=== PATIENT | male | born 1940 | race African-American/Black ===

== ENCOUNTER 2016-09-16 16:07 | Inpatient (IN) ==
[2016-09-16] MEDS ORDERED: Ondansetron 4 MG/2 ML VIAL IVP PRN ×2 (17:09→20:11)
[2016-09-16] MEDS ORDERED: 0.9 % Sodium Chloride 1,000 ML IVC ONE (17:09)
--- NOTE | 2016-09-16 17:24 | Emergency Department Note ---
START Narrative - START START: I examined this patient and my medical decision-making was reviewed with the Resident Physician. I agree with the documented findings, disposition and treatment plan as described except to the extent set forth below. 75-year-old male presents for nausea and vomiting and weakness. Poor by mouth intake recently. Poor appetite. Complaining of dysphagia. Having problems with solid foods getting stuck in his esophagus. He has had this in the past he states requiring dilatation for stricture. He feels like this is returned again today. Denies any new pain anywhere. No fevers or chills. Does have some loose stools. Plan this time is to check labs. Given a chest x-ray to make sure he has no obvious mass or anything impinging on the esophagus. We will need a GI consult. Will need an EGD.
--- NOTE | 2016-09-16 17:34 | Emergency Department Note ---
Disposition Clinical Impression: Hypoglycemia, Dehydration Chronic kidney disease Qualifiers: Chronic kidney disease stage: unspecified stage Qualified Code(s): N18.9 - Chronic kidney disease, unspecified Disposition: Admitted As Inpatient Condition: Good Time of Disposition: 19:31 General Adult HPI - General Chief complaint: ED Weakness Stated complaint: Dehydrated,Vomiting,weakness Time Seen by Provider: 09/16/16 16:52 Source: patient Mode of arrival: ambulatory Limitations: no limitations Nursing Notes Reviewed: Yes Vital Signs Reviewed: Yes - History of Present Illness HPI Narrative: 75-year-old male history of esophageal stricture presents to the ED for concern of dehydration as well as weakness. He reports over 3 months ago he had a ED performed here at [facility]. We confronted him multiple times that we cannot find this in the medical records, it does appear that he had one a year ago in April but he is adamant that it was 3 months ago. States at that time they had to dilate the stricture to help with his swallowing. He presents because last 4 days he has been unable to swallow solid foods. This has been a chronic thing over the past several months he has been unable to keep anything down as it gets caught in his throat. States he can drink liquids and sometimes of ED to say what she must flush it down with fluids. He is able to eat soft foods such as yogurt or Jell-O. He lives at home with his son. He states ever since 3 weeks ago when his nephew was murdered in [place] he has been feeling more week and ill. He was hospitalized for multiple days and has not regained his strength sent. He does reports over the past week or so he has been having loose stools has resolved after [id number] medication. Denies any recent falls, chest pain, shortness of breath, no abdominal pain. He reports some weakness in his lower extremity which is likely due to deconditioning. Reports generalize weakness as well as weight loss states he is away 150 and currently 139. Review of his medical records we are unable to review the endoscopy reports. Will check some basic labs, chest x-ray and EKG. Pain Scale: 6 - Related Data Home Medications Medication Instructions Recorded Confirmed Atorvastatin [Lipitor] 40 mg PO HS 02/21/15 09/16/16 Calcium Carbonate/Vitamin D2 1 tab PO BID 02/21/15 09/16/16 [Oyster Shell Calcium-Vit D Tab] Carvedilol [Coreg] 6.25 mg PO HS 02/21/15 09/16/16 Furosemide [Lasix] 40 mg PO BID 02/21/15 09/16/16 Lisinopril 2.5 mg PO DAILY 02/21/15 09/16/16 Omeprazole [PriLOSEC] 40 mg PO DAILY 02/21/15 09/16/16 Sertraline [Zoloft] 25 mg PO DAILY 02/21/15 09/16/16 Spironolactone [Aldactone] 12.5 mg PO DAILY 02/21/15 09/16/16 hydrALAZINE [HydrALAZINE] 50 mg PO TID 02/21/15 09/16/16 Carvedilol 12.5 mg PO QAM 04/14/15 09/16/16 Loperamide [Imodium] 2 mg PO QID PRN 12/12/15 09/16/16 Albuterol Sulfate [Proair Hfa] 2 puff IH Q4H PRN 09/16/16 09/16/16 Ammonium Lactate [Lac-Hydrin Five] 1 appl TP DAILY 09/16/16 09/16/16 Ascorbate Calcium [Vitamin C] 500 mg PO DAILY 09/16/16 09/16/16 Benzonatate [Tessalon] 100 mg PO TID PRN 09/16/16 09/16/16 Calcitriol [Rocaltrol] 0.25 mcg PO DAILY 09/16/16 09/16/16 Cyclobenzaprine HCl 5 mg PO BID 09/16/16 09/16/16 Dicyclomine [Bentyl] 20 mg PO QID 09/16/16 09/16/16 Doxazosin Mesylate [Cardura] 8 mg PO DAILY 09/16/16 09/16/16 Ergocalciferol (VITAMIN D2) 50,000 unit PO QMONTH 09/16/16 09/16/16 [Vitamin D2] Escitalopram [Lexapro] 10 mg PO DAILY 09/16/16 09/16/16 Guaifenesin [Tussin] 200 mg PO Q4H PRN 09/16/16 09/16/16 HYDROcodone/Acet 5/325 mg [[place] 1 tab PO Q6H PRN 09/16/16 09/16/16 5-325 mg] Ondansetron HCl [Zofran] 4 mg PO TID PRN 09/16/16 09/16/16 Pregabalin [Lyrica] 50 mg PO TID 09/16/16 09/16/16 Sildenafil Citrate [Revatio] 20 mg PO TID 09/16/16 09/16/16 Previous Rx's Medication Instructions Recorded Nitroglycerin 0.4 mg SL Q5MIN PRN #60 tab.subl 02/25/15 Aspirin 81 mg PO DAILY #30 tab.chew 04/18/15 Ferrous Sulfate 325 mg PO BIDWM #60 tablet 04/29/15 Allergies Allergy/AdvReac Type Severity Reaction Status Date / Time No Known Allergies Allergy Verified 09/29/15 10:02 All systems ED: reviewed and negative except as stated. Review of Systems: As Per HPI Constitutional: Reports: weakness, weight change. Denies: fever, chills Cardiovascular: Denies: chest pain Respiratory: Denies: cough, dyspnea Gastrointestinal: Reports: vomiting. Denies: abdominal pain, nausea Genitourinary: Denies: urgency, dysuria Musculoskeletal: Denies: back pain, neck pain Integumentary: Denies: rash, abrasion Neurological: Denies: headache Past Medical History - Past Medical History Attestation: Yes The following information was validated with the patient. Source: patient Medical history: Reports: arthritis, atrial fibrillation, cardiomyopathy, CHF, COPD, coronary artery disease, diabetes, GERD, hyperlipidemia, hypertension, myocardial infarction, osteoporosis, renal disease Surgical history: Reports: angioplasty/stent, pacemaker/AICD Psychiatric history: Reports: anxiety, depression - Social History Smoking Status: Former smoker Smokeless Tobacco Status: No Alcohol use: Reports: none Drug use: Reports: none Physical Exam - General Limitations: no limitations General appearance: alert, in no apparent distress, cachectic, other (muscle wasting) - Head Head exam: atraumatic, normocephalic, normal inspection - Eye Eye exam: Present: normal appearance, PERRL, EOMI - ENT ENT exam: normal exam, normal oropharynx, mucous membranes dry - Neck Neck exam: Present: normal inspection, full ROM, trachea midline - Chest Chest inspection: Present: normal inspection, symmetric chest wall rise, other ( Pacemaker in the left anterior chest wall) - Respiratory Respiratory exam: Present: normal lung sounds bilaterally. Absent: respiratory distress, wheezes - Cardiovascular Cardiovascular exam: Present: regular rate, normal rhythm, normal heart sounds. Absent: systolic murmur, diastolic murmur - Abdominal Exam Abdominal exam: Present: soft, Non-Tender, normal bowel sounds. Absent: tenderness, distention, guarding, rebound, rigidity - Extremities Exam Extremities exam: Present: normal inspection, full ROM, other (muscle wasting) - Neurological Exam Neurological exam: Present: alert, oriented X3 - Expanded Neurological Exam Motor strength - LUE: 5/5 Motor strength - RUE: 5/5 Motor strength - LLE: 4/5 Motor strength - RLE: 4/5 - Psychiatric Psychiatric exam: Present: normal affect, normal mood - Skin Skin exam: Present: warm, dry, intact, normal color Course - Reevaluation(s) Reevaluation #1: Patient has a history of chronic kidney disease. His creatinine is elevated significantly above his baseline. He has been this high over the past several years. His electrolytes suggest that he is slightly dehydrated. He has had one liter of normal saline. His glucose is low at 65. Patient was awake alert and oriented to person place and time of initial evaluation. We will give him a amp of D50. He is requesting to eat something but due to his symptoms of choking food being stuck we have elected to give him dextrose. He does reports over the past week or so he has been having loose stools has resolved after over -the-counter medication. Review of his chest x-ray days concerns for early consolidation for pneumonia. Due to his current symptoms and absence of any difficulty breathing or coughing I do not believe this to be the case. His lungs are clear auscultation bilaterally. This oxygen saturation has been adequate throughout his stay. States he has been vomiting food substance without any cough sputum production. With his weakness and current symptoms will plan to admit the patient for hydration and further evaluation. Patients in agreement with this plan. Time: 18:54 Reevaluation #2: Requests for a lactate in the urinalysis hospitalist. Patients able to stand with some assistance to urinate. Patient states significant improvement. Patient has been accepted for admission. Impression is dehydration, weakness and hypoglycemia. Time: 19:27 - Consultations Consultation #1: Spoke with on-call hospitalist kendrick Ferguson to admit for dehydration and generalized weakness. Review of his medications he does not appear to be a diabetic. I asked the patient, he typically takes metformin and insulin for his diabetes. He however reports being out of his insulin for the past 3 months and has only been taking his Metformin. Due to his decreased appetite and continued Metformin, likely the reason for his low glucose level. Time: 19:24 Vital Signs Temperature 0 F L 09/16/16 16:11 Pulse Rate 89 09/16/16 16:11 Respiratory Rate 18 09/16/16 16:11 Blood Pressure 149/102 09/16/16 16:11 O2 Sat by Pulse Oximetry 93 09/16/16 16:11 Temperature 0 F L 09/16/16 16:11 Pulse Rate 89 09/16/16 16:11 Respiratory Rate 18 09/16/16 16:11 Blood Pressure 149/102 09/16/16 16:11 O2 Sat by Pulse Oximetry 93 09/16/16 16:11 Medical Decision Making - Medical Records Medical records reviewed: Yes I reviewed the patient's medical records. Review of a upper G.I. endoscopy performed 04/16/2015 shows a mild benign appearing Schatzki ring at the gastroesophageal junction. Dilation was performed within [place] dilator at 60 [place]. There is also localized mild inflammation found in the pre-pyloric region. Biopsies were performed and were negative for H. pylori. A small hiatal hernia also present. Confronted patient again about the endoscopy he reports a recent one 3 months ago and not a year ago. - Lab Data Lab results reviewed: Yes I reviewed the patient's lab results. Result diagrams: 09/16/16 17:31 09/16/16 17:31 Lab Results 09/16/16 09/16/16 09/16/16 Range/Units 17:31 17:31 17:31 WBC 5.4 (4.3-11.1) K/mcL RBC 5.05 (4.19-5.50) M/mcL Hgb 13.5 (12.9-16.9) g/dL Hct 44.0 (37.5-50.1) % MCV 87.1 (83.0-100.0) fL MCH 26.7 L (28.0-33.3) pg MCHC 30.7 L (31.6-35.5) g/dL RDW 18.8 H (11.5-14.5) % Plt Count 187 (140-400) K/mcL MPV 11.4 (9.4-12.4) fL Immature Gran % 0.2 (0-4) % Seg Neutrophils % 67.3 % Lymphocytes % 18.7 % Monocytes % 10.9 % Eosinophils % 2.0 % Basophils % 0.9 % Neutrophils # 3.6 (1.6-8.9) K/mcL Lymphocytes # 1.0 (0.6-4.6) K/mcL Monocytes # 0.6 (0.0-1.3) K/mcL Eosinophils # 0.1 (0.0-0.6) K/mcL Basophils # 0.1 (0.0-0.2) K/mcL Sodium 142 (136-145) mEq/L Potassium 4.7 H (3.5-4.5) mEq/L Chloride 111 H (98-109) mEq/L Carbon Dioxide 15 L (19-29) mEq/L BUN 42 H (8-26) mg/dL Creatinine 3.15 H (0.72-1.25) mg/dL Est GFR ( Amer) 23 L (> 60) Est GFR (Non-Af Amer) 19 L (> 60) BUN/Creatinine Ratio 13 (6-26) Glucose 65 L (70-99) mg/dL Calculated Osmolality 303 H (280-300) Calcium 9.8 (8.6-10.8) mg/dL Total Bilirubin 1.5 H (0.2-1.2) mg/dL Direct Bilirubin 1.0 H (0.0-0.5) mg/dL Indirect Bilirubin 0.5 (0.0-1.2) mg/dL AST 17 (5-34) Units/L ALT 9 (0-55) Units/L Alkaline Phosphatase 55 (38-126) Units/L Serum Total Protein 7.4 (6.0-8.3) g/dL Albumin 3.7 (3.5-5.0) g/dL Globulin 3.7 H (2.4-3.5) g/dL Albumin/Globulin Ratio 1.0 L (1.1-2.2) Lipase 10 (8-78) Units/L Urine Color (Yellow) Urine Clarity (Clear) Urine pH (5.0-8.0) pH Units Ur Specific [place] (1.010-1.025) Urine Protein (Neg-Trace) mg/dL Urine Glucose (UA) (Normal) mg/dL Urine Ketones (Negative) mg/dL Urine Blood (Negative) Urine Nitrite (Negative) Urine Bilirubin (Negative) Urine Urobilinogen (Normal) mg/dL Ur Leukocyte Esterase (Negative) Urine Microscopic RBC (0-3) per hpf Urine Microscopic WBC (0-3) per hpf Ur Squamous Epith Cells (None-Few) per lpf Urine Bacteria (None-Few) per hpf Hyaline Casts (None-Few) per lpf Ur Culture Indicated? (NO) 09/16/16 Range/Units 19:30 WBC (4.3-11.1) K/mcL RBC (4.19-5.50) M/mcL Hgb (12.9-16.9) g/dL Hct (37.5-50.1) % MCV (83.0-100.0) fL MCH (28.0-33.3) pg MCHC (31.6-35.5) g/dL RDW (11.5-14.5) % Plt Count (140-400) K/mcL MPV (9.4-12.4) fL Immature Gran % (0-4) % Seg Neutrophils % % Lymphocytes % % Monocytes % % Eosinophils % % Basophils % % Neutrophils # (1.6-8.9) K/mcL Lymphocytes # (0.6-4.6) K/mcL Monocytes # (0.0-1.3) K/mcL Eosinophils # (0.0-0.6) K/mcL Basophils # (0.0-0.2) K/mcL Sodium (136-145) mEq/L Potassium (3.5-4.5) mEq/L Chloride (98-109) mEq/L Carbon Dioxide (19-29) mEq/L BUN (8-26) mg/dL Creatinine (0.72-1.25) mg/dL Est GFR ( Amer) (> 60) Est GFR (Non-Af Amer) (> 60) BUN/Creatinine Ratio (6-26) Glucose (70-99) mg/dL Calculated Osmolality (280-300) Calcium (8.6-10.8) mg/dL Total Bilirubin (0.2-1.2) mg/dL Direct Bilirubin (0.0-0.5) mg/dL Indirect Bilirubin (0.0-1.2) mg/dL AST (5-34) Units/L ALT (0-55) Units/L Alkaline Phosphatase (38-126) Units/L Serum Total Protein (6.0-8.3) g/dL Albumin (3.5-5.0) g/dL Globulin (2.4-3.5) g/dL Albumin/Globulin Ratio (1.1-2.2) Lipase (8-78) Units/L Urine Color Dark Yellow (Yellow) Urine Clarity Cloudy A (Clear) Urine pH 5.5 (5.0-8.0) pH Units Ur Specific [place] 1.024 (1.010-1.025) Urine Protein >=300 H (Neg-Trace) mg/dL Urine Glucose (UA) Normal (Normal) mg/dL Urine Ketones Trace H (Negative) mg/dL Urine Blood Trace H (Negative) Urine Nitrite Negative (Negative) Urine Bilirubin Moderate H (Negative) Urine Urobilinogen Normal (Normal) mg/dL Ur Leukocyte Esterase Negative (Negative) Urine Microscopic RBC 5-15 H (0-3) per hpf Urine Microscopic WBC 3-5 H (0-3) per hpf Ur Squamous Epith Cells Moderate H (None-Few) per lpf Urine Bacteria None Seen (None-Few) per hpf Hyaline Casts None Seen (None-Few) per lpf Ur Culture Indicated? NO (NO) - Radiology Data Radiology results reviewed: Yes I reviewed the patient's radiology results. Chest X-Ray 09/16/16 17:21 IMPRESSION: Cardiomegaly without overt pulmonary edema. Mild right basilar opacity likely representing atelectasis and small right pleural effusion. Early consolidation from pneumonia cannot be completely excluded. D/ / Marquise Moncada MD / Marquise Moncada MD Interpreting Provider: Marquise Moncada MD
[2016-09-16 17:40] LABS: Basophils # 0.1 K/mcL (0.0-0.2); Basophils % 0.9 %; Eosinophils # 0.1 K/mcL (0.0-0.6); Hemoglobin 13.5 g/dL (12.9-16.9); Immature Granulocytes % 0.2 % (0-4); Lymphocytes % 18.7 %; Mean Corpuscular HGB Conc 30.7 g/dL (31.6-35.5); Mean Corpuscular Hemoglobin 26.7 pg (28.0-33.3); Mean Corpuscular Volume 87.1 fL (83.0-100.0); Mean Platelet Volume 11.4 fL (9.4-12.4); Monocytes # 0.6 K/mcL (0.0-1.3); Monocytes % 10.9 %; Neutrophils # 3.6 K/mcL (1.6-8.9); Platelet Count 187 K/mcL (140-400); Red Blood Count 5.05 M/mcL (4.19-5.50); Red Cell Distribution Width 18.8 % (11.5-14.5); Segmented Neutrophils % 67.3 %
[2016-09-16 17:54] LABS: Calcium 9.8 mg/dL (8.6-10.8); Potassium 4.7 mEq/L (3.5-4.5)
[2016-09-16 17:57] LABS: Albumin 3.7 g/dL (3.5-5.0); Bilirubin,Indirect 0.5 mg/dL (0.0-1.2); Bilirubin,Total 1.5 mg/dL (0.2-1.2); Globulin 3.7 g/dL (2.4-3.5); Total Protein 7.4 g/dL (6.0-8.3)
[2016-09-16] MEDS ORDERED: *HR* Dextrose 50 % in Water (Syg) 50 ML SYRINGE IVP ONE (18:12)
[2016-09-16 19:37] LABS: Bilirubin,Urine Moderate (Negative); Blood,Urine Trace (Negative); Clarity,Urine Cloudy (Clear); Color,Urine Dark Yellow (Yellow); Glucose,Urine (UA) Normal (Normal); Ketones,Urine Trace mg/dL (Negative); Leukocyte Esterase,Urine Negative (Negative); Nitrite,Urine Negative (Negative); PH,Urine 5.5 pH Units (5.0-8.0); Protein,Urine >=300 mg/dL (Neg-Trace); Specific Gravity,Urine 1.024 (1.010-1.025); Urobilinogen,Urine Normal (Normal)
[2016-09-16 19:40] LABS: Bacteria,Urine None Seen per hpf (None-Few); Hyaline Casts,Urine None Seen per lpf (None-Few); Squamous Epithelial Cell,Urine Moderate per lpf (None-Few)
[2016-09-16] MEDS ORDERED: Benzonatate 100 MG CAPSULE PO PRN (20:15)
[2016-09-16] MEDS ORDERED: GuaiFENesin Liq 200 MG/10 ML UDC PO PRN (20:15)
[2016-09-16] MEDS ORDERED: Nitroglycerin 0.4 MG TAB.SUBL SL PRN (20:15)
--- NOTE | 2016-09-16 20:28 | Internal Med History&Physical ---
<Sagar Odell - Last Filed: 09/16/16 21:41> Date of Encounter: 09/16/16 Time of Encounter: 19:45 Assessment and Plan (1) Esophageal stricture Current visit: Yes Status: Acute - Known history of esophageal structure - EGD on 04/16/2015 found benign-appearing Schatzki ring at GE junction and esophageal dilatation was performed. - NPO for now. - Will consult GI. Appreciate further evaluation with EGD and potential intervention with esophageal dilatation. - Continue to monitor. (2) Hypoglycemia Current visit: Yes Status: Acute - Serum glucose at 65 in ED and D50 was given. - Likely related to reduced oral intake from dysphagia while still taking metformin. - Hold metiformin. - Routine monitoring of gluocose level and treat hypoglycemia based on hypoglycemia protocol. (3) Acute on chronic renal failure Current visit: Yes Status: Acute - Worsening SCr/eGFR (3.15/) compared to baseline (2.5/30). - Likely prerenal as patient had reduced oral intake due difficulty swallowing. - Hydration with IV LR at rate of 75 cc/hr. - Hold home diuretics at this time. - Avoid nephrotoxin. - Continue to monitor renal function and electrolytes. Qualifiers: Acute renal failure type: unspecified Chronic kidney disease stage: stage 4 (severe) Qualified Code(s): N17.9 - Acute kidney failure, unspecified; N18.4 - Chronic kidney disease, stage 4 (severe) (4) Atrial fibrillation Current visit: No Status: Chronic - Continue rate control with Coreg and anticoagulation with Xarelto. Qualifiers: Atrial fibrillation type: chronic Qualified Code(s): I48.2 - Chronic atrial fibrillation (5) CHF (congestive heart failure) Current visit: No Status: Chronic - Echo from 07/16/15 showed LVEF 15% with indeterminate diastolic function. - Hold diuretic at this time given worsening renal function. Qualifiers: Congestive heart failure type: systolic Congestive heart failure chronicity : chronic Qualified Code(s): I50.22 - Chronic systolic (congestive) heart failure (6) Diabetes mellitus Current visit: No Status: Chronic - Hgb A1C 8.7 on 08/13/16 - Hold metformin for now given current hypoglycemia. Qualifiers: Diabetes mellitus type: type 2 Diabetes mellitus complication status: with kidney complications Diabetes mellitus complication detail: with chronic kidney disease Diabetes mellitus prison insulin use: with technician terminal and repeater use Chronic kidney disease stage: stage 3 (moderate) Qualified Code(s): E11.22 - Type 2 diabetes mellitus with diabetic chronic kidney disease; N18.3 - Chronic kidney disease, stage 3 (moderate); Z79.4 - director long term care (current) use of insulin Internal Medicine - H&P: HPI Chief complaint: Difficulty swallowing Admitted From: Emergency Dept Plans for Post Hospital Care: Home History of present illness: Mr. Anaya is a 75 year old male with PMH of esophageal stricture s/p esophageal dilatation on 04/16/15, systolic CHF (LVEF 15% per echo on 07/16/15), A- fib on Xarelto, HTN, DM, CKD stage 4 and severe pulmonary hypertension. Patient presented with 4-day history of difficulty swallowing solid food. Patient is able take liquid and soft food like Jello or pudding. It's associated with nausea, vomiting, generalized weakness and weight loss. Patient reports having similar problem in the past and esophageal dilatation helped. Patient denies fever, chest pain, lightheadedness, syncope, acid reflex, heartburn, shortness of breath, abdominal pain, hematochezia, dysuria. Patient is full code. Patient was noted to be hypoglycemic (glucose 65) in ED and received D50 and 1L of NS in ED. Past Med Surg Social Fam HX - Past Medical History Medical history: arthritis, atrial fibrillation, cardiomyopathy, CHF, COPD, coronary artery disease, diabetes, GERD, hyperlipidemia, hypertension, myocardial infarction, osteoporosis, renal disease Psychiatric history: anxiety, depression - Past Surgical History Surgical History: angioplasty/stent, pacemaker/AICD, other (Back surgery) - Social History Smoking Status: Former smoker Smokeless Tobacco Status: No Alcohol use: none Drug use: none - Family History Mother Living Status: Hx Family Cancer: Yes (breast cancer) Hx Family Neurologic Disorders: Yes (Stroke) Father Living Status: Hx Family Cancer: Yes (Colon cancer) Internal Medicine - H&P: Meds Atorvastatin [Lipitor] 40 mg PO HS 02/21/15 [History] Calcium Carbonate/Vitamin D2 [Oyster Shell Calcium-Vit D Tab] 1 tab PO BID 02/21 [History] Carvedilol [Coreg] 6.25 mg PO HS 02/21/15 [History] Furosemide [Lasix] 40 mg PO BID 02/21/15 [History] Lisinopril 2.5 mg PO DAILY 02/21/15 [History] Omeprazole [PriLOSEC] 40 mg PO DAILY 02/21/15 [History] Sertraline [Zoloft] 25 mg PO DAILY 02/21/15 [History] Spironolactone [Aldactone] 12.5 mg PO DAILY 02/21/15 [History] hydrALAZINE [HydrALAZINE] 50 mg PO TID 02/21/15 [History] Nitroglycerin 0.4 mg SL Q5MIN PRN #60 tab.subl 02/25/15 [Rx] Carvedilol 12.5 mg PO QAM 04/14/15 [History] Aspirin 81 mg PO DAILY #30 tab.chew 04/18/15 [Rx] Ferrous Sulfate 325 mg PO BIDWM #60 tablet 04/29/15 [Rx] Loperamide [Imodium] 2 mg PO QID PRN 12/12/15 [History] Albuterol Sulfate [Proair Hfa] 2 puff IH Q4H PRN 09/16/16 [History] Ammonium Lactate [Lac-Hydrin Five] 1 appl TP DAILY 09/16/16 [History] Ascorbate Calcium [Vitamin C] 500 mg PO DAILY 09/16/16 [History] Benzonatate [Tessalon] 100 mg PO TID PRN 09/16/16 [History] Calcitriol [Rocaltrol] 0.25 mcg PO DAILY 09/16/16 [History] Cyclobenzaprine HCl 5 mg PO BID 09/16/16 [History] Dicyclomine [Bentyl] 20 mg PO QID 09/16/16 [History] Doxazosin Mesylate [Cardura] 8 mg PO DAILY 09/16/16 [History] Ergocalciferol (VITAMIN D2) [Vitamin D2] 50,000 unit PO QMONTH 09/16/16 [History ] Escitalopram [Lexapro] 10 mg PO DAILY 09/16/16 [History] Guaifenesin [Tussin] 200 mg PO Q4H PRN 09/16/16 [History] HYDROcodone/Acet 5/325 mg [[place] 5-325 mg] 1 tab PO Q6H PRN 09/16/16 [History] Ondansetron HCl [Zofran] 4 mg PO TID PRN 09/16/16 [History] Pregabalin [Lyrica] 50 mg PO TID 09/16/16 [History] Sildenafil Citrate [Revatio] 20 mg PO TID 09/16/16 [History] Allergies No Known Allergies Allergy (Verified 09/29/15 10:02) All Systems PM: A 10-system review of systems was performed and is negative for pertinent findings except as documented above in the HPI. - Constitutional Constitutional: fatigue, weight loss, no fever(s) - EENT Eyes: no change in vision Ears: no decreased hearing Nose, mouth and throat: dysphagia - Cardiovascular Cardiovascular ROS IM: no chest pain, no lightheadedness, no syncope - Respiratory Respiratory: cough, no dyspnea, no hemoptysis, no excessive phlegm production - Gastrointestinal Gastrointestinal: nausea, vomiting, no abdominal pain, no hematochezia, no melena - Genitourinary Genitourinary ROS male: no difficulty urinating, no dysuria, no hematuria - Integumentary Integumentary IM: no pruritus, no rash - Neurological Neurological ROS: no focal weakness, no numbness, no tingling - Hematologic/Lymphatic Hematologic/Lymphatic: no easy bleeding, no easy bruising - Constitutional Vitals: Temp Pulse Resp BP Pulse Ox 97.6 F 89 16 139/98 93 09/16/16 20:23 09/16/16 16:11 09/16/16 20:23 09/16/16 20:23 09/16/16 16:11 General appearance: Present: cooperative, A&O X 3, no acute distress, answers questions appropriately - Head Head exam: Present: atraumatic, normocephalic - Eye Eye exam: Present: EOMI, PERRL, conjuntiva pink, sclera anicteric - Neck Neck exam general surgery: Present: supple, trachea midline. Absent: lymphadenopathy - Respiratory Respiratory exam: Present: CTAB. Absent: accessory muscle use, rales, rhonchi, wheezes - Cardiovascular Cardiovascular exam: Present: RRR, +S1, +S2. Absent: diastolic murmur, gallop, rubs, systolic murmur - GI/Abdominal GI/Abdominal exam: Present: normal bowel sounds, soft, no peritoneal signs. Absent: distended, tenderness - Extremities Exam Extremities exam: Present: warm, radial pulses palpable and symetrical. Absent : calf tenderness, cyanotic, pedal edema - Neurological Exam Neurological exam: Present: CN II-XII intact, oriented X3, no focal deficits. Absent: pronater drift, facial droop, speech deficit - Skin Skin exam: Present: dry, intact Internal Med - H&P Results - Labs CBC & Chem 7: 09/16/16 17:31 09/16/16 17:31 <Noel Wills - Last Filed: 09/17/16 02:32> Date of Encounter: 09/16/16 Assessment and Plan (1) Hyperkalemia Current visit: Yes Status: Acute most likely from the KAY/CKD, we will hydrate and follow AM [facility] Internal Medicine - H&P: HPI History of present illness: Mr. Anaya is a 75 year old male All Systems PM: A 10-system review of systems was performed and is negative for pertinent findings except as documented above in the HPI. - Constitutional Vitals: Temp Pulse Resp BP Pulse Ox 97.5 F L 69 16 101/65 98 09/17/16 01:36 09/17/16 01:36 09/17/16 01:36 09/17/16 01:36 09/17/16 01:36 Internal Med - H&P Results - Labs CBC & Chem 7: 09/16/16 17:31 09/16/16 17:31 - Diagnostic Studies Chest x-ray Status: image reviewed by me - Attending Attestation I personally interviewed and examined this patient and my medical decision- making was reviewed with the Resident Physician. I agree with the documented findings, disposition and treatment plan as described. Patient with a hx of esophageal strictures comes in with dysphagia(esophageal phase) for which he has been unable to maintain adequate nutrition and hydration with its attendant KAY/Dehydration/electrolyte derangements among others, we will admit for IVF and appreciate the input of our signal technician for possible EGD with dilatation if they deem these interventions necessary. Noel Wills MD, MPH Hospitalist
[2016-09-16] MEDS ORDERED: D5% in Water 1,000 ML IVC PRN (20:30)
[2016-09-16] MEDS ORDERED: *HR* Dextrose 50 % in Water (Syg) 50 ML SYRINGE IVP PRN (20:30)
[2016-09-16] MEDS ORDERED: Dextrose Gel 15 GM PO PRN ×2 (20:30)
[2016-09-16] MEDS: Ringers Solution, Lactated 1,000 ML IVC SCH (21:29)
[2016-09-16] MEDS: hydrALAZINE 25 MG TABLET PO SCH (21:30)
[2016-09-16] MEDS: Sildenafil Citrate 20 MG TABLET PO SCH (21:30)
[2016-09-17 04:16] LABS: Magnesium 1.4 mg/dL (1.6-2.6)
[2016-09-17 04:17] LABS: Albumin 3.1 g/dL (3.5-5.0); Bilirubin,Total 1.2 mg/dL (0.2-1.2); Globulin 3.2 g/dL (2.4-3.5); Potassium 4.6 mEq/L (3.5-4.5); Total Protein 6.3 g/dL (6.0-8.3)
--- NOTE | 2016-09-17 08:30 | Gastroenterology Consult Note ---
<Britta Alvarez - Last Filed: 09/17/16 11:03> Date of Encounter: 09/17/16 Time of Encounter: 10:45 - Assessment and plan (1) AICD (automatic cardioverter/defibrillator) present Current Visit: Yes Status: Chronic (2) Esophageal stricture Current Visit: Yes Status: Chronic Assessment and plan: Hx of benign-appearing Schatzki ring. Patient on Xarelto with S4 CKD. Needs EGD with dilation. - Time Spent With Patient Total time spent is greater than 50% in coordination of care (as documented) at patient's floor/unit and/or counseling patient: less than 15 minutes GI History of Present Illness - Data of Consult Patient: known to practice within the last 3 years Consult date: 09/17/16 Requesting Physician: Esther Walker CNP - Consult Narrative Reason for consult: dysphagia, N/V History of present illness: Mr. Anaya is a 75 year old male with a PMH significant for systolic CHF (LVEF 15%), afib on XARELTO, HTN, DM, CKD4, severe pulmonary hypertension, Schatzki ring. Patient presented with 4-day history of difficulty swallowing solid food. Patient is able take liquid and soft food like Jello or pudding. It's associated with nausea, vomiting, generalized weakness and weight loss. Patient reports having similar problem in the past and esophageal dilatation helped. Patient denies fever, chest pain, lightheadedness, syncope, acid reflex, heartburn, shortness of breath, abdominal pain, hematochezia, dysuria. Patient is full code. Last EGD 04/[address] Jeffrey showed small hiatal hernia, gastritis and benign-appearing Schatzki ring. Cscope completed at the same time 6mm tubular adenoma removed, diverticulosis with a recommendation to repeat in 5 years. Patient was still slightly sedated during my visit/exam. Nursing staff in attendance stated some difficulty swallowing when he returned from procedure , however, they were able to clear the mucus with suction and he was sitting up on side of bed in no apparent distress. Colonoscopy: 04/2015 - [facility] - 6mm tubular adenoma, diverticulosis, rept 5 yrs EGD: 04/2015 - [facility] - gastritis, sm hiatal hernia, Schatzki ring/dilated Past Med Surg Social Fam HX - Past Medical History Medical history: arthritis, atrial fibrillation, cardiomyopathy, CHF, COPD, coronary artery disease, diabetes, GERD, hyperlipidemia, hypertension, myocardial infarction, osteoporosis, renal disease Psychiatric history: anxiety, depression - Past Surgical History Surgical History: angioplasty/stent, pacemaker/AICD, other (Back surgery) - Social History Smoking Status: Former smoker Smokeless Tobacco Status: No Alcohol use: none Drug use: none - Family History Mother Living Status: Cause of : Cancer Hx Family Cancer: Yes (breast cancer) Hx Family Neurologic Disorders: Yes (Stroke) Father Living Status: Age at : 86 Cause of : Cancer Hx Family Cancer: Yes (Colon cancer) - Gastrointestinal NSAID use: None noted Anticoagulation Use: Xarelto Number of BM Per Day: Unk Gastrointestinal: Present: abdominal pain, nausea, vomiting - Constitutional Constitutional: as per HPI - EENT Eyes: as per HPI Ears: Present: as per HPI Nose, mouth and throat: Present: dysphagia - Cardiovascular Cardiovascular ROS: Present: as per HPI - Respiratory Respiratory IM: Present: as per HPI - Neurological ROS Neurological GI: Present: as per HPI - Hematologic/Lymphatic Hematologic/Lymphatic pediatric: Present: as per HPI - Musculoskeletal Musculoskeletal ROS GI: Present: as per HPI - Integumentary Integumentary GI: Present: as per HPI - Psychiatric ROS Psychiatric GI: Present: as per HPI - Endocrine Endocrine IM: Present: as per HPI - Constitutional Vitals: Temp Pulse Resp BP Pulse Ox 97.4 F L 65 16 131/83 98 09/17/16 07:04 09/17/16 07:04 09/17/16 07:04 09/17/16 07:04 09/17/16 07:04 General appearance: Present: cooperative, A&O X 2, no acute distress, thin - Head Head exam: Present: atraumatic, normocephalic - Eye Eye exam: Present: normal appearance, sclera anicteric - ENT ENT exam: Present: mucous membranes moist - Neck Neck exam general surgery: Present: normal inspection, trachea midline - Respiratory Respiratory exam: Present: decreased breath sounds - Cardiovascular Cardiovascular exam: Present: RRR, +S1, +S2 - GI/Abdominal GI/Abdominal exam: Present: normal bowel sounds, soft, no peritoneal signs - Rectal Rectal exam: Present: deferred - Extremities Exam Extremities exam: Present: warm - Neurological Exam Additional comments: unable to fully assess d/t sedation - Psychiatric Psychiatric exam: Present: flat affect - Skin Skin exam: Present: dry, intact, normal color, warm Results - Labs CBC & Chem 7: 09/16/16 17:31 09/17/16 03:33 Labs: Last Result Calcium 9.0 mg/dL (8.6-10.8) 09/17/16 03:33 Entire Visit Hgb 13.5 g/dL (12.9-16.9) 09/16/16 17:31 Hct 44.0 % (37.5-50.1) 09/16/16 17:31 Total Bilirubin 1.2 mg/dL (0.2-1.2) 09/17/16 03:33 AST 16 Units/L (5-34) 09/17/16 03:33 ALT 6 Units/L (0-55) 09/17/16 03:33 Lipase 10 Units/L (8-78) 09/16/16 17:31 Consult Discharge Plan - Plan Referrals: Sunil Duong DO [Primary Care Provider] - <Bing Jeffrey - Last Filed: 09/17/16 12:25> Date of Encounter: 09/17/16 Time of Encounter: 10:00 - Time Spent With Patient Total time spent is greater than 50% in coordination of care (as documented) at patient's floor/unit and/or counseling patient: GI History of Present Illness - Data of Consult Requesting Physician: Esther Walker CNP - Consult Narrative History of present illness: Mr. Anaya is a 75 year old male - Constitutional Vitals: Temp Pulse Resp BP Pulse Ox 97.6 F 67 16 138/85 98 09/17/16 11:02 09/17/16 11:02 09/17/16 11:02 09/17/16 11:02 09/17/16 11:02 Results - Labs CBC & Chem 7: 09/16/16 17:31 09/17/16 03:33 Labs: Last Result Calcium 9.0 mg/dL (8.6-10.8) 09/17/16 03:33 Entire Visit Hgb 13.5 g/dL (12.9-16.9) 09/16/16 17:31 Hct 44.0 % (37.5-50.1) 09/16/16 17:31 Total Bilirubin 1.2 mg/dL (0.2-1.2) 09/17/16 03:33 AST 16 Units/L (5-34) 09/17/16 03:33 ALT 6 Units/L (0-55) 09/17/16 03:33 Lipase 10 Units/L (8-78) 09/16/16 17:31 - Attending Attestation I examined this patient and my medical decision-making was reviewed with the Resident Physician. I agree with the documented findings, disposition and treatment plan as described except to the extent set forth below.
--- NOTE | 2016-09-17 08:52 | Anesthesia Evaluation PreOp ---
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) Other Medical History: Renal (CRD), Diabetes Type II, GERD Anesthesia History: No Prior Anesthetic Complications, Past Anesthesia (EGD) Alcohol Use: none Drug use: none Medications and Allergies Atorvastatin [Lipitor] 40 mg PO HS 02/21/15 [History] Calcium Carbonate/Vitamin D2 [Oyster Shell Calcium-Vit D Tab] 1 tab PO BID 02/21 [History] Carvedilol [Coreg] 6.25 mg PO HS 02/21/15 [History] Furosemide [Lasix] 40 mg PO BID 02/21/15 [History] Lisinopril 2.5 mg PO DAILY 02/21/15 [History] Omeprazole [PriLOSEC] 40 mg PO DAILY 02/21/15 [History] Sertraline [Zoloft] 25 mg PO DAILY 02/21/15 [History] Spironolactone [Aldactone] 12.5 mg PO DAILY 02/21/15 [History] hydrALAZINE [HydrALAZINE] 50 mg PO TID 02/21/15 [History] Nitroglycerin 0.4 mg SL Q5MIN PRN #60 tab.subl 02/25/15 [Rx] Carvedilol 12.5 mg PO QAM 04/14/15 [History] Aspirin 81 mg PO DAILY #30 tab.chew 04/18/15 [Rx] Ferrous Sulfate 325 mg PO BIDWM #60 tablet 04/29/15 [Rx] Loperamide [Imodium] 2 mg PO QID PRN 12/12/15 [History] Albuterol Sulfate [Proair Hfa] 2 puff IH Q4H PRN 09/16/16 [History] Ammonium Lactate [Lac-Hydrin Five] 1 appl TP DAILY 09/16/16 [History] Ascorbate Calcium [Vitamin C] 500 mg PO DAILY 09/16/16 [History] Benzonatate [Tessalon] 100 mg PO TID PRN 09/16/16 [History] Calcitriol [Rocaltrol] 0.25 mcg PO DAILY 09/16/16 [History] Cyclobenzaprine HCl 5 mg PO BID 09/16/16 [History] Dicyclomine [Bentyl] 20 mg PO QID 09/16/16 [History] Doxazosin Mesylate [Cardura] 8 mg PO DAILY 09/16/16 [History] Ergocalciferol (VITAMIN D2) [Vitamin D2] 50,000 unit PO QMONTH 09/16/16 [History ] Escitalopram [Lexapro] 10 mg PO DAILY 09/16/16 [History] Guaifenesin [Tussin] 200 mg PO Q4H PRN 09/16/16 [History] HYDROcodone/Acet 5/325 mg [[place] 5-325 mg] 1 tab PO Q6H PRN 09/16/16 [History] Ondansetron HCl [Zofran] 4 mg PO TID PRN 09/16/16 [History] Pregabalin [Lyrica] 50 mg PO TID 09/16/16 [History] Sildenafil Citrate [Revatio] 20 mg PO TID 09/16/16 [History] Allergies No Known Allergies Allergy (Verified 09/29/15 10:02) - Meds/Allergy Pre-op Review Medications Reviewed: Yes Allergies Reviewed: Yes Beta Blockers on Current Med List: Yes If Beta Blockers taken, Date/Time (Last Dose taken): 21:30 09/16/2016 Anesthesia Results - Labs 09/16/16 17:31 09/17/16 03:33 MIRNA on 03/01, EF-15 reduced from 10/29 ef of 40% - Imaging EKG: report reviewed (SINUS RHYTHM WITH FIRST DEGREE AV BLOCK LOW QRS VOLTAGE IN EXTREMITY LEADS NONSPECIFIC ST \T\ T-WAVE ABNORMALITY) Anesthesia Exam O2 Sat Height 1.85 m Height 1.85 m Weight 66 kg Weight 63.049 kg O2 Sat by Pulse Oximetry 98 O2 Sat by Pulse Oximetry 98 O2 Sat by Pulse Oximetry 93 Vital Signs Temp Pulse Resp BP Pulse Ox 0 F L 89 18 149/102 93 09/16/16 16:11 09/16/16 16:11 09/16/16 16:11 09/16/16 16:11 09/16/16 16:11 Vital Signs/O2 Sat, Most Current Temp Pulse Resp BP Pulse Ox 97.4 F L 65 16 131/83 98 09/17/16 07:04 09/17/16 07:04 09/17/16 07:04 09/17/16 07:04 09/17/16 07:04 Height: 6' Weight: 145# NPO (# of Hours): > 8 hrs Pain Scale: 0 - HEENT Pupil (Motor): Pupils equal, EOMI Mallampati: II Teeth: Edentulous Oral Opening: Greater than 3 - 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
[2016-09-17] MEDS: Ringers Solution, Lactated 1,000 ML IVC SCH (11:08)
[2016-09-17] MEDS: Sildenafil Citrate 20 MG TABLET PO SCH ×3 (11:09→21:45)
[2016-09-17] MEDS: Pantoprazole 40 MG VIAL IVP SCH (11:09)
[2016-09-17] MEDS: hydrALAZINE 25 MG TABLET PO SCH ×3 (11:09→20:37)
[2016-09-17] MEDS: Aspirin 81 MG TAB.CHEW PO SCH (11:10)
[2016-09-17] MEDS: Ammonium Lactate 30 APPL/225 GM BOTTLE TP SCH (11:11)
[2016-09-17] MEDS: 0.9 % Sodium Chloride 1,000 ML IVC SCH (16:20)
--- NOTE | 2016-09-17 16:47 | Internal Med Progress Note ---
Date of Encounter: 09/17/16 Time of Encounter: 15:30 - Assessment and plan (1) Esophageal stricture Current Visit: Yes Status: Chronic Assessment and plan: Pt states that he was not able to swallow anything for 4 days. He states that he was still taking his medications. History of same with esophageal dilatation in 04/2015. Pt dilated again today and is able to tolerate fluids and full liquids so far. Will advance to soft tray for dinner. Pt has become dehydrated from poor po intake and n/v, weakness, and weight loss. Continue to monitor and advance diet. (2) Acute on chronic renal failure Current Visit: Yes Status: Acute Assessment and plan: Renal function improving. Sr Cr 3.08, GFR 24. This is slighly above baseline for pt, around 2.5. Gentle IV hydration with 0.9NS Avoid nephrotoxins and NSAIDs. Qualifiers: Acute renal failure type: unspecified Chronic kidney disease stage: stage 4 (severe) Qualified Code(s): N17.9 - Acute kidney failure, unspecified; N18.4 - Chronic kidney disease, stage 4 (severe) (3) CHF (congestive heart failure) Current Visit: No Status: Chronic Assessment and plan: No acute exacerbation. Echo on 07/16/15 showed LVEF 15% with indeterminate diastolic function. Diuretic has been held due to worsening renal function and dehydration. Telemetry Continue to monitor labs. Qualifiers: Congestive heart failure type: systolic Congestive heart failure chronicity : chronic Qualified Code(s): I50.22 - Chronic systolic (congestive) heart failure (4) Hypoglycemia Current Visit: Yes Status: Acute Assessment and plan: Hypoglycemia on arrival to ED. Accuchecks have been been 130s today. Resolved. Continue to monitor (5) Diabetes Current Visit: No Status: Acute Assessment and plan: A1c 8.7 in July,. Continue accuchecks, diabetic diet and SSI. Qualifiers: Diabetes mellitus type: type 2 Diabetes mellitus complication status: with kidney complications Diabetes mellitus complication detail: with chronic kidney disease Diabetes mellitus sinker puller insulin use: unspecified fpc insulin use status Chronic kidney disease stage: stage 3 (moderate) Qualified Code(s): E11.22 - Type 2 diabetes mellitus with diabetic chronic kidney disease; N18.3 - Chronic kidney disease, stage 3 (moderate) (6) Atrial fibrillation Current Visit: No Status: Chronic Qualifiers: Atrial fibrillation type: chronic Qualified Code(s): I48.2 - Chronic atrial fibrillation (7) DVT prophylaxis Current Visit: No Status: Acute Assessment and plan: Heparin SQ, up to chair, MICHELLE hose. - Time Spent With Patient less than 15 minutes - Subjective Interval history: Pt sitting up in bed, family at bs. Pt states that he has not eaten in 4 days. He has been able to tolerate jello, applesauce, and pudding without difficulty. He will advance for dinner. He denies pain, n/v or chest pain. We will keep him overnight for hydration and monitoring. - Constitutional Vitals: Temp Pulse Resp BP Pulse Ox 96.4 F L 64 16 119/78 99 09/17/16 16:18 09/17/16 16:18 09/17/16 16:18 09/17/16 16:18 09/17/16 16:18 General appearance: Present: cooperative, A&O X 3, no acute distress, answers questions appropriately - Head Head exam: Present: normal inspection - Eye Eye exam: Present: normal appearance, conjuntiva pink - ENT ENT exam: Present: mucous membranes moist, normal exam, normal external ear exam - Neck Neck exam general surgery: Present: normal inspection. Absent: lymphadenopathy , tenderness - Respiratory Respiratory exam: Present: CTAB. Absent: chest wall tenderness, rales, respiratory distress, rhonchi, stridor, wheezes - Cardiovascular Cardiovascular exam: Present: RRR, +S1, +S2. Absent: clicks, diastolic murmur, gallop, systolic murmur - GI/Abdominal GI/Abdominal exam: Present: normal bowel sounds, soft. Absent: distended, hepatomegaly, tenderness - Extremities Exam Extremities exam: Present: normal capillary refill, normal inspection, warm, radial pulses palpable and symetrical. Absent: pedal edema, tenderness - Neurological Exam Neurological exam: Present: alert, oriented X3, no focal deficits. Absent: pronater drift, facial droop, speech deficit - Skin Skin exam: Present: dry, intact, warm. Absent: rash Internal Medicine: Result - Labs CBC & Chem 7: 09/16/16 17:31 09/17/16 03:33 Labs: BMP 09/17/16 03:33 Sodium 142 Potassium 4.6 H Chloride 114 H Carbon Dioxide 17 L BUN 43 H Creatinine 3.08 H Glucose 158 H Calcium 9.0 Liver Function 09/17/16 Range/Units 03:33 Total Bilirubin 1.2 (0.2-1.2) mg/dL AST 16 (5-34) Units/L ALT 6 (0-55) Units/L Alkaline Phosphatase 45 (38-126) Units/L Albumin 3.1 L (3.5-5.0) g/dL Consult Discharge Plan - Plan Referrals: Sunil Duong DO [Primary Care Provider] -
[2016-09-17] MEDS: *HR* Heparin 5,000 UNIT/ML VIAL SQ SCH (17:53)
[2016-09-17] MEDS ORDERED: *HR* Dextrose 50 % in Water (Syg) 50 ML SYRINGE IVP PRN (18:32)
[2016-09-17] MEDS ORDERED: Dextrose Gel 15 GM PO PRN ×2 (18:32)
[2016-09-17] MEDS ORDERED: D5% in Water 1,000 ML IVC PRN (18:32)
[2016-09-17] MEDS: Insulin LISPRO 300 UNITS/3 ML VIAL SQ SCH (20:40)
[2016-09-18] MEDS: Ringers Solution, Lactated 1,000 ML IVC SCH (01:59)
[2016-09-18] MEDS: *HR* Heparin 5,000 UNIT/ML VIAL SQ SCH ×2 (06:01→17:39)
[2016-09-18] MEDS: 0.9 % Sodium Chloride 1,000 ML IVC SCH ×2 (06:04→08:32)
--- NOTE | 2016-09-18 07:47 | Internal Med Progress Note ---
Date of Encounter: 09/18/16 Time of Encounter: 07:35 - Assessment and plan (1) Esophageal stricture Current Visit: Yes Status: Chronic Assessment and plan: Pt has been tolerating soft diet without difficulty. Will advance to regular today. (2) Acute on chronic renal failure Current Visit: Yes Status: Acute Assessment and plan: Renal function with little improvement with gentle IVF hydration overnight. Sr Cr 3.08, GFR 24. Pt was hypotensive overnight, BP 106/61 this a.m. Will continue to monitor. Lasix and Lisinopril have been held. Avoid nephrotoxins and NSAIDs. Continue IVF at 50ml/hr Qualifiers: Acute renal failure type: unspecified Chronic kidney disease stage: stage 4 (severe) Qualified Code(s): N17.9 - Acute kidney failure, unspecified; N18.4 - Chronic kidney disease, stage 4 (severe) (3) CHF (congestive heart failure) Current Visit: No Status: Chronic Assessment and plan: No acute exacerbation. Echo on 07/16/15 showed LVEF 15% with indeterminate diastolic function. Diuretic has been held due to worsening renal function and dehydration. Telemetry Continue to monitor labs. Qualifiers: Congestive heart failure type: systolic Congestive heart failure chronicity : chronic Qualified Code(s): I50.22 - Chronic systolic (congestive) heart failure (4) Diabetes Current Visit: No Status: Acute Assessment and plan: A1c 8.7 in July,. Continue accuchecks, diabetic diet and SSI. Accuchecks and serum glucose under 200mg/d. Qualifiers: Diabetes mellitus type: type 2 Diabetes mellitus complication status: with kidney complications Diabetes mellitus complication detail: with chronic kidney disease Diabetes mellitus termite helper insulin use: unspecified termite helper insulin use status Chronic kidney disease stage: stage 3 (moderate) Qualified Code(s): E11.22 - Type 2 diabetes mellitus with diabetic chronic kidney disease; N18.3 - Chronic kidney disease, stage 3 (moderate) (5) Atrial fibrillation Current Visit: No Status: Chronic Assessment and plan: History. Continue Carvedilol, ASA. Qualifiers: Atrial fibrillation type: chronic Qualified Code(s): I48.2 - Chronic atrial fibrillation (6) DVT prophylaxis Current Visit: No Status: Acute Assessment and plan: Heparin SQ, up to chair, MICHELLE hose. - Time Spent With Patient less than 15 minutes - Subjective Interval history: Pt seen and assessed at about 0735. Pt sleeping, arouses easily. Discussed PT evaluation and recommendation for skilled rehab. Pt is agreeable and gave permission for me to speak with his daughter about placement. Pt states that he is feeling better. - Constitutional Vitals: Temp Pulse Resp BP Pulse Ox 97.6 F 72 15 92/57 96 09/18/16 04:24 09/18/16 04:24 09/18/16 04:24 09/18/16 04:24 09/18/16 04:24 General appearance: Present: cooperative, A&O X 3, pleasant, no acute distress, answers questions appropriately - Head Head exam: Present: normal inspection - Eye Eye exam: Present: normal appearance, conjuntiva pink - ENT ENT exam: Present: mucous membranes moist, normal exam, normal external ear exam - Neck Neck exam general surgery: Present: normal inspection. Absent: lymphadenopathy , tenderness - Respiratory Respiratory exam: Present: decreased breath sounds, wheezes. Absent: chest wall tenderness, rales, respiratory distress, rhonchi, stridor, tachypnea - Cardiovascular Cardiovascular exam: Present: RRR, +S1, +S2. Absent: bradycardia, clicks, diastolic murmur, gallop, systolic murmur, tachycardia - GI/Abdominal GI/Abdominal exam: Present: distended, normal bowel sounds. Absent: hepatomegaly, tenderness - Extremities Exam Extremities exam: Present: normal inspection, warm, radial pulses palpable and symetrical. Absent: tenderness - Neurological Exam Neurological exam: Present: alert, oriented X3, no focal deficits. Absent: facial droop, speech deficit - Skin Skin exam: Present: dry, intact, warm. Absent: rash Internal Medicine: Result - Labs CBC & Chem 7: 09/16/16 17:31 09/17/16 03:33 Consult Discharge Plan - Plan Referrals: Sunil Duong DO [Primary Care Provider] -
[2016-09-18] MEDS: Insulin LISPRO 300 UNITS/3 ML VIAL SQ SCH ×4 (08:13→20:34)
[2016-09-18] MEDS: Pantoprazole 40 MG VIAL IVP SCH (08:30)
[2016-09-18] MEDS: Magnesium Oxide 400 MG TABLET PO SCH (08:31)
[2016-09-18] MEDS: hydrALAZINE 25 MG TABLET PO SCH ×3 (08:31→20:35)
[2016-09-18] MEDS: Aspirin 81 MG TAB.CHEW PO SCH (08:31)
[2016-09-18] MEDS: Sildenafil Citrate 20 MG TABLET PO SCH ×3 (08:31→20:35)
[2016-09-18] MEDS: Ammonium Lactate 30 APPL/225 GM BOTTLE TP SCH (08:33)
[2016-09-18 08:38] LABS: Basophils % 0.3 %; Eosinophils # 0.1 K/mcL (0.0-0.6); Eosinophils % 3.6 %; Hematocrit 36.5 % (37.5-50.1); Immature Granulocytes % 0.6 % (0-4); Lymphocytes # 0.5 K/mcL (0.6-4.6); Mean Corpuscular HGB Conc 30.4 g/dL (31.6-35.5); Mean Corpuscular Hemoglobin 26.1 pg (28.0-33.3); Mean Corpuscular Volume 85.9 fL (83.0-100.0); Mean Platelet Volume 11.1 fL (9.4-12.4); Monocytes # 0.4 K/mcL (0.0-1.3); Monocytes % 11.9 %; Neutrophils # 2.5 K/mcL (1.6-8.9); Platelet Count 125 K/mcL (140-400); Red Blood Count 4.25 M/mcL (4.19-5.50); Red Cell Distribution Width 18.2 % (11.5-14.5); Segmented Neutrophils % 68.6 %
[2016-09-18 08:44] LABS: Hemoglobin 11.1 g/dL (12.9-16.9)
[2016-09-18 08:56] LABS: Calcium 8.3 mg/dL (8.6-10.8); Potassium 3.8 mEq/L (3.5-4.5)
--- NOTE | 2016-09-18 13:45 | Nephrology Consult Note ---
Date of Encounter: 09/18/16 Time of Encounter: 13:40 Assessment and Plan (1) CKD (chronic kidney disease), stage III Current Visit: Yes Status: Chronic Hx of CKD stage IIIb and near IV (when using eGFR for Americans). Non- oliguric, and no uremic symptoms. No indications for CAR WIPER. While hospitalized, follow a renal protective and supportive strategy to avoid nephrotoxin exposures. Dose Rx that is renally cleared by eGFR, strict I/Os, and daily weights Likely able to stop IVF since he's near his baseline GFR. Thank you for consulting the [facility] group. History of Present Illness - Reason for Consult Consult date: 09/18/16 Chronic Kidney Disease Requesting physician: Karime Guy - Chief Complaint CKD - History of Present Illness Jaden Anaya is a very pleasant 75y/o AAM with a pmh of advanced advanced systolic CHF, CKD stage IIIb and et al who presented to [facility]. Nephrology was consulted for CKD while the pt is hospitalized. 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 Today, during my interview he did not affirm N/V/D, CP, change is breathing or feelings of edema. He denied OTC use of NSAIDs. Past Med Surg Social Fam HX - Past Medical History Medical history: arthritis, atrial fibrillation, cardiomyopathy, CHF, COPD, coronary artery disease, diabetes, GERD, hyperlipidemia, hypertension, myocardial infarction, osteoporosis, renal disease Psychiatric history: anxiety, depression - Past Surgical History Surgical History: angioplasty/stent, pacemaker/AICD, other (Back surgery) - Social History Smoking Status: Former smoker Smokeless Tobacco Status: No Alcohol use: none Drug use: none - Family History Mother Living Status: Cause of : Cancer Hx Family Cancer: Yes (breast cancer) Hx Family Neurologic Disorders: Yes (Stroke) Father Living Status: Age at : 86 Cause of : Cancer Hx Family Cancer: Yes (Colon cancer) Medications and Allergies Atorvastatin [Lipitor] 40 mg PO HS 02/21/15 [History] Calcium Carbonate/Vitamin D2 [Oyster Shell Calcium-Vit D Tab] 1 tab PO BID 02/21 [History] Carvedilol [Coreg] 6.25 mg PO HS 02/21/15 [History] Furosemide [Lasix] 40 mg PO BID 02/21/15 [History] Lisinopril 2.5 mg PO DAILY 02/21/15 [History] Omeprazole [PriLOSEC] 40 mg PO DAILY 02/21/15 [History] Sertraline [Zoloft] 25 mg PO DAILY 02/21/15 [History] Spironolactone [Aldactone] 12.5 mg PO DAILY 02/21/15 [History] hydrALAZINE [HydrALAZINE] 50 mg PO TID 02/21/15 [History] Nitroglycerin 0.4 mg SL Q5MIN PRN #60 tab.subl 02/25/15 [Rx] Carvedilol 12.5 mg PO QAM 04/14/15 [History] Aspirin 81 mg PO DAILY #30 tab.chew 04/18/15 [Rx] Ferrous Sulfate 325 mg PO BIDWM #60 tablet 04/29/15 [Rx] Loperamide [Imodium] 2 mg PO QID PRN 12/12/15 [History] Albuterol Sulfate [Proair Hfa] 2 puff IH Q4H PRN 09/16/16 [History] Ammonium Lactate [Lac-Hydrin Five] 1 appl TP DAILY 09/16/16 [History] Ascorbate Calcium [Vitamin C] 500 mg PO DAILY 09/16/16 [History] Benzonatate [Tessalon] 100 mg PO TID PRN 09/16/16 [History] Calcitriol [Rocaltrol] 0.25 mcg PO DAILY 09/16/16 [History] Cyclobenzaprine HCl 5 mg PO BID 09/16/16 [History] Dicyclomine [Bentyl] 20 mg PO QID 09/16/16 [History] Doxazosin Mesylate [Cardura] 8 mg PO DAILY 09/16/16 [History] Ergocalciferol (VITAMIN D2) [Vitamin D2] 50,000 unit PO QMONTH 09/16/16 [History ] Escitalopram [Lexapro] 10 mg PO DAILY 09/16/16 [History] Guaifenesin [Tussin] 200 mg PO Q4H PRN 09/16/16 [History] HYDROcodone/Acet 5/325 mg [Herman 5-325 mg] 1 tab PO Q6H PRN 09/16/16 [History] Ondansetron HCl [Zofran] 4 mg PO TID PRN 09/16/16 [History] Pregabalin [Lyrica] 50 mg PO TID 09/16/16 [History] Sildenafil Citrate [Revatio] 20 mg PO TID 09/16/16 [History] Allergies No Known Allergies Allergy (Verified 09/29/15 10:02) Review of Systems All Systems: reviewed and no additional remarkable complaints except as stated Exam - Vital Signs Vital signs: Initial Vital Signs Temp Pulse Resp BP Pulse Ox 0 F L 89 18 149/102 93 09/16/16 16:11 09/16/16 16:11 09/16/16 16:11 09/16/16 16:11 09/16/16 16:11 Vital Signs - Last 8 Hours Temp Pulse Resp BP Pulse Ox 09/18/16 11:52 97.4 F L 59 18 101/70 97 09/18/16 07:38 97.5 F L 63 18 106/61 100 Intake and Output 09/17/16 09/18/16 09/18/16 23:59 07:59 15:59 Intake Total 240 / 240 1000 / 1000 840 / 840 Output Total 100 / 100 Balance 240 / 240 1000 / 1000 740 / 740 Intake: IV Fluids 1000 / 1000 0.9 % Sodium Chloride 1, 1000 / 1000 000 ML @ 75 mls/hr IVC . [id number] [facility] Rx#: [id number] Oral 240 / 240 840 / 840 Output: Urine 100 / 100 Other: Meal Dinner Lunch Percent of Meal Consumed 65% 50% Stool Size Large Stool Consistency loose Stool Color Brown Yellow # Urine Diapers 1 Weight 65.317 kg Blood Glucose* 164 136 149 Patient Weight 09/18/16 23:59 Weight 65.317 kg - General Appearance General appearance: well-developed, well-nourished, appears started age, cachectic EENT: ATNC, PERRL, mucous membranes moist Neck: supple Respiratory: clear Cardiology: no edema, normal S1, normal S2 Gastrointestinal: normoactive bowel sounds, no tenderness, no guarding, no organomegaly Integumentary: no rash, warm and dry Neurologic: no focal deficit, no asterixis, alert and oriented x3 Musculoskeletal: no deformities, no erythema, no cyanosis Psychiatric: mood/affect appropriate, cooperative Results - Lab Results 09/18/16 07:49 09/18/16 07:49 Most recent lab results Calcium 8.3 mg/dL (8.6-10.8) L 09/18/16 07:49 Phosphorus 4.0 mg/dL (2.3-4.7) 09/17/16 03:33 Magnesium 1.4 mg/dL (1.6-2.6) L 09/17/16 03:33 Reviewed above autogenerated data from 09/18/16, and also reviewed the progress notes, labs, vitals, imaging and meds. Consult Discharge Plan - Plan Referrals: Sunil Duong, [Primary Care Provider] -
[2016-09-19] MEDS: 0.9 % Sodium Chloride 1,000 ML IVC SCH (00:38)
[2016-09-19 03:53] LABS: Basophils % 0.5 %; Eosinophils # 0.1 K/mcL (0.0-0.6); Eosinophils % 3.2 %; Hematocrit 37.1 % (37.5-50.1); Hemoglobin 11.6 g/dL (12.9-16.9); Lymphocytes # 0.5 K/mcL (0.6-4.6); Lymphocytes % 12.8 %; Mean Corpuscular HGB Conc 31.3 g/dL (31.6-35.5); Mean Corpuscular Hemoglobin 26.9 pg (28.0-33.3); Mean Corpuscular Volume 85.9 fL (83.0-100.0); Monocytes # 0.5 K/mcL (0.0-1.3); Monocytes % 11.6 %; Neutrophils # 2.9 K/mcL (1.6-8.9); Platelet Count 137 K/mcL (140-400); Red Blood Count 4.32 M/mcL (4.19-5.50); Red Cell Distribution Width 18.5 % (11.5-14.5); Segmented Neutrophils % 71.9 %
[2016-09-19 04:07] LABS: Calcium 8.3 mg/dL (8.6-10.8); Potassium 4.2 mEq/L (3.5-4.5)
[2016-09-19] MEDS: *HR* Heparin 5,000 UNIT/ML VIAL SQ SCH ×2 (05:41→17:04)
[2016-09-19] MEDS: Insulin LISPRO 300 UNITS/3 ML VIAL SQ SCH ×4 (07:42→20:01)
[2016-09-19] MEDS: Aspirin 81 MG TAB.CHEW PO SCH (07:44)
[2016-09-19] MEDS: Magnesium Oxide 400 MG TABLET PO SCH (07:44)
[2016-09-19] MEDS: hydrALAZINE 25 MG TABLET PO SCH ×3 (07:44→21:30)
[2016-09-19] MEDS: Pantoprazole 40 MG VIAL IVP SCH (07:44)
[2016-09-19] MEDS: Sildenafil Citrate 20 MG TABLET PO SCH ×3 (07:44→21:29)
[2016-09-19] MEDS: Ammonium Lactate 30 APPL/225 GM BOTTLE TP SCH (07:44)
--- NOTE | 2016-09-19 08:53 | Internal Med Progress Note ---
Date of Encounter: 09/19/16 Time of Encounter: 08:15 - Assessment and plan (1) Esophageal stricture Current Visit: Yes Status: Resolved (2) Acute on chronic renal failure Current Visit: Yes Status: Acute Assessment and plan: Sr Cr 2.87, GFR 26 (for ). GFR has returned to pt's baseline. Pt was seen by nephrology yesterday and they have signed off. IVF have been stopped with return of baseline GFR. Continue to monitor labs Avoid nephrotoxins and NSAIDs. Qualifiers: Acute renal failure type: unspecified Chronic kidney disease stage: stage 4 (severe) Qualified Code(s): N17.9 - Acute kidney failure, unspecified; N18.4 - Chronic kidney disease, stage 4 (severe) (3) CHF (congestive heart failure) Current Visit: No Status: Chronic Assessment and plan: No acute exacerbation. Echo on 07/16/15 showed LVEF 15% with indeterminate diastolic function. Diuretic and DOTTIE have been held due to worsening renal function and dehydration. BNP elevated at 3195. Chronically elevated. Telemetry Continue to monitor labs. Qualifiers: Congestive heart failure type: systolic Congestive heart failure chronicity : chronic Qualified Code(s): I50.22 - Chronic systolic (congestive) heart failure (4) Diabetes Current Visit: No Status: Acute Assessment and plan: A1c 8.7 in July,. Continue accuchecks, diabetic diet and SSI. Accuchecks and serum glucose under 200mg/dl. Qualifiers: Diabetes mellitus type: type 2 Diabetes mellitus complication status: with kidney complications Diabetes mellitus complication detail: with chronic kidney disease 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 insulin use: unspecified termite renewal inspector insulin use status Chronic kidney disease stage: stage 3 (moderate) Qualified Code(s): E11.22 - Type 2 diabetes mellitus with diabetic chronic kidney disease; N18.3 - Chronic kidney disease, stage 3 (moderate) (5) Atrial fibrillation Current Visit: No Status: Chronic Assessment and plan: History. Continue Carvedilol for rate control, ASA. Qualifiers: Atrial fibrillation type: chronic Qualified Code(s): I48.2 - Chronic atrial fibrillation (6) DVT prophylaxis Current Visit: No Status: Acute Assessment and plan: Heparin SQ, up to chair, MICHELLE hose. - Time Spent With Patient less than 15 minutes - Subjective Interval history: Pt seen and assessed at about 0815. Pt sitting up in bed, alert and awake. Pt states that he is feeling better. I spoke with pt's son who is at bedside. Son states that he has had diarrhea and difficulty swallowing for 4-5 months. They are aware of plan for possible admission to rehab and agree. Pt is eating breakfast and drinking without difficulty. He denies abd pain or nausea/ vomiting. - Constitutional Vitals: Temp Pulse Resp BP Pulse Ox 97.6 F 64 16 118/84 96 09/19/16 06:55 09/19/16 06:55 09/19/16 06:55 09/19/16 06:55 09/19/16 06:55 General appearance: Present: cachectic, cooperative, A&O X 3, pleasant, no acute distress, answers questions appropriately - Head Head exam: Present: normal inspection - Eye Eye exam: Present: normal appearance, conjuntiva pink - ENT ENT exam: Present: mucous membranes moist, normal exam, normal external ear exam - Respiratory Respiratory exam: Present: decreased breath sounds, CTAB. Absent: chest wall tenderness, rales, respiratory distress, rhonchi, stridor, wheezes - Cardiovascular Cardiovascular exam: Present: RRR, +S1, +S2. Absent: clicks, gallop, systolic murmur, tachycardia - GI/Abdominal GI/Abdominal exam: Present: distended, normal bowel sounds, soft. Absent: pulsatile mass, tenderness - Extremities Exam Extremities exam: Present: normal inspection, warm, radial pulses palpable and symetrical. Absent: pedal edema, tenderness - Neurological Exam Neurological exam: Present: alert, oriented X3, no focal deficits. Absent: altered, facial droop, speech deficit - Skin Skin exam: Present: dry, intact, normal color, warm. Absent: rash, urticaria Internal Medicine: Result - Labs CBC & Chem 7: 09/19/16 02:46 09/19/16 02:46 Labs: Short CBC 09/19/16 Range/Units 02:46 WBC 4.1 L (4.3-11.1) K/mcL Hgb 11.6 L (12.9-16.9) g/dL Hct 37.1 L (37.5-50.1) % Plt Count 137 L (140-400) K/mcL Neutrophils # 2.9 (1.6-8.9) K/mcL BMP 09/18/16 09/19/16 07:49 02:46 Sodium 142 141 Potassium 3.8 4.2 Chloride 115 H 115 H Carbon Dioxide 18 L 16 L BUN 38 H 38 H Creatinine 2.77 H 2.87 H Glucose 140 H 108 H Calcium 8.3 L 8.3 L Consult Discharge Plan - Plan Referrals: Sunil Duong DO [Primary Care Provider] -
--- NOTE | 2016-09-19 10:21 | Nephrology Progress Note ---
Date of Encounter: 09/19/16 Time of Encounter: 10:19 - Assessment and Plan (1) Acute kidney injury Current Visit: No Status: Acute Non-oliguric KAY on CKD stage IIIb (near stage IV) based upon eGFR for AA. Relatively stable CKD near the pt's baseline. 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 Agree with stopping volume expansion due to the pt's advanced chronic systolic HF. Continue to follow a renal protective / supportive strategy. (2) Acute on chronic renal failure Current Visit: Yes Status: Acute KAY on CKD stage IIIb. Most likely etiology was pre-renal d/t the esophageal stricture, which appears improved. Qualifiers: Acute renal failure type: unspecified Chronic kidney disease stage: stage 4 (severe) Qualified Code(s): N17.9 - Acute kidney failure, unspecified; N18.4 - Chronic kidney disease, stage 4 (severe) (3) CKD (chronic kidney disease), stage III Current Visit: Yes Status: Chronic Baseline CKD stage IIIb that also fluctuates near the beginnings of stage IV He follows with his primary member service specialist Dr. Bar. Consider arranging hospital follow-up in about 3-6 weeks. (4) Esophageal stricture Current Visit: Yes Status: Resolved See above Subjective Principal diagnosis: KAY on CKD Interval history: Pt was seen and examined. He did not affirm N/V/D or any worsening of shortness of breath. He did not affirm Chest pain, either. Objective - Vital Signs Vital signs: Vital Signs Temp Pulse Resp BP Pulse Ox 09/19/16 06:55 97.6 F 64 16 118/84 96 09/19/16 03:32 97.6 F 74 16 113/70 100 09/18/16 23:26 97.9 F 71 15 110/74 100 09/18/16 19:51 98 09/18/16 19:24 97.4 F L 75 15 103/75 97 09/18/16 15:30 97.5 F L 60 18 107/68 100 09/18/16 11:52 97.4 F L 59 18 101/70 97 Intake and Output 09/18/16 09/19/16 09/19/16 23:59 07:59 15:59 Intake Total 120 / 120 1400 / 1400 120 / 120 Output Total 225 / 225 Balance 120 / 120 1175 / 1175 120 / 120 Intake: IV Fluids 1000 / 1000 Oral 120 / 120 400 / 400 120 / 120 Output: Urine 225 / 225 Other: Meal Dinner Breakfast Percent of Meal Consumed 0% 50% Weight 66.7 kg Blood Glucose* 109 106 Patient Weight 09/19/16 23:59 Weight 66.7 kg - General Appearance Exam: General appearance: well-developed, well-nourished, appears started age, cachectic EENT: ATNC, PERRL, mucous membranes moist Neck: supple Respiratory: clear Cardiology: no edema, normal S1, normal S2 Gastrointestinal: normoactive bowel sounds, no tenderness, no guarding, no organomegaly Integumentary: no rash, warm and dry Neurologic: no focal deficit, no asterixis, alert and oriented x3 Musculoskeletal: no deformities, no erythema, no cyanosis Psychiatric: mood/affect appropriate, cooperative - Lab 09/19/16 02:46 09/19/16 02:46 Most recent lab results Calcium 8.3 mg/dL (8.6-10.8) L 09/19/16 02:46 Phosphorus 4.0 mg/dL (2.3-4.7) 09/17/16 03:33 Magnesium 1.4 mg/dL (1.6-2.6) L 09/17/16 03:33 Consult Discharge Plan - Plan Referrals: Sunil Duong DO [Primary Care Provider] -
[2016-09-20 04:29] LABS: Calcium 8.6 mg/dL (8.6-10.8); Potassium 4.3 mEq/L (3.5-4.5)
[2016-09-20] MEDS: *HR* Heparin 5,000 UNIT/ML VIAL SQ SCH ×2 (05:30→17:18)
[2016-09-20] MEDS: Insulin LISPRO 300 UNITS/3 ML VIAL SQ SCH ×4 (07:50→20:47)
[2016-09-20] MEDS: Ammonium Lactate 30 APPL/225 GM BOTTLE TP SCH (08:09)
[2016-09-20] MEDS: Pantoprazole 40 MG VIAL IVP SCH (08:09)
[2016-09-20] MEDS: Magnesium Oxide 400 MG TABLET PO SCH (08:10)
[2016-09-20] MEDS: Sildenafil Citrate 20 MG TABLET PO SCH ×3 (08:10→20:51)
[2016-09-20] MEDS: Aspirin 81 MG TAB.CHEW PO SCH (08:10)
[2016-09-20] MEDS: hydrALAZINE 25 MG TABLET PO SCH ×3 (08:10→20:44)
--- NOTE | 2016-09-20 08:45 | Internal Med Progress Note ---
Date of Encounter: 09/20/16 Time of Encounter: 07:50 - Assessment and plan (1) Acute on chronic renal failure Current Visit: Yes Status: Acute Assessment and plan: Worsening renal function today. Sr Cr increased to 2.98, GFR 25. IVF stopped yesterday. Nephrology following. Will wait on further recommendations. Lasix and Lisinopril still held. Blood pressure is well controlled. Renal/cardiac diet Monitor labs Avoid nephrotoxins and NSAIDs Qualifiers: Acute renal failure type: unspecified Chronic kidney disease stage: stage 4 (severe) Qualified Code(s): N17.9 - Acute kidney failure, unspecified; N18.4 - Chronic kidney disease, stage 4 (severe) (2) Esophageal stricture Current Visit: Yes Status: Resolved (3) CHF (congestive heart failure) Current Visit: No Status: Chronic Assessment and plan: No acute exacerbation. Echo on 07/16/15 showed LVEF 15% with indeterminate diastolic function. Diuretic and DOTTIE have been held due to worsening renal function and dehydration. BNP elevated at 3195. Chronically elevated. Telemetry Continue to monitor labs. Qualifiers: Congestive heart failure type: systolic Congestive heart failure chronicity : chronic Qualified Code(s): I50.22 - Chronic systolic (congestive) heart failure (4) Diabetes Current Visit: No Status: Acute Assessment and plan: A1c 8.7 in July,. Continue accuchecks, diabetic diet and SSI. Accuchecks and serum glucose under 200mg/dl. Qualifiers: Diabetes mellitus type: type 2 Diabetes mellitus complication status: with kidney complications Diabetes mellitus complication detail: with chronic kidney disease Diabetes mellitus long term care social worker insulin use: unspecified long term care social worker insulin use status Chronic kidney disease stage: stage 3 (moderate) Qualified Code(s): E11.22 - Type 2 diabetes mellitus with diabetic chronic kidney disease; N18.3 - Chronic kidney disease, stage 3 (moderate) (5) Atrial fibrillation Current Visit: No Status: Chronic Assessment and plan: History. Continue Carvedilol for rate control, ASA. Qualifiers: Atrial fibrillation type: chronic Qualified Code(s): I48.2 - Chronic atrial fibrillation (6) DVT prophylaxis Current Visit: No Status: Acute Assessment and plan: Heparin SQ, up to chair, MICHELLE hernandeze. - Subjective Interval history: Pt seen and assessed at about 0750. Pt sleeping, arouses easily. He denies pain and states that he feels good today. He remains agreeable to placement and will be assessed by PT and OT today. - Constitutional Vitals: Temp Pulse Resp BP Pulse Ox 97.4 F L 62 14 110/66 100 09/20/16 07:04 09/20/16 07:04 09/20/16 07:04 09/20/16 07:04 09/20/16 07:04 General appearance: Present: cachectic, cooperative, A&O X 3, pleasant, no acute distress, answers questions appropriately - Head Head exam: Present: normal inspection - Eye Eye exam: Present: normal appearance, conjuntiva pink - ENT ENT exam: Present: mucous membranes moist, normal exam - Neck Neck exam general surgery: Present: normal inspection. Absent: lymphadenopathy , tenderness - Respiratory Respiratory exam: Present: decreased breath sounds, CTAB. Absent: rales, respiratory distress, rhonchi, stridor, wheezes - Cardiovascular Cardiovascular exam: Present: RRR, +S1, +S2. Absent: bradycardia, clicks, diastolic murmur, gallop, systolic murmur, tachycardia - GI/Abdominal GI/Abdominal exam: Present: distended, normal bowel sounds, soft. Absent: tenderness - Extremities Exam Extremities exam: Present: warm, radial pulses palpable and symetrical. Absent : joint swelling, pedal edema, tenderness - Neurological Exam Neurological exam: Present: alert, oriented X3. Absent: altered, facial droop, speech deficit - Skin Skin exam: Present: dry, intact, normal color, warm. Absent: rash Internal Medicine: Result - Labs CBC & Chem 7: 09/19/16 02:46 09/20/16 03:10 Labs: BMP 09/20/16 03:10 Sodium 138 Potassium 4.3 Chloride 112 H Carbon Dioxide 17 L BUN 40 H Creatinine 2.96 H Glucose 122 H Calcium 8.6 Consult Discharge Plan - Plan Referrals: Sunil Duong DO [Primary Care Provider] -
[2016-09-20] MEDS ORDERED: *HR* Etomidate 20 MG/10 ML AMPUL IVP ONE (09:53)
[2016-09-20] MEDS: Ringers Solution, Lactated 1,000 ML IVC SCH (20:50)
--- NOTE | 2016-09-20 23:49 | Nephrology Progress Note ---
Date of Encounter: 09/20/16 Time of Encounter: 17:30 - Assessment and Plan (1) Acute on chronic renal failure Current Visit: Yes Status: Acute Monitor creatinine. Anticipate improvement. Avoid nephrotoxins. Qualifiers: Acute renal failure type: unspecified Chronic kidney disease stage: stage 4 (severe) Qualified Code(s): N17.9 - Acute kidney failure, unspecified; N18.4 - Chronic kidney disease, stage 4 (severe) (2) Esophageal stricture Current Visit: Yes Status: Resolved resolved. Patient eating. (3) Diabetes Current Visit: No Status: Acute Per primary team. Qualifiers: Diabetes mellitus type: type 2 Diabetes mellitus complication status: with kidney complications Diabetes mellitus complication detail: with chronic kidney disease Diabetes mellitus [facility] insulin use: unspecified [facility] insulin use status Chronic kidney disease stage: stage 3 (moderate) Qualified Code(s): E11.22 - Type 2 diabetes mellitus with diabetic chronic kidney disease; N18.3 - Chronic kidney disease, stage 3 (moderate) Subjective Principal diagnosis: KAY on CKD Interval history: Patient seen. He is eating. No new complaint. Objective - Vital Signs Vital signs: Vital Signs Temp Pulse Resp BP Pulse Ox 09/20/16 23:38 97.9 F 62 16 109/74 100 09/20/16 18:59 97.5 F L 66 15 105/62 99 09/20/16 14:42 98.2 F 62 16 104/67 100 09/20/16 10:56 97.5 F L 60 16 113/75 99 09/20/16 07:04 97.4 F L 62 14 110/66 100 09/20/16 03:42 97.7 F 77 16 114/72 96 Intake and Output 09/20/16 09/20/16 09/20/16 07:59 15:59 23:59 Output Total 125 / 125 Balance -125 / -125 Output: Urine 125 / 125 Other: Meal Dinner Percent of Meal Consumed 40% # Voids 1 2 Weight 67.3 kg Blood Glucose* 99 160 98 Patient Weight 09/20/16 23:59 Weight 67.3 kg - General Appearance General appearance: Present: well-developed, chronically ill, frail EENT: Present: ATNC Additional Comments: respirations are unlabored. - Lab 09/19/16 02:46 09/20/16 03:10 Most recent lab results Calcium 8.6 mg/dL (8.6-10.8) 09/20/16 03:10 Phosphorus 4.0 mg/dL (2.3-4.7) 09/17/16 03:33 Magnesium 1.4 mg/dL (1.6-2.6) L 09/17/16 03:33 Consult Discharge Plan - Plan Referrals: Sunil Duong DO [Primary Care Provider] -
[2016-09-21 03:59] LABS: Basophils % 0.7 %; Eosinophils # 0.1 K/mcL (0.0-0.6); Hematocrit 35.1 % (37.5-50.1); Hemoglobin 11.2 g/dL (12.9-16.9); Lymphocytes # 0.5 K/mcL (0.6-4.6); Lymphocytes % 16.9 %; Mean Corpuscular HGB Conc 31.9 g/dL (31.6-35.5); Mean Corpuscular Hemoglobin 27.1 pg (28.0-33.3); Mean Corpuscular Volume 84.8 fL (83.0-100.0); Mean Platelet Volume 10.4 fL (9.4-12.4); Monocytes # 0.4 K/mcL (0.0-1.3); Monocytes % 12.3 %; Platelet Count 110 K/mcL (140-400); Red Blood Count 4.14 M/mcL (4.19-5.50); Red Cell Distribution Width 18.6 % (11.5-14.5); Segmented Neutrophils % 66.1 %
[2016-09-21 04:04] LABS: Calcium 8.7 mg/dL (8.6-10.8); Potassium 4.7 mEq/L (3.5-4.5)
[2016-09-21] MEDS: *HR* Heparin 5,000 UNIT/ML VIAL SQ SCH ×2 (05:05→15:58)
[2016-09-21] MEDS: Insulin LISPRO 300 UNITS/3 ML VIAL SQ SCH ×4 (08:16→21:40)
[2016-09-21] MEDS: Magnesium Oxide 400 MG TABLET PO SCH (09:56)
[2016-09-21] MEDS: Aspirin 81 MG TAB.CHEW PO SCH (09:56)
[2016-09-21] MEDS: Sildenafil Citrate 20 MG TABLET PO SCH ×3 (09:56→21:39)
[2016-09-21] MEDS: hydrALAZINE 25 MG TABLET PO SCH ×3 (09:56→21:39)
[2016-09-21] MEDS: Pantoprazole 40 MG VIAL IVP SCH (09:59)
[2016-09-21] MEDS: Ammonium Lactate 30 APPL/225 GM BOTTLE TP SCH (10:12)
--- NOTE | 2016-09-21 13:19 | Internal Med Progress Note ---
Date of Encounter: 09/21/16 Time of Encounter: 12:15 - Assessment and plan (1) Dysphagia Current Visit: No Status: Resolved Assessment and plan: Results. Patient is now tolerating a regular diet. He denies difficulty swallowing or difficulty eating. Awaiting placement at [facility]. He has been approved for placement tomorrow. Patient denies concerns at this time. ITS Impressions Chest X-Ray 09/16/16 17:21 IMPRESSION: Cardiomegaly without overt pulmonary edema. Mild right basilar opacity likely representing atelectasis and small right pleural effusion. Early consolidation from pneumonia cannot be completely excluded. D/ / Marquise Moncada MD / Marquise Moncada MD Interpreting Provider: Marquise Moncada MD impression on 09/17/16: Benign-appearing esophageal stenosis. Dilated. Normal stomach. Normal examined duodenum. One benign-appearing, mild Schatzki ring was found and was dilated. (2) Esophageal stricture Current Visit: Yes Status: Resolved (3) CKD (chronic kidney disease) stage 4, GFR 15-29 ml/min Current Visit: Yes Status: Chronic Assessment and plan: Chronic kidney disease stage IV. Has been stable since admission however at the low end of his normal. Nephrology is on board. Holding DOTTIE inhibitor and diuretics. Patient had EGD 4 days ago and is now tolerating a regular diet, will continue to trend renal functioning. Appreciate nephrology recommendations (4) Hypoglycemia Current Visit: No Status: Resolved (5) CHF (congestive heart failure) Current Visit: No Status: Chronic Assessment and plan: No acute exacerbation. Echo on 07/16/15 showed LVEF 15% with indeterminate diastolic function. Chronic combined systolic and diastolic heart failure. He is euvolemic on examination and denies chest pain or shortness of breath. Holding his diuretic and DOTTIE inhibitor at this time. (6) Hyperkalemia Current Visit: Yes Status: Acute Assessment and plan: Mild, likely secondary to decreased renal excretion, will monitor. (7) Diabetes mellitus Current Visit: No Status: Chronic Assessment and plan: Uncontrolled with a recent A1c of 8.7%. Continue sliding scale while admitted. Patient was initially hypoglycemic upon arrival likely secondary to decreased by mouth intake at home. By mouth intake has returned to normal according to the patient. (8) Atrial fibrillation Current Visit: No Status: Chronic Assessment and plan: Rate controlled, not on anticoagulation therapy. Follow-up outpatient. Qualifiers: Atrial fibrillation type: chronic Qualified Code(s): I48.2 - Chronic atrial fibrillation (9) AICD (automatic cardioverter/defibrillator) present Current Visit: Yes Status: Chronic (10) Anemia Current Visit: No Status: Chronic Assessment and plan: Mild, chronic, stable, currently at the high end of his normal. No signs of active bleeding. Qualifiers: Anemia type: iron deficiency Iron deficiency anemia type: chronic blood loss Qualified Code(s): D50.0 - Iron deficiency anemia secondary to blood loss (chronic) (11) CAD (coronary artery disease) Current Visit: No Status: Chronic Assessment and plan: Patient denies chest pain or shortness of breath. Qualifiers: Coronary Disease-Associated Artery/Lesion type: [place] artery [place] vs. transplanted heart: [place] heart Associated angina: without angina Qualified Code(s): I25.10 - Atherosclerotic heart disease of [place] coronary artery without angina pectoris (12) COPD (chronic obstructive pulmonary disease) Current Visit: No Status: Chronic Assessment and plan: No acute exacerbation. Patient denies shortness of breath above his norm. Tolerating room air. Qualifiers: COPD type: chronic bronchitis Chronic bronchitis type: simple Qualified Code(s): J41.0 - Simple chronic bronchitis (13) Protein-calorie malnutrition, moderate Current Visit: Yes Status: Chronic Assessment and plan: Eating well status post esophageal stricture dilatation. He was evaluated by nutrition who recommended Ensure high protein 3 times a day, will send to halfway with this as well (14) DVT prophylaxis Current Visit: No Status: Acute Assessment and plan: Subcutaneous heparin - Subjective Interval history: Patient seen and examined. On examination, patient sitting upright in his chair eating lunch. He denies pain or shortness of breath at this time. Denies any difficulty swallowing. He states he is eating well. - Constitutional Vitals: Temp Pulse Resp BP Pulse Ox 97.6 F 65 15 100/62 98 09/21/16 10:50 09/21/16 10:50 09/21/16 10:50 09/21/16 10:50 09/21/16 10:50 General appearance: Present: cachectic, cooperative, A&O X 3, pleasant, no acute distress, answers questions appropriately - Head Head exam: Present: atraumatic, normocephalic - Eye Eye exam: Present: PERRL, conjuntiva pink, sclera anicteric Pupils: Present: PERRL - Neck Neck exam general surgery: Present: supple, trachea midline. Absent: lymphadenopathy - Respiratory Respiratory exam: Present: decreased breath sounds. Absent: accessory muscle use, rales, respiratory distress, rhonchi, wheezes - Cardiovascular Cardiovascular exam: Present: RRR, +S1, +S2. Absent: diastolic murmur, gallop, rubs, systolic murmur - GI/Abdominal GI/Abdominal exam: Present: normal bowel sounds, soft, no peritoneal signs. Absent: distended, tenderness - Extremities Exam Extremities exam: Present: warm, radial pulses palpable and symetrical. Absent : calf tenderness, cyanotic, pedal edema - Neurological Exam Neurological exam: Present: alert, CN II-XII intact, oriented X3, no focal deficits, strengths equal and symetr throughout. Absent: pronater drift, facial droop, speech deficit - Skin Skin exam: Present: dry, intact, pallor, warm Internal Medicine: Result - Labs CBC & Chem 7: 09/21/16 03:05 09/21/16 03:05 Labs: Short CBC 09/21/16 Range/Units 03:05 WBC 3.0 L (4.3-11.1) K/mcL Hgb 11.2 L (12.9-16.9) g/dL Hct 35.1 L (37.5-50.1) % Plt Count 110 L (140-400) K/mcL Neutrophils # 2.0 (1.6-8.9) K/mcL BMP 09/21/16 03:05 Sodium 137 Potassium 4.7 H Chloride 112 H Carbon Dioxide 17 L BUN 46 H Creatinine 3.15 H Glucose 172 H Calcium 8.7 Consult Discharge Plan - Plan Referrals: Sunil Duong DO [Primary Care Provider] -
[2016-09-21] MEDS ORDERED: *HR* HYDROcodone/Acet 5/325 mg TABLET PO PRN (13:33)
[2016-09-21] MEDS ORDERED: Loperamide 1 MG/5 ML UDC PO PRN (13:33)
[2016-09-21] MEDS: Pregabalin 50 MG CAPSULE PO SCH ×2 (15:58→21:39)
[2016-09-22 04:07] LABS: Basophils % 0.3 %; Eosinophils # 0.1 K/mcL (0.0-0.6); Eosinophils % 3.4 %; Hematocrit 35.5 % (37.5-50.1); Hemoglobin 11.2 g/dL (12.9-16.9); Immature Granulocytes % 0.3 % (0-4); Lymphocytes # 0.5 K/mcL (0.6-4.6); Lymphocytes % 13.2 %; Mean Corpuscular HGB Conc 31.5 g/dL (31.6-35.5); Mean Corpuscular Hemoglobin 26.7 pg (28.0-33.3); Mean Corpuscular Volume 84.7 fL (83.0-100.0); Mean Platelet Volume 11.4 fL (9.4-12.4); Monocytes # 0.4 K/mcL (0.0-1.3); Monocytes % 11.8 %; Neutrophils # 2.5 K/mcL (1.6-8.9); Platelet Count 113 K/mcL (140-400); Red Blood Count 4.19 M/mcL (4.19-5.50); Red Cell Distribution Width 18.5 % (11.5-14.5)
[2016-09-22 04:26] LABS: Calcium 8.6 mg/dL (8.6-10.8); Magnesium 1.5 mg/dL (1.6-2.6)
[2016-09-22] MEDS: *HR* Heparin 5,000 UNIT/ML VIAL SQ SCH ×2 (06:05→17:54)
[2016-09-22] MEDS: Insulin LISPRO 300 UNITS/3 ML VIAL SQ SCH ×4 (08:07→21:01)
[2016-09-22] MEDS: Pantoprazole 40 MG VIAL IVP SCH (08:29)
[2016-09-22] MEDS: Pregabalin 50 MG CAPSULE PO SCH ×3 (08:30→20:59)
[2016-09-22] MEDS: Aspirin 81 MG TAB.CHEW PO SCH (08:30)
[2016-09-22] MEDS: Sildenafil Citrate 20 MG TABLET PO SCH ×3 (08:30→20:59)
[2016-09-22] MEDS: Magnesium Oxide 400 MG TABLET PO SCH (08:30)
[2016-09-22] MEDS: Ammonium Lactate 30 APPL/225 GM BOTTLE TP SCH (08:31)
[2016-09-22] MEDS: hydrALAZINE 25 MG TABLET PO SCH ×3 (08:31→20:59)
[2016-09-22] MEDS ORDERED: Sodium Bicarbonate 75 MEQ in 0.45 % Sodium Chloride 1,000 ML IVC SCH (12:00)
--- NOTE | 2016-09-22 12:15 | Nephrology Progress Note ---
Date of Encounter: 09/22/16 Time of Encounter: 12:13 - Assessment and Plan (1) Acute on chronic renal failure Current Visit: Yes Status: Acute KAY on CKD likely from volume depletion initially that was improving and now has worsened without etiology. He has been eating well. Will give iv fluid. Avoid nephrotoxins Adjust medication for renal function. Strict Is/Os Place bobo. Qualifiers: Acute renal failure type: unspecified Chronic kidney disease stage: stage 4 (severe) Qualified Code(s): N17.9 - Acute kidney failure, unspecified; N18.4 - Chronic kidney disease, stage 4 (severe) (2) Esophageal stricture Current Visit: Yes Status: Resolved resolved. Patient eating. GI evaluated and treated. (3) Diabetes Current Visit: No Status: Acute Per primary team. Qualifiers: Diabetes mellitus type: type 2 Diabetes mellitus complication status: with kidney complications Diabetes mellitus complication detail: with chronic kidney disease Diabetes mellitus intermediate project manager insulin use: unspecified [facility] insulin use status Chronic kidney disease stage: stage 3 (moderate) Qualified Code(s): E11.22 - Type 2 diabetes mellitus with diabetic chronic kidney disease; N18.3 - Chronic kidney disease, stage 3 (moderate) (4) Pulmonary hypertension Current Visit: Yes Status: Acute avoid dehydration. (5) Metabolic acidosis Current Visit: Yes Status: Acute Etiology is unclear, but with decreasing temperature, worsening renal function and altered mental status there is concern for possible sepsis. Primary team aware and we discussed plan . Await lab work-up. Starting bicarb drip. Subjective Principal diagnosis: KAY on CKD Interval history: Patient seen and evaluated. He is lethargic. When awakened he has trouble expressing his thoughts. He is able to move all extremities. He denies pain or dyspnea. His review of systems is stable. I contacted the covering hospitalist to evaluate as well and discussed the case. Objective - Vital Signs Vital signs: Vital Signs Temp Pulse Resp BP Pulse Ox 09/22/16 11:46 97.3 F L 61 14 112/77 95 09/22/16 07:12 97.6 F 63 14 108/72 92 09/21/16 23:09 97.3 F L 63 18 104/68 100 09/21/16 19:47 97.4 F L 69 16 115/69 100 09/21/16 15:09 97.8 F 78 14 107/69 95 Intake and Output 09/21/16 09/22/16 09/22/16 23:59 07:59 15:59 Other: Weight 71.9 kg Blood Glucose* 182 69 137 Patient Weight 09/22/16 23:59 Weight 71.9 kg - General Appearance General appearance: Present: well-developed, chronically ill, frail EENT: Present: ATNC Neck: Present: supple Respiratory: Present: clear Cardiology: Present: no edema, regular rate, regular rhythm Gastrointestinal: Present: no tenderness Integumentary: Present: warm and dry Additional Comments: Moves all extremities equally. He is lethargic but arousable. He has expressive aphasia. He is slow to answer, but seems to answer appropriately. Musculoskeletal: Present: no cyanosis Psychiatric: Present: agitated - Lab 09/22/16 03:28 09/22/16 03:28 Most recent lab results Calcium 8.6 mg/dL (8.6-10.8) 09/22/16 03:28 Phosphorus 4.0 mg/dL (2.3-4.7) 09/17/16 03:33 Magnesium 1.5 mg/dL (1.6-2.6) L 09/22/16 03:28 Consult Discharge Plan - Plan Referrals: Sunil Duong DO [Primary Care Provider] -
--- NOTE | 2016-09-22 12:17 | Internal Med Progress Note ---
Date of Encounter: 09/22/16 Time of Encounter: 09:30 (and 1145) - Assessment and plan (1) Expressive aphasia Current Visit: Yes Status: Acute Assessment and plan: The initial plan was to send the patient over to the senior living today however early this morning, he developed expressive aphasia. He initially appeared tired so he was observed and his expressive aphasia had worsened despite being fully awake and alert. On examination, he is oriented 3 and he is able to answer simple questions however he has difficulty with speaking. He understands questions and he is able to follow commands but he is now stuttering and states he is upset as to why he is unable to answer questions. Unclear causation at this time-patient appears mildly dehydrated. We will give him gentle IV fluids over the course of today with constant reevaluation for signs of fluid overload given that his ejection fraction is 15%. We will also give him some bicarbonate. We will check ABGs and a head CT. He has no focal neurological weaknesses or asymmetry. Low suspicion for a CVA at this time but will continue to monitor. Will also check a urinalysis for signs of an infection-we will also place him on strict intake and output as it is unclear how much urinary output he has had over the last 24 hours. Renal functioning trending down, nephrology is on board. Will also check lactate and ammonia levels. We will monitor closely. Glucose during this episode is essentially normal at 137. (2) Dysphagia Current Visit: No Status: Resolved Assessment and plan: Resolved. Patient is now tolerating a regular diet. He denies difficulty swallowing or difficulty eating. Awaiting placement at [facility]- was going to be today, however he had an acute onset of expressive aphasia and change to his mental status this morning. Investigating prior to sending. He has been approved for placement and he will be sent once clinically indicated. ITS Impressions Chest X-Ray 09/16/16 17:21 IMPRESSION: Cardiomegaly without overt pulmonary edema. Mild right basilar opacity likely representing atelectasis and small right pleural effusion. Early consolidation from pneumonia cannot be completely excluded. D/ / Marquise Moncada MD / Marquise Moncada MD Interpreting Provider: Marquise Moncada MD impression on 09/17/16: Benign-appearing esophageal stenosis. Dilated. Normal stomach. Normal examined duodenum. One benign-appearing, mild Schatzki ring was found and was dilated. Qualifiers: Dysphagia type: unspecified Qualified Code(s): R13.10 - Dysphagia, unspecified (3) Esophageal stricture Current Visit: Yes Status: Resolved Assessment and plan: Pt has been tolerating regular without difficulty. (4) CKD (chronic kidney disease) stage 4, GFR 15-29 ml/min Current Visit: Yes Status: Chronic Assessment and plan: Chronic kidney disease stage IV. Has been trending down since admission. Nephrology is on board. Holding DOTTIE inhibitor and diuretics. Unclear urinary output- placing bobo and checking a UA. Giving 1 liter of 0.45NS over the course of today- will recheck functioning tomorrow am. Patient had EGD 4 days ago and is now tolerating a regular diet. Appreciate nephrology recommendations (5) Hypoglycemia Current Visit: No Status: Resolved (6) CHF (congestive heart failure) Current Visit: No Status: Chronic Assessment and plan: No acute exacerbation. Echo on 07/16/15 showed LVEF 15% with indeterminate diastolic function. Chronic combined systolic and diastolic heart failure. He is euvolemic/slightly dehydrated on examination and denies chest pain or shortness of breath. Holding his diuretic and DOTTIE inhibitor at this time. Giving very gentle IV fluids, will monitor closely for signs of fluid overload. Qualifiers: Congestive heart failure type: combined Congestive heart failure chronicity : chronic Qualified Code(s): I50.42 - Chronic combined systolic (congestive) and diastolic (congestive) heart failure (7) Hyperkalemia Current Visit: Yes Status: Acute Assessment and plan: Mild, likely secondary to decreased renal excretion, will monitor. (8) Diabetes mellitus Current Visit: No Status: Chronic Assessment and plan: Uncontrolled with a recent A1c of 8.7%. Continue sliding scale while admitted. Patient was initially hypoglycemic upon arrival likely secondary to decreased by mouth intake at home. By mouth intake has returned to normal according to the patient. 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 Follow-up outpatient. Qualifiers: Atrial fibrillation type: chronic Qualified Code(s): I48.2 - Chronic atrial fibrillation (10) AICD (automatic cardioverter/defibrillator) present Current Visit: Yes Status: Chronic (11) Anemia Current Visit: No Status: Chronic Assessment and plan: Mild, chronic, stable, currently at the high end of his normal. No signs of active bleeding. Qualifiers: Anemia type: iron deficiency Iron deficiency anemia type: chronic blood loss Qualified Code(s): D50.0 - Iron deficiency anemia secondary to blood loss (chronic) (12) CAD (coronary artery disease) Current Visit: No Status: Chronic Assessment and plan: Patient denies chest pain or shortness of breath. Qualifiers: Coronary Disease-Associated Artery/Lesion type: [place] artery [place] vs. transplanted heart: [place] heart Associated angina: without angina Qualified Code(s): I25.10 - Atherosclerotic heart disease of [place] coronary artery without angina pectoris (13) COPD (chronic obstructive pulmonary disease) Current Visit: No Status: Chronic Assessment and plan: No acute exacerbation. Patient denies shortness of breath above his norm. Tolerating room air. Qualifiers: COPD type: chronic bronchitis Chronic bronchitis type: simple Qualified Code(s): J41.0 - Simple chronic bronchitis (14) Protein-calorie malnutrition, moderate Current Visit: Yes Status: Chronic Assessment and plan: Eating well status post esophageal stricture dilatation. He was evaluated by nutrition who recommended Ensure high protein 3 times a day, will send to senior living with this as well (15) DVT prophylaxis Current Visit: No Status: Acute Assessment and plan: Subcutaneous heparin - Subjective Interval history: Patient seen and examined early this am. On examination earlier, patient was alert and oriented x3 but had some mild expressive aphasia. He was seen and reexamined approximately two hours later, and his expressive aphasia had worsened. He remained alert and oriented x3 and remained without any focal neurological weakness, but his expressive aphasia had worsened. He denies pain or shortness of breath. Denies any difficulty swallowing. He states he is eating well. - Constitutional Vitals: Temp Pulse Resp BP Pulse Ox 97.3 F L 61 14 112/77 95 09/22/16 11:46 09/22/16 11:46 09/22/16 11:46 09/22/16 11:46 09/22/16 11:46 General appearance: Present: cachectic, cooperative, A&O X 3, pleasant, no acute distress, answers questions appropriately - Head Head exam: Present: atraumatic, normocephalic - Eye Eye exam: Present: PERRL, conjuntiva pink, sclera anicteric Pupils: Present: PERRL - Neck Neck exam general surgery: Present: supple, trachea midline. Absent: lymphadenopathy - Respiratory Respiratory exam: Present: decreased breath sounds. Absent: accessory muscle use, rales, respiratory distress, rhonchi, wheezes - Cardiovascular Cardiovascular exam: Present: RRR, +S1, +S2. Absent: diastolic murmur, gallop, rubs, systolic murmur - GI/Abdominal GI/Abdominal exam: Present: normal bowel sounds, soft, no peritoneal signs. Absent: distended, tenderness - Extremities Exam Extremities exam: Present: warm, radial pulses palpable and symmetrical. Absent : calf tenderness, cyanotic, pedal edema - Neurological Exam Neurological exam: Present: alert, altered, CN II-XII intact, oriented X3, no focal deficits, strengths equal and symetr throughout, speech deficit. Absent: pronater drift, facial droop - Expanded Neurological Exam Neurological exam expanded: Present: protecting the airway Patient oriented to: Present: person, place, time Speech: Present: expressive aphasia Cranial Nerves: EOM's intact PM: Normal, tongue deviation PM: Normal Neuro motor strength exam: LUE: 4, RUE: 4, LLE: 4, RLE: 4 Coma Scale Eye Opening: Spontaneous Coma Scale Motor Response: Obeys Commands Coma Scale Verbal Response: Oriented Coma Scale Total: 15 - Skin Skin exam: Present: dry, intact, pallor, warm Internal Medicine: Result - Labs CBC & Chem 7: 09/22/16 03:28 09/22/16 03:28 Labs: Short CBC 09/22/16 Range/Units 03:28 WBC 3.6 L (4.3-11.1) K/mcL Hgb 11.2 L (12.9-16.9) g/dL Hct 35.5 L (37.5-50.1) % Plt Count 113 L (140-400) K/mcL Neutrophils # 2.5 (1.6-8.9) K/mcL BMP 09/22/16 03:28 Sodium 134 L Potassium 5.0 H Chloride 111 H Carbon Dioxide 15 L BUN 50 H Creatinine 3.16 H Glucose 56 L Calcium 8.6 Consult Discharge Plan - Plan Referrals: Sunil Duong, [Primary Care Provider] -
[2016-09-22 12:53] LABS: ABG Base Excess -8.3 mEq/L (-2.0 to 3.0); ABG HCO3 15.4 mEQ/L (21-27); ABG Oxygen Saturation 98 % (95-98); ABG PCO2 26 mmHg (35-45); ABG PH 7.38 pH Units (7.32-7.45); ABG PO2 98 mmHg (85-104); ABG TCO2 16.2 mEq/L (20-26)
[2016-09-22 12:56] LABS: Blood Gas FiO2 21 %
[2016-09-22 14:01] LABS: Basophils % 0.6 %; Eosinophils # 0.1 K/mcL (0.0-0.6); Eosinophils % 3.4 %; Hematocrit 36.9 % (37.5-50.1); Hemoglobin 11.5 g/dL (12.9-16.9); Immature Granulocytes % 0.3 % (0-4); Lymphocytes # 0.4 K/mcL (0.6-4.6); Lymphocytes % 12.2 %; Mean Corpuscular HGB Conc 31.2 g/dL (31.6-35.5); Mean Corpuscular Hemoglobin 26.5 pg (28.0-33.3); Mean Platelet Volume 10.5 fL (9.4-12.4); Monocytes # 0.4 K/mcL (0.0-1.3); Monocytes % 12.5 %; Neutrophils # 2.3 K/mcL (1.6-8.9); Platelet Count 103 K/mcL (140-400); Red Blood Count 4.34 M/mcL (4.19-5.50); Red Cell Distribution Width 18.6 % (11.5-14.5)
[2016-09-22 14:44] LABS: Bilirubin,Urine Small (Negative); Blood,Urine Negative (Negative); Clarity,Urine Clear (Clear); Color,Urine Dark Yellow (Yellow); Glucose,Urine (UA) Normal (Normal); Ketones,Urine Negative (Negative); Leukocyte Esterase,Urine Negative (Negative); Nitrite,Urine Negative (Negative); PH,Urine 5.5 pH Units (5.0-8.0); Protein,Urine 100 mg/dL (Neg-Trace); Specific Gravity,Urine 1.021 (1.010-1.025); Urobilinogen,Urine Normal (Normal)
[2016-09-22 14:46] LABS: Bacteria,Urine None Seen per hpf (None-Few); Hyaline Casts,Urine Few per lpf (None-Few); Squamous Epithelial Cell,Urine Many per lpf (None-Few)
[2016-09-23 04:49] LABS: Basophils % 0.3 %; Eosinophils # 0.1 K/mcL (0.0-0.6); Eosinophils % 3.3 %; Hematocrit 35.5 % (37.5-50.1); Immature Granulocytes % 0.3 % (0-4); Lymphocytes # 0.4 K/mcL (0.6-4.6); Lymphocytes % 11.1 %; Mean Corpuscular Hemoglobin 26.2 pg (28.0-33.3); Mean Corpuscular Volume 84.5 fL (83.0-100.0); Mean Platelet Volume 10.9 fL (9.4-12.4); Monocytes # 0.4 K/mcL (0.0-1.3); Monocytes % 10.9 %; Neutrophils # 2.7 K/mcL (1.6-8.9); Platelet Count 103 K/mcL (140-400); Red Cell Distribution Width 18.4 % (11.5-14.5); Segmented Neutrophils % 74.1 %
[2016-09-23 05:11] LABS: Calcium 8.9 mg/dL (8.6-10.8); Magnesium 1.6 mg/dL (1.6-2.6)
[2016-09-23] MEDS: *HR* Heparin 5,000 UNIT/ML VIAL SQ SCH (05:41)
[2016-09-23] MEDS ORDERED: 0.9 % Sodium Chloride 1,000 ML IVC ONE ×2 (08:12→10:13)
[2016-09-23] MEDS ORDERED: 0.9 % Sodium Chloride 1,000 ML ONE (08:13)
[2016-09-23 08:31] LABS: ABG Base Excess -5.3 mEq/L (-2.0 to 3.0); ABG Oxygen Saturation 89 % (95-98); ABG PCO2 37 mmHg (35-45); ABG PH 7.34 pH Units (7.32-7.45); ABG PO2 60 mmHg (85-104); ABG TCO2 21.1 mEq/L (20-26)
[2016-09-23 08:33] LABS: Blood Gas FiO2 21 %
[2016-09-23] MEDS: Insulin LISPRO 300 UNITS/3 ML VIAL SQ SCH ×4 (08:37→23:30)
--- NOTE | 2016-09-23 08:38 | Internal Med Progress Note ---
Date of Encounter: 09/23/16 Time of Encounter: 07:45 - Assessment and plan (1) Acute encephalopathy Current Visit: Yes Status: Acute Assessment and plan: This am, patient was noted to be less responsive and hypothermic with a rectal temp of 93.7. Patient was placed on a soledad hugger. Initially on examination, patient was lethargic and minimally responsive. Increased environmental stimulation with position changes and turning the lights on, patient became more responsive however is not quite to his baseline. His expressive aphasia had improved yesterday, but this morning, patient is only able to answer simple yes or no questions. He is able to follow commands. His vital signs remained stable. On examination, he appears dry-1 L bolus given at this time. Decreased urinary output, urine in his [place] bag is dark brown. He did get a liter of half normal saline yesterday but his renal function and continues to decline. Urinalysis negative for signs of infection. Stat ABGs were drawn which were unremarkable other than compensated hypoxemia, patient placed on a nasal cannula. Continued pancytopenia noted- this is chronic for this patient. We are unable to obtain an MRI secondary to his pacemaker. EKG obtained without acute changes. Glucose in the 150s. Overall, his mentation is improving- will monitor closely. (2) Pancytopenia Current Visit: No Status: Chronic Assessment and plan: Chronic for this patient. No indications of acute infectious process at this time, treating for dehydration and monitoring closely. (3) Expressive aphasia Current Visit: Yes Status: Acute Assessment and plan: Had improved yesterday, but present again this am. Unable to obtain an MRI secondary to his PPM. Treating for dehydration- will monitor closely. Urinalysis negative. ABGs unremarkable. Head CT negative. No focal neurological weakness or asymmetry present on examination. Glucose in the 150s. 09/22/16 The initial plan was to send the patient over to the assisted today however early this morning, he developed expressive aphasia. He initially appeared tired so he was observed and his expressive aphasia had worsened despite being fully awake and alert. On examination, he is oriented 3 and he is able to answer simple questions however he has difficulty with speaking. He understands questions and he is able to follow commands but he is now stuttering and states he is upset as to why he is unable to answer questions. Unclear causation at this time-patient appears mildly dehydrated. We will give him gentle IV fluids over the course of today with constant reevaluation for signs of fluid overload given that his ejection fraction is 15%. We will also give him some bicarbonate. We will check ABGs and a head CT. He has no focal neurological weaknesses or asymmetry. Low suspicion for a CVA at this time but will continue to monitor. Will also check a urinalysis for signs of an infection-we will also place him on strict intake and output as it is unclear how much urinary output he has had over the last 24 hours. Renal functioning trending down, nephrology is on board. Will also check lactate and ammonia levels. We will monitor closely. Glucose during this episode is essentially normal at 137. (4) Dysphagia Current Visit: No Status: Resolved Assessment and plan: Resolved. Patient is now tolerating a regular diet. He denies difficulty swallowing or difficulty eating. Awaiting placement at [facility]- was going to go yesterday, but he developed an acute onset of expressive aphasia and change to his mental status whic improved but reoccurred this am. Investigating prior to sending. He has been approved for placement and he will be sent once clinically indicated. ITS Impressions Chest X-Ray 09/16/16 17:21 IMPRESSION: Cardiomegaly without overt pulmonary edema. Mild right basilar opacity likely representing atelectasis and small right pleural effusion. Early consolidation from pneumonia cannot be completely excluded. D/ / Marquise Moncada MD / Marquise Moncada MD Interpreting Provider: Marquise Moncada MD impression on 09/17/16: Benign-appearing esophageal stenosis. Dilated. Normal stomach. Normal examined duodenum. One benign-appearing, mild Schatzki ring was found and was dilated. (5) Esophageal stricture Current Visit: Yes Status: Resolved Assessment and plan: Pt has been tolerating regular without difficulty. (6) CKD (chronic kidney disease) stage 4, GFR 15-29 ml/min Current Visit: Yes Status: Chronic Assessment and plan: Chronic kidney disease stage IV. Has been trending down since admission and again last night despite receiving 1L of IVF yesterday. Bolusing at this time with 1L NS. Appears dehydrated- urine is dark brown. Nephrology is on board. Holding DOTTIE inhibitor and diuretics. Patient had EGD 4 days ago and is now tolerating a regular diet. Appreciate nephrology recommendations (7) Hypoglycemia Current Visit: No Status: Resolved (8) CHF (congestive heart failure) Current Visit: No Status: Chronic Assessment and plan: No acute exacerbation- repeating an Echo. Echo on 07/16/15 showed LVEF 15% with indeterminate diastolic function. Chronic combined systolic and diastolic heart failure. He is dehydrated on examination despite getting IVF yesterday- bolus ordered at this time. Holding his diuretic and DOTTIE inhibitor at this time. Will monitor closely for signs of fluid overload. (9) Hyperkalemia Current Visit: Yes Status: Acute Assessment and plan: Mild, likely secondary to decreased renal excretion, will monitor. (10) Diabetes mellitus Current Visit: No Status: Chronic Assessment and plan: Uncontrolled with a recent A1c of 8.7%. Continue sliding scale while admitted. Patient was initially hypoglycemic upon arrival likely secondary to decreased by mouth intake at home. By mouth intake has returned to normal according to the patient. (11) Atrial fibrillation Current Visit: No Status: Chronic Assessment and plan: Rate controlled, not on anticoagulation therapy due to recent hx of GI bleed. Follow-up outpatient. Qualifiers: Atrial fibrillation type: chronic Qualified Code(s): I48.2 - Chronic atrial fibrillation (12) AICD (automatic cardioverter/defibrillator) present Current Visit: Yes Status: Chronic (13) Anemia Current Visit: No Status: Chronic Assessment and plan: Mild, chronic, stable, currently at the high end of his normal. No signs of active bleeding. Qualifiers: Anemia type: iron deficiency Iron deficiency anemia type: chronic blood loss Qualified Code(s): D50.0 - Iron deficiency anemia secondary to blood loss (chronic) (14) CAD (coronary artery disease) Current Visit: No Status: Chronic Assessment and plan: Patient denies chest pain or shortness of breath. Qualifiers: Coronary Disease-Associated Artery/Lesion type: [place] artery [place] vs. transplanted heart: [place] heart Associated angina: without angina Qualified Code(s): I25.10 - Atherosclerotic heart disease of [place] coronary artery without angina pectoris (15) COPD (chronic obstructive pulmonary disease) Current Visit: No Status: Chronic Assessment and plan: No acute exacerbation. Patient denies shortness of breath above his norm. Qualifiers: COPD type: chronic bronchitis Chronic bronchitis type: simple Qualified Code(s): J41.0 - Simple chronic bronchitis (16) Protein-calorie malnutrition, moderate Current Visit: Yes Status: Chronic Assessment and plan: Eating well status post esophageal stricture dilatation. He was evaluated by nutrition who recommended Ensure high protein 3 times a day, will send to assisted with this as well (17) DVT prophylaxis Current Visit: No Status: Acute Assessment and plan: Subcutaneous heparin - Time Spent With Patient Greater than 35 minutes (acute AMS) - Subjective Interval history: Patient seen and examined early this am. On examination, patient is resting supine in bed. He initially did not respond to speech or light touch. He was minimally responsive to sternal rub. Sat the patient up, turned on the lights and he was then able to open his eyes to voice and was able to answer yes or no questions. - Constitutional Vitals: Temp Pulse Resp BP Pulse Ox 93.7 F L 60 14 123/75 99 09/23/16 07:19 09/23/16 07:19 09/23/16 07:19 09/23/16 07:19 09/23/16 07:19 General appearance: Present: cachectic, disheveled, A&O X 3, pleasant, no acute distress, answers questions appropriately - Head Head exam: Present: atraumatic, normocephalic - Eye Eye exam: Present: PERRL, conjuntiva pink, sclera anicteric Pupils: Present: PERRL - ENT ENT exam: Present: mucous membranes dry - Expanded ENT Exam Mouth exam: Present: dry mucosa - Neck Neck exam general surgery: Present: supple, trachea midline. Absent: lymphadenopathy - Respiratory Respiratory exam: Present: decreased breath sounds. Absent: accessory muscle use, rales, respiratory distress, rhonchi, wheezes - Cardiovascular Cardiovascular exam: Present: RRR, +S1, +S2. Absent: diastolic murmur, gallop, rubs, systolic murmur - GI/Abdominal GI/Abdominal exam: Present: normal bowel sounds, soft, no peritoneal signs. Absent: distended, tenderness - Extremities Exam Extremities exam: Present: warm, radial pulses palpable and symmetrical. Absent : calf tenderness, cyanotic, pedal edema - Neurological Exam Neurological exam: Present: alert, altered, CN II-XII intact, no focal deficits. Absent: pronater drift, facial droop, speech deficit - Expanded Neurological Exam Neurological exam expanded: Present: protecting the airway Speech: Present: garbled Cranial Nerves: EOM's intact PM: Normal Coma Scale Eye Opening: To Voice Coma Scale Motor Response: Withdraws to Pain Coma Scale Verbal Response: Incomprehensible (at times; able to answer simple questions) Coma Scale Total: 9 - Skin Skin exam: Present: dry, intact, pallor, warm Internal Medicine: Result - Labs CBC & Chem 7: 09/23/16 03:21 09/23/16 03:21 Labs: Short CBC 09/22/16 09/23/16 Range/Units 13:54 03:21 WBC 3.3 L 3.6 L (4.3-11.1) K/mcL Hgb 11.5 L 11.0 L (12.9-16.9) g/dL Hct 36.9 L 35.5 L (37.5-50.1) % Plt Count 103 L 103 L (140-400) K/mcL Neutrophils # 2.3 2.7 (1.6-8.9) K/mcL BMP 09/23/16 03:21 Sodium 134 L Potassium 5.0 H Chloride 107 Carbon Dioxide 19 BUN 56 H Creatinine 3.27 H Glucose 158 H Calcium 8.9 Urine 09/22/16 Range/Units 14:35 Urine Color Dark Yellow (Yellow) Urine Clarity Clear (Clear) Urine pH 5.5 (5.0-8.0) pH Units Ur Specific [place] 1.021 (1.010-1.025) Urine Protein 100 H (Neg-Trace) mg/dL Urine Glucose (UA) Normal (Normal) mg/dL - ABG Interpretation ABG results: ABG ABG pH 7.34 pH Units (7.32-7.45) 09/23/16 08:25 ABG pCO2 37 mmHg (35-45) 09/23/16 08:25 ABG pO2 60 mmHg (85-104) L 09/23/16 08:25 ABG O2 Saturation 89 % (95-98) L 09/23/16 08:25 - Impressions Impressions Head CT 09/22/16 12:12 IMPRESSION: 1. 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 2. No acute intracranial hemorrhage or global mass effect. D/ / 09/22/2016 13:27:38 Geronimo Hernandez MD / arianne Interpreting Provider: Geronimo Hernandez MD Consult Discharge Plan - Plan Referrals: Sunil Duong, [Primary Care Provider] -
[2016-09-23 09:02] LABS: Albumin 2.8 g/dL (3.5-5.0); Albumin/Globulin Ratio 0.9 (1.1-2.2); Bilirubin,Total 0.9 mg/dL (0.2-1.2); Calcium 8.6 mg/dL (8.6-10.8); Globulin 3.1 g/dL (2.4-3.5); Potassium 4.9 mEq/L (3.5-4.5); Total Protein 5.9 g/dL (6.0-8.3)
--- NOTE | 2016-09-23 10:29 | Event Note ---
Date of Encounter: 09/23/16 Time of Encounter: 09:45 Patient seen and reexamined. His mental status remains unchanged despite having 1 L of fluid infused. We will initiate sepsis protocol at this time given his leukopenia (see although acute on chronic), hypothermia, and elevated creatinine with decreased urinary output. Vital signs are stable specifically, heart rate and blood pressure are stable although his blood pressure is trending down. No lactic acidosis. Ammonia levels are normal. ABGs revealing compensated hypoxemia, placed on nasal cannula. We will infuse a second liter which would give him 30/kg. Blood cultures and other blood work ordered stat at this time. Stat portable chest x-ray also. We will bring acute care on board. Will initiate broad-spectrum antibiotics although source is unknown at this time. Appreciate critical care input and nephrology input given his CKD4.
--- NOTE | 2016-09-23 10:39 | Pulmonology Consult Note ---
Date of Encounter: 09/23/16 Time of Encounter: 10:39 Assessment and Plan (1) Acute encephalopathy Current Visit: Yes Status: Acute This is a 75-year-old gentleman with multiple medical comorbidities including advanced heart failure and chronic kidney disease who presented with worsening esophageal feel stricture status post dilation. He is has had worsening encephalopathy over the last 48 hours hypothermia and evidence of worsening hypoxemia. 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 He is at high-risk for several vascular accident and I would recommend consultation with neurology to exclude this as a possibility to my examination I do not see any clear evidence that he has a symmetric deficit and head CT yesterday was reassuring for no clear evidence of intracerebral hemorrhage although ischemic infarct could not be detected on that exam. I do not think that there is a clear "quick fix" for this encephalopathy but I would hold all medications and with the potential to affect his sensorium focus on sleep wake cycle tenriism and continue to treat underlying metabolic derangements. The standpoint of underlying hypothermia it is unclear to me with the etiology of this although development of sepsis is certainly in the differential I did not see any clear evidence of a source of infection, fever or leukocytosis (he is pancytopenic at baseline) although he clearly is at high risk fpr development of infection including aspiration. I think it is reasonable to cover patient with broad-spectrum antimicrobials to cover for hospital-acquired pathogens and including aspiration pneumonia if cultures negative over the next 24-48 hours and clinical suspicion remains low these can be stopped. My understanding is that patient has been broadly cultured including blood and urine which is appropriate. Given lactate is normal and underlying heart failure I do not feel that further aggressive fluid resuscitation at this time is necessary and likely would be deleterious. Additional consideration would be an endocrine abnormality TSH and cortisol both been checked which is appropriate he is not showing evidence of hypoglycemia at this time The standpoint of hypoxemia this is likely related to underlying cardiogenic pulmonary edema chest x-ray is pending to evaluate for possibility of pneumonia and will follow-up on this he is requiring only minimal O2 support couple of liters via nasal cannula when I was in the room. He is not exhibiting any evidence of respiratory acidosis that would be contributing to altered mental status Lastly he does have underlying acute on chronic kidney dysfunction and suspected volume overload from CHF nephrology is following the management of his renal dysfunction no clear need for renal replacement therapy at this time but certainly would be possible that he could progress to this. Given blood pressure stable very low oxygen requirement and his level of responsiveness when I was in the room I believe he is stable for continued monitoring on medical telemetry floor do not feel that he requires intensive care unit level monitoring at this time Thank you for the consultation we will continue to follow (2) Hypothermia Current Visit: Yes Status: Acute Qualifiers: Encounter type: initial encounter Qualified Code(s): T68.XXXA - Hypothermia , initial encounter (3) Pancytopenia Current Visit: No Status: Chronic (4) Acute kidney injury Current Visit: No Status: Acute (5) Atrial fibrillation with rapid ventricular response Current Visit: No Status: Chronic (6) Chronic kidney disease Current Visit: Yes Status: Chronic Qualifiers: Chronic kidney disease stage: unspecified stage Qualified Code(s): N18.9 - Chronic kidney disease, unspecified (7) CHF (congestive heart failure), NYHA class III Current Visit: No Status: Chronic Qualifiers: Congestive heart failure type: systolic Congestive heart failure chronicity : chronic Qualified Code(s): I50.22 - Chronic systolic (congestive) heart failure History of Present Illness Consult date: 09/23/16 Requesting physician: Ximena Molina Reason for consult: other (Encephalopathy ) Chief complaint: Difficulty Swallowing History of present illness: This is a 75-year-old gentleman with a history of esophageal stricture heart failure with reduced ejection fraction, CKD, atrial fibrillation who presented with difficulty swallowing and decreased oral intake related to esophageal stricture which he underwent dilation for earlier in the week. Unfortunately over the last 48 hours patient has became increasingly encephalopathic and Pulmonary was consulted to evaluate this. Because of this fact the history was obtained from the medical record nursing staff and nurse practitioner at the bedside. Apparently patient has become less responsive until the day he is minimally responsive and barely able to respond to questions. He is also had hypothermia and increasing oxygen requirement. He has being treated for possibility of sepsis although no clear source has been identified. Patient has had worsening renal dysfunction over the course of hospitalization and nephrology is following this. There is also some concern about a new facial droop and a head CT was ordered yesterday which was negative for acute CVA they attempted to do a MRI but could not s/t pacemaker. Of note he is on several medications that have the potential to decrease sensorium Past Med Surg Social Fam HX - Past Medical History Medical history: arthritis, atrial fibrillation, cardiomyopathy, CHF, COPD, coronary artery disease, diabetes, GERD, hyperlipidemia, hypertension, myocardial infarction, osteoporosis, renal disease Psychiatric history: anxiety, depression - Past Surgical History Surgical History: angioplasty/stent, pacemaker/AICD, other (Back surgery) - Social History Smoking Status: Former smoker Smokeless Tobacco Status: No Alcohol use: none Drug use: none - Family History Mother Living Status: Cause of : Cancer Hx Family Cancer: Yes (breast cancer) Hx Family Neurologic Disorders: Yes (Stroke) Father Living Status: Age at : 86 Cause of : Cancer Hx Family Cancer: Yes (Colon cancer) Medications and Allergies Atorvastatin [Lipitor] 40 mg PO HS 02/21/15 [History] Calcium Carbonate/Vitamin D2 [Oyster Shell Calcium-Vit D Tab] 1 tab PO BID 02/21 [History] Carvedilol [Coreg] 6.25 mg PO HS 02/21/15 [History] Furosemide [Lasix] 40 mg PO BID 02/21/15 [History] Lisinopril 2.5 mg PO DAILY 02/21/15 [History] Omeprazole [PriLOSEC] 40 mg PO DAILY 02/21/15 [History] Sertraline [Zoloft] 25 mg PO DAILY 02/21/15 [History] Spironolactone [Aldactone] 12.5 mg PO DAILY 02/21/15 [History] hydrALAZINE [HydrALAZINE] 50 mg PO TID 02/21/15 [History] Nitroglycerin 0.4 mg SL Q5MIN PRN #60 tab.subl 02/25/15 [Rx] Carvedilol 12.5 mg PO QAM 04/14/15 [History] Aspirin 81 mg PO DAILY #30 tab.chew 04/18/15 [Rx] Ferrous Sulfate 325 mg PO BIDWM #60 tablet 04/29/15 [Rx] Loperamide [Imodium] 2 mg PO QID PRN 12/12/15 [History] Albuterol Sulfate [Proair Hfa] 2 puff IH Q4H PRN 09/16/16 [History] Ammonium Lactate [Lac-Hydrin Five] 1 appl TP DAILY 09/16/16 [History] Ascorbate Calcium [Vitamin C] 500 mg PO DAILY 09/16/16 [History] Benzonatate [Tessalon] 100 mg PO TID PRN 09/16/16 [History] Calcitriol [Rocaltrol] 0.25 mcg PO DAILY 09/16/16 [History] Cyclobenzaprine HCl 5 mg PO BID 09/16/16 [History] Dicyclomine [Bentyl] 20 mg PO QID 09/16/16 [History] Doxazosin Mesylate [Cardura] 8 mg PO DAILY 09/16/16 [History] Ergocalciferol (VITAMIN D2) [Vitamin D2] 50,000 unit PO QMONTH 09/16/16 [History ] Escitalopram [Lexapro] 10 mg PO DAILY 09/16/16 [History] Guaifenesin [Tussin] 200 mg PO Q4H PRN 09/16/16 [History] HYDROcodone/Acet 5/325 mg [[place] 5-325 mg] 1 tab PO Q6H PRN 09/16/16 [History] Ondansetron HCl [Zofran] 4 mg PO TID PRN 09/16/16 [History] Pregabalin [Lyrica] 50 mg PO TID 09/16/16 [History] Sildenafil Citrate [Revatio] 20 mg PO TID 09/16/16 [History] Allergies No Known Allergies Allergy (Verified 09/29/15 10:02) All Systems: A 10-system review of systems was performed and is negative for pertinent findings except as documented above in the HPI. Physical Examination Vital Signs: Vital Signs, Last 4 Hours Temp Pulse Resp BP Pulse Ox 09/23/16 09:47 94.1 F L 60 18 104/72 96 09/23/16 07:19 93.7 F L 60 14 123/75 99 General appearance: lethargic, other (He is able to arouse to shouting and during these times he will follow commands) Eyes: nonicteric ENT: oropharynx moist Effort: normal Auscultation: bilateral: rales Cardiovascular: irregular rhythm Gastrointestinal: normoactive bowel sounds, soft, non-tender Extremities: edema pupils equal and round, other (He has a mild facial droop of the left side which may be related more to position and his lethargy he is able to squeeze my fingers to command strength appears symmetric when he is doing this he does move both lower extremities equally and symmetrically deep tendon reflexes are grossly preserved in the lower extremities) Results - Laboratory Findings CBC and BMP: 09/23/16 10:33 09/23/16 10:29 ABG ABG pH 7.34 pH Units (7.32-7.45) 09/23/16 08:25 ABG pCO2 37 mmHg (35-45) 09/23/16 08:25 ABG pO2 60 mmHg (85-104) L 09/23/16 08:25 ABG O2 Saturation 89 % (95-98) L 09/23/16 08:25 Abnormal lab findings: Abnormal lab results WBC 3.6 K/mcL (4.3-11.1) L 09/23/16 03:21 Hgb 11.0 g/dL (12.9-16.9) L 09/23/16 03:21 Hct 35.5 % (37.5-50.1) L 09/23/16 03:21 MCH 26.2 pg (28.0-33.3) L 09/23/16 03:21 MCHC 31.0 g/dL (31.6-35.5) L 09/23/16 03:21 RDW 18.4 % (11.5-14.5) H 09/23/16 03:21 Plt Count 103 K/mcL (140-400) L 09/23/16 03:21 Lymphocytes # 0.4 K/mcL (0.6-4.6) L 09/23/16 03:21 ABG pO2 60 mmHg (85-104) L 09/23/16 08:25 ABG HCO3 20.0 mEQ/L (21-27) L 09/23/16 08:25 ABG O2 Saturation 89 % (95-98) L 09/23/16 08:25 ABG Base Excess -5.3 mEq/L (-2.0 to 3.0) L 09/23/16 08:25 Sodium 134 mEq/L (136-145) L 09/23/16 08:41 Potassium 4.9 mEq/L (3.5-4.5) H 09/23/16 08:41 Carbon Dioxide 18 mEq/L (19-29) L 09/23/16 08:41 BUN 57 mg/dL (8-26) H 09/23/16 08:41 Creatinine 3.10 mg/dL (0.72-1.25) H 09/23/16 08:41 Est GFR ( Amer) 24 (> 60) L 09/23/16 08:41 Est GFR (Non-Af Amer) 20 (> 60) L 09/23/16 08:41 Glucose 143 mg/dL (70-99) H 09/23/16 08:41 POC Glucose 152 (58-89) H 09/22/16 20:00 Direct Bilirubin 1.0 mg/dL (0.0-0.5) H 09/16/16 17:31 Creatine Kinase 334 Units/L (30-200) H 09/19/16 02:46 B-Natriuretic Peptide 3195 pg/mL (0-100) H 09/19/16 02:46 Serum Total Protein 5.9 g/dL (6.0-8.3) L 09/23/16 08:41 Albumin 2.8 g/dL (3.5-5.0) L 09/23/16 08:41 Albumin/Globulin Ratio 0.9 (1.1-2.2) L 09/23/16 08:41 Urine Protein 100 mg/dL (Neg-Trace) H 09/22/16 14:35 Urine Bilirubin Small (Negative) H 09/22/16 14:35 Urine Microscopic RBC 3-5 per hpf (0-3) H 09/22/16 14:35 Urine Microscopic WBC 3-5 per hpf (0-3) H 09/22/16 14:35 Ur Squamous Epith Cells Many per lpf (None-Few) H 09/22/16 14:35 - Diagnostic Findings Additional studies: Head CT shows stable chronic infarcts no acute midline shift or evidence of intracerebral hemorrhage or acute infarct - Clinical Findings Intake & Output: Intake & Output 09/22/16 09/23/16 09/23/16 23:59 07:59 15:59 Weight 71.8 kg Consult Discharge Plan - Plan Referrals: Sunil Duong, [Primary Care Provider] -
[2016-09-23 10:41] LABS: Immature Granulocytes % 0.3 % (0-4); Lymphocytes % 11.7 %; Mean Corpuscular Hemoglobin 26.3 pg (28.0-33.3); Red Cell Distribution Width 18.3 % (11.5-14.5)
[2016-09-23 10:43] LABS: Basophils % 0.6 %; Eosinophils # 0.1 K/mcL (0.0-0.6); Eosinophils % 2.8 %; Hematocrit 33.3 % (37.5-50.1); Hemoglobin 10.4 g/dL (12.9-16.9); Lymphocytes # 0.4 K/mcL (0.6-4.6); Mean Corpuscular HGB Conc 31.2 g/dL (31.6-35.5); Mean Corpuscular Volume 84.3 fL (83.0-100.0); Mean Platelet Volume 9.9 fL (9.4-12.4); Monocytes # 0.4 K/mcL (0.0-1.3); Red Blood Count 3.95 M/mcL (4.19-5.50); Segmented Neutrophils % 73.6 %
[2016-09-23 10:46] LABS: INR 1.3; Prothrombin Time 14.6 Seconds (9.4-12.1)
[2016-09-23 10:49] LABS: Activated Partial Thrombo Time 38.5 Seconds (26.0-36.0); Neutrophils # 2.4 K/mcL (1.6-8.9); Platelet Count 92 K/mcL (140-400)
--- NOTE | 2016-09-23 11:25 | Nephrology Progress Note ---
Date of Encounter: 09/23/16 Time of Encounter: 11:17 - Assessment and Plan (1) Acute on chronic renal failure Current Visit: Yes Status: Acute KAY on CKD likely from volume depletion initially that was improving and now has worsened without clear etiology. Until yesterday he was eating well. Fluids were added yesterday and his renal function became stable from yesterday to today. Avoid nephrotoxins Adjust medication for renal function. Strict Is/Os Place bobo. Continue fluids. Qualifiers: Acute renal failure type: unspecified Chronic kidney disease stage: stage 4 (severe) Qualified Code(s): N17.9 - Acute kidney failure, unspecified; N18.4 - Chronic kidney disease, stage 4 (severe) (2) Esophageal stricture Current Visit: Yes Status: Resolved resolved. Patient eating prior to mental status change. GI evaluated and treated. (3) Diabetes Current Visit: No Status: Acute Per primary team. Qualifiers: Diabetes mellitus type: type 2 Diabetes mellitus complication status: with kidney complications Diabetes mellitus complication detail: with chronic kidney disease Diabetes mellitus long term care administrator insulin use: unspecified long term care administrator insulin use status Chronic kidney disease stage: stage 3 (moderate) Qualified Code(s): E11.22 - Type 2 diabetes mellitus with diabetic chronic kidney disease; N18.3 - Chronic kidney disease, stage 3 (moderate) (4) Pulmonary hypertension Current Visit: Yes Status: Acute avoid dehydration. (5) Metabolic acidosis Current Visit: Yes Status: Acute Etiology is unclear, but with decreasing temperature, worsening renal function and altered mental status there is concern for possible sepsis. Primary team aware and we discussed plan . Await lab work-up. Starting bicarb drip. Subjective Principal diagnosis: KAY on CKD Interval history: Patient seen and evaluated. He is lethargic and difficult to arouse. He barely opens his eyes with a sternal rub. Review of systems is unobtainable. Objective - Vital Signs Vital signs: Vital Signs Temp Pulse Resp BP Pulse Ox 09/23/16 09:47 94.1 F L 60 18 104/72 96 09/23/16 07:19 93.7 F L 60 14 123/75 99 09/23/16 06:27 93.7 F L 09/23/16 04:58 62 16 137/67 93 09/23/16 00:24 61 16 131/63 97 09/22/16 19:15 97.3 F L 68 17 108/74 97 09/22/16 14:30 72 17 121/80 98 09/22/16 11:46 97.3 F L 61 14 112/77 95 Intake and Output 09/22/16 09/23/16 09/23/16 23:59 07:59 15:59 Intake Total 1000 / 1000 Balance 1000 / 1000 Intake: IV Fluids 1000 / 1000 0.9 % Sodium Chloride 1, 1000 / 1000 000 ML @ 3750 mls/hr IVC .Q16M ONE Rx#:[id number] Other: Weight 71.8 kg Blood Glucose* 152 157 Patient Weight 09/23/16 23:59 Weight 71.8 kg - General Appearance General appearance: Present: well-developed, well-nourished, chronically ill EENT: Present: ATNC Neck: Present: supple Respiratory: Present: course breath sounds Cardiology: Present: no edema, regular rate Gastrointestinal: Present: no tenderness Integumentary: Present: warm and dry Neurologic: Present: obtunded Musculoskeletal: Present: no cyanosis Additional Comments: unobtainable - Lab 09/23/16 10:33 09/23/16 08:41 Most recent lab results ABG pH 7.34 pH Units (7.32-7.45) 09/23/16 08:25 ABG pCO2 37 mmHg (35-45) 09/23/16 08:25 ABG pO2 60 mmHg (85-104) L 09/23/16 08:25 ABG HCO3 20.0 mEQ/L (21-27) L 09/23/16 08:25 ABG O2 Saturation 89 % (95-98) L 09/23/16 08:25 Calcium 8.6 mg/dL (8.6-10.8) 09/23/16 08:41 Phosphorus 4.0 mg/dL (2.3-4.7) 09/17/16 03:33 Magnesium 1.6 mg/dL (1.6-2.6) 09/23/16 03:21 Consult Discharge Plan - Plan Referrals: Sunil Duong DO [Primary Care Provider] -
[2016-09-23] MEDS ORDERED: Perflutren Lipid Microsphere 1.3 ML in 0.9 % Sodium Chloride 8.7 ML IVP ONE (11:27)
[2016-09-23 11:31] LABS: Albumin 2.8 g/dL (3.5-5.0); Bilirubin,Direct 0.6 mg/dL (0.0-0.5); Bilirubin,Indirect 0.3 mg/dL (0.0-1.2); Bilirubin,Total 0.9 mg/dL (0.2-1.2); Calcium 8.4 mg/dL (8.6-10.8); Globulin 2.9 g/dL (2.4-3.5); Potassium 4.8 mEq/L (3.5-4.5); Total Protein 5.7 g/dL (6.0-8.3)
[2016-09-23] MEDS ORDERED: Vancomycin 1,000 MG in D5% in Water 250 ML IVPB ONE (11:41)
[2016-09-23 11:51] LABS: Thyroid Stimulating Hormone 1.821 mcIU/mL (0.350-4.840)
[2016-09-23] MEDS: Aspirin 81 MG TAB.CHEW PO SCH (11:53)
[2016-09-23] MEDS: Ammonium Lactate 30 APPL/225 GM BOTTLE TP SCH (11:53)
[2016-09-23] MEDS: Magnesium Oxide 400 MG TABLET PO SCH (12:06)
[2016-09-23] MEDS: Pantoprazole 40 MG VIAL IVP SCH (12:06)
[2016-09-23] MEDS: Sildenafil Citrate 20 MG TABLET PO SCH ×3 (12:06→22:03)
[2016-09-23] MEDS: Pregabalin 50 MG CAPSULE PO SCH (12:06)
[2016-09-23] MEDS: hydrALAZINE 25 MG TABLET PO SCH ×3 (12:06→21:55)
[2016-09-23] MEDS: Cefepime HCl 1,000 MG in D5% in Water (Mini-Bag+) 100 ML IVPB SCH ×2 (12:52→23:48)
--- NOTE | 2016-09-23 15:35 | Cardiology Consult Note ---
<Dustin Burton - Last Filed: 09/23/16 16:27> Date of Encounter: 09/23/16 Time of Encounter: 15:00 Assessment and Plan (1) Atrial thrombus Current Visit: Yes Status: Acute TTE showed echodensity in the left atrium near the KAR concerning for thrombus. Patient with stroke like symptoms. CT negative for hemorrhage or acute CVA. No MRI d/t ICD. Recommend neurology consult. Discussed with Dr. Be. Start heparin gtt with bridge to coumadin. No xarelto due to GI bleed on xarelto. EGD during this stay showed no bleeding. Pt being transferred to ECF. INR monitoring at ECF. (2) Atrial fibrillation Current Visit: No Status: Chronic h/o afib. Currently ventricular paced. CHADS VASC=5. Currently off anticoagulation d/t GI bleed on xarelto in July 2015 and December 2015. Recommend starting coumadin due to left atrial thrombus. Qualifiers: Atrial fibrillation type: chronic Qualified Code(s): I48.2 - Chronic atrial fibrillation (3) CAD (coronary artery disease) Current Visit: No Status: Chronic H/o CAD s/p PCI. MT 02/2015 s/p PTCA/BMS to the pLAD at that time. Continue asa, statin, and bb. Qualifiers: Coronary Disease-Associated Artery/Lesion type: [place] artery [place] vs. transplanted heart: [place] heart Associated angina: without angina Qualified Code(s): I25.10 - Atherosclerotic heart disease of [place] coronary artery without angina pectoris (4) CHF (congestive heart failure) Current Visit: No Status: Chronic Known ischemic CMP. TTE completed today sowed. Severe LV systolic dysfunction, LVEF 20-25%. There is global hypokinesis with regional variations. Mildly dilated right ventricle with mild-moderate RV hypokinesis. A device lead was visualized in the right atrium and right ventricle. Mildly dilated left atrium. There is an echodensity in the left atrium near the left atrial appendage that is consistent with an LA thrombus. Severely dilated right atrium. No evidence of intracardiac shunting with agitated saline contrast. Mild aortic regurgitation. Mild mitral regurgitation. Severe tricuspid regurgitation. Mild pulmonary hypertension. Estimated RVSP = 36 mmHg. Suspect RVSP is underestimated on this study. There is a small pericardial effusion present. A pleural effusion is noted. Currently euvolemic on exam. Presented with dehydration. Nephrology following for A/CKD. Continue bb. No ACEi d/t A/CKD. Continue low sodium diet and daily weights. Qualifiers: Congestive heart failure type: combined Congestive heart failure chronicity : chronic Qualified Code(s): I50.42 - Chronic combined systolic (congestive) and diastolic (congestive) heart failure Discussion w patient/family: The assessment and plan as outlined above was discussed with the patient and/or family members who expressed understanding and agreement. All questions were answered. Thank you for involving us in the care of your patient. Please call with any questions. History of Present Illness Consult date: 09/23/16 Requesting physician: Ximena Molina Consult reason: KAR thrombus. Chief complaint: Dysphagia, AMS History of present illness: Mr. Anaya is a 75 year old male history of CAD s/p PCI, HTN, hyperlipidemis, CKD IV, PAF and CHF, ICD who initially presented to [facility] with difficulty swallowing. He underwent EGD and was found to have schatzki ring and received esophogeal dilation. He was planning to be discharged to [facility] for weakness when he became confused and had expressive aphagia. CT of the head was completed and showed remote lacunar infarct and right parietal cortical infarct. MRI was not completed due to ICD. TTE was completed and he was found to have echodensity near the KAR concerning for thrombus. Cardiology consulted for recommendation for left atrial thrombus. Mr. Anaya was previously on xarelto for his atrial fibrillation. This was recommended to be stopped indefinitely after he developed recurrent GI bleed last year in July and December. EGD completed this stay showed no evidence of bleeding. Past Med Surg Social Fam HX - Past Medical History Medical history: arthritis, atrial fibrillation, cardiomyopathy, CHF, COPD, coronary artery disease, diabetes, GERD, hyperlipidemia, hypertension, myocardial infarction, osteoporosis, renal disease Psychiatric history: anxiety, depression - Past Surgical History Surgical History: angioplasty/stent, pacemaker/AICD, other (Back surgery) - Social History Smoking Status: Former smoker Smokeless Tobacco Status: No Alcohol use: none Drug use: none - Family History Mother Living Status: Cause of : Cancer Hx Family Cancer: Yes (breast cancer) Hx Family Neurologic Disorders: Yes (Stroke) Father Living Status: Age at : 86 Cause of : Cancer Hx Family Cancer: Yes (Colon cancer) Medications and Allergies Atorvastatin [Lipitor] 40 mg PO HS 02/21/15 [History] Calcium Carbonate/Vitamin D2 [Oyster Shell Calcium-Vit D Tab] 1 tab PO BID 02/21 [History] Carvedilol [Coreg] 6.25 mg PO HS 02/21/15 [History] Furosemide [Lasix] 40 mg PO BID 02/21/15 [History] Lisinopril 2.5 mg PO DAILY 02/21/15 [History] Omeprazole [PriLOSEC] 40 mg PO DAILY 02/21/15 [History] Sertraline [Zoloft] 25 mg PO DAILY 02/21/15 [History] Spironolactone [Aldactone] 12.5 mg PO DAILY 02/21/15 [History] hydrALAZINE [HydrALAZINE] 50 mg PO TID 02/21/15 [History] Nitroglycerin 0.4 mg SL Q5MIN PRN #60 tab.subl 02/25/15 [Rx] Carvedilol 12.5 mg PO QAM 04/14/15 [History] Aspirin 81 mg PO DAILY #30 tab.chew 04/18/15 [Rx] Ferrous Sulfate 325 mg PO BIDWM #60 tablet 04/29/15 [Rx] Loperamide [Imodium] 2 mg PO QID PRN 12/12/15 [History] Albuterol Sulfate [Proair Hfa] 2 puff IH Q4H PRN 09/16/16 [History] Ammonium Lactate [Lac-Hydrin Five] 1 appl TP DAILY 09/16/16 [History] Ascorbate Calcium [Vitamin C] 500 mg PO DAILY 09/16/16 [History] Benzonatate [Tessalon] 100 mg PO TID PRN 09/16/16 [History] Calcitriol [Rocaltrol] 0.25 mcg PO DAILY 09/16/16 [History] Cyclobenzaprine HCl 5 mg PO BID 09/16/16 [History] Dicyclomine [Bentyl] 20 mg PO QID 09/16/16 [History] Doxazosin Mesylate [Cardura] 8 mg PO DAILY 09/16/16 [History] Ergocalciferol (VITAMIN D2) [Vitamin D2] 50,000 unit PO QMONTH 09/16/16 [History ] Escitalopram [Lexapro] 10 mg PO DAILY 09/16/16 [History] Guaifenesin [Tussin] 200 mg PO Q4H PRN 09/16/16 [History] HYDROcodone/Acet 5/325 mg [[place] 5-325 mg] 1 tab PO Q6H PRN 09/16/16 [History] Ondansetron HCl [Zofran] 4 mg PO TID PRN 09/16/16 [History] Pregabalin [Lyrica] 50 mg PO TID 09/16/16 [History] Sildenafil Citrate [Revatio] 20 mg PO TID 09/16/16 [History] Allergies No Known Allergies Allergy (Verified 09/29/15 10:02) All Systems Review: A 10-system review of systems was performed and is negative for pertinent findings except as documented above in the HPI. Physical Examination Vital Signs, Last 4 Hours Temp Pulse Resp BP Pulse Ox 09/23/16 15:26 97.5 F L 61 16 109/71 99 09/23/16 12:42 96.4 F L 60 16 104/66 100 General: Conversant, No Apparent Distress HEENT: Atraumatic, Normocephaly, Mucus Membranes Moist Neck: No JVD, Normal carotid pulses Cardiac: Reg Rate and Rhythm, Normal S1 and S2, No Murmur, Other (Apical regular , ventricular pacing.) Lungs: Normal Breath Sounds, No Wheeze, Rales, Rhonchi Neuro: Alert and responsive, Other (Hand grasps +, facial features are symmetrical, expressive aphagia noted, confused.) Abdomen: Soft, Non-Tender Skin: No rashes noted on visualized skin Musculoskeletal: No Chest Wall Tenderness Extremities: No Clubbing, No Cyanosis, No Edema, Normal Pulses Results 09/23/16 10:33 09/23/16 10:29 Lab Results 09/23/16 09/23/16 09/23/16 03:21 03:21 08:41 WBC 3.6 L Hgb 11.0 L Hct 35.5 L Plt Count 103 L INR APTT Sodium 134 L 134 L Potassium 5.0 H 4.9 H Chloride 107 108 Carbon Dioxide 19 18 L BUN 56 H 57 H Creatinine 3.27 H 3.10 H Glucose 158 H 143 H Calcium 8.9 8.6 Magnesium 1.6 Total Bilirubin 0.9 AST 15 ALT 8 Alkaline Phosphatase 48 Troponin I TSH 09/23/16 09/23/16 09/23/16 10:29 10:29 10:33 WBC 3.2 L Hgb 10.4 L Hct 33.3 L Plt Count 92 L INR APTT Sodium 136 Potassium 4.8 H Chloride 108 Carbon Dioxide 19 BUN 57 H Creatinine 3.06 H Glucose 132 H Calcium 8.4 L Magnesium Total Bilirubin 0.9 AST 13 ALT 7 Alkaline Phosphatase 45 Troponin I 0.23 H* TSH 1.821 09/23/16 10:33 WBC Hgb Hct Plt Count INR 1.3 APTT 38.5 H Sodium Potassium Chloride Carbon Dioxide BUN Creatinine Glucose Calcium Magnesium Total Bilirubin AST ALT Alkaline Phosphatase Troponin I TSH - Imaging and Cardiology Echo: report reviewed - EKG Interpretation EKG results cardiology: personally reviewed (Ventricular pacing.) Consult Discharge Plan - Plan Referrals: Sunil Duong, [Primary Care Provider] - <Karen Be - Last Filed: 09/23/16 17:06> Date of Encounter: 09/23/16 Assessment and Plan Discussion w patient/family: The assessment and plan as outlined above was discussed with the patient and/or family members who expressed understanding and agreement. All questions were answered. Thank you for involving us in the care of your patient. Please call with any questions. History of Present Illness History of present illness: Mr. Anaya is a 75 year old male All Systems Review: A 10-system review of systems was performed and is negative for pertinent findings except as documented above in the HPI. Physical Examination Vital Signs, Last 4 Hours Temp Pulse Resp BP Pulse Ox 09/23/16 15:26 97.5 F L 61 16 109/71 99 Results 09/23/16 10:33 09/23/16 10:29 Lab Results 09/23/16 09/23/16 09/23/16 03:21 03:21 08:41 WBC 3.6 L Hgb 11.0 L Hct 35.5 L Plt Count 103 L INR APTT Sodium 134 L 134 L Potassium 5.0 H 4.9 H Chloride 107 108 Carbon Dioxide 19 18 L BUN 56 H 57 H Creatinine 3.27 H 3.10 H Glucose 158 H 143 H Calcium 8.9 8.6 Magnesium 1.6 Total Bilirubin 0.9 AST 15 ALT 8 Alkaline Phosphatase 48 Troponin I TSH 09/23/16 09/23/16 09/23/16 10:29 10:29 10:33 WBC 3.2 L Hgb 10.4 L Hct 33.3 L Plt Count 92 L INR APTT Sodium 136 Potassium 4.8 H Chloride 108 Carbon Dioxide 19 BUN 57 H Creatinine 3.06 H Glucose 132 H Calcium 8.4 L Magnesium Total Bilirubin 0.9 AST 13 ALT 7 Alkaline Phosphatase 45 Troponin I 0.23 H* TSH 1.821 09/23/16 10:33 WBC Hgb Hct Plt Count INR 1.3 APTT 38.5 H Sodium Potassium Chloride Carbon Dioxide BUN Creatinine Glucose Calcium Magnesium Total Bilirubin AST ALT Alkaline Phosphatase Troponin I TSH - Attending Attestation I examined this patient and my medical decision-making was reviewed with the Resident Physician. I agree with the documented findings, disposition and treatment plan. Mr. Anaya had esophageal dilation secondary to schatzki ring and was planned to be discharged but developed confusion and concern for CVA. CT head demonstrated remote infarcts without acute findings. MRI could not be completed secondary to presence of AICD. He had an echo done demonstrating an echodensity in the LA near the KAR concerning for thrombus. Previously, xarelto was stopped in the Fall of 2016 secondary to GIB. He had EGD and Cscope at that time which did not demonstrate bleeding. Given the presence of LA thrombus and neurologic events, recommend anticoagulation with heparin and coumadin bridge. The CT did not demonstrate hemorrhage. His blood count is stable. May consider Neurology consultation as well. He has small to moderate bilateral pleural effusion on CXR and increased BNP and known EF of 20-25%. He was receiving IVF's out of concern for dehydration. However, renal function has gotten worse. Would consider IV diuresis. Nephrology also involved. Continue asa, statin and BB for history of CAD.
[2016-09-23] MEDS ORDERED: *HR* Heparin 5,000 UNIT/ML VIAL IVP PRN ×2 (16:04)
[2016-09-23] MEDS ORDERED: *HR* Heparin 5,000 UNIT/ML VIAL IVP ONE (16:04)
--- NOTE | 2016-09-23 17:24 | Neurology - Consult Note ---
Date of Encounter: 09/23/16 Time of Encounter: 17:18 Assessment and Plan (1) Altered mental status Current Visit: Yes Status: Acute Episode of altered mental status lasting few hours in duration characterized by unresponsiveness with low temperature in the morning, with total resolution. etiology unclear. o witnessed seizure activity. not sure if the patient is deeper sleep. Repeat CT of head showed no changes compared to previous study, no cerebral hemorrhage noted. Patient's neurological examination showed leg weakness bilaterally likely related to medical condition and a part of his generalized weakness, does not fee that he had a new stroke but TIA is possible. Agree with anticoagulation therapy due to his significant low LVEF and history of chronic atrial fibrillation. Please continue medical and supportive care Qualifiers: Altered mental status type: transient alteration of awareness Qualified Code(s): R40.4 - Transient alteration of awareness History of Present Illness Chief complaint: weakness and unresponsiveness HPI: Mr. Anaya is a 75 year old male with PMH significant for CHF, Atrial fibrillation, currently not on anticoagulation therapy who developed acute onset of mental status changes. Patient was initially admitted to [facility] due to weakness, nausea on 09/16/2016. He was getting treated and was doing well yesterday and this morning he was found to have significant mental status changes and was unresponsive with body temperature of 94, vitals were within normal range. he had CT of head yesterday which showed no acute intracranial abnormality. Repeat CT of head was done one hour ago and showed no changes, compared to previous study. Patient apparently is awake and alert now. Is able to answer questions appropriately. Says that he is weak and has some pain at the tailbone area. He is able to lift his legs off the bed bilaterally. No focal deficits seen grossly. Past Med Surg Social Fam HX - Past Medical History Medical history: arthritis, atrial fibrillation, cardiomyopathy, CHF, COPD, coronary artery disease, diabetes, GERD, hyperlipidemia, hypertension, myocardial infarction, osteoporosis, renal disease Psychiatric history: anxiety, depression - Past Surgical History Surgical History: angioplasty/stent, pacemaker/AICD, other (Back surgery) - Social History Smoking Status: Former smoker Smokeless Tobacco Status: No Alcohol use: none Drug use: none - Family History Mother Living Status: Cause of : Cancer Hx Family Cancer: Yes (breast cancer) Hx Family Neurologic Disorders: Yes (Stroke) Father Living Status: Age at : 86 Cause of : Cancer Hx Family Cancer: Yes (Colon cancer) Medications and Allergies Atorvastatin [Lipitor] 40 mg PO HS 02/21/15 [History] Calcium Carbonate/Vitamin D2 [[place]yster [place] Calcium-Vit D Tab] 1 tab PO BID 02/21 [History] Carvedilol [Coreg] 6.25 mg PO HS 02/21/15 [History] Furosemide [Lasix] 40 mg PO BID 02/21/15 [History] Lisinopril 2.5 mg PO DAILY 02/21/15 [History] Omeprazole [PriLOSEC] 40 mg PO DAILY 02/21/15 [History] Sertraline [Zoloft] 25 mg PO DAILY 02/21/15 [History] Spironolactone [Aldactone] 12.5 mg PO DAILY 02/21/15 [History] hydrALAZINE [HydrALAZINE] 50 mg PO TID 02/21/15 [History] Nitroglycerin 0.4 mg SL Q5MIN PRN #60 tab.subl 02/25/15 [Rx] Carvedilol 12.5 mg PO QAM 04/14/15 [History] Aspirin 81 mg PO DAILY #30 tab.chew 04/18/15 [Rx] Ferrous Sulfate 325 mg PO BIDWM #60 tablet 04/29/15 [Rx] Loperamide [Imodium] 2 mg PO QID PRN 12/12/15 [History] Albuterol Sulfate [Proair Hfa] 2 puff IH Q4H PRN 09/16/16 [History] Ammonium Lactate [Lac-Hydrin Five] 1 appl TP DAILY 09/16/16 [History] Ascorbate Calcium [Vitamin C] 500 mg PO DAILY 09/16/16 [History] Benzonatate [Tessalon] 100 mg PO TID PRN 09/16/16 [History] Calcitriol [Rocaltrol] 0.25 mcg PO DAILY 09/16/16 [History] Cyclobenzaprine HCl 5 mg PO BID 09/16/16 [History] Dicyclomine [Bentyl] 20 mg PO QID 09/16/16 [History] Doxazosin Mesylate [Cardura] 8 mg PO DAILY 09/16/16 [History] Ergocalciferol (VITAMIN D2) [Vitamin D2] 50,000 unit PO QMONTH 09/16/16 [History ] Escitalopram [Lexapro] 10 mg PO DAILY 09/16/16 [History] Guaifenesin [Tussin] 200 mg PO Q4H PRN 09/16/16 [History] HYDROcodone/Acet 5/325 mg [[place] 5-325 mg] 1 tab PO Q6H PRN 09/16/16 [History] Ondansetron HCl [Zofran] 4 mg PO TID PRN 09/16/16 [History] Pregabalin [Lyrica] 50 mg PO TID 09/16/16 [History] Sildenafil Citrate [Revatio] 20 mg PO TID 09/16/16 [History] Allergies No Known Allergies Allergy (Verified 09/29/15 10:02) All Systems: A 10-system review of systems was performed and is negative for pertinent findings except as documented above in the HPI. Physical Examination - Vital Signs Vital Signs: Initial Vital Signs Temp Pulse Resp BP Pulse Ox 0 F L 89 18 149/102 93 09/16/16 16:11 09/16/16 16:11 09/16/16 16:11 09/16/16 16:11 09/16/16 16:11 - Constitutional General appearance: comfortable - Neurologic Sensorimotor examination: other (Grossly intact) Detailed motor examination: other (Weakness in his legs/hip flexion bilaterally , strength 4/5 biaterally. ) Motor examination - right side: 4/5: deltoids, biceps, triceps, wrist flexion, wrist extension, employee adviser, hip flexors, tibialis Anterior, quadriceps, toe extension (EHL), plantarflexion Motor examination - left side: 4/5: deltoids, biceps, triceps, wrist flexion, wrist extension, hip flexors, employee adviser, quadriceps, tibialis Anterior, toe extension (EHL), plantarflexion Detailed sensory examination: other (Grossly intact) Posture: other (None) Reflexes: Biceps: 1+, Triceps: 1+, Brachioradialis: 1+, Patella: 1+, Achilles: 1 + Mental Status Examination: awake, alert, oriented to person, oriented to place, oriented to time, follows commands appropriately, answers questions appropriately, no agnosia, no aphasia, no aproxia, makes eye contact, follows simple commands, localizes noxious stimulation Cranial nerve examination: PERRL, EOMI, visual banda intact, corneal reflexes brisk symmetrically, sensory to face intact, mastication intact, no facial asymmetry is present, no dysarthria, hearing is intact symmetrically, soft palate elevates bilaterally upon phonation, gag reflex intact, flexes SCM and trapezius muscles symmetrically with full power, tongue protrudes midline, no atrophy or facial fasiculations present Results - Laboratory Findings CBC and BMP: 09/23/16 10:33 09/23/16 10:29 Abnormal lab findings: Abnormal lab results WBC 3.2 K/mcL (4.3-11.1) L 09/23/16 10:33 RBC 3.95 M/mcL (4.19-5.50) L 09/23/16 10:33 Hgb 10.4 g/dL (12.9-16.9) L 09/23/16 10: Hct 33.3 % (37.5-50.1) L 09/23/16 10:33 MCH 26.3 pg (28.0-33.3) L 09/23/16 10:33 MCHC 31.2 g/dL (31.6-35.5) L 09/23/16 10:33 RDW 18.3 % (11.5-14.5) H 09/23/16 10:33 Plt Count 92 K/mcL (140-400) L 09/23/16 10: Lymphocytes # 0.4 K/mcL (0.6-4.6) L 09/23/16 10:33 PT 14.6 Seconds (9.4-12.1) H 09/23/16 10:33 APTT 38.5 Seconds (26.0-36.0) H 09/23/16 10:33 ABG pO2 60 mmHg (85-104) L 09/23/16 08:25 ABG HCO3 20.0 mEQ/L (21-27) L 09/23/16 08:25 ABG O2 Saturation 89 % (95-98) L 09/23/16 08:25 ABG Base Excess -5.3 mEq/L (-2.0 to 3.0) L 09/23/16 08:25 Potassium 4.8 mEq/L (3.5-4.5) H 09/23/16 10:29 BUN 57 mg/dL (8-26) H 09/23/16 10:29 Creatinine 3.06 mg/dL (0.72-1.25) H 09/23/16 10:29 Est GFR ( Amer) 24 (> 60) L 09/23/16 10:29 Est GFR (Non-Af Amer) 20 (> 60) L 09/23/16 10:29 Glucose 132 mg/dL (70-99) H 09/23/16 10:29 POC Glucose 150 (58-89) H 09/23/16 16:49 Calcium 8.4 mg/dL (8.6-10.8) L 09/23/16 10:29 Direct Bilirubin 0.6 mg/dL (0.0-0.5) H 09/23/16 10:29 Creatine Kinase 211 Units/L (30-200) H 09/23/16 10:29 Troponin I 0.23 ng/mL (0-0.03) H* 09/23/16 10:29 B-Natriuretic Peptide 3195 pg/mL (0-100) H 09/19/16 02:46 Serum Total Protein 5.7 g/dL (6.0-8.3) L 09/23/16 10:29 Albumin 2.8 g/dL (3.5-5.0) L 09/23/16 10:29 Albumin/Globulin Ratio 1.0 (1.1-2.2) L 09/23/16 10:29 Urine Protein 100 mg/dL (Neg-Trace) H 09/22/16 14:35 Urine Bilirubin Small (Negative) H 09/22/16 14:35 Urine Microscopic RBC 3-5 per hpf (0-3) H 09/22/16 14:35 Urine Microscopic WBC 3-5 per hpf (0-3) H 09/22/16 14:35 Ur Squamous Epith Cells Many per lpf (None-Few) H 09/22/16 14:35 Consult Discharge Plan - Plan Referrals: Sunil Duong, [Primary Care Provider] -
[2016-09-23] MEDS ORDERED: *HR* Warfarin 5 MG TABLET PO SCH (18:00)
[2016-09-23] MEDS ORDERED: Warfarin perPT PO PRN (18:00)
[2016-09-23] MEDS: Heparin 25,000 UNIT/500 ML D5W 25,000 UNIT/500 ML MLS IVC SCH (18:17)
--- NOTE | 2016-09-23 18:23 | Event Note ---
Date of Encounter: 09/23/16 Time of Encounter: 17:00 Patient seen in follow-up not complaining of any abdominal pain no fever or chills. On examination mild tenderness right upper quadrant on deep palpation. Assessment: Patient with jaundice due to CBD obstruction and possible cholecystitis. Recommendation: Yes ER CP tomorrow we will continue IV antibiotics
[2016-09-24 01:01] LABS: Basophils % 0.3 %; Eosinophils # 0.1 K/mcL (0.0-0.6); Eosinophils % 2.1 %; Hematocrit 34.6 % (37.5-50.1); Hemoglobin 10.9 g/dL (12.9-16.9); Immature Granulocytes % 0.3 % (0-4); Lymphocytes # 0.4 K/mcL (0.6-4.6); Lymphocytes % 9.4 %; Mean Corpuscular HGB Conc 31.5 g/dL (31.6-35.5); Mean Corpuscular Hemoglobin 26.6 pg (28.0-33.3); Mean Corpuscular Volume 84.4 fL (83.0-100.0); Mean Platelet Volume 11.1 fL (9.4-12.4); Monocytes # 0.4 K/mcL (0.0-1.3); Monocytes % 10.7 %; Red Cell Distribution Width 18.3 % (11.5-14.5); Segmented Neutrophils % 77.2 %
[2016-09-24 01:02] LABS: Neutrophils # 2.9 K/mcL (1.6-8.9); Platelet Count 91 K/mcL (140-400)
[2016-09-24 01:11] LABS: INR 1.5; Prothrombin Time 15.9 Seconds (9.4-12.1)
[2016-09-24 01:12] LABS: Calcium 8.5 mg/dL (8.6-10.8); Potassium 5.1 mEq/L (3.5-4.5)
[2016-09-24 01:45] LABS: Acanthocytes 1+ (Not Present)
[2016-09-24 01:46] LABS: Anisocytosis 1+ (Not Present); Hypochromasia Present (Not Present); Platelet Estimate Decreased (Normal)
[2016-09-24 01:53] LABS: Activated Partial Thrombo Time > 360.0 Seconds (26.0-36.0)
[2016-09-24 03:47] LABS: Heparin anti-factor XA UFH 0.79 IU/mL (0.30-0.70)
[2016-09-24] MEDS: Insulin LISPRO 300 UNITS/3 ML VIAL SQ SCH ×4 (08:32→21:33)
[2016-09-24] MEDS: hydrALAZINE 25 MG TABLET PO SCH ×3 (08:39→21:24)
[2016-09-24] MEDS: Sildenafil Citrate 20 MG TABLET PO SCH ×3 (08:39→21:25)
[2016-09-24] MEDS: Pantoprazole 40 MG VIAL IVP SCH (08:39)
[2016-09-24] MEDS: Aspirin 81 MG TAB.CHEW PO SCH (08:40)
[2016-09-24] MEDS: Magnesium Oxide 400 MG TABLET PO SCH (08:40)
[2016-09-24] MEDS ORDERED: Furosemide 40 MG/4 ML VIAL IVP ONE (10:00)
--- NOTE | 2016-09-24 10:06 | Internal Med Progress Note ---
<Sunil Duong - Last Filed: 09/24/16 10:03> Date of Encounter: 09/24/16 Time of Encounter: 10:03 - Assessment and plan (1) TIA (transient ischemic attack) Current Visit: Yes Status: Acute Assessment and plan: Patient had an episode yesterday of decreased consciousness and expressive aphasia. These have improved and the patient is awake alert and does not have any speech deficit at this time. Head CT was performed that was negative. MRI is unable to be performed given the patient's AICD in place. Patient is at high risk for thromboembolic CVA given that he has a history of A. fib and has been unable to be anticoagulated for approximately the last 6 months due to GI bleed. Given the patient's intra-atrial thrombus anticoagulation has been initiated with heparin bridging to Coumadin. Family was not available at this time, when they arrive I will discuss the role of anticoagulation and the risks and benefits at length with them. Did discuss this with the patient as well. Qualifiers: Transient cerebral ischemia type: unspecified Qualified Code(s): G45.9 - Transient cerebral ischemic attack, unspecified (2) Atrial thrombus Current Visit: Yes Status: Acute Assessment and plan: Echo revealed likely thrombus in the left atrial appendage. Patient does have a history of atrial fibrillation. Was not on anticoagulation previously due to GI bleed. Given the known thrombus at high risk for neurologic insult patient will be placed on heparin with bridging to Coumadin. Patient did have some neurologic discussed above but these have resolved at this time. (3) Esophageal stricture Current Visit: Yes Status: Resolved Assessment and plan: Patient has known Schatzki's ring with multiple dilatations in the past. Patient prior to arrival difficulty swallowing. EGD performed this hospitalization showed recurrence of the patient's Schatzki's ring dilatation was performed. Patient is tolerating diet well at this time. (4) CKD (chronic kidney disease) stage 4, GFR 15-29 ml/min Current Visit: Yes Status: Chronic Assessment and plan: Kidney function slightly worse than baseline with a GFR of 18. Patient is still having good urine output however the urine is dark brown. Does not appear to be bloody. Nephrology is following. Recheck urinalysis, urine sodium , urine and plasma myoglobin. (5) CHF (congestive heart failure) Current Visit: No Status: Chronic Assessment and plan: Patient with known chronic systolic heart failure which was read demonstrated on echocardiogram yesterday. Continue carvedilol twice a day. DOTTIE inhibitor has been held due to worsening renal function as discussed above. No evidence of acute exacerbation. Qualifiers: Congestive heart failure type: systolic Congestive heart failure chronicity : chronic Qualified Code(s): I50.22 - Chronic systolic (congestive) heart failure (6) Diabetes Current Visit: No Status: Acute Assessment and plan: Blood sugars have been under good control. Continue sliding scale insulin. 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 Patient states that he feels okay today. He complains of some mild back pain. Otherwise he has no other specific complaints. He denies chest pain, shortness of breath, abdominal pain, nausea, vomiting. He states had bowel movement this morning without noting any blood. He denies any active bleeding from anywhere. - Constitutional Vitals: Temp Pulse Resp BP Pulse Ox 98.5 F 65 17 104/76 95 09/24/16 06:03 09/24/16 06:03 09/24/16 06:03 09/24/16 06:03 09/24/16 06:03 General appearance: Present: cachectic, A&O X 3, pleasant, no acute distress, answers questions appropriately - Respiratory Respiratory exam: Present: decreased breath sounds. Absent: rales, rhonchi, wheezes - Cardiovascular Cardiovascular exam: Present: RRR. Absent: gallop, rubs, systolic murmur - GI/Abdominal GI/Abdominal exam: Present: diminished bowel sounds, soft. Absent: distended, tenderness - Extremities Exam Extremities exam: Present: pedal edema (trace), warm. Absent: tenderness - Neurological Exam Neurological exam: Present: alert, CN II-XII intact, oriented X3, no focal deficits, strengths equal and symetr throughout. Absent: facial droop, speech deficit Internal Medicine: Result - Labs CBC & Chem 7: 09/24/16 00:17 09/24/16 00:17 Labs: Short CBC 09/23/16 09/24/16 Range/Units 10:33 00:17 WBC 3.2 L 3.8 L (4.3-11.1) K/mcL Hgb 10.4 L 10.9 L (12.9-16.9) g/dL Hct 33.3 L 34.6 L (37.5-50.1) % Plt Count 92 L 91 L (140-400) K/mcL Neutrophils # 2.4 2.9 (1.6-8.9) K/mcL BMP 09/23/16 09/24/16 10:29 00:17 Sodium 136 130 L Potassium 4.8 H 5.1 H Chloride 108 105 Carbon Dioxide 19 16 L BUN 57 H 58 H Creatinine 3.06 H 3.27 H Glucose 132 H 303 H Calcium 8.4 L 8.5 L Cardiac Enzymes 09/23/16 Range/Units 10:29 Troponin I 0.23 H* (0-0.03) ng/mL Liver Function 09/23/16 Range/Units 10:29 Total Bilirubin 0.9 (0.2-1.2) mg/dL Direct Bilirubin 0.6 H (0.0-0.5) mg/dL AST 13 (5-34) Units/L ALT 7 (0-55) Units/L Alkaline Phosphatase 45 (38-126) Units/L Albumin 2.8 L (3.5-5.0) g/dL - ABG Interpretation ABG results: ABG ABG pH 7.34 pH Units (7.32-7.45) 09/23/16 08:25 ABG pCO2 37 mmHg (35-45) 09/23/16 08:25 ABG pO2 60 mmHg (85-104) L 09/23/16 08:25 ABG O2 Saturation 89 % (95-98) L 09/23/16 08:25 PT/INR, D-dimer PT 15.9 Seconds (9.4-12.1) H 09/24/16 00:17 - Impressions Impressions Chest X-Ray 09/23/16 10:10 IMPRESSION: New pulmonary edema with increased small to moderate bilateral pleural effusions. D/ / 09/23/2016 15:00:14 Mehul Wiley MD / [facility] Interpreting Provider: Mehul Wiley MD Head CT 09/23/16 15:00 IMPRESSION: No acute intracranial abnormality. No definite new areas of hypoattenuation within the brain parenchyma are identified. D/ / Shaw Lindo MD / Shaw Lindo MD Interpreting Provider: Shaw Lindo MD Consult Discharge Plan - Plan Referrals: Sunil Duong DO [Primary Care Provider] - <Pradeep De Leon - Last Filed: 09/24/16 19:02> Date of Encounter: 09/24/16 - Assessment and plan (1) Esophageal stricture Current Visit: Yes Status: Resolved (2) Atrial thrombus Current Visit: Yes Status: Acute (3) Acute encephalopathy Current Visit: Yes Status: Acute (4) TIA (transient ischemic attack) Current Visit: Yes Status: Acute Qualifiers: Transient cerebral ischemia type: unspecified Qualified Code(s): G45.9 - Transient cerebral ischemic attack, unspecified (5) CKD (chronic kidney disease) stage 4, GFR 15-29 ml/min Current Visit: Yes Status: Chronic (6) CHF (congestive heart failure) Current Visit: No Status: Chronic Qualifiers: Congestive heart failure type: systolic Congestive heart failure chronicity : chronic Qualified Code(s): I50.22 - Chronic systolic (congestive) heart failure (7) Diabetes mellitus Current Visit: No Status: Chronic Qualifiers: Diabetes mellitus type: type 2 Diabetes mellitus complication status: with kidney complications Diabetes mellitus complication detail: with chronic kidney disease Diabetes mellitus senior care insulin use: with senior care use Chronic kidney disease stage: stage 4 (severe) Qualified Code(s): E11.22 - Type 2 diabetes mellitus with diabetic chronic kidney disease; N18.4 - Chronic kidney disease, stage 4 (severe); 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 - Constitutional Vitals: Temp Pulse Resp BP Pulse Ox 97.6 F 92 16 113/84 98 09/24/16 16:11 09/24/16 16:11 09/24/16 16:11 09/24/16 16:11 09/24/16 16:11 Internal Medicine: Result - Labs CBC & Chem 7: 09/24/16 00:17 09/24/16 00:17 Labs: Short CBC 09/24/16 Range/Units 00:17 WBC 3.8 L (4.3-11.1) K/mcL Hgb 10.9 L (12.9-16.9) g/dL Hct 34.6 L (37.5-50.1) % Plt Count 91 L (140-400) K/mcL Neutrophils # 2.9 (1.6-8.9) K/mcL BMP 09/24/16 00:17 Sodium 130 L Potassium 5.1 H Chloride 105 Carbon Dioxide 16 L BUN 58 H Creatinine 3.27 H Glucose 303 H Calcium 8.5 L Urine 09/24/16 Range/Units 09:50 Urine Color Red A (Yellow) Urine Clarity Cloudy A (Clear) Urine pH 5.5 (5.0-8.0) pH Units Ur Specific [place] 1.022 (1.010-1.025) Urine Protein >=300 H (Neg-Trace) mg/dL Urine Glucose (UA) Normal (Normal) mg/dL - ABG Interpretation ABG results: ABG ABG pH 7.34 pH Units (7.32-7.45) 09/23/16 08:25 ABG pCO2 37 mmHg (35-45) 09/23/16 08:25 ABG pO2 60 mmHg (85-104) L 09/23/16 08:25 ABG O2 Saturation 89 % (95-98) L 09/23/16 08:25 PT/INR, D-dimer PT 15.9 Seconds (9.4-12.1) H 09/24/16 00:17 - Impressions Impressions Chest X-Ray 09/23/16 10:10 IMPRESSION: New pulmonary edema with increased small to moderate bilateral pleural effusions. D/ / 09/23/2016 15:00:14 Mehul Wiley MD / [facility] [email or web address] Interpreting Provider: Mehul Wiley MD - Attending Attestation I examined this patient and my medical decision-making was reviewed with the Resident Physician on 09/24/16. I agree with the documented findings, disposition and treatment plan as described except to the extent set forth below. Mr. Anaya is currently admitted for weakness and now has been found to have LV thrombus. He is on heparin drip. He is high risk due to potential for bleeding complications and further morbidity. Mr. Anaya is awake and interactive today. Denies pain. No fever or chills. Tolerating heparin drip at this time. Coumadin ordered as well. Exam alert. Comfortable Mucus membranes dry Heart reg and distant Lungs diminished Abd soft No edema I/P 1. LV thrombus 2. Weakness Further diagnoses and plan as above.
--- NOTE | 2016-09-24 10:37 | Cardiology Progress Note ---
Date of Encounter: 09/24/16 Time of Encounter: 10:00 Assessment and Plan (1) CHF (congestive heart failure) Current Visit: No Status: Chronic Known ischemic CMP. mild acute on chronic CHF. TTE: Severe LV systolic dysfunction, LVEF 20-25%. There is global hypokinesis with regional variations. Mildly dilated right ventricle with mild-moderate RV hypokinesis. A device lead was visualized in the right atrium and right ventricle. Mildly dilated left atrium. There is an echodensity in the left atrium near the left atrial appendage that is consistent with an LA thrombus. Severely dilated right atrium. No evidence of intracardiac shunting with agitated saline contrast. Mild aortic regurgitation. Mild mitral regurgitation. Severe tricuspid regurgitation. Mild pulmonary hypertension. Estimated RVSP = 36 mmHg. Suspect RVSP is underestimated on this study. There is a small pericardial effusion present. A pleural effusion is noted. Initially presented with dehydration. Nephrology following for A/CKD. I&O positive 6L. CXR 09/23/16 shows pulmonary edema. Bilatral pleural effusions. I discussed with Dr. Anna. Ok to add lasix today. Give lasix 40 mg IV today. Urine noted to be dark maroon. Only 400ml out in last 48Hr. UA did not show blood. Strict I&O. Continue bb. No ACEi d/t A/CKD. Continue low sodium diet and daily weights. Qualifiers: Congestive heart failure type: systolic Congestive heart failure chronicity : chronic Qualified Code(s): I50.22 - Chronic systolic (congestive) heart failure (2) Atrial thrombus Current Visit: Yes Status: Acute TTE showed echodensity in the left atrium near the KAR concerning for thrombus. CT negative for hemorrhage or acute CVA. No MRI d/t ICD. Neurology consulted. CVA not likely. Possible TIA. Prison anticoagulation is recommended. On heparin gtt with bridge to coumadin. No xarelto due to GI bleed on xarelto. EGD during this stay showed no bleeding. Pt being transferred to ECF. INR monitoring at F. (3) Atrial fibrillation Current Visit: No Status: Chronic h/o afib. Currently ventricular paced with occasional afib. CHADS VASC=5. Currently off anticoagulation d/t GI bleed on xarelto in July 2015 and December 2015. Recommend starting coumadin due to left atrial thrombus. Qualifiers: Atrial fibrillation type: chronic Qualified Code(s): I48.2 - Chronic atrial fibrillation (4) CAD (coronary artery disease) Current Visit: No Status: Chronic H/o CAD s/p PCI. DC 02/2015 s/p PTCA/BMS to the pLAD at that time. Continue asa, statin, and bb. Qualifiers: Coronary Disease-Associated Artery/Lesion type: [place] artery [place] vs. transplanted heart: [place] heart Associated angina: without angina Qualified Code(s): I25.10 - Atherosclerotic heart disease of [place] coronary artery without angina pectoris Discussion w patient/family: The assessment and plan as outlined above was discussed with the patient and/or family members who expressed understanding and agreement. All questions were answered. Thank you for involving us in the care of your patient. Please call with any questions. Subjective Principal diagnosis: KAY on CKD Interval history: Mr. Anaya is more alert today. Continues to have confusion. Denies chest pain or SOB. Admits to abdominal distention. Objective Chest X-Ray 09/23/16 10:10 IMPRESSION: New pulmonary edema with increased small to moderate bilateral pleural effusions. D/ / 09/23/2016 15:00:14 Mehul Wiley MD / [place] Interpreting Provider: Mehul Wiley MD Head CT 09/23/16 15:00 IMPRESSION: No acute intracranial abnormality. No definite new areas of hypoattenuation within the brain parenchyma are identified. D/ / Shaw Lindo MD / Shaw Lindo MD Interpreting Provider: Shaw Lindo MD General: Conversant, No Apparent Distress HEENT: Atraumatic, Normocephaly, Mucus Membranes Moist Neck: No JVD, Normal carotid pulses Cardiac: Reg Rate and Rhythm, Normal S1 and S2, No Murmur Lungs: Normal Breath Sounds, No Wheeze, Rales, Rhonchi Neuro: Alert and responsive, No focal deficits noted, Other (Confused) Abdomen: Other (Abdomen distended and mildly tender. ) Skin: No rashes noted on visualized skin Musculoskeletal: No Chest Wall Tenderness Extremities: No Clubbing, No Cyanosis, No Edema, Normal Pulses Other: Urine was dark maroon. Results 09/24/16 00:17 09/24/16 00:17 Lab Results 09/23/16 09/23/16 09/23/16 10:29 10:29 10:33 WBC 3.2 L Hgb 10.4 L Hct 33.3 L Plt Count 92 L INR APTT Sodium 136 Potassium 4.8 H Chloride 108 Carbon Dioxide 19 BUN 57 H Creatinine 3.06 H Glucose 132 H Calcium 8.4 L Total Bilirubin 0.9 AST 13 ALT 7 Alkaline Phosphatase 45 Troponin I 0.23 H* TSH 1.821 09/23/16 09/24/16 09/24/16 10:33 00:17 00:17 WBC 3.8 L Hgb 10.9 L Hct 34.6 L Plt Count 91 L INR 1.3 APTT 38.5 H Sodium 130 L Potassium 5.1 H Chloride 105 Carbon Dioxide 16 L BUN 58 H Creatinine 3.27 H Glucose 303 H Calcium 8.5 L Total Bilirubin AST ALT Alkaline Phosphatase Troponin I TSH 09/24/16 09/24/16 09/24/16 00:17 00:17 05:53 WBC Hgb Hct Plt Count INR 1.5 APTT > 360.0 H* D 61.1 H D Sodium Potassium Chloride Carbon Dioxide BUN Creatinine Glucose Calcium Total Bilirubin AST ALT Alkaline Phosphatase Troponin I TSH - EKG Interpretation EKG results cardiology: personally reviewed Consult Discharge Plan - Plan Referrals: Sunil Duong DO [Primary Care Provider] -
[2016-09-24 10:45] LABS: Bilirubin,Urine Moderate (Negative); Blood,Urine Large (Negative); Clarity,Urine Cloudy (Clear); Color,Urine Red (Yellow); Glucose,Urine (UA) Normal (Normal); Ketones,Urine Trace mg/dL (Negative); Leukocyte Esterase,Urine Small (Negative); Nitrite,Urine Negative (Negative); PH,Urine 5.5 pH Units (5.0-8.0); Protein,Urine >=300 mg/dL (Neg-Trace); Specific Gravity,Urine 1.022 (1.010-1.025); Urobilinogen,Urine Normal (Normal)
[2016-09-24] MEDS: Cefepime HCl 1,000 MG in D5% in Water (Mini-Bag+) 100 ML IVPB SCH ×2 (12:47→23:20)
[2016-09-24] MEDS: Ammonium Lactate 30 APPL/225 GM BOTTLE TP SCH (12:49)
--- NOTE | 2016-09-24 14:59 | Electrocardiograph Report ---
[place] [id number] Test Date: 2016-09-23 Pat Name: Jaden Anaya Department: 113 Room: 2NE21 Gender: M Tram Operator: : [id number] Requested By: Pradeep De Leon Order Number: [id number] Reading MD: Keyla Jaramillo Measurements Intervals [place] Rate: 59 P: OK: 0 QRS: -68 QRSD: 211 T: 93 QT: 531 QTc: 531 Interpretive Statements ELECTRONIC VENTRICULAR PACEMAKER ABNORMAL RHYTHM ECG Electronically Signed On 09-24-2016 14:57:46 EDT by Keyla Jaramillo
--- NOTE | 2016-09-24 16:13 | Nephrology Progress Note ---
Date of Encounter: 09/24/16 Time of Encounter: 14:00 - Assessment and Plan (1) KAY (acute kidney injury) Current Visit: Yes Status: Acute Scr worsening at 3.27, GFR 22 from 3.06, GFR 24 despite fluids UOP also poor at 400cc in the past 24hrs. Agree with iv lasix 40mg x1 as discussed with cardiology No acute indication for [employer] just yet but concerning for need in the near future Urine sodium noted at 27, will check urine eosinophils CPK noted slightly elevated st 211, will check uric acid level Encourage po fluids instead of IVF for now. (2) Hyperkalemia Current Visit: Yes Status: Acute Potassium slightly elevated at 5.1, renal diet recommeneded not receiving already (3) CKD (chronic kidney disease) stage 4, GFR 15-29 ml/min Current Visit: Yes Status: Chronic baseline GFR 20s-30 Subjective Principal diagnosis: KAY on CKD Interval history: interim events noted. Pt seen and examined (well known o me from outpatient management of his CKD) appearing very lethargic. Appears somewhat confused but recognized me. breathing comfortably. Heparin gtt and ceftriaxone noted along with very little dark urine in bobo. Objective - Vital Signs Vital signs: Vital Signs Temp Pulse Resp BP Pulse Ox 09/24/16 11:00 98.2 F 63 14 123/77 99 09/24/16 06:03 98.5 F 65 17 104/76 95 09/24/16 05:00 98.5 F 65 17 104/76 95 09/23/16 23:30 92.4 F L 118 118/80 99 09/23/16 17:48 97.6 F 71 18 139/67 97 09/23/16 17:00 97.4 F L Intake and Output 09/24/16 09/24/16 09/24/16 07:59 15:59 23:59 Intake Total 250 / 250 250 / 250 Output Total 75 / 75 325 / 325 Balance 175 / 175 -75 / -75 Intake: IV Fluids 250 / 250 130 / 130 Heparin 25,000 UNIT/500 150 / 150 130 / 130 ML D5W 25,000 unit In 500 ml @ 14 UNIT/KG/HR 20. 104 mls/hr IVC .Q24H [facility] Rx#:[id number] Maxipime 1,000 MG In 100 / 100 Dextrose 5% (Minibag+) 100 ML 100 ML @ 200 mls/ hr IVPB Q12H [facility] Rx#: [id number] Oral 0 / 0 120 / 120 Output: Urine 325 / 325 Urethral (Bob[place]) 325 / 325 Catheter 75 / 75 Other: Meal Lunch Percent of Meal Consumed 50% Weight 74.5 kg Blood Glucose* 173 Patient Weight 09/24/16 23:59 Weight 74.5 kg - General Appearance General appearance: Present: chronically ill, fatigue EENT: Present: ATNC, mucous membranes dry Neck: Present: no JVD, supple Additional Comments: decreased BS bases bilat Cardiology: Present: no edema, normal S1, normal S2 Gastrointestinal: Present: no tenderness, no guarding Integumentary: Present: warm and dry Neurologic: Present: confused Musculoskeletal: Present: no deformities Psychiatric: Present: cooperative - Lab 09/24/16 00:17 09/24/16 00:17 Most recent lab results ABG pH 7.34 pH Units (7.32-7.45) 09/23/16 08:25 ABG pCO2 37 mmHg (35-45) 09/23/16 08:25 ABG pO2 60 mmHg (85-104) L 09/23/16 08:25 ABG HCO3 20.0 mEQ/L (21-27) L 09/23/16 08:25 ABG O2 Saturation 89 % (95-98) L 09/23/16 08:25 Calcium 8.5 mg/dL (8.6-10.8) L 09/24/16 00:17 Phosphorus 4.0 mg/dL (2.3-4.7) 09/17/16 03:33 Magnesium 1.6 mg/dL (1.6-2.6) 09/23/16 03:21 Urine Sodium 27.0 mEq/L 09/24/16 09:50 Consult Discharge Plan - Plan Referrals: Sunil Duong DO [Primary Care Provider] -
[2016-09-24] MEDS ORDERED: *HR* Warfarin 3 MG TABLET PO ONE (18:00)
[2016-09-24 19:16] LABS: Hematocrit 33.9 % (37.5-50.1); Hemoglobin 10.6 g/dL (12.9-16.9)
[2016-09-25 05:04] LABS: INR 1.3; Prothrombin Time 14.4 Seconds (9.4-12.1)
[2016-09-25 05:11] LABS: Activated Partial Thrombo Time 26.5 Seconds (26.0-36.0)
[2016-09-25] MEDS: Insulin LISPRO 300 UNITS/3 ML VIAL SQ SCH ×4 (08:27→21:58)
[2016-09-25] MEDS: Heparin 25,000 UNIT/500 ML D5W 25,000 UNIT/500 ML MLS IVC SCH ×2 (09:27→16:22)
[2016-09-25] MEDS: Pantoprazole 40 MG VIAL IVP SCH (09:28)
[2016-09-25] MEDS: hydrALAZINE 25 MG TABLET PO SCH ×3 (09:28→22:03)
--- NOTE | 2016-09-25 09:28 | Internal Med Progress Note ---
<MarcelSaul Oziel - Last Filed: 09/25/16 16:19> Date of Encounter: 09/25/16 Time of Encounter: 09:26 - Assessment and plan (1) TIA (transient ischemic attack) Current Visit: Yes Status: Acute Assessment and plan: Presented with decreased consciousness and expressive aphasia, but these have improved. Alert and oriented without speech deficit. Head CT negative. No MRI due to AICD. High risk for CVA with atrial appendage thrombus. No anticoagulation past 6 months due to GI bleed on xarelto - on heparin ggt bridging to coumadin New hematuria this AM to be evaluated by urology Qualifiers: Transient cerebral ischemia type: unspecified Qualified Code(s): G45.9 - Transient cerebral ischemic attack, unspecified (2) Atrial thrombus Current Visit: Yes Status: Acute Assessment and plan: Echo showed thrombus in left atrial appendage. History of atrial fibrillation without anticoagulation due to GI bleed (3) Hematuria Current Visit: Yes Status: Acute Assessment and plan: Valero in place with hematuria. Blood present in UA. None noted on exam yesterday. Consult urology Qualifiers: Hematuria type: gross Qualified Code(s): R31.0 - Gross hematuria (4) CKD (chronic kidney disease) stage 4, GFR 15-29 ml/min Current Visit: Yes Status: Chronic Assessment and plan: Cr 3.27, GFR 22 - encourage oral fluid intake 300ml urine output today. Hematuria present Nephrology following (5) Esophageal stricture Current Visit: Yes Status: Resolved Assessment and plan: Patient has known Schatzki's ring with multiple dilatations in the past. Patient prior to arrival difficulty swallowing. EGD performed this hospitalization showed recurrence of the patient's Schatzki's ring dilatation was performed. Patient is tolerating diet well at this time. (6) Diabetes Current Visit: No Status: Acute Assessment and plan: Blood sugar has been controlled. Continue SSI. Qualifiers: Diabetes mellitus type: type 2 Diabetes mellitus complication status: with kidney complications Diabetes mellitus complication detail: with chronic kidney disease Diabetes mellitus penitentiary insulin use: unspecified terminologist insulin use status Chronic kidney disease stage: stage 3 (moderate) Qualified Code(s): E11.22 - Type 2 diabetes mellitus with diabetic chronic kidney disease; N18.3 - Chronic kidney disease, stage 3 (moderate) (7) CHF (congestive heart failure) Current Visit: No Status: Chronic Assessment and plan: Known chronic CHF (LVEF 20-25%). No acute exacerbation. Patient is euvolemic on exam - lungs clear on exam, mild pedal edema Qualifiers: Congestive heart failure type: systolic Congestive heart failure chronicity : chronic Qualified Code(s): I50.22 - Chronic systolic (congestive) heart failure - Subjective Interval history: Patient seen and examined. Reports that he feels ok today with no complaints. Denies chest pain, dyspnea, cough, abdominal pain, N/V/D, dysuria, or leg pain/ swelling. - Constitutional Vitals: Temp Pulse Resp BP Pulse Ox 97.6 F 64 72 120/79 96 09/25/16 07:44 09/25/16 04:24 09/25/16 07:44 09/25/16 07:44 09/25/16 07:44 General appearance: Present: cachectic, A&O X 3, pleasant, no acute distress, answers questions appropriately - Respiratory Respiratory exam: Present: decreased breath sounds. Absent: rales, rhonchi, wheezes - Cardiovascular Cardiovascular exam: Present: RRR, +S1, +S2. Absent: diastolic murmur, systolic murmur - GI/Abdominal GI/Abdominal exam: Present: normal bowel sounds, soft. Absent: distended, rigid , tenderness - Extremities Exam Extremities exam: Present: pedal edema (mild), warm. Absent: calf tenderness, tenderness - Neurological Exam Neurological exam: Present: alert, CN II-XII intact, oriented X3, no focal deficits Internal Medicine: Result - Labs CBC & Chem 7: 09/24/16 19:05 09/25/16 10:43 Labs: Short CBC 09/24/16 Range/Units 19:05 Hgb 10.6 L (12.9-16.9) g/dL Hct 33.9 L (37.5-50.1) % Urine 09/24/16 Range/Units 09:50 Urine Color Red A (Yellow) Urine Clarity Cloudy A (Clear) Urine pH 5.5 (5.0-8.0) pH Units Ur Specific [place] 1.022 (1.010-1.025) Urine Protein >=300 H (Neg-Trace) mg/dL Urine Glucose (UA) Normal (Normal) mg/dL - ABG Interpretation ABG results: ABG ABG pH 7.34 pH Units (7.32-7.45) 09/23/16 08:25 ABG pCO2 37 mmHg (35-45) 09/23/16 08:25 ABG pO2 60 mmHg (85-104) L 09/23/16 08:25 ABG O2 Saturation 89 % (95-98) L 09/23/16 08:25 PT/INR, D-dimer PT 14.4 Seconds (9.4-12.1) H 09/25/16 04:28 Consult Discharge Plan - Plan Referrals: Sunil Duong, [Primary Care Provider] - <Pradeep De Leon - Last Filed: 09/25/16 22:51> Date of Encounter: 09/25/16 - Assessment and plan (1) Esophageal stricture Current Visit: Yes Status: Resolved (2) Atrial thrombus Current Visit: Yes Status: Acute (3) Acute encephalopathy Current Visit: Yes Status: Acute (4) TIA (transient ischemic attack) Current Visit: Yes Status: Acute Qualifiers: Transient cerebral ischemia type: unspecified Qualified Code(s): G45.9 - Transient cerebral ischemic attack, unspecified (5) CKD (chronic kidney disease) stage 4, GFR 15-29 ml/min Current Visit: Yes Status: Chronic (6) CHF (congestive heart failure) Current Visit: No Status: Chronic Qualifiers: Congestive heart failure type: systolic Congestive heart failure chronicity : chronic Qualified Code(s): I50.22 - Chronic systolic (congestive) heart failure (7) Diabetes mellitus Current Visit: No Status: Chronic Qualifiers: Diabetes mellitus type: type 2 Diabetes mellitus complication status: with kidney complications Diabetes mellitus complication detail: with chronic kidney disease Diabetes mellitus terminologist insulin use: with terminologist use Chronic kidney disease stage: stage 4 (severe) Qualified Code(s): E11.22 - Type 2 diabetes mellitus with diabetic chronic kidney disease; N18.4 - Chronic kidney disease, stage 4 (severe); Z79.4 - keno terminal operator (current) use of insulin - Constitutional Vitals: Temp Pulse Resp BP Pulse Ox 98.1 F 60 16 89/58 95 09/25/16 21:30 09/25/16 21:30 09/25/16 21:30 09/25/16 21:30 09/25/16 21:30 Internal Medicine: Result - Labs CBC & Chem 7: 09/25/16 17:27 08/12/17 10:43 Labs: Short CBC 09/25/16 Range/Units 17:27 WBC 6.4 D (4.3-11.1) K/mcL Hgb 10.1 L (12.9-16.9) g/dL Hct 31.9 L (37.5-50.1) % Plt Count 81 L (140-400) K/mcL BMP 09/25/16 10:43 Sodium 131 L Potassium 5.1 H Chloride 105 Carbon Dioxide 16 L BUN 69 H Creatinine 3.36 H Glucose 105 H Calcium 8.8 - ABG Interpretation ABG results: ABG ABG pH 7.34 pH Units (7.32-7.45) 09/23/16 08:25 ABG pCO2 37 mmHg (35-45) 09/23/16 08:25 ABG pO2 60 mmHg (85-104) L 09/23/16 08:25 ABG O2 Saturation 89 % (95-98) L 09/23/16 08:25 PT/INR, D-dimer PT 14.4 Seconds (9.4-12.1) H 09/25/16 04:28 - Attending Attestation I examined this patient and my medical decision-making was reviewed with the Resident Physician on 09/25/16. I agree with the documented findings, disposition and treatment plan as described except to the extent set forth below. Mr. Anaya is currently admitted for dysphagia and now has an atrial thrombus. He is on heparin and has developed hematuria. He is high risk due to bleeding and potential for further neuro and cardiac issues. Mr. Anaya feels OK. He has developed gross hematuria. H/H has been stable. No fever or chills. No GI issues. Exam Alert. Comfortable Mucus membranes dry Heart reg Lungs diminished Abd soft I/P 1. Thrombus 2. hematuria Further diagnoses and plan as above.
[2016-09-25] MEDS: Magnesium Oxide 400 MG TABLET PO SCH (09:29)
[2016-09-25] MEDS: Ammonium Lactate 30 APPL/225 GM BOTTLE TP SCH (09:30)
[2016-09-25] MEDS: Sildenafil Citrate 20 MG TABLET PO SCH ×3 (09:31→22:15)
--- NOTE | 2016-09-25 10:04 | Cardiology Progress Note ---
Date of Encounter: 09/25/16 Time of Encounter: 08:50 Assessment and Plan (1) CHF (congestive heart failure) Current Visit: No Status: Chronic Patient has known severe ischemic cardiomyopathy. CXR on 09/23 demonstrated pleural effusions, his weight has increased and renal function has continued to decline. He was receiving IVF's secondary to concern for dehydration. However , he may be volume overloaded at this point. He received one dose of lasix 40mg IV yesterday. Awaiting this morning's labs and Nephrology input. Not sure of accuracy of I/O's. Continue BB. Not on DOTTIE/ARB due to CKD. Strict I/O 's and daily weights. Qualifiers: Congestive heart failure type: systolic Congestive heart failure chronicity : chronic Qualified Code(s): I50.22 - Chronic systolic (congestive) heart failure (2) Atrial fibrillation Current Visit: No Status: Chronic Known history of chronic AFIB. Presently v-paced on BB. Was taken off on anticoagulation in the Fall of 2015 out of concern for GIB. He has since been placed back on anticoagulation (heparin - coumadin bridge) secondary to LA thrombus. He does have blood in his urine. Urology to evaluate. Qualifiers: Qualified Code(s): I48.91 - Unspecified atrial fibrillation (3) Atrial thrombus Current Visit: Yes Status: Acute Patient presented with stroke like symptoms and echo demonstrated the presence of a left atrial thrombus. TE showed echodensity in the left atrium near the KAR concerning for thrombus. He has been placed on heparin and is getting bridged with coumadin. INR today is 1.3. He has developed hematuria - Urology to evaluate. Also with stable anemia (based on labs yesterday, awaiting today' s labs) and thrombocytopenia. Aspirin was stopped yesterday. Discussion w patient/family: The assessment and plan as outlined above was discussed with the patient and/or family members who expressed understanding and agreement. All questions were answered. Thank you for involving us in the care of your patient. Please call with any questions. Subjective Principal diagnosis: KAY on CKD Interval history: Patient has no new complaints. He continues to not be entirely oriented. Objective Vital Signs, Last 4 Hours Temp Resp BP Pulse Ox 09/25/16 07:44 97.6 F 72 120/79 96 General: No Apparent Distress, Other (converses, sometimes in garbled speech) HEENT: Atraumatic, Normocephaly, Mucus Membranes Moist Neck: Other (mild elevation of JVP) Cardiac: Reg Rate and Rhythm, Normal S1 and S2, Other (systolic murmur LSB, no gallop) Lungs: Other (decreased inspiratory effort) Neuro: Other (alert, responsive - speech not always appropriate) Abdomen: Soft, Non-Tender, Other (nondistended, bowel sounds are present) Extremities: Other (trivial bilateral LE edema) Results 09/24/16 19:05 09/24/16 00:17 Lab Results 09/24/16 09/24/16 09/24/16 14:22 19:05 22:29 Hgb 10.6 L Hct 33.9 L INR APTT 106.6 H D 69.7 H 09/25/16 04:28 Hgb Hct INR 1.3 APTT 26.5 D - Imaging and Cardiology Other Results: Awaiting labs - EKG Interpretation EKG results cardiology: other (24h telemetry reviewed; primarily V paced rhythm , no concerning dysrhythmia) Consult Discharge Plan - Plan Referrals: Sunil Duong DO [Primary Care Provider] -
[2016-09-25 11:23] LABS: Calcium 8.8 mg/dL (8.6-10.8); Potassium 5.1 mEq/L (3.5-4.5)
--- NOTE | 2016-09-25 11:41 | Nephrology Progress Note ---
Date of Encounter: 09/25/16 Time of Encounter: 11:35 - Assessment and Plan (1) KAY (acute kidney injury) Current Visit: Yes Status: Acute Scr worsening slightly at 3.36 with GFR unchanged at 22 UOP slightly better at 725cc in the past 24hrs after iv lasix 40mg x1 as discussed with cardiology No acute indication for CLOTH STOCK SORTER just yet but concerning for need in the near future. Discussed with son who did not affirm any firm plans/decisions. Urine eosinophils noted positive and concerning for AIN? Currently on cefepime, will monitor Uric acid level elevated likely due to decreased clearance Encourage po fluids and will consider albumin instead of ivf if repletion needed (2) Hyperkalemia Current Visit: Yes Status: Acute Potassium remains slightly elevated at 5.1, continue renal diet. (3) CKD (chronic kidney disease) stage 4, GFR 15-29 ml/min Current Visit: Yes Status: Chronic baseline GFR 20s-30 Subjective Principal diagnosis: KAY on CKD Interval history: interim events noted. Pt seen and examined (well known to me from outpatient management of his CKD) still appearing very lethargic. Son at bedside, discussed at length goals of care but no firm plans or decisions from him at this time. Dark, bloody urine in bobo still present. Objective - Vital Signs Vital signs: Vital Signs Temp Pulse Resp BP Pulse Ox 09/25/16 07:44 97.6 F 72 120/79 96 09/25/16 04:24 97.5 F L 64 18 108/69 96 09/25/16 01:49 97.3 F L 63 18 104/74 97 09/24/16 21:37 61 16 111/73 98 09/24/16 16:11 97.6 F 92 16 113/84 98 Intake and Output 09/24/16 09/25/16 09/25/16 23:59 07:59 15:59 Intake Total 435 / 435 376.7 / 376.7 410 / 410 Output Total 325 / 325 300 / 300 Balance 110 / 110 76.7 / 76.7 410 / 410 Intake: IV Fluids 195 / 195 76.7 / 76.7 410 / 410 Heparin 25,000 UNIT/500 95 / 95 76.7 / 76.7 410 / 410 ML D5W 25,000 unit In 500 ml @ 14 UNIT/KG/HR 20. 104 mls/hr IVC .Q24H [facility] Rx#:[id number] Maxipime 1,000 MG In 100 / 100 Dextrose 5% (Minibag+) 100 ML 100 ML @ 200 mls/ hr IVPB Q12H [facility] Rx#: [id number] Oral 240 / 240 300 / 300 Output: Urine 325 / 325 Urethral ([place]) 325 / 325 Catheter 300 / 300 Other: Meal Dinner Percent of Meal Consumed 80% Weight 75.4 kg Blood Glucose* 112 97 Patient Weight 09/25/16 23:59 Weight 75.4 kg - General Appearance General appearance: Present: fatigue, frail (NAD) EENT: Present: ATNC, mucous membranes dry Neck: Present: no JVD, supple Respiratory: Present: course breath sounds Cardiology: Present: no edema, normal S1, normal S2 Gastrointestinal: Present: no tenderness, no guarding Integumentary: Present: warm and dry Neurologic: Present: confused Musculoskeletal: Present: no deformities Psychiatric: Present: cooperative - Lab 09/24/16 19:05 09/25/16 10:43 Most recent lab results ABG pH 7.34 pH Units (7.32-7.45) 09/23/16 08:25 ABG pCO2 37 mmHg (35-45) 09/23/16 08:25 ABG pO2 60 mmHg (85-104) L 09/23/16 08:25 ABG HCO3 20.0 mEQ/L (21-27) L 09/23/16 08:25 ABG O2 Saturation 89 % (95-98) L 09/23/16 08:25 Calcium 8.8 mg/dL (8.6-10.8) 09/25/16 10:43 Phosphorus 4.0 mg/dL (2.3-4.7) 09/17/16 03:33 Magnesium 1.6 mg/dL (1.6-2.6) 09/23/16 03:21 Urine Sodium 27.0 mEq/L 09/24/16 09:50 Consult Discharge Plan - Plan Referrals: Sunil Duong DO [Primary Care Provider] -
--- NOTE | 2016-09-25 11:50 | Urology - Consult Note ---
Date of Encounter: 09/25/16 Time of Encounter: 11:48 - Assessment and Plan (1) Hematuria Current Visit: Yes Status: Acute Assessment and plan: At this point I believe it best to hold the patient's Coumadin and heparin to see if his hematuria resolves. Urine is clear in tubing and this is consistent with possible traumatic tugging on his catheter. He has a known enlarged prostate which was seen on CT scan done in the past. I believe a very serious conversation should be had with the family regarding expectations of patient care. If patient's hematuria continues off anticoagulation I will need to consider placing three-way catheter and starting irrigation. Qualifiers: Hematuria type: gross Qualified Code(s): R31.0 - Gross hematuria Urology CN:HPI Consult date: 09/25/16 Reason for consult Urology: Gross Hematuria Requesting physician: Saul Rod History of present illness: Jaden is a 75-year-old male who was admitted secondary to strokelike symptoms. He was started on heparin drip as well as Coumadin for possible treatment of long-standing atrial fibrillation with atrial appendage thrombus. Patient started develop gross hematuria last night. Patient is confused and does not wake easily this morning. Vital signs are stable. Past Med Surg Social Fam HX - Past Medical History Medical history: arthritis, atrial fibrillation, cardiomyopathy, CHF, COPD, coronary artery disease, diabetes, GERD, hyperlipidemia, hypertension, myocardial infarction, osteoporosis, renal disease Psychiatric history: anxiety, depression - Past Surgical History Surgical History: angioplasty/stent, pacemaker/AICD, other (Back surgery) - Social History Smoking Status: Former smoker Smokeless Tobacco Status: No Alcohol use: none Drug use: none - Family History Mother Living Status: Cause of : Cancer Hx Family Cancer: Yes (breast cancer) Hx Family Neurologic Disorders: Yes (Stroke) Father Living Status: Age at : 86 Cause of : Cancer Hx Family Cancer: Yes (Colon cancer) Medications and Allergies Atorvastatin [Lipitor] 40 mg PO HS 02/21/15 [History] Calcium Carbonate/Vitamin D2 [Oyster Shell Calcium-Vit D Tab] 1 tab PO BID 02/21 [History] Carvedilol [Coreg] 6.25 mg PO HS 02/21/15 [History] Furosemide [Lasix] 40 mg PO BID 02/21/15 [History] Lisinopril 2.5 mg PO DAILY 02/21/15 [History] Omeprazole [PriLOSEC] 40 mg PO DAILY 02/21/15 [History] Sertraline [Zoloft] 25 mg PO DAILY 02/21/15 [History] Spironolactone [Aldactone] 12.5 mg PO DAILY 02/21/15 [History] hydrALAZINE [HydrALAZINE] 50 mg PO TID 02/21/15 [History] Nitroglycerin 0.4 mg SL Q5MIN PRN #60 tab.subl 02/25/15 [Rx] Carvedilol 12.5 mg PO QAM 04/14/15 [History] Aspirin 81 mg PO DAILY #30 tab.chew 04/18/15 [Rx] Ferrous Sulfate 325 mg PO BIDWM #60 tablet 04/29/15 [Rx] Loperamide [Imodium] 2 mg PO QID PRN 12/12/15 [History] Albuterol Sulfate [Proair Hfa] 2 puff IH Q4H PRN 09/16/16 [History] Ammonium Lactate [Lac-Hydrin Five] 1 appl TP DAILY 09/16/16 [History] Ascorbate Calcium [Vitamin C] 500 mg PO DAILY 09/16/16 [History] Benzonatate [Tessalon] 100 mg PO TID PRN 09/16/16 [History] Calcitriol [Rocaltrol] 0.25 mcg PO DAILY 09/16/16 [History] Cyclobenzaprine HCl 5 mg PO BID 09/16/16 [History] Dicyclomine [Bentyl] 20 mg PO QID 09/16/16 [History] Doxazosin Mesylate [Cardura] 8 mg PO DAILY 09/16/16 [History] Ergocalciferol (VITAMIN D2) [Vitamin D2] 50,000 unit PO QMONTH 09/16/16 [History ] Escitalopram [Lexapro] 10 mg PO DAILY 09/16/16 [History] Guaifenesin [Tussin] 200 mg PO Q4H PRN 09/16/16 [History] HYDROcodone/Acet 5/325 mg [[place] 5-325 mg] 1 tab PO Q6H PRN 09/16/16 [History] Ondansetron HCl [Zofran] 4 mg PO TID PRN 09/16/16 [History] Pregabalin [Lyrica] 50 mg PO TID 09/16/16 [History] Sildenafil Citrate [Revatio] 20 mg PO TID 09/16/16 [History] Allergies No Known Allergies Allergy (Verified 09/29/15 10:02) Review of Systems ROS unobtainable: due to mental status Exam Initial Vital Signs Temp Pulse Resp BP Pulse Ox 0 F L 89 18 149/102 93 09/16/16 16:11 09/16/16 16:11 09/16/16 16:11 09/16/16 16:11 09/16/16 16:11 - General physical appearance Present: cachectic - Respiratory Present: normal respiratory effort - Cardiovascular Cardiovascular exam IM: RRR - Abdomen Abdomen: Present: soft - Genitourinary other Urology Results - Labs 09/24/16 19:05 09/25/16 10:43 Abnormal lab results WBC 3.8 K/mcL (4.3-11.1) L 09/24/16 00:17 RBC 4.10 M/mcL (4.19-5.50) L 09/24/16 00:17 Hgb 10.6 g/dL (12.9-16.9) L 09/24/16 19:05 Hct 33.9 % (37.5-50.1) L 09/24/16 19:05 MCH 26.6 pg (28.0-33.3) L 09/24/16 00:17 MCHC 31.5 g/dL (31.6-35.5) L 09/24/16 00:17 RDW 18.3 % (11.5-14.5) H 09/24/16 00:17 Plt Count 91 K/mcL (140-400) L 09/24/16 00:17 Lymphocytes # 0.4 K/mcL (0.6-4.6) L 09/24/16 00:17 Platelet Estimate Decreased (Normal) L 09/24/16 00:17 Hypochromasia Present (Not Present) A 09/24/16 00:17 Anisocytosis 1+ (Not Present) A 09/24/16 00:17 Acanthocytes (Spur) 1+ (Not Present) A 09/24/16 00:17 PT 14.4 Seconds (9.4-12.1) H 09/25/16 04:28 Heparin Anti-Xa, Unfract 0.79 IU/mL (0.30-0.70) H 09/24/16 00:17 ABG pO2 60 mmHg (85-104) L 09/23/16 08:25 ABG HCO3 20.0 mEQ/L (21-27) L 09/23/16 08:25 ABG O2 Saturation 89 % (95-98) L 09/23/16 08:25 ABG Base Excess -5.3 mEq/L (-2.0 to 3.0) L 09/23/16 08:25 Sodium 131 mEq/L (136-145) L 09/25/16 10:43 Potassium 5.1 mEq/L (3.5-4.5) H 09/25/16 10:43 Carbon Dioxide 16 mEq/L (19-29) L 09/25/16 10:43 BUN 69 mg/dL (8-26) H 09/25/16 10:43 Creatinine 3.36 mg/dL (0.72-1.25) H 09/25/16 10:43 Est GFR ( Amer) 22 (> 60) L 09/25/16 10:43 Est GFR (Non-Af Amer) 18 (> 60) L 09/25/16 10:43 Glucose 105 mg/dL (70-99) H 09/25/16 10:43 POC Glucose 112 (58-89) H 09/24/16 21:32 Uric Acid 10.3 mg/dL (3.5-7.2) H 09/24/16 16:56 Direct Bilirubin 0.6 mg/dL (0.0-0.5) H 09/23/16 10:29 Creatine Kinase 211 Units/L (30-200) H 09/23/16 10:29 Myoglobin 455 ng/mL (28-72) H 09/23/16 10:29 Troponin I 0.23 ng/mL (0-0.03) H* 09/23/16 10:29 B-Natriuretic Peptide 3195 pg/mL (0-100) H 09/19/16 02:46 Serum Total Protein 5.7 g/dL (6.0-8.3) L 09/23/16 10:29 Albumin 2.8 g/dL (3.5-5.0) L 09/23/16 10:29 Albumin/Globulin Ratio 1.0 (1.1-2.2) L 09/23/16 10:29 Ur Specimen Adequacy See below A 09/24/16 09:50 Urine Color Red (Yellow) A 09/24/16 09:50 Urine Clarity Cloudy (Clear) A 09/24/16 09:50 Urine Protein >=300 mg/dL (Neg-Trace) H 09/24/16 09:50 Urine Ketones Trace mg/dL (Negative) H 09/24/16 09:50 Urine Blood Large (Negative) H 09/24/16 09:50 Urine Bilirubin Moderate (Negative) H 09/24/16 09:50 Ur Leukocyte Esterase Small (Negative) H 09/24/16 09:50 Urine Microscopic RBC 3-5 per hpf (0-3) H 09/22/16 14:35 Urine Microscopic WBC 3-5 per hpf (0-3) H 09/22/16 14:35 Ur Eosinophil Smear 1 % (None Seen) H 09/24/16 18:40 Ur Squamous Epith Cells Many per lpf (None-Few) H 09/22/16 14:35 Diabetes panel 09/25/16 Range/Units 10:43 Sodium 131 L (136-145) mEq/L Potassium 5.1 H (3.5-4.5) mEq/L Chloride 105 (98-109) mEq/L Carbon Dioxide 16 L (19-29) mEq/L BUN 69 H (8-26) mg/dL Creatinine 3.36 H (0.72-1.25) mg/dL Glucose 105 H (70-99) mg/dL Calcium 8.8 (8.6-10.8) mg/dL Calcium panel 09/25/16 Range/Units 10:43 Calcium 8.8 (8.6-10.8) mg/dL Pituitary panel 09/25/16 Range/Units 10:43 Sodium 131 L (136-145) mEq/L Potassium 5.1 H (3.5-4.5) mEq/L Chloride 105 (98-109) mEq/L Carbon Dioxide 16 L (19-29) mEq/L BUN 69 H (8-26) mg/dL Creatinine 3.36 H (0.72-1.25) mg/dL Glucose 105 H (70-99) mg/dL Calcium 8.8 (8.6-10.8) mg/dL Adrenal panel 09/25/16 Range/Units 10:43 Sodium 131 L (136-145) mEq/L Potassium 5.1 H (3.5-4.5) mEq/L Chloride 105 (98-109) mEq/L Carbon Dioxide 16 L (19-29) mEq/L BUN 69 H (8-26) mg/dL Creatinine 3.36 H (0.72-1.25) mg/dL Glucose 105 H (70-99) mg/dL Calcium 8.8 (8.6-10.8) mg/dL All other labs normal. Consult Discharge Plan - Plan Referrals: Sunil Duong DO [Primary Care Provider] -
[2016-09-25] MEDS: Cefepime HCl 1,000 MG in D5% in Water (Mini-Bag+) 100 ML IVPB SCH (12:45)
--- NOTE | 2016-09-25 15:48 | Event Note ---
Date of Encounter: 09/25/16 Time of Encounter: 15:00 - Cardiology Event Note Spoke with Dr. De Leon about Urology recommendations. Unfortunately, this patient presented with stroke like symptoms and has a left atrial thrombus. His blood counts have been stable (no CBC today - recommend checking). Would strongly recommend continuing heparin to coumadin bridge with watch on blood counts at this time.
[2016-09-25 17:37] LABS: Hematocrit 31.9 % (37.5-50.1); Hemoglobin 10.1 g/dL (12.9-16.9); Immature Platelets 4.8 % (1.1-6.1); Mean Corpuscular HGB Conc 31.7 g/dL (31.6-35.5); Mean Corpuscular Hemoglobin 26.4 pg (28.0-33.3); Mean Corpuscular Volume 83.5 fL (83.0-100.0); Mean Platelet Volume 12.1 fL (9.4-12.4); Red Blood Count 3.82 M/mcL (4.19-5.50); Red Cell Distribution Width 18.2 % (11.5-14.5)
[2016-09-25] MEDS ORDERED: Warfarin perPT PO PRN (18:00)
[2016-09-25] MEDS ORDERED: *HR* Warfarin 5 MG TABLET PO ONE (18:00)
[2016-09-25 22:57] LABS: Activated Partial Thrombo Time 148.2 Seconds (26.0-36.0)
[2016-09-25 23:03] LABS: Heparin anti-factor XA UFH 0.37 IU/mL (0.30-0.70)
[2016-09-25 23:37] LABS: Albumin 2.7 g/dL (3.5-5.0); Albumin/Globulin Ratio 0.8 (1.1-2.2); Calcium 8.6 mg/dL (8.6-10.8); Globulin 3.3 g/dL (2.4-3.5); Magnesium 1.4 mg/dL (1.6-2.6); Potassium 4.9 mEq/L (3.5-4.5)
[2016-09-26 00:35] LABS: ABG Base Excess -5.9 mEq/L (-2.0 to 3.0); ABG HCO3 17.3 mEQ/L (21-27); ABG Oxygen Saturation 98 % (95-98); ABG PCO2 26 mmHg (35-45); ABG PH 7.43 pH Units (7.32-7.45); ABG PO2 109 mmHg (85-104); ABG TCO2 18.1 mEq/L (20-26); Blood Gas FiO2 21 %
[2016-09-26 00:51] LABS: Thyroid Stimulating Hormone 2.482 mcIU/mL (0.350-4.840)
[2016-09-26] MEDS ORDERED: Bisacodyl 10 MG RECTAL SUPPOSITORY RC ONE (01:03)
[2016-09-26 06:35] LABS: INR 1.7; Prothrombin Time 18.1 Seconds (9.4-12.1)
[2016-09-26 06:37] LABS: Activated Partial Thrombo Time 90.2 Seconds (26.0-36.0)
[2016-09-26 06:40] LABS: Calcium 8.8 mg/dL (8.6-10.8); Potassium 5.3 mEq/L (3.5-4.5)
--- NOTE | 2016-09-26 09:31 | Internal Med Progress Note ---
<Tamar Roque - Last Filed: 09/26/16 16:09> Date of Encounter: 09/26/16 Time of Encounter: 09:26 - Assessment and plan (1) TIA (transient ischemic attack) Current Visit: Yes Status: Acute Assessment and plan: Presented with decreased consciousness and expressive aphasia, which have improved intermittently. Overnight he had increased confusion and a STAT head CT was performed, which was negative. This morning he responds to voice, but mumbles his name and is barely intelligible. He is unable to answer any other questions at this time. Patient may have some sundowner's. Will continue to reassess neuro status throughout the day. Head CT negative. No MRI due to AICD. High risk for CVA with atrial appendage thrombus. No anticoagulation past 6 months due to GI bleed on xarelto Urology, Nephrology and Cardiology consulted, appreciate their recommendations. Plan: -Continue heparin ggt, bridging to coumadin -Continue to monitor neuro status -Will discontinue flexeril, opioids which may alter his mental status Qualifiers: Transient cerebral ischemia type: unspecified Qualified Code(s): G45.9 - Transient cerebral ischemic attack, unspecified (2) CHF (congestive heart failure) Current Visit: No Status: Chronic Assessment and plan: Known chronic CHF (LVEF 20-25%). No acute exacerbation. Patient is euvolemic on exam - lungs clear on exam, mild pedal edema Qualifiers: Congestive heart failure type: systolic Congestive heart failure chronicity : chronic Qualified Code(s): I50.22 - Chronic systolic (congestive) heart failure (3) Acute kidney injury Current Visit: Yes Status: Acute Assessment and plan: Cr 3.55, GFR 20, worsening 700ml urine output 3. Nephrology following, appreciate their recommendations Concern for need for PUBLICITY MANAGER in the near future Plan: -Lasix ok to give in the setting of worsening pulmonary edema per nephro -Albumin to enhance diuresis today (4) CKD (chronic kidney disease) stage 4, GFR 15-29 ml/min Current Visit: Yes Status: Chronic (5) Hematuria Current Visit: Yes Status: Acute Assessment and plan: Bobo in place with hematuria and blood clot in tubing and bag. Urology has been consulted, appreciate their recommendations Qualifiers: Hematuria type: gross Qualified Code(s): R31.0 - Gross hematuria (6) Atrial thrombus Current Visit: Yes Status: Acute Assessment and plan: Echo showed thrombus in left atrial appendage. History of atrial fibrillation without anticoagulation due to GI bleed (7) Diabetes mellitus Current Visit: No Status: Chronic Assessment and plan: Uncontrolled with a recent A1c of 8.7%. 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 Patient prior to arrival difficulty swallowing. EGD performed this hospitalization showed recurrence of the patient's Schatzki's ring, dilatation was performed. - Subjective Interval history: Patient seen and examined. He arouses minimally to voice. He mumbles his name, but is unable to state where he is or the date. He is unable to state if he has any pain. Red urine and blood clots are noted in the bobo bag and tubing. - Constitutional Vitals: Temp Pulse Resp BP Pulse Ox 97.7 F 70 18 115/77 100 09/26/16 07:19 09/26/16 07:19 09/26/16 07:19 09/26/16 07:19 09/26/16 07:19 General appearance: Present: cachectic, A&O X 1, pleasant, no acute distress, answers questions appropriately - Head Head exam: Present: atraumatic, normocephalic - ENT ENT exam: Present: mucous membranes dry - Respiratory Respiratory exam: Present: CTAB. Absent: accessory muscle use, rales, rhonchi, wheezes - Cardiovascular Cardiovascular exam: Present: RRR, +S1, +S2. Absent: diastolic murmur, gallop, rubs, systolic murmur - GI/Abdominal GI/Abdominal exam: Present: normal bowel sounds, soft, no peritoneal signs. Absent: distended, tenderness - Extremities Exam Extremities exam: Present: warm, radial pulses palpable and symmetrical. Absent : calf tenderness, cyanotic, pedal edema - Neurological Exam Neurological exam: Present: altered, speech deficit - Expanded Neurological Exam Patient oriented to: Present: person. Absent: place, time Speech: Present: garbled Coma Scale Eye Opening: To Voice Coma Scale Motor Response: Localizes to Pain Coma Scale Verbal Response: Confused Coma Scale Total: 12 - Skin Skin exam: Present: dry, intact Internal Medicine: Result - Labs CBC & Chem 7: 09/26/16 15:48 09/26/16 05:58 Labs: Short CBC 09/25/16 Range/Units 17:27 WBC 6.4 D (4.3-11.1) K/mcL Hgb 10.1 L (12.9-16.9) g/dL Hct 31.9 L (37.5-50.1) % Plt Count 81 L (140-400) K/mcL BMP 09/25/16 09/25/16 09/26/16 10:43 23:17 05:58 Sodium 131 L 130 L 128 L Potassium 5.1 H 4.9 H 5.3 H Chloride 105 104 103 Carbon Dioxide 16 L 16 L 18 L BUN 69 H 76 H 75 H Creatinine 3.36 H 3.45 H 3.55 H Glucose 105 H 128 H 119 H Calcium 8.8 8.6 8.8 Cardiac Enzymes 09/25/16 Range/Units 23:17 Troponin I 0.23 H* (0-0.03) ng/mL Liver Function 09/25/16 Range/Units 23:17 Total Bilirubin 1.0 (0.2-1.2) mg/dL AST 13 (5-34) Units/L ALT 7 (0-55) Units/L Alkaline Phosphatase 45 (38-126) Units/L Albumin 2.7 L (3.5-5.0) g/dL - ABG Interpretation ABG results: ABG ABG pH 7.43 pH Units (7.32-7.45) 09/26/16 00:28 ABG pCO2 26 mmHg (35-45) L 09/26/16 00:28 ABG pO2 109 mmHg (85-104) H 09/26/16 00:28 ABG O2 Saturation 98 % (95-98) 09/26/16 00:28 PT/INR, D-dimer PT 18.1 Seconds (9.4-12.1) H 09/26/16 05:58 - Impressions Impressions Head CT 09/25/16 22:44 IMPRESSION: No evidence of acute intracranial abnormality on a study limited by motion/streak artifact as described above. D/ / 09/26/2016 06:19:02 Pasquale John MD / [facility] Interpreting Provider: Pasquale John MD Consult Discharge Plan - Plan Referrals: Sunil Duong DO [Primary Care Provider] - <Pradeep De Leon - Last Filed: 09/26/16 17:58> Date of Encounter: 09/26/16 - Assessment and plan (1) Atrial thrombus Current Visit: Yes Status: Acute (2) Acute encephalopathy Current Visit: Yes Status: Acute (3) Gross hematuria Current Visit: Yes Status: Acute (4) Esophageal stricture Current Visit: Yes Status: Resolved (5) TIA (transient ischemic attack) Current Visit: Yes Status: Acute Qualifiers: Transient cerebral ischemia type: unspecified Qualified Code(s): G45.9 - Transient cerebral ischemic attack, unspecified (6) CKD (chronic kidney disease) stage 4, GFR 15-29 ml/min Current Visit: Yes Status: Chronic (7) CHF (congestive heart failure) Current Visit: No Status: Chronic Qualifiers: Congestive heart failure type: systolic Congestive heart failure chronicity : chronic Qualified Code(s): I50.22 - Chronic systolic (congestive) heart failure (8) Diabetes mellitus Current Visit: No Status: Chronic Qualifiers: Diabetes mellitus type: type 2 Diabetes mellitus complication status: with kidney complications Diabetes mellitus complication detail: with chronic kidney disease Diabetes mellitus custodial insulin use: with marine oil terminal superintendent use Chronic kidney disease stage: stage 4 (severe) Qualified Code(s): E11.22 - Type 2 diabetes mellitus with diabetic chronic kidney disease; N18.4 - Chronic kidney disease, stage 4 (severe); Z79.4 - snf (current) use of insulin - Constitutional Vitals: Temp Pulse Resp BP Pulse Ox 97.6 F 60 18 108/74 100 09/26/16 15:47 09/26/16 15:47 09/26/16 15:47 09/26/16 15:47 09/26/16 15:47 Internal Medicine: Result - Labs CBC & Chem 7: 09/26/16 15:48 09/26/16 05:58 Labs: Short CBC 09/26/16 Range/Units 15:48 Hgb 9.6 L (12.9-16.9) g/dL Hct 30.5 L (37.5-50.1) % BMP 09/25/16 09/26/16 23:17 05:58 Sodium 130 L 128 L Potassium 4.9 H 5.3 H Chloride 104 103 Carbon Dioxide 16 L 18 L BUN 76 H 75 H Creatinine 3.45 H 3.55 H Glucose 128 H 119 H Calcium 8.6 8.8 Cardiac Enzymes 09/25/16 Range/Units 23:17 Troponin I 0.23 H* (0-0.03) ng/mL Liver Function 09/25/16 Range/Units 23:17 Total Bilirubin 1.0 (0.2-1.2) mg/dL AST 13 (5-34) Units/L ALT 7 (0-55) Units/L Alkaline Phosphatase 45 (38-126) Units/L Albumin 2.7 L (3.5-5.0) g/dL - ABG Interpretation ABG results: ABG ABG pH 7.43 pH Units (7.32-7.45) 09/26/16 00:28 ABG pCO2 26 mmHg (35-45) L 09/26/16 00:28 ABG pO2 109 mmHg (85-104) H 09/26/16 00:28 ABG O2 Saturation 98 % (95-98) 09/26/16 00:28 PT/INR, D-dimer PT 18.1 Seconds (9.4-12.1) H 09/26/16 05:58 - Impressions Impressions Head CT 09/25/16 22:44 IMPRESSION: No evidence of acute intracranial abnormality on a study limited by motion/streak artifact as described above. D/ / 09/26/2016 06:19:02 Pasquale John MD / [facility] Interpreting Provider: Pasquale John MD Abdomen/Pelvis CT 09/26/16 15:53 IMPRESSION: 1. Diffuse anasarca with bilateral pleural effusions, moderate to large amount of ascites, and extensive fat stranding within the subcutaneous fat. 2. Relatively marked gaseous distension. 3. Moderate amount of stool within the colon. 4. Overall, evaluation is limited by streak artifact, lack of intravenous contrast, and the extensive anasarca, which limits detection of inflammation. D/ / Shwa Lindo MD / Shaw Lindo MD Interpreting Provider: Shaw Lindo MD - Attending Attestation I examined this patient and my medical decision-making was reviewed with the Resident Physician on 09/26/16. I agree with the documented findings, disposition and treatment plan as described except to the extent set forth below. Mr. Anaya is currently admitted for dysphagia. He has been found to have an atrial thrombus and is on heparin but is bleeding. He remains high risk due to bleeding and cardiac thrombus as well as IV medications. Mr. Anaya is less alert this AM. He is still having hematuria. No fever or chills. No new symptoms overnight. Exam Alert but dozes off. Comfortable Mucus membranes dry Heart distant - irreg Lungs diminished Abd soft Edema present I/P 1. Encephalopathy 2. Atrial thrombus 3. Hematuria Further diagnoses and plan as above.
[2016-09-26] MEDS: Insulin LISPRO 300 UNITS/3 ML VIAL SQ SCH ×4 (09:46→21:02)
[2016-09-26] MEDS: Sildenafil Citrate 20 MG TABLET PO SCH ×3 (09:48→20:20)
[2016-09-26] MEDS: hydrALAZINE 25 MG TABLET PO SCH ×3 (09:48→20:20)
[2016-09-26] MEDS: Magnesium Oxide 400 MG TABLET PO SCH (09:48)
[2016-09-26] MEDS: Pantoprazole 40 MG VIAL IVP SCH (09:49)
[2016-09-26] MEDS: Ammonium Lactate 30 APPL/225 GM BOTTLE TP SCH (09:50)
--- NOTE | 2016-09-26 10:21 | Cardiology Progress Note ---
Date of Encounter: 09/26/16 Time of Encounter: 09:30 Assessment and Plan (1) CHF (congestive heart failure) Current Visit: No Status: Chronic Patient has known severe ischemic cardiomyopathy. CXR on 09/23 demonstrated pleural effusions, his weight has increased and renal function has continued to decline. BNP is also elevated and he's hyponatremic. Discussed these findings with Nephrology. Recommend considering IV diuresis. Continue BB. Not on DOTTIE/ ARB due to CKD. Strict I/O's and daily weights. Qualifiers: Congestive heart failure type: systolic Congestive heart failure chronicity : chronic Qualified Code(s): I50.22 - Chronic systolic (congestive) heart failure (2) Atrial fibrillation Current Visit: No Status: Chronic Correction to yesterday's progress note - patient has known history of paroxysmal atrial fibrillation (not chronic). However, he presented with AFIB and has intermittent v-pacing. Presently appears to be in NSR. He was taken off on anticoagulation in the Fall of 2015 out of concern for GIB. He has since been placed back on anticoagulation (heparin - coumadin bridge) secondary to LA thrombus. Due to hematuria, Urology is following - probably secondary to trauma. Overall, his Hgb has been stable. INR today is 1.7 with goal INR (2-3) . Anticipate stopping heparin by tomorrow. Qualifiers: Atrial fibrillation type: paroxysmal Qualified Code(s): I48.0 - Paroxysmal atrial fibrillation (3) Atrial thrombus Current Visit: Yes Status: Acute Patient presented with stroke like symptoms and echo demonstrated the presence of a left atrial thrombus. TE showed echodensity in the left atrium near the KAR concerning for thrombus. He has been placed on heparin and is getting bridged with coumadin. INR today is 1.7 with goal 2-3. Anticipate stopping heparin tomorrow. Discussion w patient/family: The assessment and plan as outlined above was discussed with the patient and/or family members who expressed understanding and agreement. All questions were answered. Thank you for involving us in the care of your patient. Please call with any questions. Subjective Principal diagnosis: KAY on CKD Interval history: No new patient complaints. He is not entirely oriented this morning and intermittently sleeping. Objective Vital Signs, Last 4 Hours Temp Pulse Resp BP Pulse Ox 09/26/16 07:19 97.7 F 70 18 115/77 100 General: No Apparent Distress, Other (garbled speech this morning) HEENT: Atraumatic, Normocephaly, Mucus Membranes Moist Neck: Other (elevation of JVP) Cardiac: Reg Rate and Rhythm, Normal S1 and S2 Lungs: Other (poor inspiratory effort) Neuro: Other (arousable, not oriented, garbled speech) Abdomen: Soft, Non-Tender, Other (mildly distended, bowel sounds present) Extremities: Other (no significant LE edema) Results 09/25/16 17:27 09/26/16 05:58 Lab Results 09/25/16 09/25/16 09/25/16 10:43 15:45 17:27 WBC 6.4 D Hgb 10.1 L Hct 31.9 L Plt Count 81 L INR APTT 35.6 Sodium 131 L Potassium 5.1 H Chloride 105 Carbon Dioxide 16 L BUN 69 H Creatinine 3.36 H Glucose 105 H Calcium 8.8 Magnesium Total Bilirubin AST ALT Alkaline Phosphatase Troponin I TSH 09/25/16 09/25/16 09/25/16 22:25 23:17 23:17 WBC Hgb Hct Plt Count INR APTT 148.2 H* D Sodium 130 L Potassium 4.9 H Chloride 104 Carbon Dioxide 16 L BUN 76 H Creatinine 3.45 H Glucose 128 H Calcium 8.6 Magnesium 1.4 L Total Bilirubin 1.0 AST 13 ALT 7 Alkaline Phosphatase 45 Troponin I 0.23 H* TSH 2.482 09/26/16 09/26/16 05:58 05:58 WBC Hgb Hct Plt Count INR 1.7 APTT 90.2 H Sodium 128 L Potassium 5.3 H Chloride 103 Carbon Dioxide 18 L BUN 75 H Creatinine 3.55 H Glucose 119 H Calcium 8.8 Magnesium Total Bilirubin AST ALT Alkaline Phosphatase Troponin I TSH - EKG Interpretation EKG results cardiology: other (24h telemetry reveals intermittent v pacing, underlying rhythm AFIB, appears normal sinus presently) Consult Discharge Plan - Plan Referrals: Sunil Duong DO [Primary Care Provider] -
--- NOTE | 2016-09-26 10:39 | Event Note ---
Date of Encounter: 09/26/16 Time of Encounter: 10:37 S: Patient was seen this a.m. and was awake. No complaints in the patient. O: Vital signs stable this time. General: Alert and awake : Catheter tubing was clear if rotated to the side. I believe most of the hematuria is old and resolving. Assessment and plan 1: Gross hematuria - I believe the patient's hematuria is resolving as it was most likely secondary to traumatic tugging on the catheter. I do not believe change in the catheter would help the patient at this time. If possible to stop heparin early that could help resolve hematuria quicker. INR almost therapeutic at 1.8. We will continue to follow along at this time. Patient's hemoglobin is stable.
--- NOTE | 2016-09-26 11:23 | Nephrology Progress Note ---
Date of Encounter: 09/26/16 Time of Encounter: 11:20 - Assessment and Plan (1) KAY (acute kidney injury) Current Visit: Yes Status: Acute Scr worsening slightly at 3.55 with GFR 20 UOP noted at 700cc in the past 24hrs. Discussed with cardiology and resuming iv lasix reasonable given pulm edema No acute indication for 411 DIRECTORY ASSISTANCE OPERATOR just yet but concerning for need in the near future. Discussed with son who did not affirm any firm plans/decisions. Urine eosinophils noted positive and concerning for AIN? Currently on cefepime, will monitor Uric acid level elevated likely due to decreased clearance Will add albumin along with iv lasix hopefully to enhance diuresis (2) Hyperkalemia Current Visit: Yes Status: Acute Potassium remains elevated at 5.3, continue renal diet. Should hopefully improve with diuresis (3) CKD (chronic kidney disease) stage 4, GFR 15-29 ml/min Current Visit: Yes Status: Chronic baseline GFR 20s-30 Subjective Principal diagnosis: KAY on CKD Interval history: interim events noted with CT head done due to altered mental status. Pt seen and examined (well known to me from outpatient management of his CKD) still appears lethargic. Dark, bloody urine in bobo still present. Objective - Vital Signs Vital signs: Vital Signs Temp Pulse Resp BP Pulse Ox 09/26/16 07:19 97.7 F 70 18 115/77 100 09/26/16 04:39 97.9 F 73 20 113/66 97 09/26/16 00:13 97.5 F L 64 18 100/60 98 09/25/16 21:30 98.1 F 60 16 89/58 95 09/25/16 18:21 95.1 F L 09/25/16 17:20 94.8 F L 66 18 120/77 97 09/25/16 14:09 61 16 143/89 98 Intake and Output 09/25/16 09/26/16 09/26/16 23:59 07:59 15:59 Intake Total 134 / 134 107 / 107 Output Total 100 / 100 Balance 34 / 34 107 / 107 Intake: IV Fluids 134 / 134 107 / 107 Heparin 25,000 UNIT/500 134 / 134 107 / 107 ML D5W 25,000 unit In 500 ml @ 14 UNIT/KG/HR 21. 112 mls/hr IVC .[id number] [facility] Rx#:[id number] Oral 0 / 0 0 / 0 Output: Catheter 100 / 100 Other: Weight 76.5 kg Blood Glucose* 147 120 Patient Weight 09/26/16 23:59 Weight 76.5 kg - Lab 09/25/16 17:27 09/26/16 05:58 Most recent lab results ABG pH 7.43 pH Units (7.32-7.45) 09/26/16 00:28 ABG pCO2 26 mmHg (35-45) L 09/26/16 00:28 ABG pO2 109 mmHg (85-104) H 09/26/16 00:28 ABG HCO3 17.3 mEQ/L (21-27) L 09/26/16 00:28 ABG O2 Saturation 98 % (95-98) 09/26/16 00:28 Calcium 8.8 mg/dL (8.6-10.8) 09/26/16 05:58 Phosphorus 4.0 mg/dL (2.3-4.7) 09/17/16 03:33 Magnesium 1.4 mg/dL (1.6-2.6) L 09/25/16 23:17 Urine Sodium 27.0 mEq/L 09/24/16 09:50 Consult Discharge Plan - Plan Referrals: Sunil Duong DO [Primary Care Provider] -
[2016-09-26] MEDS: Cefepime HCl 1,000 MG in D5% in Water (Mini-Bag+) 100 ML IVPB SCH (12:28)
[2016-09-26] MEDS ORDERED: Albumin 25% 25gram/100mL 25 GM/100 ML IV.SOLN IVPB SCH ×2 (12:54→18:00)
[2016-09-26] MEDS: Furosemide 40 MG/4 ML VIAL IVP SCH (13:57)
[2016-09-26] MEDS ORDERED: 0.9 % Sodium Chloride 500 ML ONE (15:42)
[2016-09-26 16:01] LABS: Hematocrit 30.5 % (37.5-50.1); Hemoglobin 9.6 g/dL (12.9-16.9)
--- NOTE | 2016-09-26 16:09 | Event Note ---
Addendum entered and electronically signed by Tamar Roque DO 09/26/16 16 :43: H/H stable, although decreased from admission. Will continue to monitor. CT abd shows diffuse anasarca with b/l pleural effusions, moderate to large ascites. Marked gaseous distention of the stomach. Patient is more alert upon entering the room. Will insert N/G to WS to decompress stomach, give previously ordered but held IV lasix, continue to monitor H/H. Will discuss with grandson when he is available that the fact that his BUN has been increasing FISH PACKER may need to be considered. Will attempt to arrange time he can be here to meet with Dr. Bar. Original Note: <Tamar Roque - Last Filed: 09/26/16 16:01> Date of Encounter: 09/26/16 Time of Encounter: 16:01 Notified by RN that patient had episode of dark red diarrhea, worsening abdominal distention, increased blood in bobo and is more obtunded. Patient evaluated at bedside and found to have increased distention with grimacing to palpation of the RLQ, LLQ. Patient responds minimally to voice and pain with mumble response and does not open eyes. BP 108 systolic, HR 63, Temp stable at 97.6F. Patient's grandson arrived at bedside, who is medical POA. Discussed pt with him and answered questions. Plan: -Stat H/H (9.6/30.5) -Stat poc glucose: 146 -Stat CT abd/pelvis without contrast -Occult, cdiff stool testing -500cc bolus NS Will continue to monitor patient status closely. <Pradeep De Leon - Last Filed: 09/26/16 17:59> Date of Encounter: 09/26/16 I examined this patient and my medical decision-making was reviewed with the Resident Physician on 09/26/16. I agree with the documented findings, disposition and treatment plan as described except to the extent set forth below. Above reviewed and agree.
[2016-09-26] MEDS ORDERED: *HR* Warfarin 5 MG TABLET PO ONE (18:00)
[2016-09-26] MEDS: Heparin 25,000 UNIT/500 ML D5W 25,000 UNIT/500 ML MLS IVC SCH (18:16)
[2016-09-26] MEDS ORDERED: *HR* Heparin 5,000 UNIT/ML VIAL IVP PRN ×2 (20:38)
[2016-09-26] MEDS ORDERED: Heparin 25,000 UNIT/500 ML D5W 25,000 UNIT/500 ML MLS IVC SCH (20:45)
[2016-09-26 21:49] LABS: Hematocrit 30.8 % (37.5-50.1); Hemoglobin 9.9 g/dL (12.9-16.9)
[2016-09-27] MEDS: Albumin 25% 25gram/100mL 25 GM/100 ML IV.SOLN IVPB SCH ×2 (01:15→13:02)
[2016-09-27] MEDS: Furosemide 40 MG/4 ML VIAL IVP SCH ×2 (03:00→13:01)
[2016-09-27 05:17] LABS: INR 2.6; Prothrombin Time 29.4 Seconds (9.4-12.1)
[2016-09-27 05:24] LABS: Calcium 9.1 mg/dL (8.6-10.8)
[2016-09-27 05:49] LABS: Activated Partial Thrombo Time > 360.0 Seconds (26.0-36.0)
[2016-09-27 06:02] LABS: Heparin anti-factor XA UFH 0.58 IU/mL (0.30-0.70)
[2016-09-27 06:17] LABS: Basophils % 0.2 %; Eosinophils % 0.2 %; Hematocrit 29.4 % (37.5-50.1); Hemoglobin 9.4 g/dL (12.9-16.9); Immature Granulocytes % 0.4 % (0-4); Immature Platelets 7.4 % (1.1-6.1); Lymphocytes # 0.3 K/mcL (0.6-4.6); Lymphocytes % 6.3 %; Mean Corpuscular Volume 81.2 fL (83.0-100.0); Monocytes # 0.7 K/mcL (0.0-1.3); Monocytes % 13.1 %; Neutrophils # 4.2 K/mcL (1.6-8.9); Red Blood Count 3.62 M/mcL (4.19-5.50); Red Cell Distribution Width 18.1 % (11.5-14.5); Segmented Neutrophils % 79.8 %
[2016-09-27 06:26] LABS: Platelet Count 87 K/mcL (140-400)
[2016-09-27 07:08] LABS: Anisocytosis 1+ (Not Present); Hypochromasia Present (Not Present); Platelet Estimate Decreased (Normal)
[2016-09-27 07:09] LABS: Acanthocytes 2+ (Not Present); Poikilocytosis 1+ (Not Present)
--- NOTE | 2016-09-27 07:48 | Urology - Consult Note ---
Date of Encounter: 09/27/16 Time of Encounter: 07:45 - Assessment and Plan (1) Hematuria Current Visit: Yes Status: Acute Qualifiers: Hematuria type: gross Qualified Code(s): R31.0 - Gross hematuria (2) Urinary retention Current Visit: Yes Status: Acute Assessment and plan: keep bobo in place. will start flomax. no need for finasteride. keep bobo in place for 7-10 days and f/u in urology for voiding trial. Urology CN:HPI Consult date: 09/27/16 Reason for consult Urology: Other (urinary retention) Requesting physician: Pradeep De Leon History of present illness: Jaden is a 75-year-old male with a history of elevated PSA of 95. Patient was given Lupron shot in the urology office. Patient recently started chemotherapy for esophageal cancer. He had difficulty with voiding over the past 2-3 days. He came to the emergency department where a CT scan was done which revealed markedly distended bladder. Urinary catheter was placed. Past Med Surg Social Fam HX - Past Medical History Medical history: arthritis, atrial fibrillation, cardiomyopathy, CHF, COPD, coronary artery disease, diabetes, GERD, hyperlipidemia, hypertension, myocardial infarction, osteoporosis, renal disease Psychiatric history: anxiety, depression - Past Surgical History Surgical History: angioplasty/stent, pacemaker/AICD, other (Back surgery) - Social History Smoking Status: Former smoker Smokeless Tobacco Status: No Alcohol use: none Drug use: none - Family History Mother Living Status: Cause of : Cancer Hx Family Cancer: Yes (breast cancer) Hx Family Neurologic Disorders: Yes (Stroke) Father Living Status: Age at : 86 Cause of : Cancer Hx Family Cancer: Yes (Colon cancer) Medications and Allergies Atorvastatin [Lipitor] 40 mg PO HS 02/21/15 [History] Calcium Carbonate/Vitamin D2 [Oyster Shell Calcium-Vit D Tab] 1 tab PO BID 02/21 [History] Carvedilol [Coreg] 6.25 mg PO HS 02/21/15 [History] Furosemide [Lasix] 40 mg PO BID 02/21/15 [History] Lisinopril 2.5 mg PO DAILY 02/21/15 [History] Omeprazole [PriLOSEC] 40 mg PO DAILY 02/21/15 [History] Sertraline [Zoloft] 25 mg PO DAILY 02/21/15 [History] Spironolactone [Aldactone] 12.5 mg PO DAILY 02/21/15 [History] hydrALAZINE [HydrALAZINE] 50 mg PO TID 02/21/15 [History] Nitroglycerin 0.4 mg SL Q5MIN PRN #60 tab.subl 02/25/15 [Rx] Carvedilol 12.5 mg PO QAM 04/14/15 [History] Aspirin 81 mg PO DAILY #30 tab.chew 04/18/15 [Rx] Ferrous Sulfate 325 mg PO BIDWM #60 tablet 04/29/15 [Rx] Loperamide [Imodium] 2 mg PO QID PRN 12/12/15 [History] Albuterol Sulfate [Proair Hfa] 2 puff IH Q4H PRN 09/16/16 [History] Ammonium Lactate [Lac-Hydrin Five] 1 appl TP DAILY 09/16/16 [History] Ascorbate Calcium [Vitamin C] 500 mg PO DAILY 09/16/16 [History] Benzonatate [Tessalon] 100 mg PO TID PRN 09/16/16 [History] Calcitriol [Rocaltrol] 0.25 mcg PO DAILY 09/16/16 [History] Cyclobenzaprine HCl 5 mg PO BID 09/16/16 [History] Dicyclomine [Bentyl] 20 mg PO QID 09/16/16 [History] Doxazosin Mesylate [Cardura] 8 mg PO DAILY 09/16/16 [History] Ergocalciferol (VITAMIN D2) [Vitamin D2] 50,000 unit PO QMONTH 09/16/16 [History ] Escitalopram [Lexapro] 10 mg PO DAILY 09/16/16 [History] Guaifenesin [Tussin] 200 mg PO Q4H PRN 09/16/16 [History] HYDROcodone/Acet 5/325 mg [[place] 5-325 mg] 1 tab PO Q6H PRN 09/16/16 [History] Ondansetron HCl [Zofran] 4 mg PO TID PRN 09/16/16 [History] Pregabalin [Lyrica] 50 mg PO TID 09/16/16 [History] Sildenafil Citrate [Revatio] 20 mg PO TID 09/16/16 [History] Allergies No Known Allergies Allergy (Verified 09/29/15 10:02) Review of Systems - Constitutional no chills - EENT Nose, mouth and throat: no dizziness - Cardiovascular no chest pain - Respiratory no cough - Gastrointestinal abdominal pain - Genitourinary as per HPI - Musculoskeletal no back pain - Integumentary no erythema - Neurological no confusion Exam Initial Vital Signs Temp Pulse Resp BP Pulse Ox 0 F L 89 18 149/102 93 09/16/16 16:11 09/16/16 16:11 09/16/16 16:11 09/16/16 16:11 09/16/16 16:11 - General physical appearance Present: well developed - Eyes Present: PERRL - ENT Present: normal nares - Neck Present: no masses - Respiratory Present: normal respiratory effort - Cardiovascular Cardiovascular exam IM: RRR - Abdomen Abdomen: Present: soft - Genitourinary other (clear urine in catheter) - Integumentary Present: no rash - Neurologic Present: normal coordination Urology Results - Labs 09/27/16 03:47 09/27/16 03:47 Abnormal lab results RBC 3.62 M/mcL (4.19-5.50) L 09/27/16 03:47 Hgb 9.4 g/dL (12.9-16.9) L 09/27/16 03:47 Hct 29.4 % (37.5-50.1) L 09/27/16 03:47 MCV 81.2 fL (83.0-100.0) L 09/27/16 03:47 MCH 26.0 pg (28.0-33.3) L 09/27/16 03:47 RDW 18.1 % (11.5-14.5) H 09/27/16 03:47 Plt Count 87 K/mcL (140-400) L 09/27/16 03:47 Lymphocytes # 0.3 K/mcL (0.6-4.6) L 09/27/16 03:47 Platelet Estimate Decreased (Normal) L 09/27/16 03:47 Immature Plt Fraction 7.4 % (1.1-6.1) H 09/27/16 03:47 Hypochromasia Present (Not Present) A 09/27/16 03:47 Poikilocytosis 1+ (Not Present) A 09/27/16 03:47 Anisocytosis 1+ (Not Present) A 09/27/16 03:47 Acanthocytes (Spur) 2+ (Not Present) A 09/27/16 03:47 PT 29.4 Seconds (9.4-12.1) H D 09/27/16 03:47 APTT > 360.0 Seconds (26.0-36.0) H* D 09/27/16 03:47 ABG pCO2 26 mmHg (35-45) L 09/26/16 00:28 ABG pO2 109 mmHg (85-104) H 09/26/16 00:28 ABG HCO3 17.3 mEQ/L (21-27) L 09/26/16 00:28 ABG Total CO2 18.1 mEq/L (20-26) L 09/26/16 00:28 ABG Base Excess -5.9 mEq/L (-2.0 to 3.0) L 09/26/16 00:28 Sodium 130 mEq/L (136-145) L 09/27/16 03:47 Potassium 5.0 mEq/L (3.5-4.5) H 09/27/16 03:47 Carbon Dioxide 17 mEq/L (19-29) L 09/27/16 03:47 BUN 79 mg/dL (8-26) H 09/27/16 03:47 Creatinine 3.53 mg/dL (0.72-1.25) H 09/27/16 03:47 Est GFR ( Amer) 20 (> 60) L 09/27/16 03:47 Est GFR (Non-Af Amer) 17 (> 60) L 09/27/16 03:47 Glucose 135 mg/dL (70-99) H 09/27/16 03:47 POC Glucose 147 (58-89) H 09/26/16 20:43 Uric Acid 10.3 mg/dL (3.5-7.2) H 09/24/16 16:56 Magnesium 1.5 mg/dL (1.6-2.6) L 09/27/16 03:47 Direct Bilirubin 0.6 mg/dL (0.0-0.5) H 09/23/16 10:29 Creatine Kinase 211 Units/L (30-200) H 09/23/16 10:29 Myoglobin 455 ng/mL (28-72) H 09/23/16 10:29 Troponin I 0.23 ng/mL (0-0.03) H* 09/25/16 23:17 B-Natriuretic Peptide 3195 pg/mL (0-100) H 09/19/16 02:46 Albumin 2.7 g/dL (3.5-5.0) L 09/25/16 23:17 Albumin/Globulin Ratio 0.8 (1.1-2.2) L 09/25/16 23:17 Ur Specimen Adequacy See below A 09/24/16 09:50 Urine Color Red (Yellow) A 09/24/16 09:50 Urine Clarity Cloudy (Clear) A 09/24/16 09:50 Urine Protein >=300 mg/dL (Neg-Trace) H 09/24/16 09:50 Urine Ketones Trace mg/dL (Negative) H 09/24/16 09:50 Urine Blood Large (Negative) H 09/24/16 09:50 Urine Bilirubin Moderate (Negative) H 09/24/16 09:50 Ur Leukocyte Esterase Small (Negative) H 09/24/16 09:50 Urine Microscopic RBC 3-5 per hpf (0-3) H 09/22/16 14:35 Urine Microscopic WBC 3-5 per hpf (0-3) H 09/22/16 14:35 Ur Eosinophil Smear 1 % (None Seen) H 09/24/16 18:40 Ur Squamous Epith Cells Many per lpf (None-Few) H 09/22/16 14:35 Diabetes panel 09/27/16 Range/Units 03:47 Sodium 130 L (136-145) mEq/L Potassium 5.0 H (3.5-4.5) mEq/L Chloride 102 (98-109) mEq/L Carbon Dioxide 17 L (19-29) mEq/L BUN 79 H (8-26) mg/dL Creatinine 3.53 H (0.72-1.25) mg/dL Glucose 135 H (70-99) mg/dL Calcium 9.1 (8.6-10.8) mg/dL Calcium panel 09/27/16 Range/Units 03:47 Calcium 9.1 (8.6-10.8) mg/dL Pituitary panel 09/27/16 Range/Units 03:47 Sodium 130 L (136-145) mEq/L Potassium 5.0 H (3.5-4.5) mEq/L Chloride 102 (98-109) mEq/L Carbon Dioxide 17 L (19-29) mEq/L BUN 79 H (8-26) mg/dL Creatinine 3.53 H (0.72-1.25) mg/dL Glucose 135 H (70-99) mg/dL Calcium 9.1 (8.6-10.8) mg/dL Adrenal panel 09/27/16 Range/Units 03:47 Sodium 130 L (136-145) mEq/L Potassium 5.0 H (3.5-4.5) mEq/L Chloride 102 (98-109) mEq/L Carbon Dioxide 17 L (19-29) mEq/L BUN 79 H (8-26) mg/dL Creatinine 3.53 H (0.72-1.25) mg/dL Glucose 135 H (70-99) mg/dL Calcium 9.1 (8.6-10.8) mg/dL All other labs normal. - Imaging CT scan - abdomen: image reviewed CT scan - pelvis: image reviewed Consult Discharge Plan - Plan Referrals: Sunil Duong DO [Primary Care Provider] -
--- NOTE | 2016-09-27 07:53 | Urology Progress Note ---
Date of Encounter: 09/27/16 Time of Encounter: 07:52 - Assessment and Plan (1) Hematuria Current Visit: Yes Status: Acute Assessment and plan: stable. continue catheter Qualifiers: Hematuria type: gross Qualified Code(s): R31.0 - Gross hematuria (2) Urinary retention Current Visit: Yes Status: Acute Progress Note Narrative: patient seen. urine slightly pink in tubing. Objective Initial Vital Signs Temp Pulse Resp BP Pulse Ox 0 F L 89 18 149/102 93 09/16/16 16:11 09/16/16 16:11 09/16/16 16:11 09/16/16 16:11 09/16/16 16:11 - General physical appearance Present: well developed - Abdomen Present: soft - Genitourinary Present: other (slight pink in tubing if turned on side) - Labs 09/27/16 03:47 09/27/16 03:47 Diabetes panel 09/27/16 Range/Units 03:47 Sodium 130 L (136-145) mEq/L Potassium 5.0 H (3.5-4.5) mEq/L Chloride 102 (98-109) mEq/L Carbon Dioxide 17 L (19-29) mEq/L BUN 79 H (8-26) mg/dL Creatinine 3.53 H (0.72-1.25) mg/dL Glucose 135 H (70-99) mg/dL Calcium 9.1 (8.6-10.8) mg/dL Calcium panel 09/27/16 Range/Units 03:47 Calcium 9.1 (8.6-10.8) mg/dL Pituitary panel 09/27/16 Range/Units 03:47 Sodium 130 L (136-145) mEq/L Potassium 5.0 H (3.5-4.5) mEq/L Chloride 102 (98-109) mEq/L Carbon Dioxide 17 L (19-29) mEq/L BUN 79 H (8-26) mg/dL Creatinine 3.53 H (0.72-1.25) mg/dL Glucose 135 H (70-99) mg/dL Calcium 9.1 (8.6-10.8) mg/dL Adrenal panel 09/27/16 Range/Units 03:47 Sodium 130 L (136-145) mEq/L Potassium 5.0 H (3.5-4.5) mEq/L Chloride 102 (98-109) mEq/L Carbon Dioxide 17 L (19-29) mEq/L BUN 79 H (8-26) mg/dL Creatinine 3.53 H (0.72-1.25) mg/dL Glucose 135 H (70-99) mg/dL Calcium 9.1 (8.6-10.8) mg/dL Consult Discharge Plan - Plan Referrals: Sunil Duong DO [Primary Care Provider] -
[2016-09-27] MEDS: Insulin LISPRO 300 UNITS/3 ML VIAL SQ SCH ×4 (10:11→20:20)
[2016-09-27] MEDS: Magnesium Oxide 400 MG TABLET PO SCH (10:12)
[2016-09-27] MEDS: Ammonium Lactate 30 APPL/225 GM BOTTLE TP SCH (10:12)
[2016-09-27] MEDS: Sildenafil Citrate 20 MG TABLET PO SCH ×3 (10:12→20:21)
[2016-09-27] MEDS: hydrALAZINE 25 MG TABLET PO SCH ×3 (10:12→20:20)
--- NOTE | 2016-09-27 10:35 | Cardiology Progress Note ---
Date of Encounter: 09/27/16 Time of Encounter: 08:30 Assessment and Plan (1) Atrial thrombus Current Visit: Yes Status: Acute Per cardiology: -Patient presented with stroke like symptoms and echo demonstrated the presence of a left atrial thrombus. -TE showed echodensity in the left atrium near the KAR concerning for thrombus. -Had been on heparin drip, now discontinued. -On coumadin, pharmacy to dose. INR therapeutic today, 2.6 -Recommend continuing coumadin. Per discussion with primary service, no surgeries scheduled at this time. -Will continue to follow. (2) Ischemic cardiomyopathy Current Visit: Yes Status: Acute Per cardiology: -Known ischemic cardiomyopathy. -LVEF 20-25%. -Has dual chamber ICD in place. -Will continue to monitor. (3) CHF (congestive heart failure) Current Visit: No Status: Chronic Per cardiology: -Patient has known severe ischemic cardiomyopathy. -CXR on 09/23 demonstrated pleural effusions, his weight has increased and renal function has continued to decline. -Continue BB. Not on DOTTIE/ARB due to CKD. -Strict I/O's and daily weights. -On lasxi 40mg IV BID. -Net positive this admission 7525ml. -Per review of nephrology note, they are considering CRRT or further intervention for renal function. -Creatinine today 3.53. -Euvolemic on exam. -Weight decreased by 0.7kg today. -Appreciate nephrology input regarding diuresis and volume overload. Qualifiers: Congestive heart failure type: systolic Congestive heart failure chronicity : chronic Qualified Code(s): I50.22 - Chronic systolic (congestive) heart failure (4) Acute kidney injury Current Visit: Yes Status: Acute Per cardiology: -Known CKD, follows with nephrology as outpatient. -Creatinine today 3.53. -Per review of nephrology note, they are considering CRRT. -Management per primary and nephrology services. (5) CAD (coronary artery disease) Current Visit: No Status: Chronic Per cardology: -H/o CAD s/p PCI. MS 02/2015 s/p PTCA/BMS to the pLAD at that time. -Continue statin, and bb. -ASA being held due to hematuria and need for coumadin due to atrial thrombus. -Denies chest pain. -Recommend re-starting asa when able due to hematuria. Qualifiers: Coronary Disease-Associated Artery/Lesion type: [place] artery [place] vs. transplanted heart: [place] heart Associated angina: without angina Qualified Code(s): I25.10 - Atherosclerotic heart disease of [place] coronary artery without angina pectoris (6) Atrial fibrillation Current Visit: No Status: Chronic Per cardiology: -patient has known history of paroxysmal atrial fibrillation (not chronic). -However, he presented with AFIB and has intermittent v-pacing. Presently appears to be in paced rhythm. -He was taken off on anticoagulation in the Fall of 2016 out of concern for GIB. -He has since been placed back on anticoagulation (heparin - coumadin bridge) secondary to LA thrombus. -Due to hematuria, Urology is following - probably secondary to trauma. -Overall, his Hgb has been stable today 9.4 -INR today is 2.6 today (therapeutic) with goal INR (2-3). -HR controlled with average HR 63, on beta kathrin. -Will continue to monitor. Qualifiers: Atrial fibrillation type: paroxysmal Qualified Code(s): I48.0 - Paroxysmal atrial fibrillation Discussion w patient/family: The assessment and plan as outlined above was discussed with the patient who expressed understanding and agreement. All questions were answered. Thank you for involving us in the care of your patient. Please call with any questions. Discussed and reviewed with . Subjective Principal diagnosis: KAY on CKD Interval history: Patient with atrial thrombus, had been on heparin drip and was bridged to coumadin. INR therpeutic today. Patient is lethargic and answers questions intermittently. Patient did deny chest pain overnight. Patient with known CKD now with KAY. Nephrology following. Per review of records, nephrology is considering CRRT. Patient now with NG tube for decompression. Objective Vital Signs, Last 4 Hours Temp Pulse Resp BP Pulse Ox 09/27/16 09:52 97.4 F L 09/27/16 07:23 94.1 F L 60 18 110/72 100 General: Other (Lethargic. Will answer questions with multiple attemtps. ) HEENT: Atraumatic, Normocephaly, Mucus Membranes Moist Neck: No JVD, Normal carotid pulses Cardiac: Reg Rate and Rhythm, Normal S1 and S2, No Murmur Lungs: Other (Diminished breath sounds throughout. ) Neuro: Other (Lethargic. ) Abdomen: Other (Tender to palpation. ) Skin: No rashes noted on visualized skin Musculoskeletal: No Chest Wall Tenderness Extremities: No Clubbing, No Cyanosis, No Edema, Normal Pulses Results 09/27/16 03:47 09/27/16 03:47 Lab Results Impressions Head CT 09/25/16 22:44 IMPRESSION: No evidence of acute intracranial abnormality on a study limited by motion/streak artifact as described above. D/ / 09/26/2016 06:19:02 Pasquale John MD / maribel Interpreting Provider: Pasquale John MD Abdomen/Pelvis CT 09/26/16 15:53 IMPRESSION: 1. Diffuse anasarca with bilateral pleural effusions, moderate to large amount of ascites, and extensive fat stranding within the subcutaneous fat. 2. Relatively marked gaseous distension. 3. Moderate amount of stool within the colon. 4. Overall, evaluation is limited by streak artifact, lack of intravenous contrast, and the extensive anasarca, which limits detection of inflammation. D/ / Shaw Lindo MD / Shaw Lindo MD Interpreting Provider: Shaw Lindo MD X-Ray 09/26/16 17:05 IMPRESSION: Nasogastric tube tip is seen in the expected location, superimposed over the gastric body. D/ / Shaw Lindo MD / Shaw Lindo MD Interpreting Provider: Shaw Lindo MD X-Ray 09/27/16 05:11 IMPRESSION: Nasogastric tube in appropriate position. D/ / 09/27/2016 08:09:02 Alejandro Ronquillo MD / maribel Interpreting Provider: Alejandro Ronquillo MD Active Medications Albuterol Sulfate (Albuterol Inhaler) 2 puff IH Q4H PRN PRN Reason: Shortness Of Breath Stop: 03/18/17 20:16 Atorvastatin Calcium (Lipitor) 40 mg PO HS [facility] Stop: 03/18/17 21:01 Last Admin: 09/26/16 20:20 Dose: Not Given Calcium Carbonate (Tums) 1,000 mg PO QID [facility] PRN Reason: Protocol Stop: 03/21/17 09:01 Last Admin: 09/27/16 10:12 Dose: Not Given Carvedilol (Coreg) 6.25 mg PO HS [facility] PRN Reason: Protocol Stop: 03/18/17 21:01 Last Admin: 09/26/16 20:20 Dose: Not Given Carvedilol (Coreg) 12.5 mg PO QAM [facility] Stop: 03/19/17 09:01 Last Admin: 09/27/16 10:12 Dose: Not Given Dextrose/Water (Dextrose 50% (Syg)) 25 ml IVP AD PRN PRN Reason: Hypoglycemia Stop: 03/19/17 18:33 Dicyclomine HCl (Bentyl) 20 mg PO QID [facility] Stop: 03/23/17 17:01 Last Admin: 09/27/16 10:12 Dose: Not Given Doxazosin Mesylate (Cardura) 8 mg PO DAILY [facility] Stop: 03/19/17 09:01 Last Admin: 09/27/16 10:12 Dose: Not Given Furosemide (Lasix) 40 mg IVP 0130,1330 [facility] Stop: 03/28/17 13:31 Last Admin: 09/27/16 03:00 Dose: 40 mg Glucagon (Glucagen) 1 mg IM ONCE PRN PRN Reason: Hypoglycemia Stop: 03/19/17 18:33 Glucose (Gluctose) 15 gm PO ONCE PRN PRN Reason: Hypoglycemia Stop: 03/19/17 18:33 Glucose (Gluctose) 30 gm PO ONCE PRN PRN Reason: Hypoglycemia Stop: 03/19/17 18:33 Hydralazine HCl (Hydralazine) 50 mg PO TID [facility] Stop: 03/18/17 21:01 Last Admin: 09/27/16 10:12 Dose: Not Given Dextrose (Dextrose 5%) 1,000 mls @ 100 mls/hr IVC .Q10H PRN PRN Reason: HYPOGLYCEMIA Stop: 03/19/17 18:33 Cefepime HCl 1,000 mg/ (Dextrose) 100 mls @ 200 mls/hr IVPB Q24H [facility] Stop: 03/28/17 13:01 Last Admin: 09/26/16 12:28 Dose: 200 mls/hr Albumin Human (Flexbumin) 25 gm in 100 mls @ 60 mls/hr IVPB Q12H [facility] Stop: 09/29/16 02:33 Last Infusion: 09/27/16 02:30 Dose: Infused Insulin Human Lispro (Humalog) 0 units SQ HS [facility] PRN Reason: Protocol Stop: 03/19/17 21:01 Last Admin: 09/26/16 21:02 Dose: Not Given Insulin Human Lispro (Humalog) 0 units SQ TIDAC [facility] PRN Reason: Protocol Stop: 03/20/17 07:31 Last Admin: 09/27/16 10:11 Dose: Not Given Lactic Acid (Amlactin) 1 appl TP DAILY [facility] Stop: 03/19/17 09:01 Last Admin: 09/27/16 10:12 Dose: Not Given Loperamide HCl (Imodium) 2 mg PO QID PRN PRN Reason: Diarrhea Stop: 03/23/17 13:34 Magnesium Oxide (Mag-Ox) 400 mg PO DAILY [facility] PRN Reason: Protocol Stop: 03/20/17 09:01 Last Admin: 09/27/16 10:12 Dose: Not Given Nitroglycerin (Nitroglycerin) 0.4 mg SL Q5MIN PRN PRN Reason: Chest Pain Stop: 03/18/17 20:16 Ondansetron HCl (Zofran) 4 mg IVP Q8HR PRN PRN Reason: Nausea And Vomiting Stop: 03/18/17 20:12 Last Admin: 09/25/16 05:33 Dose: 4 mg Pantoprazole Sodium (Protonix) 40 mg IVP DAILY [facility] Stop: 03/19/17 09:01 Last Admin: 09/26/16 09:49 Dose: 40 mg Sildenafil Citrate (Revatio) 20 mg PO TID [facility] Stop: 03/18/17 21:01 Last Admin: 09/27/16 10:12 Dose: Not Given Warfarin Sodium (Coumadin Perpt) 1 each PO DAILY@1800 PRN PRN Reason: SEE COMMENTS Stop: 03/27/17 18:01 Warfarin Sodium (Coumadin) 3 mg PO 1800 ONE Stop: 09/27/16 18:01 - Imaging and Cardiology Chest Xray: report reviewed Echo: report reviewed Cardiac cath: report reviewed - EKG Interpretation EKG results cardiology: personally reviewed (ECG with paced rhythm.), other ( Telemetry reviewed with average HR 63, paced rhythm. PVCs noted.) Consult Discharge Plan - Plan Referrals: Sunil Duong, [Primary Care Provider] -
--- NOTE | 2016-09-27 10:40 | Internal Med Progress Note ---
<Sunil Duong - Last Filed: 09/27/16 13:10> Date of Encounter: 09/27/16 Time of Encounter: 10:38 - Assessment and plan (1) TIA (transient ischemic attack) Current Visit: Yes Status: Acute Assessment and plan: Patient continues to have waxing and waning alertness and mental status changes. Given that he goes in and out of altered mental status I think it is unlikely that this is being caused by thromboembolic phenomenon. This is more likely related to underlying critical illness including uremia. Patient remains extremely high risk for cerebrovascular event so we will continue with Coumadin in the setting of a known left atrial appendage thrombus. INR is therapeutic so heparin will be discontinued. Continue to monitor renal function Qualifiers: Transient cerebral ischemia type: unspecified Qualified Code(s): G45.9 - Transient cerebral ischemic attack, unspecified (2) Atrial thrombus Current Visit: Yes Status: Acute Assessment and plan: Echo showed thrombus in left atrial appendage. History of atrial fibrillation without anticoagulation due to GI bleed. Patient has been restarted on Coumadin. No evidence of active bleeding. INR is therapeutic. (3) Acute on chronic renal failure Current Visit: Yes Status: Acute Assessment and plan: Patient's creatinine remains above baseline despite fluid hydration as well as Lasix. Urine output has been less than adequate. Nephrology has been following. No indication for renal replacement therapy at this time however patient may be progressing towards the knee for renal replacement therapy. Will discuss with family goals of care. Qualifiers: Acute renal failure type: unspecified Chronic kidney disease stage: stage 4 (severe) Qualified Code(s): N17.9 - Acute kidney failure, unspecified; N18.4 - Chronic kidney disease, stage 4 (severe) (4) Esophageal stricture Current Visit: Yes Status: Resolved Assessment and plan: Patient has known Schatzki's ring with multiple dilatations in the past. Patient prior to arrival difficulty swallowing. EGD performed this hospitalization showed recurrence of the patient's Schatzki's ring, dilatation was performed. (5) CHF (congestive heart failure) Current Visit: No Status: Chronic Assessment and plan: Known chronic CHF (LVEF 20-25%). No acute exacerbation. Patient is mildly fluid overloaded on exam. Fluid overload is likely more related to the patient's worsening renal function with poor diuresis as discussed above. Qualifiers: Congestive heart failure type: systolic Congestive heart failure chronicity : chronic Qualified Code(s): I50.22 - Chronic systolic (congestive) heart failure (6) Diabetes Current Visit: No Status: Acute Assessment and plan: Blood sugar has been controlled. Continue SSI. 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 Patient appears to be slightly more confused from when I last saw him on Tuesday. He is able to converse with me and states that he did not like his NG tube so he pulled it out this morning. He was not able to tell me where he was, however the nurse states that prior to my arrival the patient was able to say that he was at the hospital in [place] and knew the month. Patient has no specific complaints at this time. He denies any pain, shortness of breath, chest pain, abdominal pain. - Constitutional Vitals: Temp Pulse Resp BP Pulse Ox 97.4 F L 60 18 110/72 100 09/27/16 09:52 09/27/16 07:23 09/27/16 07:23 09/27/16 07:23 09/27/16 07:23 General appearance: Present: cachectic, A&O X 1, pleasant, no acute distress, answers questions appropriately - Respiratory Respiratory exam: Present: decreased breath sounds. Absent: rales, rhonchi, wheezes - Cardiovascular Cardiovascular exam: Present: irregular rhythm. Absent: gallop, rubs, systolic murmur, tachycardia - GI/Abdominal GI/Abdominal exam: Present: distended (mild), hypoactive bowel sounds, soft. Absent: tenderness - Extremities Exam Extremities exam: Present: warm - Neurological Exam Neurological exam: Present: alert, altered, no focal deficits. Absent: oriented X3, facial droop, speech deficit Internal Medicine: Result - Labs CBC & Chem 7: 09/27/16 03:47 09/27/16 03:47 Labs: Short CBC 09/26/16 09/26/16 09/27/16 Range/Units 15:48 21:40 03:47 WBC 5.2 (4.3-11.1) K/mcL Hgb 9.6 L 9.9 L 9.4 L (12.9-16.9) g/dL Hct 30.5 L 30.8 L 29.4 L (37.5-50.1) % Plt Count 87 L (140-400) K/mcL Neutrophils # 4.2 (1.6-8.9) K/mcL BMP 09/27/16 03:47 Sodium 130 L Potassium 5.0 H Chloride 102 Carbon Dioxide 17 L BUN 79 H Creatinine 3.53 H Glucose 135 H Calcium 9.1 - ABG Interpretation ABG results: ABG ABG pH 7.43 pH Units (7.32-7.45) 09/26/16 00:28 ABG pCO2 26 mmHg (35-45) L 09/26/16 00:28 ABG pO2 109 mmHg (85-104) H 09/26/16 00:28 ABG O2 Saturation 98 % (95-98) 09/26/16 00:28 PT/INR, D-dimer PT 29.4 Seconds (9.4-12.1) H D 09/27/16 03:47 - Impressions Impressions Head CT 09/25/16 22:44 IMPRESSION: No evidence of acute intracranial abnormality on a study limited by motion/streak artifact as described above. D/ / 09/26/2016 06:19:02 Pasquale John MD / [facility] Interpreting Provider: Pasquale John MD Abdomen/Pelvis CT 09/26/16 15:53 IMPRESSION: 1. Diffuse anasarca with bilateral pleural effusions, moderate to large amount of ascites, and extensive fat stranding within the subcutaneous fat. 2. Relatively marked gaseous distension. 3. Moderate amount of stool within the colon. 4. Overall, evaluation is limited by streak artifact, lack of intravenous contrast, and the extensive anasarca, which limits detection of inflammation. D/ / Shaw Lindo MD / Shaw Lindo MD Interpreting Provider: Shaw Lindo MD X-Ray 09/26/16 17:05 IMPRESSION: Nasogastric tube tip is seen in the expected location, superimposed over the gastric body. D/ / Shaw Lindo MD / Shaw Lindo MD Interpreting Provider: Shaw Lindo MD X-Ray 09/27/16 05:11 IMPRESSION: Nasogastric tube in appropriate position. D/ / 09/27/2016 08:09:02 Alejandro Ronquillo MD / [facility] Interpreting Provider: Alejandro Ronquillo MD Consult Discharge Plan - Plan Referrals: Sunil Duong DO [Primary Care Provider] - <Pradeep De Leon - Last Filed: 09/27/16 17:07> Date of Encounter: 09/27/16 - Assessment and plan (1) Atrial thrombus Current Visit: Yes Status: Acute (2) Anemia Current Visit: No Status: Chronic Qualifiers: Anemia type: iron deficiency Iron deficiency anemia type: chronic blood loss Qualified Code(s): D50.0 - Iron deficiency anemia secondary to blood loss (chronic) (3) Acute encephalopathy Current Visit: Yes Status: Acute (4) Gross hematuria Current Visit: Yes Status: Acute Assessment and plan: H/H stable today. (5) Esophageal stricture Current Visit: Yes Status: Resolved (6) TIA (transient ischemic attack) Current Visit: Yes Status: Acute Qualifiers: Transient cerebral ischemia type: unspecified Qualified Code(s): G45.9 - Transient cerebral ischemic attack, unspecified (7) CKD (chronic kidney disease) stage 4, GFR 15-29 ml/min Current Visit: Yes Status: Chronic Assessment and plan: Per renal service. (8) CHF (congestive heart failure) Current Visit: No Status: Chronic Qualifiers: Congestive heart failure type: systolic Congestive heart failure chronicity : chronic Qualified Code(s): I50.22 - Chronic systolic (congestive) heart failure (9) Diabetes mellitus Current Visit: No Status: Chronic Qualifiers: Diabetes mellitus type: type 2 Diabetes mellitus complication status: with kidney complications Diabetes mellitus complication detail: with chronic kidney disease Diabetes mellitus [facility] insulin use: with [facility] use Chronic kidney disease stage: stage 4 (severe) Qualified Code(s): E11.22 - Type 2 diabetes mellitus with diabetic chronic kidney disease; N18.4 - Chronic kidney disease, stage 4 (severe); 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 - Constitutional Vitals: Temp Pulse Resp BP Pulse Ox 93.6 F L 60 18 108/71 100 09/27/16 16:27 09/27/16 16:27 09/27/16 16:27 09/27/16 16:27 09/27/16 16:27 Internal Medicine: Result - Labs CBC & Chem 7: 09/27/16 03:47 09/27/16 03:47 Labs: Short CBC 09/26/16 09/27/16 Range/Units 21:40 03:47 WBC 5.2 (4.3-11.1) K/mcL Hgb 9.9 L 9.4 L (12.9-16.9) g/dL Hct 30.8 L 29.4 L (37.5-50.1) % Plt Count 87 L (140-400) K/mcL Neutrophils # 4.2 (1.6-8.9) K/mcL BMP 09/27/16 03:47 Sodium 130 L Potassium 5.0 H Chloride 102 Carbon Dioxide 17 L BUN 79 H Creatinine 3.53 H Glucose 135 H Calcium 9.1 - ABG Interpretation ABG results: ABG ABG pH 7.43 pH Units (7.32-7.45) 09/26/16 00:28 ABG pCO2 26 mmHg (35-45) L 09/26/16 00:28 ABG pO2 109 mmHg (85-104) H 09/26/16 00:28 ABG O2 Saturation 98 % (95-98) 09/26/16 00:28 PT/INR, D-dimer PT 29.4 Seconds (9.4-12.1) H D 09/27/16 03:47 - Impressions Impressions KUB X-Ray 09/26/16 17:05 IMPRESSION: Nasogastric tube tip is seen in the expected location, superimposed over the gastric body. D/ / Shaw Lindo MD / Shaw Lindo MD Interpreting Provider: Shaw Lindo MD X-Ray 09/27/16 05:11 IMPRESSION: Nasogastric tube in appropriate position. D/ / 09/27/2016 08:09:02 Alejandro Ronquillo MD / [facility] Interpreting Provider: Alejandro Ronquillo MD - Attending Attestation I examined this patient and my medical decision-making was reviewed with the Resident Physician on 09/27/16. I agree with the documented findings, disposition and treatment plan as described except to the extent set forth below. Mr Anaya is currently admitted for dysphagia related to Schatzki ring and found to have atrial thrombus. He remains moderate to high risk due to continued neuro symptoms and need for anticoagulation for thrombus (and has some bleeding). Mr. Anaya is more alert today. He answers question but does not make sense. Was hypothermic again this AM. Improved now. Pulled out NG. Abdomen seems better. Family would pursue dialysis if indicated. Exam Alert. Comfortable Mucus membranes dry Heart irreg Lungs diminished Abd soft Edema present I/P 1. ? TIA - supportive care 2. Atrial thrombus on anticoagulation Further diagnoses and plan as above.
--- NOTE | 2016-09-27 11:52 | Nephrology Progress Note ---
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 Should hopefully improve with diuresis (3) CKD (chronic kidney disease) stage 4, GFR 15-29 ml/min Current Visit: Yes Status: Chronic baseline GFR 20s-30 Subjective Principal diagnosis: KAY on CKD Interval history: interim events noted with CTabd/plevis due to abdominla distention and diarrhea receiving NS bolus of 500cc yesterday. Pt seen and examined (well known to me from outpatient management of his CKD) still appears lethargic. Objective - Vital Signs Vital signs: Vital Signs Temp Pulse Resp BP Pulse Ox 09/27/16 11:14 97.2 F L 60 18 106/62 100 09/27/16 09:52 97.4 F L 09/27/16 07:23 94.1 F L 60 18 110/72 100 09/27/16 04:50 97.5 F L 60 18 114/69 100 09/26/16 23:48 97.5 F L 62 18 118/69 97 09/26/16 20:41 97.5 F L 63 18 107/68 100 09/26/16 15:47 97.6 F 60 18 108/74 100 09/26/16 12:00 97.6 F 69 18 113/64 100 Intake and Output 09/26/16 09/27/16 09/27/16 23:59 07:59 15:59 Intake Total 235.1 / 235.1 268 / 268 Output Total 550 / 550 400 / 400 Balance -314.9 / -314.9 -132 / -132 Intake: IV Fluids 235.1 / 235.1 268 / 268 Heparin 25,000 UNIT/500 235.1 / 235.1 168 / 168 ML D5W 25,000 unit In 500 ml @ 14 UNIT/KG/HR 21. 112 mls/hr IVC .[id number] [facility] Rx#:[id number] Flexbumin 25 gm In 100 ml 100 / 100 @ 60 mls/hr IVPB Q12H [facility] Rx#:[id number] Oral 0 / 0 0 / 0 Output: Catheter 400 / 400 250 / 250 Gastric Drainage 150 / 150 150 / 150 Other: Weight 75.8 kg Blood Glucose* 147 123 131 Patient Weight 09/27/16 23:59 Weight 75.8 kg - Lab 09/27/16 03:47 09/27/16 03:47 Most recent lab results ABG pH 7.43 pH Units (7.32-7.45) 09/26/16 00:28 ABG pCO2 26 mmHg (35-45) L 09/26/16 00:28 ABG pO2 109 mmHg (85-104) H 09/26/16 00:28 ABG HCO3 17.3 mEQ/L (21-27) L 09/26/16 00:28 ABG O2 Saturation 98 % (95-98) 09/26/16 00:28 Calcium 9.1 mg/dL (8.6-10.8) 09/27/16 03:47 Phosphorus 4.0 mg/dL (2.3-4.7) 09/17/16 03:33 Magnesium 1.5 mg/dL (1.6-2.6) L 09/27/16 03:47 Urine Sodium 27.0 mEq/L 09/24/16 09:50 Consult Discharge Plan - Plan Referrals: Sunil Duong DO [Primary Care Provider] -
[2016-09-27] MEDS: Pantoprazole 40 MG VIAL IVP SCH (13:01)
[2016-09-27] MEDS: Cefepime HCl 1,000 MG in D5% in Water (Mini-Bag+) 100 ML IVPB SCH (13:01)
[2016-09-27] MEDS ORDERED: *HR* Warfarin 3 MG TABLET PO ONE (18:00)
[2016-09-28] MEDS: Albumin 25% 25gram/100mL 25 GM/100 ML IV.SOLN IVPB SCH ×2 (00:36→12:21)
[2016-09-28] MEDS: Furosemide 40 MG/4 ML VIAL IVP SCH ×2 (00:36→12:20)
[2016-09-28] MEDS: Insulin LISPRO 300 UNITS/3 ML VIAL SQ SCH ×4 (00:37→16:33)
[2016-09-28 05:05] LABS: INR 3.5; Prothrombin Time 38.9 Seconds (9.4-12.1)
[2016-09-28 05:08] LABS: Basophils % 0.3 %; Eosinophils # 0.1 K/mcL (0.0-0.6); Eosinophils % 1.3 %; Hematocrit 27.6 % (37.5-50.1); Immature Granulocytes % 0.3 % (0-4); Immature Platelets 6.1 % (1.1-6.1); Lymphocytes # 0.3 K/mcL (0.6-4.6); Lymphocytes % 8.4 %; Mean Corpuscular HGB Conc 32.6 g/dL (31.6-35.5); Mean Corpuscular Hemoglobin 26.5 pg (28.0-33.3); Mean Corpuscular Volume 81.4 fL (83.0-100.0); Monocytes # 0.5 K/mcL (0.0-1.3); Monocytes % 12.7 %; Neutrophils # 2.9 K/mcL (1.6-8.9); Red Blood Count 3.39 M/mcL (4.19-5.50); Red Cell Distribution Width 18.1 % (11.5-14.5)
[2016-09-28 05:09] LABS: Platelet Count 77 K/mcL (140-400)
[2016-09-28 05:16] LABS: Calcium 9.3 mg/dL (8.6-10.8); Potassium 4.7 mEq/L (3.5-4.5)
[2016-09-28] MEDS: Sildenafil Citrate 20 MG TABLET PO SCH ×3 (08:20→20:01)
[2016-09-28] MEDS: Magnesium Oxide 400 MG TABLET PO SCH (08:20)
[2016-09-28] MEDS: hydrALAZINE 25 MG TABLET PO SCH ×3 (08:20→20:04)
[2016-09-28] MEDS: Ammonium Lactate 30 APPL/225 GM BOTTLE TP SCH (08:24)
[2016-09-28] MEDS: Pantoprazole 40 MG VIAL IVP SCH (08:25)
--- NOTE | 2016-09-28 09:12 | Internal Med Progress Note ---
<SonnySunil garnica - Last Filed: 09/28/16 09:09> Date of Encounter: 09/28/16 Time of Encounter: 09:10 - Assessment and plan (1) Acute encephalopathy Current Visit: Yes Status: Acute Assessment and plan: Patient continues to have waxing and waning alertness and mental status changes. Given that he goes in and out of altered mental status I think it is unlikely that this is being caused by thromboembolic phenomenon. Unfortunately patient cannot have an MRI due to pacemaker to further evaluate for possible thromboembolic cerebrovascular disease. This is more likely related to underlying critical illness and metabolic encephalopathy including uremia. Sepsis is also a possibility but there is no clear source of infection. (2) TIA (transient ischemic attack) Current Visit: Yes Status: Acute Assessment and plan: Approximate 5 days ago the patient had an episode of sudden decrease in mental status and expressive aphasia. Echo performed at that time revealed a left atrial appendage thrombus, the symptoms may been related to a small thromboembolic phenomenon. Patient's mental status did improve drastically in the next couple hours.Patient remains extremely high risk for cerebrovascular event so we will continue with Coumadin in the setting of a known left atrial appendage thrombus. INR is therapeutic so heparin will be discontinued. Qualifiers: Transient cerebral ischemia type: unspecified Qualified Code(s): G45.9 - Transient cerebral ischemic attack, unspecified (3) Atrial thrombus Current Visit: Yes Status: Acute Assessment and plan: Echo showed thrombus in left atrial appendage. History of atrial fibrillation without anticoagulation due to GI bleed. Patient has been restarted on Coumadin. No evidence of active bleeding. INR is supratherapeutic, Coumadin has been held. Pharmacy is assisting with dosing. (4) Acute on chronic renal failure Current Visit: Yes Status: Acute Assessment and plan: Patient's creatinine remains above baseline despite fluid hydration as well as Lasix. Urine output has been less than adequate with approximately 500 mL out yesterday. Nephrology has been following. Given the poor urine output and altered mental status possibly related to uremia she may require renal replacement therapy in the near future. This was discussed with family who stated they wish to continue with aggressive measures and would want to pursue renal replacement therapy if indicated. Nephrology is following and will continue discussed the need for renal replacement therapy. Qualifiers: Acute renal failure type: unspecified Chronic kidney disease stage: stage 4 (severe) Qualified Code(s): N17.9 - Acute kidney failure, unspecified; N18.4 - Chronic kidney disease, stage 4 (severe) (5) Esophageal stricture Current Visit: Yes Status: Resolved Assessment and plan: Patient has known Schatzki's ring with multiple dilatations in the past. Patient prior to arrival difficulty swallowing. EGD performed this hospitalization showed recurrence of the patient's Schatzki's ring, dilatation was performed. Patient had been eating normally but is taking less by mouth intake due to his mental status. (6) CHF (congestive heart failure) Current Visit: No Status: Chronic Assessment and plan: Known chronic CHF (LVEF 20-25%). No acute exacerbation. Patient is mildly fluid overloaded on exam. Fluid overload is likely more related to the patient's worsening renal function with poor diuresis as discussed above. Qualifiers: Congestive heart failure type: systolic Congestive heart failure chronicity : chronic Qualified Code(s): I50.22 - Chronic systolic (congestive) heart failure (7) Diabetes Current Visit: No Status: Acute Assessment and plan: Blood sugar has been controlled. Continue SSI. Qualifiers: Diabetes mellitus type: type 2 Diabetes mellitus complication status: with kidney complications Diabetes mellitus complication detail: with chronic kidney disease Diabetes mellitus correction insulin use: unspecified correction insulin use status Chronic kidney disease stage: stage 3 (moderate) Qualified Code(s): E11.22 - Type 2 diabetes mellitus with diabetic chronic kidney disease; N18.3 - Chronic kidney disease, stage 3 (moderate) - Subjective Interval history: Patient seen and examined at bedside. Patient is awake and alert but does appear somewhat confused. He has difficulty answering questions appropriately. He states that he is in [place] and does not know the date. At this time he has no specific complaints. He denies pain, shortness of breath, abdominal pain , nausea, vomiting. - Constitutional Vitals: Temp Pulse Resp BP Pulse Ox 97.5 F L 104 18 120/72 93 09/28/16 06:59 09/28/16 06:59 09/28/16 06:59 09/28/16 06:59 09/28/16 06:59 General appearance: Present: cachectic, A&O X 1, pleasant, no acute distress. Absent: answers questions appropriately - Respiratory Respiratory exam: Present: decreased breath sounds. Absent: rales, rhonchi, wheezes - Cardiovascular Cardiovascular exam: Present: irregular rhythm. Absent: gallop, rubs, systolic murmur - GI/Abdominal GI/Abdominal exam: Present: hypoactive bowel sounds, soft. Absent: distended, tenderness - Extremities Exam Extremities exam: Present: pedal edema (1+), warm. Absent: tenderness - Neurological Exam Neurological exam: Present: alert, altered, CN II-XII intact, no focal deficits. Absent: oriented X3, facial droop, speech deficit Internal Medicine: Result - Labs CBC & Chem 7: 09/28/16 04:40 09/28/16 04:40 Labs: Short CBC 09/28/16 Range/Units 04:40 WBC 3.7 L (4.3-11.1) K/mcL Hgb 9.0 L (12.9-16.9) g/dL Hct 27.6 L (37.5-50.1) % Plt Count 77 L (140-400) K/mcL Neutrophils # 2.9 (1.6-8.9) K/mcL BMP 09/28/16 04:40 Sodium 132 L Potassium 4.7 H Chloride 103 Carbon Dioxide 17 L BUN 84 H Creatinine 3.54 H Glucose 89 Calcium 9.3 - ABG Interpretation ABG results: ABG ABG pH 7.43 pH Units (7.32-7.45) 09/26/16 00:28 ABG pCO2 26 mmHg (35-45) L 09/26/16 00:28 ABG pO2 109 mmHg (85-104) H 09/26/16 00:28 ABG O2 Saturation 98 % (95-98) 09/26/16 00:28 PT/INR, D-dimer PT 38.9 Seconds (9.4-12.1) H 09/28/16 04:40 - Impressions Impressions KUB X-Ray 09/27/16 05:11 IMPRESSION: Nasogastric tube in appropriate position. D/ / 09/27/2016 08:09:02 Alejandro Ronquillo MD / [email or web address] Interpreting Provider: Alejandro Ronquillo MD Consult Discharge Plan - Plan Referrals: Sunil Duong, [Primary Care Provider] - <Gregorio Sanches - Last Filed: 09/28/16 10:05> Date of Encounter: 09/28/16 - Constitutional Vitals: Temp Pulse Resp BP Pulse Ox 97.5 F L 104 18 120/72 93 09/28/16 06:59 09/28/16 06:59 09/28/16 06:59 09/28/16 06:59 09/28/16 06:59 Internal Medicine: Result - Labs CBC & Chem 7: 09/28/16 04:40 09/28/16 04:40 Labs: Short CBC 09/28/16 Range/Units 04:40 WBC 3.7 L (4.3-11.1) K/mcL Hgb 9.0 L (12.9-16.9) g/dL Hct 27.6 L (37.5-50.1) % Plt Count 77 L (140-400) K/mcL Neutrophils # 2.9 (1.6-8.9) K/mcL BMP 09/28/16 04:40 Sodium 132 L Potassium 4.7 H Chloride 103 Carbon Dioxide 17 L BUN 84 H Creatinine 3.54 H Glucose 89 Calcium 9.3 - ABG Interpretation ABG results: ABG ABG pH 7.43 pH Units (7.32-7.45) 09/26/16 00:28 ABG pCO2 26 mmHg (35-45) L 09/26/16 00:28 ABG pO2 109 mmHg (85-104) H 09/26/16 00:28 ABG O2 Saturation 98 % (95-98) 09/26/16 00:28 PT/INR, D-dimer PT 38.9 Seconds (9.4-12.1) H 09/28/16 04:40 - Impressions Impressions KUB X-Ray 09/27/16 05:11 IMPRESSION: Nasogastric tube in appropriate position. D/ / 09/27/2016 08:09:02 Alejandro Ronquillo MD / [facility] Interpreting Provider: Alejandro Ronquillo MD - Attending Attestation acute metabolic encephalopathy of unclear etiology, consider possible uremia. Nephrology recommendations appreciated Hematuria (dark urine) followed by urology thrombocytopenia and lymphopenia ( viral etiology/) I examined this patient and my medical decision-making was reviewed with the Resident Physician. I agree with the documented findings, disposition and treatment plan as described except to the extent set forth below.
[2016-09-28] MEDS ORDERED: Simethicone 80 MG TAB.CHEW PO PRN (11:45)
--- NOTE | 2016-09-28 11:53 | Nephrology Progress Note ---
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 States he is "feeling pretty rough". Objective - Vital Signs Vital signs: Vital Signs Temp Pulse Resp BP Pulse Ox 09/28/16 10:40 96.4 F L 97 16 111/71 98 09/28/16 06:59 97.5 F L 104 18 120/72 93 09/28/16 03:58 97.4 F L 64 16 121/70 97 09/28/16 00:26 96.7 F L 66 18 122/73 99 09/27/16 20:50 94.4 F L 66 17 115/80 99 09/27/16 16:27 93.6 F L 60 18 108/71 100 Intake and Output 09/27/16 09/28/16 09/28/16 23:59 07:59 15:59 Intake Total 100 / 100 100 / 100 Output Total 500 / 500 1050 / 1050 200 / 200 Balance -400 / -400 -950 / -950 -200 / -200 Intake: IV Fluids 100 / 100 100 / 100 Flexbumin 25 gm In 100 ml 100 / 100 100 / 100 @ 60 mls/hr IVPB Q12H [facility] Rx#:[id number] Output: Urine 500 / 500 850 / 850 Catheter 200 / 200 200 / 200 Other: Weight 76 kg Blood Glucose* 106 94 82 Patient Weight 09/28/16 23:59 Weight 76 kg - General Appearance General appearance: Present: cachectic, chronically ill, fatigue, frail EENT: Present: ATNC, hearing intact Neck: Present: supple Respiratory: Present: clear Cardiology: Present: no edema, normal S1, normal S2 Gastrointestinal: Present: no tenderness, no guarding Psychiatric: Present: mood/affect appropriate, cooperative - Lab 09/28/16 04:40 09/28/16 04:40 Most recent lab results ABG pH 7.43 pH Units (7.32-7.45) 09/26/16 00:28 ABG pCO2 26 mmHg (35-45) L 09/26/16 00:28 ABG pO2 109 mmHg (85-104) H 09/26/16 00:28 ABG HCO3 17.3 mEQ/L (21-27) L 09/26/16 00:28 ABG O2 Saturation 98 % (95-98) 09/26/16 00:28 Calcium 9.3 mg/dL (8.6-10.8) 09/28/16 04:40 Phosphorus 4.0 mg/dL (2.3-4.7) 09/17/16 03:33 Magnesium 1.5 mg/dL (1.6-2.6) L 09/27/16 03:47 Urine Sodium 27.0 mEq/L 09/24/16 09:50 Consult Discharge Plan - Plan Referrals: Sunil Duong DO [Primary Care Provider] -
--- NOTE | 2016-09-28 16:03 | Cardiology Progress Note ---
Date of Encounter: 09/28/16 Time of Encounter: 11:00 Assessment and Plan (1) Atrial thrombus Current Visit: Yes Status: Acute Per cardiology: -Patient presented with stroke like symptoms and echo demonstrated the presence of a left atrial thrombus. -TE showed echodensity in the left atrium near the KAR concerning for thrombus. -Had been on heparin drip, now discontinued. -On coumadin, pharmacy to dose. INR supratherapeutic today, 3.5. -Recommend continuing coumadin. Per discussion with primary service, no surgeries scheduled at this time. -Will continue to follow until INR stable. (2) Ischemic cardiomyopathy Current Visit: Yes Status: Acute Per cardiology: -Known ischemic cardiomyopathy. -LVEF 20-25%. -Has dual chamber ICD in place. -Will continue to monitor. (3) CHF (congestive heart failure) Current Visit: No Status: Chronic Per cardiology: -Patient has known severe ischemic cardiomyopathy. -CXR on 09/23 demonstrated pleural effusions, his weight has increased and renal function has continued to decline. -Continue BB. Not on DOTTIE/ARB due to CKD. -Strict I/O's and daily weights. -On lasxi 40mg IV BID. -Per review of nephrology note, they are considering CRRT or further intervention for renal function. -Creatinine today 3.54. -Euvolemic on exam. -Weight decreased by 0.7kg yesterday. -Appreciate nephrology input regarding diuresis and volume overload. Qualifiers: Congestive heart failure type: systolic Congestive heart failure chronicity : chronic Qualified Code(s): I50.22 - Chronic systolic (congestive) heart failure (4) Acute kidney injury Current Visit: Yes Status: Acute Per cardiology: -Known CKD, follows with nephrology as outpatient. -Creatinine today 3.54. -Per review of nephrology note, they are considering CRRT. -Management per primary and nephrology services. (5) CAD (coronary artery disease) Current Visit: No Status: Chronic Per cardology: -H/o CAD s/p PCI. [place] 02/2015 s/p PTCA/BMS to the pLAD at that time. -Continue statin, and bb. -ASA being held due to hematuria and need for coumadin due to atrial thrombus. -Denies chest pain. -Recommend re-starting asa when able due to hematuria. Qualifiers: Coronary Disease-Associated Artery/Lesion type: [place] artery [place] vs. transplanted heart: [place] heart Associated angina: without angina Qualified Code(s): I25.10 - Atherosclerotic heart disease of [place] coronary artery without angina pectoris (6) Atrial fibrillation Current Visit: No Status: Chronic Per cardiology: -patient has known history of paroxysmal atrial fibrillation (not chronic). -However, he presented with AFIB and has intermittent v-pacing. Presently appears to be in paced rhythm. -He was taken off on anticoagulation in the Fall of 2016 out of concern for GIB. -He has since been placed back on anticoagulation (heparin - coumadin bridge) secondary to LA thrombus. -Due to hematuria, Urology is following - probably secondary to trauma. -Overall, his Hgb has been stable today 9.4 -INR today is 2.6 today (therapeutic) with goal INR (2-3). -HR controlled with average HR 64, on beta kathrin. -Will continue to monitor. Qualifiers: Atrial fibrillation type: paroxysmal Qualified Code(s): I48.0 - Paroxysmal atrial fibrillation Discussion w patient/family: The assessment and plan as outlined above was discussed with the patient who expressed understanding and agreement. All questions were answered. Thank you for involving us in the care of your patient. Please call with any questions. Discussed and reviewed with . Subjective Principal diagnosis: KAY on CKD Interval history: Patient with atrial thrombus, had been on heparin drip and was bridged to coumadin. INR supratherpeutic today. Patient is more awake today. Oriented to person. Patient did deny chest pain overnight. Patient with known CKD now with KAY. Nephrology following. Per review of records, nephrology is considering CRRT. Patient denies abdominal pain today. Objective Vital Signs Temp Pulse Resp BP Pulse Ox 09/28/16 10:40 96.4 F L 97 16 111/71 98 09/28/16 06:59 97.5 F L 104 18 120/72 93 09/28/16 03:58 97.4 F L 64 16 121/70 97 09/28/16 00:26 96.7 F L 66 18 122/73 99 09/27/16 20:50 94.4 F L 66 17 115/80 99 09/27/16 16:27 93.6 F L 60 18 108/71 100 Intake and Output 09/28/16 09/28/16 09/28/16 07:59 15:59 23:59 Intake Total 100 / 100 60 / 60 Output Total 1050 / 1050 200 / 200 Balance -950 / -950 -140 / -140 Intake: IV Fluids 100 / 100 Flexbumin 25 gm In 100 ml 100 / 100 @ 60 mls/hr IVPB Q12H [facility] Rx#:[id number] Oral 60 / 60 Output: Urine 850 / 850 Catheter 200 / 200 200 / 200 Other: Meal Lunch Percent of Meal Consumed 20% Weight 76 kg Blood Glucose* 94 82 Patient Weight 09/28/16 23:59 Weight 76 kg General: Conversant, No Apparent Distress HEENT: Atraumatic, Normocephaly, Mucus Membranes Moist Neck: No JVD, Normal carotid pulses Cardiac: Reg Rate and Rhythm, Normal S1 and S2, No Murmur Lungs: Normal Breath Sounds, No Wheeze, Rales, Rhonchi Neuro: Alert and responsive, No focal deficits noted Abdomen: Soft, Non-Tender Skin: No rashes noted on visualized skin Musculoskeletal: No Chest Wall Tenderness Extremities: No Clubbing, No Cyanosis, No Edema, Normal Pulses Results 09/28/16 04:40 09/28/16 04:40 Lab Results 09/28/16 09/28/16 09/28/16 04:40 04:40 04:40 WBC 3.7 L Hgb 9.0 L Hct 27.6 L Plt Count 77 L INR 3.5 Sodium 132 L Potassium 4.7 H Chloride 103 Carbon Dioxide 17 L BUN 84 H Creatinine 3.54 H Glucose 89 Calcium 9.3 Consult Discharge Plan - Plan Referrals: Sunil Duong DO [Primary Care Provider] -
[2016-09-29] MEDS: Albumin 25% 25gram/100mL 25 GM/100 ML IV.SOLN IVPB SCH (00:33)
[2016-09-29] MEDS: Furosemide 40 MG/4 ML VIAL IVP SCH ×2 (00:33→15:07)
[2016-09-29] MEDS: Insulin LISPRO 300 UNITS/3 ML VIAL SQ SCH ×5 (00:48→23:00)
[2016-09-29 07:55] LABS: INR 2.6; Prothrombin Time 28.9 Seconds (9.4-12.1)
[2016-09-29 08:17] LABS: Calcium 9.4 mg/dL (8.6-10.8); Potassium 4.3 mEq/L (3.5-4.5)
[2016-09-29 08:19] LABS: Albumin 3.6 g/dL (3.5-5.0); Albumin/Globulin Ratio 1.2 (1.1-2.2); Bilirubin,Direct 0.7 mg/dL (0.0-0.5); Bilirubin,Indirect 0.3 mg/dL (0.0-1.2); Globulin 2.9 g/dL (2.4-3.5); Total Protein 6.5 g/dL (6.0-8.3)
[2016-09-29 08:43] LABS: Basophils % 0.3 %; Eosinophils # 0.1 K/mcL (0.0-0.6); Eosinophils % 2.3 %; Hematocrit 28.5 % (37.5-50.1); Hemoglobin 9.3 g/dL (12.9-16.9); Immature Granulocytes % 0.3 % (0-4); Lymphocytes # 0.3 K/mcL (0.6-4.6); Lymphocytes % 8.3 %; Mean Corpuscular HGB Conc 32.6 g/dL (31.6-35.5); Mean Corpuscular Volume 82.6 fL (83.0-100.0); Mean Platelet Volume 13.5 fL (9.4-12.4); Monocytes # 0.6 K/mcL (0.0-1.3); Monocytes % 14.1 %; Platelet Count 90 K/mcL (140-400); Red Blood Count 3.45 M/mcL (4.19-5.50); Segmented Neutrophils % 74.7 %
[2016-09-29] MEDS: hydrALAZINE 25 MG TABLET PO SCH ×3 (08:49→20:12)
[2016-09-29] MEDS: Sildenafil Citrate 20 MG TABLET PO SCH ×3 (08:49→20:11)
[2016-09-29] MEDS: Magnesium Oxide 400 MG TABLET PO SCH (08:49)
[2016-09-29] MEDS: Pantoprazole 40 MG VIAL IVP SCH (08:49)
--- NOTE | 2016-09-29 10:01 | Cardiology Progress Note ---
Date of Encounter: 09/29/16 Time of Encounter: 09:30 Assessment and Plan (1) Atrial thrombus Current Visit: Yes Status: Acute Per cardiology: -Patient presented with stroke like symptoms and echo demonstrated the presence of a left atrial thrombus. -TE showed echodensity in the left atrium near the KAR concerning for thrombus. -Had been on heparin drip, now discontinued. -On coumadin, pharmacy to dose. INR therapeutic today, 2.6. -Recommend continuing coumadin. Per discussion with primary service, no surgeries scheduled at this time. -Will continue to follow until INR stable. (2) Ischemic cardiomyopathy Current Visit: Yes Status: Acute Per cardiology: -Known ischemic cardiomyopathy. -LVEF 20-25%. -Has dual chamber ICD in place. -Will continue to monitor. (3) CHF (congestive heart failure) Current Visit: No Status: Chronic Per cardiology: -Patient has known severe ischemic cardiomyopathy. -CXR on 09/23 demonstrated pleural effusions, his weight has increased and renal function has continued to decline. -Continue BB. Not on DOTTIE/ARB due to CKD. -Strict I/O's and daily weights. -On lasxi 40mg IV BID. -Net positive 5700ml since admission. -Per review of nephrology note, they are considering dialysis. -Creatinine today 3.53. -Euvolemic on exam, however weight has increased. -Appreciate nephrology input regarding diuresis. Qualifiers: Congestive heart failure type: systolic Congestive heart failure chronicity : chronic Qualified Code(s): I50.22 - Chronic systolic (congestive) heart failure (4) Acute kidney injury Current Visit: Yes Status: Acute Per cardiology: -Known CKD, follows with nephrology as outpatient. -Creatinine today 3.53. -Per review of nephrology note, they are considering dialysis. -Management per primary and nephrology services. (5) CAD (coronary artery disease) Current Visit: No Status: Chronic Per cardology: -H/o CAD s/p PCI. [place] 02/2015 s/p PTCA/BMS to the pLAD at that time. -Continue statin, and bb. -ASA being held due to hematuria, thrombocytopenia, and need for coumadin due to atrial thrombus. -Denies chest pain. -Recommend re-starting asa when able due to hematuria and thrombocytopenia. Qualifiers: Coronary Disease-Associated Artery/Lesion type: [place] artery [place] vs. transplanted heart: [place] heart Associated angina: without angina Qualified Code(s): I25.10 - Atherosclerotic heart disease of [place] coronary artery without angina pectoris (6) Atrial fibrillation Current Visit: No Status: Chronic Per cardiology: -patient has known history of paroxysmal atrial fibrillation (not chronic). -However, he presented with AFIB and has intermittent v-pacing. Presently appears to be in paced rhythm. -He was taken off on anticoagulation in the Fall of 2016 out of concern for GIB. -He has since been placed back on anticoagulation (heparin - coumadin bridge) secondary to LA thrombus. -Due to hematuria, Urology is following - probably secondary to trauma. -Overall, his Hgb has been stable today 9.4 -INR today is 2.6 today (therapeutic) with goal INR (2-3). -HR controlled with average HR 65, on beta kathrin. -Will continue to monitor. Qualifiers: Atrial fibrillation type: paroxysmal Qualified Code(s): I48.0 - Paroxysmal atrial fibrillation Discussion w patient/family: The assessment and plan as outlined above was discussed with the patient who expressed understanding and agreement. All questions were answered. Thank you for involving us in the care of your patient. Please call with any questions. Discussed and reviewed with . Subjective Principal diagnosis: KAY on CKD Interval history: Patient with atrial thrombus, had been on heparin drip and was bridged to coumadin. INR therpeutic today. Patient is more awake today. Oriented to person. Patient did deny chest pain overnight. Patient with known CKD now with KAY. Nephrology following. Per review of records, nephrology is potentially considering dialysis. Patient denies abdominal pain today. Objective Vital Signs, Last 4 Hours Temp Pulse Resp BP Pulse Ox 09/29/16 07:04 97.5 F L 79 16 116/87 99 General: Conversant, No Apparent Distress HEENT: Atraumatic, Normocephaly, Mucus Membranes Moist Neck: No JVD, Normal carotid pulses Cardiac: Reg Rate and Rhythm, Normal S1 and S2, No Murmur Lungs: Other (Lung sounds diminished throughout. ) Neuro: Alert and responsive, Other (Oriented to person. ) Abdomen: Soft, Non-Tender Skin: No rashes noted on visualized skin Musculoskeletal: No Chest Wall Tenderness Extremities: No Clubbing, No Cyanosis, No Edema, Normal Pulses Results 09/29/16 07:17 09/29/16 07:17 Lab Results Active Medications Albuterol Sulfate (Albuterol Inhaler) 2 puff IH Q4H PRN PRN Reason: Shortness Of Breath Stop: 03/18/17 20:16 Atorvastatin Calcium (Lipitor) 40 mg PO HS [facility] Stop: 03/18/17 21:01 Last Admin: 09/28/16 19:54 Dose: 40 mg Calcium Carbonate (Tums) 1,000 mg PO QID [place] PRN Reason: Protocol Stop: 03/21/17 09:01 Last Admin: 09/29/16 09:10 Dose: Not Given Carvedilol (Coreg) 6.25 mg PO HS [facility] PRN Reason: Protocol Stop: 03/18/17 21:01 Last Admin: 09/28/16 20:01 Dose: 6.25 mg Carvedilol (Coreg) 12.5 mg PO QAM [facility] Stop: 03/19/17 09:01 Last Admin: 09/29/16 08:49 Dose: 12.5 mg Dextrose/Water (Dextrose 50% (Syg)) 25 ml IVP AD PRN PRN Reason: Hypoglycemia Stop: 03/19/17 18:33 Last Admin: 09/29/16 09:00 Dose: 25 ml Dicyclomine HCl (Bentyl) 20 mg PO QID [facility] Stop: 03/23/17 17:01 Last Admin: 09/29/16 08:49 Dose: 20 mg Doxazosin Mesylate (Cardura) 8 mg PO DAILY [facility] Stop: 03/19/17 09:01 Last Admin: 09/29/16 08:49 Dose: 8 mg Furosemide (Lasix) 40 mg IVP 0130,1330 [facility] Stop: 03/28/17 13:31 Last Admin: 09/29/16 00:33 Dose: 40 mg Glucagon (Glucagen) 1 mg IM ONCE PRN PRN Reason: Hypoglycemia Stop: 03/19/17 18:33 Glucose (Gluctose) 15 gm PO ONCE PRN PRN Reason: Hypoglycemia Stop: 03/19/17 18:33 Glucose (Gluctose) 30 gm PO ONCE PRN PRN Reason: Hypoglycemia Stop: 03/19/17 18:33 Hydralazine HCl (Hydralazine) 50 mg PO TID [facility] Stop: 03/18/17 21:01 Last Admin: 09/29/16 08:49 Dose: 50 mg Dextrose (Dextrose 5%) 1,000 mls @ 100 mls/hr IVC .Q10H PRN PRN Reason: HYPOGLYCEMIA Stop: 03/19/17 18:33 Insulin Human Lispro (Humalog) 0 units SQ TIDAC [facility] PRN Reason: Protocol Stop: 03/31/17 07:31 Last Admin: 09/29/16 09:10 Dose: Not Given Insulin Human Lispro (Humalog) 0 units SQ HS [facility] PRN Reason: Protocol Stop: 03/31/17 21:01 Lactic Acid (Amlactin) 1 appl TP DAILY [facility] Stop: 03/19/17 09:01 Last Admin: 09/28/16 08:24 Dose: Not Given Loperamide HCl (Imodium) 2 mg PO QID PRN PRN Reason: Diarrhea Stop: 03/23/17 13:34 Magnesium Oxide (Mag-Ox) 400 mg PO DAILY [facility] PRN Reason: Protocol Stop: 03/20/17 09:01 Last Admin: 09/29/16 08:49 Dose: 400 mg Nitroglycerin (Nitroglycerin) 0.4 mg SL Q5MIN PRN PRN Reason: Chest Pain Stop: 03/18/17 20:16 Ondansetron HCl (Zofran) 4 mg IVP Q8HR PRN PRN Reason: Nausea And Vomiting Stop: 03/18/17 20:12 Last Admin: 09/25/16 05:33 Dose: 4 mg Pantoprazole Sodium (Protonix) 40 mg IVP DAILY [facility] Stop: 03/19/17 09:01 Last Admin: 09/29/16 08:49 Dose: 40 mg Sildenafil Citrate (Revatio) 20 mg PO TID [facility] Stop: 03/18/17 21:01 Last Admin: 09/29/16 08:49 Dose: 20 mg Simethicone (Gas-X) 80 mg PO TID PRN PRN Reason: Dyspepsia Stop: 03/30/17 11:46 Last Admin: 09/28/16 12:20 Dose: 80 mg Warfarin Sodium (Coumadin Perpt) 1 each PO DAILY@1800 PRN PRN Reason: SEE COMMENTS Stop: 03/27/17 18:01 Warfarin Sodium (Coumadin) 2 mg PO 1800 [facility] Stop: 03/31/17 18:01 Laboratory Tests 09/29/16 09/29/16 09/29/16 07:17 07:17 07:17 Hgb 9.3 L Plt Count 90 L INR 2.6 Creatinine 3.53 H - Imaging and Cardiology Chest Xray: report reviewed Echo: report reviewed Cardiac cath: report reviewed - EKG Interpretation EKG results cardiology: other (Telemetry reviewed with average HR 65 with intermittent paced rhythm.) Consult Discharge Plan - Plan Referrals: Sunil Duong, [Primary Care Provider] -
[2016-09-29] MEDS: Ammonium Lactate 30 APPL/225 GM BOTTLE TP SCH (10:48)
--- NOTE | 2016-09-29 11:00 | Internal Med Progress Note ---
<SonnySunil garnica - Last Filed: 09/29/16 13:44> Date of Encounter: 09/29/16 Time of Encounter: 10:58 - Assessment and plan (1) Acute encephalopathy Current Visit: Yes Status: Acute Assessment and plan: Patient continues to have waxing and waning alertness and mental status changes. Mental status appears slightly worse today. Given that he goes in and out of altered mental status I think it is unlikely that this is being caused by thromboembolic phenomenon. Will attempt to obtain MRI at the [facility] if able. Will check abg/ammonia. (2) TIA (transient ischemic attack) Current Visit: Yes Status: Acute Assessment and plan: Approximate 5 days ago the patient had an episode of sudden decrease in mental status and expressive aphasia. Echo performed at that time revealed a left atrial appendage thrombus, the symptoms may been related to a small thromboembolic phenomenon. Patient's mental status did improve drastically in the next couple hours.Patient remains extremely high risk for cerebrovascular event so we will continue with Coumadin in the setting of a known left atrial appendage thrombus. INR is therapeutic. Qualifiers: Transient cerebral ischemia type: unspecified Qualified Code(s): G45.9 - Transient cerebral ischemic attack, unspecified (3) Atrial thrombus Current Visit: Yes Status: Acute Assessment and plan: Echo showed thrombus in left atrial appendage. History of atrial fibrillation without anticoagulation due to GI bleed. Patient has been restarted on Coumadin. No evidence of active bleeding. INR is therapeutic. Pharmacy is assisting with dosing. (4) Acute on chronic renal failure Current Visit: Yes Status: Acute Assessment and plan: Patient's creatinine remains above baseline despite fluid hydration as well as Lasix. Urine output has been improving, GFR stable. Nephrology has been following. SOCIAL MEDIA COORDINATOR is not indicated at this time but may be needed this hospitalization. This was discussed with family who stated they wish to continue with aggressive measures and would want to pursue renal replacement therapy if indicated. Nephrology is following and will continue discussed the need for renal replacement therapy. Qualifiers: Acute renal failure type: unspecified Chronic kidney disease stage: stage 4 (severe) Qualified Code(s): N17.9 - Acute kidney failure, unspecified; N18.4 - Chronic kidney disease, stage 4 (severe) (5) Esophageal stricture Current Visit: Yes Status: Resolved Assessment and plan: Patient has known Schatzki's ring with multiple dilatations in the past. Patient prior to arrival difficulty swallowing. EGD performed this hospitalization showed recurrence of the patient's Schatzki's ring, dilatation was performed. Patient had been eating normally but is taking less by mouth intake due to his mental status. Nutrition is following and started a mechanically altered diet (6) CHF (congestive heart failure) Current Visit: No Status: Chronic Assessment and plan: Known chronic CHF (LVEF 20-25%). No acute exacerbation. Patient is mildly fluid overloaded on exam but this appears to be improving. Fluid overload likely related to CKD and poor nutrition Qualifiers: Congestive heart failure type: systolic Congestive heart failure chronicity : chronic Qualified Code(s): I50.22 - Chronic systolic (congestive) heart failure (7) Diabetes Current Visit: No Status: Acute Assessment and plan: Blood sugar has been controlled. Continue SSI. Qualifiers: Diabetes mellitus type: type 2 Diabetes mellitus complication status: with kidney complications Diabetes mellitus complication detail: with chronic kidney disease Diabetes mellitus oil heaterman insulin use: unspecified halfway insulin use status Chronic kidney disease stage: stage 3 (moderate) Qualified Code(s): E11.22 - Type 2 diabetes mellitus with diabetic chronic kidney disease; N18.3 - Chronic kidney disease, stage 3 (moderate) - Subjective Interval history: Patient seen and examined at bedside. Patient is awake and alert but does appear somewhat confused. Mental status continues to wax and wane. He does appear to be a little more somnolent than yesterday. He attempts answers questions but falls asleep quickly. He does not appear to be in any acute distress. - Constitutional Vitals: Temp Pulse Resp BP Pulse Ox 97.2 F L 80 16 107/67 98 09/29/16 10:51 09/29/16 10:51 09/29/16 10:51 09/29/16 10:51 09/29/16 10:51 General appearance: Present: cachectic, A&O X 1, pleasant, no acute distress. Absent: answers questions appropriately - Respiratory Respiratory exam: Present: decreased breath sounds. Absent: rales, rhonchi, wheezes - Cardiovascular Cardiovascular exam: Present: irregular rhythm. Absent: gallop, rubs, systolic murmur - GI/Abdominal GI/Abdominal exam: Present: distended, hypoactive bowel sounds, soft. Absent: tenderness - Extremities Exam Extremities exam: Present: pedal edema (History), warm. Absent: tenderness - Neurological Exam Neurological exam: Present: alert, altered, CN II-XII intact, no focal deficits Internal Medicine: Result - Labs CBC & Chem 7: 09/29/16 07:17 09/29/16 07:17 Labs: Short CBC 09/29/16 Range/Units 07:17 WBC 4.0 L (4.3-11.1) K/mcL Hgb 9.3 L (12.9-16.9) g/dL Hct 28.5 L (37.5-50.1) % Plt Count 90 L (140-400) K/mcL Neutrophils # 3.0 (1.6-8.9) K/mcL BMP 09/29/16 07:17 Sodium 133 L Potassium 4.3 Chloride 103 Carbon Dioxide 19 BUN 91 H Creatinine 3.53 H Glucose 57 L Calcium 9.4 Liver Function 09/29/16 Range/Units 07:17 Total Bilirubin 1.0 (0.2-1.2) mg/dL Direct Bilirubin 0.7 H (0.0-0.5) mg/dL AST 14 (5-34) Units/L ALT 9 (0-55) Units/L Alkaline Phosphatase 46 (38-126) Units/L Albumin 3.6 (3.5-5.0) g/dL - ABG Interpretation ABG results: ABG ABG pH 7.43 pH Units (7.32-7.45) 09/26/16 00:28 ABG pCO2 26 mmHg (35-45) L 09/26/16 00:28 ABG pO2 109 mmHg (85-104) H 09/26/16 00:28 ABG O2 Saturation 98 % (95-98) 09/26/16 00:28 PT/INR, D-dimer PT 28.9 Seconds (9.4-12.1) H 09/29/16 07:17 Consult Discharge Plan - Plan Referrals: Sunil Duong DO [Primary Care Provider] - <Gregorio Sanches H - Last Filed: 09/29/16 14:19> Date of Encounter: 09/29/16 - Constitutional Vitals: Temp Pulse Resp BP Pulse Ox 97.2 F L 80 16 107/67 98 09/29/16 10:51 09/29/16 10:51 09/29/16 10:51 09/29/16 10:51 09/29/16 10:51 Internal Medicine: Result - Labs CBC & Chem 7: 09/29/16 07:17 09/29/16 07:17 Labs: Short CBC 09/29/16 Range/Units 07:17 WBC 4.0 L (4.3-11.1) K/mcL Hgb 9.3 L (12.9-16.9) g/dL Hct 28.5 L (37.5-50.1) % Plt Count 90 L (140-400) K/mcL Neutrophils # 3.0 (1.6-8.9) K/mcL BMP 09/29/16 07:17 Sodium 133 L Potassium 4.3 Chloride 103 Carbon Dioxide 19 BUN 91 H Creatinine 3.53 H Glucose 57 L Calcium 9.4 Liver Function 09/29/16 Range/Units 07:17 Total Bilirubin 1.0 (0.2-1.2) mg/dL Direct Bilirubin 0.7 H (0.0-0.5) mg/dL AST 14 (5-34) Units/L ALT 9 (0-55) Units/L Alkaline Phosphatase 46 (38-126) Units/L Albumin 3.6 (3.5-5.0) g/dL - ABG Interpretation ABG results: ABG ABG pH 7.43 pH Units (7.32-7.45) 09/26/16 00:28 ABG pCO2 26 mmHg (35-45) L 09/26/16 00:28 ABG pO2 109 mmHg (85-104) H 09/26/16 00:28 ABG O2 Saturation 98 % (95-98) 09/26/16 00:28 PT/INR, D-dimer PT 28.9 Seconds (9.4-12.1) H 09/29/16 07:17 - Attending Attestation acute metabolic encephalopathy of unclear etiology, consider possible uremia. repeat UA, order ABG Nephrology recommendations appreciated Hematuria followed by urology thrombocytopenia and lymphopenia ( viral etiology?) I examined this patient and my medical decision-making was reviewed with the Resident Physician. I agree with the documented findings, disposition and treatment plan as described except to the extent set forth below.
--- NOTE | 2016-09-29 12:41 | Nephrology Progress Note ---
Date of Encounter: 09/29/16 Time of Encounter: 11:30 - Assessment and Plan (1) KAY (acute kidney injury) Current Visit: Yes Status: Acute Scr at plateau at 3.53 with GFR 20 UOP improved at 1500cc in the past 24hrs which is great on lasix/albumin No acute indication for CURTAIN WORKER just yet but concerning for need in the near future but problematic given anticoagulation for line placmenet and alos terminal operator goals of care. Pt is very deconditioned, family wants dilaysis but not clear if longterm. (2) Hyperkalemia Current Visit: Yes Status: Resolved Potassium normalized, continue renal diet. (3) CKD (chronic kidney disease) stage 4, GFR 15-29 ml/min Current Visit: Yes Status: Chronic baseline GFR 20s-30 Subjective Principal diagnosis: KAY on CKD Interval history: Pt seen and examined (well known to me from outpatient management of his CKD) still appears lethargic. Objective - Vital Signs Vital signs: Vital Signs Temp Pulse Resp BP Pulse Ox 09/29/16 10:51 97.2 F L 80 16 107/67 98 09/29/16 07:04 97.5 F L 79 16 116/87 99 09/29/16 04:23 97.5 F L 64 19 116/87 09/29/16 00:00 98.3 F 75 19 129/84 09/28/16 19:43 97.6 F 61 16 113/72 93 09/28/16 16:08 97.6 F 68 16 107/75 93 Intake and Output 09/28/16 09/29/16 09/29/16 23:59 07:59 15:59 Intake Total 340 / 340 0 / 0 480 / 480 Output Total 250 / 250 525 / 525 150 / 150 Balance 90 / 90 -525 / -525 330 / 330 Intake: IV Fluids 100 / 100 Flexbumin 25 gm In 100 ml 100 / 100 @ 60 mls/hr IVPB Q12H [facility] Rx#:[id number] Oral 240 / 240 0 / 0 480 / 480 Output: Catheter 250 / 250 525 / 525 150 / 150 Other: Meal Dinner Breakfast Percent of Meal Consumed 90% 20% Stool Size Small Stool Consistency soft formed Stool Color Brown Yellow Weight 76.4 kg Blood Glucose* 164 63 90 Patient Weight 09/29/16 23:59 Weight 76.4 kg - General Appearance General appearance: Present: chronically ill, fatigue, frail EENT: Present: ATNC, mucous membranes dry Neck: Present: no JVD, supple Respiratory: Present: course breath sounds Cardiology: Present: edema (trace LE bilat), normal S1, normal S2 Gastrointestinal: Present: no tenderness, no guarding, obese Integumentary: Present: no rash, warm and dry Neurologic: Present: disoriented Musculoskeletal: Present: no deformities Psychiatric: Present: cooperative - Lab 09/29/16 07:17 09/29/16 07:17 Most recent lab results ABG pH 7.43 pH Units (7.32-7.45) 09/26/16 00:28 ABG pCO2 26 mmHg (35-45) L 09/26/16 00:28 ABG pO2 109 mmHg (85-104) H 09/26/16 00:28 ABG HCO3 17.3 mEQ/L (21-27) L 09/26/16 00:28 ABG O2 Saturation 98 % (95-98) 09/26/16 00:28 Calcium 9.4 mg/dL (8.6-10.8) 09/29/16 07:17 Phosphorus 4.0 mg/dL (2.3-4.7) 09/17/16 03:33 Magnesium 1.5 mg/dL (1.6-2.6) L 09/27/16 03:47 Urine Sodium 27.0 mEq/L 09/24/16 09:50 Consult Discharge Plan - Plan Referrals: Sunil Duong DO [Primary Care Provider] -
[2016-09-29 15:05] LABS: ABG Base Excess -6.4 mEq/L (-2.0 to 3.0); ABG HCO3 19.1 mEQ/L (21-27); ABG Oxygen Saturation 95 % (95-98); ABG PCO2 37 mmHg (35-45); ABG PH 7.32 pH Units (7.32-7.45); ABG PO2 80 mmHg (85-104); ABG TCO2 20.2 mEq/L (20-26); Blood Gas FiO2 21 %
[2016-09-29] MEDS ORDERED: Lactulose Oral Soln 20 GM/30 ML UDC PO ONE (16:05)
[2016-09-29 17:30] LABS: Bilirubin,Urine Moderate (Negative); Blood,Urine Large (Negative); Clarity,Urine Turbid (Clear); Glucose,Urine (UA) Normal (Normal); Ketones,Urine Negative (Negative); Leukocyte Esterase,Urine Large (Negative); Nitrite,Urine Positive (Negative); PH,Urine 5.5 pH Units (5.0-8.0); Protein,Urine 100 mg/dL (Neg-Trace); Specific Gravity,Urine 1.011 (1.010-1.025); Urobilinogen,Urine Normal (Normal)
[2016-09-29 17:31] LABS: Color,Urine Brown (Yellow)
[2016-09-29 17:46] LABS: RBC,Urine TNTC per hpf (0-3)
[2016-09-29 17:51] LABS: WBC,Urine 15-30 per hpf (0-3)
[2016-09-29 17:52] LABS: Hyaline Casts,Urine Many per lpf (None-Few); Renal Epithelial Cells,Urine Few per hpf (None-Few); Squamous Epithelial Cell,Urine Many per lpf (None-Few)
[2016-09-29 17:53] LABS: Bacteria,Urine Many per hpf (None-Few); Mucus,Urine Moderate (Few); Yeast,Urine Few per hpf (None Seen)
[2016-09-29] MEDS ORDERED: *HR* Warfarin 2 MG TABLET PO SCH (18:00)
[2016-09-30] MEDS: Furosemide 40 MG/4 ML VIAL IVP SCH ×2 (00:45→13:58)
[2016-09-30 04:00] LABS: Basophils % 0.3 %; Hemoglobin 9.2 g/dL (12.9-16.9)
[2016-09-30 04:02] LABS: Eosinophils # 0.1 K/mcL (0.0-0.6); Eosinophils % 3.5 %; Hematocrit 28.5 % (37.5-50.1); Immature Granulocytes % 0.5 % (0-4); Immature Platelets 6.1 % (1.1-6.1); Lymphocytes # 0.3 K/mcL (0.6-4.6); Lymphocytes % 8.8 %; Mean Corpuscular HGB Conc 32.3 g/dL (31.6-35.5); Mean Corpuscular Hemoglobin 26.4 pg (28.0-33.3); Mean Corpuscular Volume 81.9 fL (83.0-100.0); Mean Platelet Volume 11.4 fL (9.4-12.4); Monocytes # 0.5 K/mcL (0.0-1.3); Monocytes % 13.3 %; Neutrophils # 2.8 K/mcL (1.6-8.9); Red Blood Count 3.48 M/mcL (4.19-5.50); Segmented Neutrophils % 73.6 %
[2016-09-30 04:04] LABS: Prothrombin Time 21.6 Seconds (9.4-12.1)
[2016-09-30 04:05] LABS: Platelet Count 77 K/mcL (140-400)
[2016-09-30 04:12] LABS: Albumin 3.4 g/dL (3.5-5.0); Albumin/Globulin Ratio 1.2 (1.1-2.2); Bilirubin,Direct 0.7 mg/dL (0.0-0.5); Bilirubin,Indirect 0.4 mg/dL (0.0-1.2); Bilirubin,Total 1.1 mg/dL (0.2-1.2); Calcium 9.4 mg/dL (8.6-10.8); Globulin 2.8 g/dL (2.4-3.5); Potassium 4.3 mEq/L (3.5-4.5); Total Protein 6.2 g/dL (6.0-8.3)
[2016-09-30] MEDS: Insulin LISPRO 300 UNITS/3 ML VIAL SQ SCH ×4 (09:05→20:21)
--- NOTE | 2016-09-30 09:33 | Internal Med Progress Note ---
<Sunil Duong - Last Filed: 09/30/16 09:29> Date of Encounter: 09/30/16 Time of Encounter: 09:29 - Assessment and plan (1) Acute encephalopathy Current Visit: Yes Status: Acute Assessment and plan: Patient continues to have waxing and waning alertness and mental status changes. Mental status appears slightly improved today. Etiology still unclear. ABG did not show significant hypercapnia yesterday, ammonia was normal. At this point possibilities include acute delirium in the setting of prolonged hospitalization as well as constipation. CVA is also possibility unfortunately the patient is unable to have an MRI due to pacemaker defibrillator placement. Patient was given a dose of lactulose yesterday and had a small bowel movement, will give milk and molasses enema today. Plan for family meeting tomorrow to discuss the patient's condition and long-term goals care.. (2) TIA (transient ischemic attack) Current Visit: Yes Status: Acute Assessment and plan: Approximate 5 days ago the patient had an episode of sudden decrease in mental status and expressive aphasia. Echo performed at that time revealed a left atrial appendage thrombus, the symptoms may been related to a small thromboembolic phenomenon. Patient's mental status did improve drastically in the next couple hours, however he continues to have waxing and waning encephalopathy. Patient remains extremely high risk for cerebrovascular event so we will continue with Coumadin in the setting of a known left atrial appendage thrombus. INR is therapeutic. Qualifiers: Transient cerebral ischemia type: unspecified Qualified Code(s): G45.9 - Transient cerebral ischemic attack, unspecified (3) Atrial thrombus Current Visit: Yes Status: Acute Assessment and plan: Echo showed thrombus in left atrial appendage. History of atrial fibrillation without anticoagulation due to GI bleed. Patient has been restarted on Coumadin. No evidence of active bleeding. INR is therapeutic. Pharmacy is assisting with dosing. (4) Acute on chronic renal failure Current Visit: Yes Status: Acute Assessment and plan: Patient's creatinine remains above baseline despite fluid hydration as well as Lasix. Urine output has been improving, GFR remains stable. Nephrology has been following. GUNITE NOZZLE OPERATOR is not indicated at this time but may be needed this hospitalization. This was discussed with family who stated they wish to continue with aggressive measures and would want to pursue renal replacement therapy if indicated. Nephrology is following and will continue discussed the need for renal replacement therapy. Qualifiers: Acute renal failure type: unspecified Chronic kidney disease stage: stage 4 (severe) Qualified Code(s): N17.9 - Acute kidney failure, unspecified; N18.4 - Chronic kidney disease, stage 4 (severe) (5) Esophageal stricture Current Visit: Yes Status: Resolved Assessment and plan: Patient has known Schatzki's ring with multiple dilatations in the past. Patient prior to arrival difficulty swallowing. EGD performed this hospitalization showed recurrence of the patient's Schatzki's ring, dilatation was performed. Patient had been eating small amounts of a mechanically altered diet but is taking less by mouth intake due to his mental status. Nutrition is following and started a mechanically altered diet (6) CHF (congestive heart failure) Current Visit: No Status: Chronic Assessment and plan: Known chronic CHF (LVEF 20-25%). No acute exacerbation. Patient is mildly fluid overloaded on exam but this appears to be improving. Fluid overload likely related to CKD and poor nutrition. Continue with diuresis per nephrology. Qualifiers: Congestive heart failure type: systolic Congestive heart failure chronicity : chronic Qualified Code(s): I50.22 - Chronic systolic (congestive) heart failure (7) Diabetes Current Visit: No Status: Acute Assessment and plan: Blood sugar has been controlled. Continue SSI. Qualifiers: Diabetes mellitus type: type 2 Diabetes mellitus complication status: with kidney complications Diabetes mellitus complication detail: with chronic kidney disease Diabetes mellitus detention insulin use: unspecified superintendent container terminal insulin use status Chronic kidney disease stage: stage 3 (moderate) Qualified Code(s): E11.22 - Type 2 diabetes mellitus with diabetic chronic kidney disease; N18.3 - Chronic kidney disease, stage 3 (moderate) - Subjective Interval history: Patient seen and examined at bedside. Patient is awake and alert but remains somewhat confused. Mental status continues to wax and wane. He does appear to be a little more alert than yesterday. He does not appear to be in any acute distress. - Constitutional Vitals: Temp Pulse Resp BP Pulse Ox 97.2 F L 60 15 144/86 99 09/30/16 08:34 09/30/16 08:34 09/30/16 08:34 09/30/16 08:34 09/30/16 08:34 General appearance: Present: cachectic, A&O X 1, pleasant, no acute distress. Absent: answers questions appropriately - Respiratory Respiratory exam: Present: decreased breath sounds. Absent: rales, rhonchi, wheezes - Cardiovascular Cardiovascular exam: Present: irregular rhythm. Absent: gallop, rubs, systolic murmur, tachycardia - GI/Abdominal GI/Abdominal exam: Present: distended, hypoactive bowel sounds, soft, no peritoneal signs. Absent: tenderness - Extremities Exam Extremities exam: Present: pedal edema (3+), warm. Absent: tenderness - Neurological Exam Neurological exam: Present: alert, altered, CN II-XII intact, no focal deficits Internal Medicine: Result - Labs CBC & Chem 7: 09/30/16 03:27 09/30/16 03:27 Labs: Short CBC 09/30/16 Range/Units 03:27 WBC 3.8 L (4.3-11.1) K/mcL Hgb 9.2 L (12.9-16.9) g/dL Hct 28.5 L (37.5-50.1) % Plt Count 77 L (140-400) K/mcL Neutrophils # 2.8 (1.6-8.9) K/mcL BMP 09/30/16 03:27 Sodium 130 L Potassium 4.3 Chloride 102 Carbon Dioxide 17 L BUN 92 H Creatinine 3.46 H Glucose 126 H Calcium 9.4 Liver Function 09/30/16 Range/Units 03:27 Total Bilirubin 1.1 (0.2-1.2) mg/dL Direct Bilirubin 0.7 H (0.0-0.5) mg/dL AST 16 (5-34) Units/L ALT 8 (0-55) Units/L Alkaline Phosphatase 44 (38-126) Units/L Albumin 3.4 L (3.5-5.0) g/dL Urine 09/29/16 Range/Units 16:52 Urine Color Brown (Yellow) Urine Clarity Turbid A (Clear) Urine pH 5.5 (5.0-8.0) pH Units Ur Specific [place] 1.011 (1.010-1.025) Urine Protein 100 H (Neg-Trace) mg/dL Urine Glucose (UA) Normal (Normal) mg/dL - ABG Interpretation ABG results: ABG ABG pH 7.32 pH Units (7.32-7.45) 09/29/16 14:54 ABG pCO2 37 mmHg (35-45) 09/29/16 14:54 ABG pO2 80 mmHg (85-104) L 09/29/16 14:54 ABG O2 Saturation 95 % (95-98) 09/29/16 14:54 PT/INR, D-dimer PT 21.6 Seconds (9.4-12.1) H 09/30/16 03:27 Consult Discharge Plan - Plan Referrals: Sunil Duong, [Primary Care Provider] - <Gregorio Sanches H - Last Filed: 09/30/16 14:25> Date of Encounter: 09/30/16 - Constitutional Vitals: Temp Pulse Resp BP Pulse Ox 97.3 F L 59 14 128/87 94 09/30/16 11:22 09/30/16 11:22 09/30/16 11:22 09/30/16 11:22 09/30/16 11:22 Internal Medicine: Result - Labs CBC & Chem 7: 09/30/16 03:27 09/30/16 03:27 Labs: Short CBC 09/30/16 Range/Units 03:27 WBC 3.8 L (4.3-11.1) K/mcL Hgb 9.2 L (12.9-16.9) g/dL Hct 28.5 L (37.5-50.1) % Plt Count 77 L (140-400) K/mcL Neutrophils # 2.8 (1.6-8.9) K/mcL BMP 09/30/16 03:27 Sodium 130 L Potassium 4.3 Chloride 102 Carbon Dioxide 17 L BUN 92 H Creatinine 3.46 H Glucose 126 H Calcium 9.4 Liver Function 09/30/16 Range/Units 03:27 Total Bilirubin 1.1 (0.2-1.2) mg/dL Direct Bilirubin 0.7 H (0.0-0.5) mg/dL AST 16 (5-34) Units/L ALT 8 (0-55) Units/L Alkaline Phosphatase 44 (38-126) Units/L Albumin 3.4 L (3.5-5.0) g/dL Urine 09/29/16 Range/Units 16:52 Urine Color Brown (Yellow) Urine Clarity Turbid A (Clear) Urine pH 5.5 (5.0-8.0) pH Units Ur Specific [place] 1.011 (1.010-1.025) Urine Protein 100 H (Neg-Trace) mg/dL Urine Glucose (UA) Normal (Normal) mg/dL - ABG Interpretation ABG results: ABG ABG pH 7.32 pH Units (7.32-7.45) 09/29/16 14:54 ABG pCO2 37 mmHg (35-45) 09/29/16 14:54 ABG pO2 80 mmHg (85-104) L 09/29/16 14:54 ABG O2 Saturation 95 % (95-98) 09/29/16 14:54 PT/INR, D-dimer PT 21.6 Seconds (9.4-12.1) H 09/30/16 03:27 - Attending Attestation Acute encephalopathy likely exacerbated by UTI start levaquin , renal dose monitor INR I examined this patient and my medical decision-making was reviewed with the Resident Physician. I agree with the documented findings, disposition and treatment plan as described except to the extent set forth below.
--- NOTE | 2016-09-30 11:12 | Nephrology Progress Note ---
Date of Encounter: 09/30/16 Time of Encounter: 11:09 - Assessment and Plan (1) KAY (acute kidney injury) Current Visit: Yes Status: Acute Kidney function remains essentially unchanged Scr 3.46 and GFR 17 UOP 650 No acute indication for DANCING INSTRUCTOR at this time; will monitor closely Need to know goals of care; upcoming family meeting per social professionals note (2) CKD (chronic kidney disease) stage 4, GFR 15-29 ml/min Current Visit: Yes Status: Chronic Baseline GFR 20s-30 Avoid nephrotoxins if possible (3) Hyperkalemia Current Visit: Yes Status: Resolved Subjective Principal diagnosis: KAY on CKD Interval history: Patient seen and examined. Patient moves around a little in bed but will not answer my questions or open his eyes. Objective - Vital Signs Vital signs: Vital Signs Temp Pulse Resp BP Pulse Ox 09/30/16 08:34 97.2 F L 60 15 144/86 99 09/30/16 04:00 97.2 F L 63 17 123/85 09/29/16 20:19 97.6 F 60 16 114/74 97 09/29/16 19:00 97.3 F L 60 15 118/84 95 09/29/16 16:25 97.6 F 65 16 119/71 97 Intake and Output 09/29/16 09/30/16 09/30/16 23:59 07:59 15:59 Intake Total 120 / 120 0 / 0 0 / 0 Output Total 300 / 300 0 / 0 650 / 650 Balance -180 / -180 0 / 0 -650 / -650 Intake: Oral 120 / 120 0 / 0 0 / 0 Output: Catheter 300 / 300 0 / 0 650 / 650 Other: Meal Dinner Percent of Meal Consumed 25% 0% Weight 74.1 kg Blood Glucose* 132 120 Patient Weight 09/30/16 23:59 Weight 74.1 kg - General Appearance General appearance: Present: chronically ill, frail EENT: Present: ATNC Neck: Present: supple Respiratory: Present: clear Cardiology: Present: no edema, normal S1, normal S2 Gastrointestinal: Present: no tenderness, no guarding Integumentary: Present: warm and dry Neurologic: Present: confused, disoriented - Lab 09/30/16 03:27 09/30/16 03:27 Most recent lab results ABG pH 7.32 pH Units (7.32-7.45) 09/29/16 14:54 ABG pCO2 37 mmHg (35-45) 09/29/16 14:54 ABG pO2 80 mmHg (85-104) L 09/29/16 14:54 ABG HCO3 19.1 mEQ/L (21-27) L 09/29/16 14:54 ABG O2 Saturation 95 % (95-98) 09/29/16 14:54 Calcium 9.4 mg/dL (8.6-10.8) 09/30/16 03:27 Phosphorus 4.0 mg/dL (2.3-4.7) 09/17/16 03:33 Magnesium 1.5 mg/dL (1.6-2.6) L 09/27/16 03:47 Urine Sodium 27.0 mEq/L 09/24/16 09:50 Consult Discharge Plan - Plan Referrals: Sunil Duong DO [Primary Care Provider] -
--- NOTE | 2016-09-30 12:28 | Cardiology Progress Note ---
Date of Encounter: 09/30/16 Time of Encounter: 11:00 Assessment and Plan (1) Atrial thrombus Current Visit: Yes Status: Acute Per cardiology: -Patient presented with stroke like symptoms and echo demonstrated the presence of a left atrial thrombus. -TE showed echodensity in the left atrium near the KAR concerning for thrombus. -Had been on heparin drip, now discontinued. -On coumadin, pharmacy to dose. INR therapeutic today, 2. -Recommend continuing coumadin. -Cardiology will sign off and will follow in outpatient setting. Follow up set. (2) Ischemic cardiomyopathy Current Visit: Yes Status: Acute Per cardiology: -Known ischemic cardiomyopathy. -LVEF 20-25%. -Has dual chamber ICD in place. -Will continue to monitor in outpatient setting. (3) CHF (congestive heart failure) Current Visit: No Status: Chronic Per cardiology: -Patient has known severe ischemic cardiomyopathy. -CXR on 09/23 demonstrated pleural effusions, his weight has increased and renal function has continued to decline. -Continue BB. Not on DOTTIE/ARB due to CKD. -Strict I/O's and daily weights. -On lasxi 40mg IV BID. -Net positive 5400ml since admission. -Weight has decreased 2kg over the last 2 days. -Per review of nephrology note, they are considering dialysis. -Creatinine today 3.53. -Mild pedal edema noted. -CArdiology will sign off and will follow in outpatient setting. Qualifiers: Congestive heart failure type: systolic Congestive heart failure chronicity : chronic Qualified Code(s): I50.22 - Chronic systolic (congestive) heart failure (4) Acute kidney injury Current Visit: Yes Status: Acute Per cardiology: -Known CKD, follows with nephrology as outpatient. -Creatinine today 3.46. -Per review of nephrology note, they are considering dialysis. -Management per primary and nephrology services. (5) CAD (coronary artery disease) Current Visit: No Status: Chronic Per cardology: -H/o CAD s/p PCI. [place] 02/2015 s/p PTCA/BMS to the pLAD at that time. -Continue statin, and bb. -ASA being held due to hematuria, thrombocytopenia, and need for coumadin due to atrial thrombus. -Denies chest pain. -Recommend re-starting asa when able due to hematuria and thrombocytopenia. Qualifiers: Coronary Disease-Associated Artery/Lesion type: [place] artery [place] vs. transplanted heart: [place] heart Associated angina: without angina Qualified Code(s): I25.10 - Atherosclerotic heart disease of [place] coronary artery without angina pectoris (6) Atrial fibrillation Current Visit: No Status: Chronic Per cardiology: -patient has known history of paroxysmal atrial fibrillation (not chronic). -However, he presented with AFIB and has intermittent v-pacing. Presently appears to be in paced rhythm. -He was taken off on anticoagulation in the Fall of 2016 out of concern for GIB. -He has since been placed back on anticoagulation (heparin - coumadin bridge) secondary to LA thrombus. -Due to hematuria, Urology is following - probably secondary to trauma. -Overall, his Hgb has been stable. -INR today is 2.6 today (therapeutic) with goal INR (2-3). -HR controlled with average HR 61, on beta kathrin. -Will continue to monitor in outpatient setting. Qualifiers: Atrial fibrillation type: paroxysmal Qualified Code(s): I48.0 - Paroxysmal atrial fibrillation Discussion w patient/family: The assessment and plan as outlined above was discussed with the patient who expressed understanding and agreement. All questions were answered. Thank you for involving us in the care of your patient. Please call with any questions. Discussed and reviewed with . Subjective Principal diagnosis: KAY on CKD Interval history: Patient with atrial thrombus, had been on heparin drip and was bridged to coumadin. INR therpeutic today. Patient is more awake today. Oriented to person. Patient did deny chest pain overnight. Patient with known CKD now with KAY. Nephrology following. Per review of records, nephrology is potentially considering dialysis. Patient denies abdominal pain today. Per director of social services note, family meeting is occuring today. Objective Vital Signs, Last 4 Hours Temp Pulse Resp BP Pulse Ox 09/30/16 11:22 97.3 F L 59 14 128/87 94 09/30/16 08:34 97.2 F L 60 15 144/86 99 General: Conversant, No Apparent Distress HEENT: Atraumatic, Normocephaly, Mucus Membranes Moist Neck: No JVD, Normal carotid pulses Cardiac: Reg Rate and Rhythm, Normal S1 and S2, No Murmur Lungs: Normal Breath Sounds, No Wheeze, Rales, Rhonchi Neuro: Alert and responsive, Other (Oriented to person. ) Abdomen: Soft, Non-Tender Skin: No rashes noted on visualized skin Musculoskeletal: No Chest Wall Tenderness Extremities: No Clubbing, No Cyanosis, Normal Pulses, Other (Mild bilateral pedal edema noted, non-pitting. ) Results 09/30/16 03:27 09/30/16 03:27 Lab Results Active Medications Albuterol Sulfate (Albuterol Inhaler) 2 puff IH Q4H PRN PRN Reason: Shortness Of Breath Stop: 03/18/17 20:16 Atorvastatin Calcium (Lipitor) 40 mg PO HS [facility] Stop: 03/18/17 21:01 Last Admin: 09/29/16 20:11 Dose: 40 mg Calcium Carbonate (Tums) 1,000 mg PO QID [facility] PRN Reason: Protocol Stop: 03/21/17 09:01 Last Admin: 09/29/16 20:12 Dose: 1,000 mg Carvedilol (Coreg) 6.25 mg PO HS [facility] PRN Reason: Protocol Stop: 03/18/17 21:01 Last Admin: 09/29/16 20:12 Dose: 6.25 mg Carvedilol (Coreg) 12.5 mg PO QAM [facility] Stop: 03/19/17 09:01 Last Admin: 09/29/16 08:49 Dose: 12.5 mg Dextrose/Water (Dextrose 50% (Syg)) 25 ml IVP AD PRN PRN Reason: Hypoglycemia Stop: 03/19/17 18:33 Last Admin: 09/29/16 09:00 Dose: 25 ml Dicyclomine HCl (Bentyl) 20 mg PO QID [facility] Stop: 03/23/17 17:01 Last Admin: 09/29/16 20:11 Dose: 20 mg Doxazosin Mesylate (Cardura) 8 mg PO DAILY [facility] Stop: 03/19/17 09:01 Last Admin: 09/29/16 08:49 Dose: 8 mg Furosemide (Lasix) 40 mg IVP 0130,1330 [facility] Stop: 03/28/17 13:31 Last Admin: 09/30/16 00:45 Dose: 40 mg Glucagon (Glucagen) 1 mg IM ONCE PRN PRN Reason: Hypoglycemia Stop: 03/19/17 18:33 Glucose (Gluctose) 15 gm PO ONCE PRN PRN Reason: Hypoglycemia Stop: 03/19/17 18:33 Glucose (Gluctose) 30 gm PO ONCE PRN PRN Reason: Hypoglycemia Stop: 03/19/17 18:33 Hydralazine HCl (Hydralazine) 50 mg PO TID [facility] Stop: 03/18/17 21:01 Last Admin: 09/29/16 20:12 Dose: 50 mg Dextrose (Dextrose 5%) 1,000 mls @ 100 mls/hr IVC .Q10H PRN PRN Reason: HYPOGLYCEMIA Stop: 03/19/17 18:33 Insulin Human Lispro (Humalog) 0 units SQ TIDAC [facility] PRN Reason: Protocol Stop: 03/31/17 07:31 Last Admin: 09/30/16 09:05 Dose: Not Given Insulin Human Lispro (Humalog) 0 units SQ HS [facility] PRN Reason: Protocol Stop: 03/31/17 21:01 Last Admin: 09/29/16 23:00 Dose: Not Given Lactic Acid (Amlactin) 1 appl TP DAILY [facility] Stop: 03/19/17 09:01 Last Admin: 09/29/16 10:48 Dose: 1 appl Loperamide HCl (Imodium) 2 mg PO QID PRN PRN Reason: Diarrhea Stop: 03/23/17 13:34 Magnesium Oxide (Mag-Ox) 400 mg PO DAILY [facility] PRN Reason: Protocol Stop: 03/20/17 09:01 Last Admin: 09/29/16 08:49 Dose: 400 mg Nitroglycerin (Nitroglycerin) 0.4 mg SL Q5MIN PRN PRN Reason: Chest Pain Stop: 03/18/17 20:16 Ondansetron HCl (Zofran) 4 mg IVP Q8HR PRN PRN Reason: Nausea And Vomiting Stop: 03/18/17 20:12 Last Admin: 09/25/16 05:33 Dose: 4 mg Pantoprazole Sodium (Protonix) 40 mg IVP DAILY [facility] Stop: 03/19/17 09:01 Last Admin: 09/29/16 08:49 Dose: 40 mg Sildenafil Citrate (Revatio) 20 mg PO TID [facility] Stop: 03/18/17 21:01 Last Admin: 09/29/16 20:11 Dose: 20 mg Simethicone (Gas-X) 80 mg PO TID PRN PRN Reason: Dyspepsia Stop: 03/30/17 11:46 Last Admin: 09/28/16 12:20 Dose: 80 mg Warfarin Sodium (Coumadin Perpt) 1 each PO DAILY@1800 PRN PRN Reason: SEE COMMENTS Stop: 03/27/17 18:01 Warfarin Sodium (Coumadin) 2 mg PO 1800 [facility] Stop: 03/31/17 18:01 Last Admin: 09/29/16 16:58 Dose: 2 mg Laboratory Tests 09/30/16 09/30/16 09/30/16 03:27 03:27 03:27 Hgb 9.2 L INR 2.0 Creatinine 3.46 H - Imaging and Cardiology Chest Xray: report reviewed Echo: report reviewed - EKG Interpretation EKG results cardiology: other (Telemetry reviewed with average HR 61, mostly paced rhythm.) Consult Discharge Plan - Plan Referrals: Sunil Duong DO [Primary Care Provider] -
[2016-09-30] MEDS: Ammonium Lactate 30 APPL/225 GM BOTTLE TP SCH (13:45)
[2016-09-30] MEDS: hydrALAZINE 25 MG TABLET PO SCH ×3 (13:45→20:21)
[2016-09-30] MEDS: Sildenafil Citrate 20 MG TABLET PO SCH ×3 (13:48→20:21)
[2016-09-30] MEDS: Levofloxacin 750 MG/150 ML 750 MG/150 ML BAG IVPB SCH (14:03)
[2016-09-30] MEDS ORDERED: *HR* Warfarin 2 MG TABLET PO ONE (18:00)
[2016-10-01] MEDS: Furosemide 40 MG/4 ML VIAL IVP SCH ×2 (02:22→15:52)
[2016-10-01 05:16] LABS: Basophils % 0.5 %; Eosinophils % 3.4 %; Hematocrit 29.9 % (37.5-50.1); Monocytes % 13.2 %
[2016-10-01 05:18] LABS: Eosinophils # 0.2 K/mcL (0.0-0.6); Hemoglobin 9.7 g/dL (12.9-16.9); Immature Granulocytes % 0.2 % (0-4); Immature Platelets 8.8 % (1.1-6.1); Lymphocytes # 0.3 K/mcL (0.6-4.6); Lymphocytes % 5.7 %; Mean Corpuscular HGB Conc 32.4 g/dL (31.6-35.5); Mean Corpuscular Hemoglobin 26.4 pg (28.0-33.3); Mean Corpuscular Volume 81.5 fL (83.0-100.0); Monocytes # 0.6 K/mcL (0.0-1.3); Neutrophils # 3.4 K/mcL (1.6-8.9); Red Blood Count 3.67 M/mcL (4.19-5.50); Red Cell Distribution Width 17.8 % (11.5-14.5)
[2016-10-01 05:22] LABS: INR 2.2; Platelet Count 73 K/mcL (140-400); Prothrombin Time 23.7 Seconds (9.4-12.1)
[2016-10-01 05:31] LABS: Albumin 3.2 g/dL (3.5-5.0); Albumin/Globulin Ratio 1.1 (1.1-2.2); Bilirubin,Direct 0.7 mg/dL (0.0-0.5); Bilirubin,Indirect 0.4 mg/dL (0.0-1.2); Bilirubin,Total 1.1 mg/dL (0.2-1.2); Calcium 9.5 mg/dL (8.6-10.8); Globulin 2.8 g/dL (2.4-3.5); Potassium 4.2 mEq/L (3.5-4.5)
--- NOTE | 2016-10-01 08:37 | Internal Med Progress Note ---
<SonnySunil garnica - Last Filed: 10/01/16 08:35> Date of Encounter: 10/01/16 Time of Encounter: 08:35 - Assessment and plan (1) Acute encephalopathy Current Visit: Yes Status: Acute Assessment and plan: Patient continues to have waxing and waning alertness and mental status changes. Mental status appears stable today. Etiology still unclear. ABG and ammonia were normal. At this point, i feel it is likely the patient had a CVA given his lack of improvement and high risk in the setting of left atrial appendage thrombus. Other possibilities include acute delirium in the setting of prolonged hospitalization as well as constipation. Plan for family meeting today to discuss the patient's condition and long-term goals care. (2) TIA (transient ischemic attack) Current Visit: Yes Status: Acute Assessment and plan: Approximate 5 days ago the patient had an episode of sudden decrease in mental status and expressive aphasia. Echo performed at that time revealed a left atrial appendage thrombus, the symptoms may been related to a small thromboembolic phenomenon. Patient's mental status did improve drastically in the next couple hours, however he continues to have waxing and waning encephalopathy as discussed above. Patient remains extremely high risk for cerebrovascular event so we will continue with Coumadin in the setting of a known left atrial appendage thrombus. INR is therapeutic. Qualifiers: Transient cerebral ischemia type: unspecified Qualified Code(s): G45.9 - Transient cerebral ischemic attack, unspecified (3) Atrial thrombus Current Visit: Yes Status: Acute Assessment and plan: Echo showed thrombus in left atrial appendage. History of atrial fibrillation without anticoagulation due to GI bleed. Patient has been restarted on Coumadin. No evidence of active bleeding. INR is therapeutic. Pharmacy is assisting with dosing. (4) Acute on chronic renal failure Current Visit: Yes Status: Acute Assessment and plan: Patient's creatinine remains above baseline despite fluid hydration as well as Lasix, however this is improving. Urine output has been improving, GFR remains is gradually better. Nephrology has been following. BEREAVEMENT PROGRAM COORDINATOR is not indicated at this time. Nephrology is following and will continue discussed the need for renal replacement therapy. Qualifiers: Acute renal failure type: unspecified Chronic kidney disease stage: stage 4 (severe) Qualified Code(s): N17.9 - Acute kidney failure, unspecified; N18.4 - Chronic kidney disease, stage 4 (severe) (5) Esophageal stricture Current Visit: Yes Status: Resolved Assessment and plan: Patient has known Schatzki's ring with multiple dilatations in the past. Patient prior to arrival difficulty swallowing. EGD performed this hospitalization showed recurrence of the patient's Schatzki's ring, dilatation was performed. Patient had been eating small amounts of a mechanically altered diet but is taking less by mouth intake due to his mental status. Nutrition is following and started a mechanically altered diet (6) CHF (congestive heart failure) Current Visit: No Status: Chronic Assessment and plan: Known chronic CHF (LVEF 20-25%). No acute exacerbation. Patient is mildly fluid overloaded on exam but this appears to be improving. Fluid overload likely related to CKD and poor nutrition. Continue with diuresis per nephrology. Qualifiers: Congestive heart failure type: systolic Congestive heart failure chronicity : chronic Qualified Code(s): I50.22 - Chronic systolic (congestive) heart failure (7) Diabetes Current Visit: No Status: Acute Assessment and plan: Blood sugar has been controlled. Continue SSI. Qualifiers: Diabetes mellitus type: type 2 Diabetes mellitus complication status: with kidney complications Diabetes mellitus complication detail: with chronic kidney disease Diabetes mellitus ferry terminal agent insulin use: unspecified residential insulin use status Chronic kidney disease stage: stage 3 (moderate) Qualified Code(s): E11.22 - Type 2 diabetes mellitus with diabetic chronic kidney disease; N18.3 - Chronic kidney disease, stage 3 (moderate) - Subjective Interval history: Patient seen and examined at bedside. Patient is awake and alert but is somewhat somnelent. Mental status continues to wax and wane. He knows hes in the hospital but believes he is [place]. He appears about the same as yesterday. He does not appear to be in any acute distress. - Constitutional Vitals: Temp Pulse Resp BP Pulse Ox 97.4 F L 61 16 116/85 98 10/01/16 07:29 10/01/16 07:29 10/01/16 07:29 10/01/16 07:29 10/01/16 07:29 General appearance: Present: cachectic, A&O X 1, pleasant, no acute distress. Absent: answers questions appropriately - Respiratory Respiratory exam: Present: decreased breath sounds. Absent: rales, rhonchi, wheezes - Cardiovascular Cardiovascular exam: Present: irregular rhythm. Absent: gallop, rubs, systolic murmur, tachycardia - GI/Abdominal GI/Abdominal exam: Present: distended (improved from yesterday), hypoactive bowel sounds, soft. Absent: tenderness - Extremities Exam Extremities exam: Present: pedal edema (2+, improved from yesterday), warm. Absent: tenderness - Neurological Exam Neurological exam: Present: alert, altered, no focal deficits Internal Medicine: Result - Labs CBC & Chem 7: 10/01/16 03:43 10/01/16 03:43 Labs: Short CBC 10/01/16 Range/Units 03:43 WBC 4.4 (4.3-11.1) K/mcL Hgb 9.7 L (12.9-16.9) g/dL Hct 29.9 L (37.5-50.1) % Plt Count 73 L (140-400) K/mcL Neutrophils # 3.4 (1.6-8.9) K/mcL BMP 10/01/16 03:43 Sodium 133 L Potassium 4.2 Chloride 102 Carbon Dioxide 20 BUN 93 H Creatinine 3.30 H Glucose 172 H Calcium 9.5 Liver Function 10/01/16 Range/Units 03:43 Total Bilirubin 1.1 (0.2-1.2) mg/dL Direct Bilirubin 0.7 H (0.0-0.5) mg/dL AST 17 (5-34) Units/L ALT 8 (0-55) Units/L Alkaline Phosphatase 44 (38-126) Units/L Albumin 3.2 L (3.5-5.0) g/dL - ABG Interpretation ABG results: ABG ABG pH 7.32 pH Units (7.32-7.45) 09/29/16 14:54 ABG pCO2 37 mmHg (35-45) 09/29/16 14:54 ABG pO2 80 mmHg (85-104) L 09/29/16 14:54 ABG O2 Saturation 95 % (95-98) 09/29/16 14:54 PT/INR, D-dimer PT 23.7 Seconds (9.4-12.1) H 10/01/16 03:43 Consult Discharge Plan - Plan Referrals: Sunil Duong DO [Primary Care Provider] - <Gregorio Sanches H - Last Filed: 10/01/16 10:58> Date of Encounter: 10/01/16 - Constitutional Vitals: Temp Pulse Resp BP Pulse Ox 97.4 F L 61 16 116/85 98 10/01/16 07:29 10/01/16 07:29 10/01/16 07:29 10/01/16 07:29 10/01/16 07:29 Internal Medicine: Result - Labs CBC & Chem 7: 10/01/16 03:43 10/01/16 03:43 Labs: Short CBC 10/01/16 Range/Units 03:43 WBC 4.4 (4.3-11.1) K/mcL Hgb 9.7 L (12.9-16.9) g/dL Hct 29.9 L (37.5-50.1) % Plt Count 73 L (140-400) K/mcL Neutrophils # 3.4 (1.6-8.9) K/mcL BMP 10/01/16 03:43 Sodium 133 L Potassium 4.2 Chloride 102 Carbon Dioxide 20 BUN 93 H Creatinine 3.30 H Glucose 172 H Calcium 9.5 Liver Function 10/01/16 Range/Units 03:43 Total Bilirubin 1.1 (0.2-1.2) mg/dL Direct Bilirubin 0.7 H (0.0-0.5) mg/dL AST 17 (5-34) Units/L ALT 8 (0-55) Units/L Alkaline Phosphatase 44 (38-126) Units/L Albumin 3.2 L (3.5-5.0) g/dL - ABG Interpretation ABG results: ABG ABG pH 7.32 pH Units (7.32-7.45) 09/29/16 14:54 ABG pCO2 37 mmHg (35-45) 09/29/16 14:54 ABG pO2 80 mmHg (85-104) L 09/29/16 14:54 ABG O2 Saturation 95 % (95-98) 09/29/16 14:54 PT/INR, D-dimer PT 23.7 Seconds (9.4-12.1) H 10/01/16 03:43 - Attending Attestation acute encephalopathy, unclear etiology possible UTI Levaquin Day 2 I examined this patient and my medical decision-making was reviewed with the Resident Physician. I agree with the documented findings, disposition and treatment plan as described except to the extent set forth below.
[2016-10-01] MEDS: hydrALAZINE 25 MG TABLET PO SCH ×3 (09:29→23:12)
[2016-10-01] MEDS: Magnesium Oxide 400 MG TABLET PO SCH ×2 (09:30→09:46)
[2016-10-01] MEDS: Sildenafil Citrate 20 MG TABLET PO SCH ×3 (09:30→23:13)
[2016-10-01] MEDS: Milk and Molasses Enema 200 ML RC ONE ×2 (09:31→11:56)
[2016-10-01] MEDS: Pantoprazole 40 MG VIAL IVP SCH ×2 (09:31→09:50)
[2016-10-01] MEDS: Insulin LISPRO 300 UNITS/3 ML VIAL SQ SCH ×4 (09:44→23:13)
[2016-10-01] MEDS: Ammonium Lactate 30 APPL/225 GM BOTTLE TP SCH (11:55)
[2016-10-01] MEDS ORDERED: D5% in 0.45% NACL 1,000 ML IVC SCH (15:45)
[2016-10-01] MEDS ORDERED: D5% in 0.45% NACL 1,000 ML IVC ONE (15:48)
--- NOTE | 2016-10-01 17:53 | Nephrology Progress Note ---
Date of Encounter: 10/01/16 Time of Encounter: 17:53 - Assessment and Plan (1) Acute kidney injury Current Visit: Yes Status: Acute Non-oliguric KAY on CKD stage IIIb-IV (near stage IV) based upon eGFR for AA. eGFR has trended toward 20 for AA eGFR. So no indications for PROFESSIONAL ATHLETES COACH at this time. Continue to follow a renal protective / supportive strategy. (2) Acute on chronic renal failure Current Visit: Yes Status: Acute KAY on CKD stage IIIb-IV. Qualifiers: Acute renal failure type: unspecified Chronic kidney disease stage: stage 4 (severe) Qualified Code(s): N17.9 - Acute kidney failure, unspecified; N18.4 - Chronic kidney disease, stage 4 (severe) (3) CKD (chronic kidney disease), stage III Current Visit: Yes Status: Chronic Baseline CKD stage IIIb that also fluctuates near the beginnings of stage IV He follows with his primary casting machine adjuster Dr. Bar. Subjective Principal diagnosis: KAY on CKD Interval history: Pt was seen and examined. He did not affirm N/V/D or any worsening of shortness of breath. He was somnolent during my exam and interview, which fully limited the subjective history collection. No family or friends at bedside. Objective - Vital Signs Vital signs: Vital Signs Temp Pulse Resp BP Pulse Ox 10/01/16 17:47 98 F 60 14 102/68 98 10/01/16 15:21 92.3 F L 68 16 108/75 98 10/01/16 11:32 97.4 F L 60 16 97/75 94 10/01/16 07:29 97.4 F L 61 16 116/85 98 10/01/16 05:03 97.9 F 60 14 113/72 95 09/30/16 20:22 97.6 F 61 16 116/78 95 Intake and Output 10/01/16 10/01/16 10/01/16 07:59 15:59 23:59 Intake Total 50 / 50 Output Total 650 / 650 650 / 650 Balance -650 / -650 -600 / -600 Intake: Oral 50 / 50 Output: Catheter 650 / 650 650 / 650 Other: Meal Lunch Percent of Meal Consumed 15% Stool Size Small Stool Consistency soft Stool Color Brown Weight 74 kg Blood Glucose* 185 64 Patient Weight 10/01/16 23:59 Weight 74 kg - General Appearance General appearance: Present: well-developed, chronically ill, fatigue, frail EENT: Present: ATNC Neck: Present: supple Respiratory: Present: clear Cardiology: Present: edema (trace ankle edema), regular rate, regular rhythm, normal S1, normal S2 Gastrointestinal: Present: normoactive bowel sounds, no tenderness Integumentary: Present: no rash, warm and dry Neurologic: Present: no asterixis Additional Comments: Somnolent Musculoskeletal: Present: no deformities, no erythema, no clubbing Psychiatric: Present: mood/affect appropriate - Lab 10/01/16 03:43 10/01/16 03:43 Most recent lab results ABG pH 7.32 pH Units (7.32-7.45) 09/29/16 14:54 ABG pCO2 37 mmHg (35-45) 09/29/16 14:54 ABG pO2 80 mmHg (85-104) L 09/29/16 14:54 ABG HCO3 19.1 mEQ/L (21-27) L 09/29/16 14:54 ABG O2 Saturation 95 % (95-98) 09/29/16 14:54 Calcium 9.5 mg/dL (8.6-10.8) 10/01/16 03:43 Phosphorus 4.0 mg/dL (2.3-4.7) 09/17/16 03:33 Magnesium 1.5 mg/dL (1.6-2.6) L 09/27/16 03:47 Urine Sodium 27.0 mEq/L 09/24/16 09:50 Consult Discharge Plan - Plan Referrals: Sunil Duong DO [Primary Care Provider] -
[2016-10-01] MEDS ORDERED: *HR* Warfarin 3 MG TABLET PO ONE (18:00)
[2016-10-02] MEDS: Furosemide 40 MG/4 ML VIAL IVP SCH ×2 (02:24→14:24)
[2016-10-02 04:22] LABS: Basophils % 0.2 %; Hemoglobin 9.4 g/dL (12.9-16.9)
[2016-10-02 04:24] LABS: Eosinophils # 0.1 K/mcL (0.0-0.6); Hematocrit 28.9 % (37.5-50.1); Immature Granulocytes % 0.5 % (0-4); Immature Platelets 7.3 % (1.1-6.1); Lymphocytes # 0.4 K/mcL (0.6-4.6); Mean Corpuscular HGB Conc 32.5 g/dL (31.6-35.5); Mean Corpuscular Hemoglobin 26.3 pg (28.0-33.3); Mean Corpuscular Volume 80.7 fL (83.0-100.0); Monocytes # 0.6 K/mcL (0.0-1.3); Monocytes % 13.3 %; Neutrophils # 3.3 K/mcL (1.6-8.9); Red Blood Count 3.58 M/mcL (4.19-5.50); Red Cell Distribution Width 17.7 % (11.5-14.5)
[2016-10-02 04:28] LABS: INR 2.4; Platelet Count 70 K/mcL (140-400)
[2016-10-02 04:38] LABS: Calcium 9.6 mg/dL (8.6-10.8)
[2016-10-02 04:39] LABS: Albumin 3.1 g/dL (3.5-5.0); Albumin/Globulin Ratio 1.1 (1.1-2.2); Bilirubin,Direct 0.6 mg/dL (0.0-0.5); Bilirubin,Indirect 0.3 mg/dL (0.0-1.2); Bilirubin,Total 0.9 mg/dL (0.2-1.2); Globulin 2.7 g/dL (2.4-3.5); Total Protein 5.8 g/dL (6.0-8.3)
--- NOTE | 2016-10-02 08:33 | Internal Med Progress Note ---
<Hussain Rubi - Last Filed: 10/02/16 08:31> Date of Encounter: 10/02/16 Time of Encounter: 08:31 - Assessment and plan (1) Acute encephalopathy Current Visit: Yes Status: Acute Assessment and plan: Patient continues to have waxing and waning alertness and mental status changes. Mental status appears stable today. Etiology still unclear. ABG and ammonia were normal. Urine Cx negative. Previous provider felt it likely the patient had a CVA given his lack of improvement and high risk in the setting of left atrial appendage thrombus. CT head performed yesterday shows no signs of stroke. Patient not candidate for MRI due to pacemaker. Other possibilities include acute delirium in the setting of prolonged hospitalization as well as constipation. Plan for family meeting to discuss the patient's condition and long-term goals care. Consider neurology reconsult to rule out other possible neurologic causes of AMS such as encephalitis. (2) TIA (transient ischemic attack) Current Visit: Yes Status: Acute Assessment and plan: Approximate 6 days ago the patient had an episode of sudden decrease in mental status and expressive aphasia. Echo performed at that time revealed a left atrial appendage thrombus, the symptoms may been related to a small thromboembolic phenomenon. Patient's mental status did improve drastically in the next couple hours, however he continues to have waxing and waning encephalopathy as discussed above. Patient remains extremely high risk for cerebrovascular event so we will continue with Coumadin in the setting of a known left atrial appendage thrombus. INR is therapeutic. Qualifiers: Transient cerebral ischemia type: unspecified Qualified Code(s): G45.9 - Transient cerebral ischemic attack, unspecified (3) Acute on chronic renal failure Current Visit: Yes Status: Acute Assessment and plan: Patient's creatinine remains above baseline despite fluid hydration as well as Lasix, however this is improving. down to 3.3 from 3.46 Urine output has been improving, GFR remains is gradually better. Nephrology has been following. CLOTH BLEACHING RANGE OPERATOR CHIEF is not indicated at this time. Nephrology is following and will continue discussed the need for renal replacement therapy. Qualifiers: Acute renal failure type: unspecified Chronic kidney disease stage: stage 4 (severe) Qualified Code(s): N17.9 - Acute kidney failure, unspecified; N18.4 - Chronic kidney disease, stage 4 (severe) (4) Atrial thrombus Current Visit: Yes Status: Acute Assessment and plan: Echo showed thrombus in left atrial appendage. History of atrial fibrillation without anticoagulation due to GI bleed. Patient has been restarted on Coumadin. No evidence of active bleeding. INR is therapeutic. Pharmacy is assisting with dosing. (5) Esophageal stricture Current Visit: Yes Status: Resolved Assessment and plan: Patient has known Schatzki's ring with multiple dilatations in the past. Patient prior to arrival difficulty swallowing. EGD performed this hospitalization showed recurrence of the patient's Schatzki' s ring, dilatation was performed. Patient had been eating small amounts of a mechanically altered diet but is taking less by mouth intake due to his mental status. Nutrition is following and started a mechanically altered diet (6) CHF (congestive heart failure) Current Visit: No Status: Chronic Assessment and plan: Known chronic CHF (LVEF 20-25%). No acute exacerbation. Patient is mildly fluid overloaded on exam but this appears to be improving. Fluid overload likely related to CKD and poor nutrition. Continue with diuresis per nephrology. Qualifiers: Congestive heart failure type: systolic Congestive heart failure chronicity : chronic Qualified Code(s): I50.22 - Chronic systolic (congestive) heart failure (7) Diabetes Current Visit: No Status: Acute Assessment and plan: Blood sugar has been well controlled. Continue SSI. Qualifiers: Diabetes mellitus type: type 2 Diabetes mellitus complication status: with kidney complications Diabetes mellitus complication detail: with chronic kidney disease Diabetes mellitus halfway insulin use: unspecified halfway insulin use status Chronic kidney disease stage: stage 3 (moderate) Qualified Code(s): E11.22 - Type 2 diabetes mellitus with diabetic chronic kidney disease; N18.3 - Chronic kidney disease, stage 3 (moderate) - Subjective Interval history: Patient is awake and alert, but somnelent. Patient follows commands at times, but also falls asleep during examination. waxing and waning mental status. Yesterday he knew he was in the hospital, but thought he was in [place]. Today he still thinks he is in [place], but states that he is in the basement. He does not know what year it is. He does know his name. - Constitutional Vitals: Temp Pulse Resp BP Pulse Ox 97.5 F L 62 15 123/79 97 10/02/16 07:43 10/02/16 07:43 10/02/16 07:43 10/02/16 07:43 10/02/16 07:43 General appearance: Present: cachectic, A&O X 1, pleasant, no acute distress. Absent: answers questions appropriately - Eye Eye exam: Present: PERRL - ENT ENT exam: Present: mucous membranes dry - Respiratory Respiratory exam: Present: decreased breath sounds. Absent: rales, rhonchi, wheezes - Cardiovascular Cardiovascular exam: Present: irregular rhythm. Absent: diastolic murmur, gallop, rubs, systolic murmur, tachycardia - GI/Abdominal GI/Abdominal exam: Present: distended, firm (in the LUQ and LLQ R side feels softer.), hypoactive bowel sounds, tenderness (diffuse) - Extremities Exam Extremities exam: Present: pedal edema (2+), warm. Absent: tenderness - Neurological Exam Neurological exam: Present: alert, altered. Absent: oriented X3 Additional comments: patient follows some but not all commands. Patient is somnolent, but arousable. - Psychiatric Psychiatric exam: Present: normal affect, normal mood Internal Medicine: Result - Labs CBC & Chem 7: 10/02/16 04:03 10/02/16 04:03 Labs: Short CBC 10/02/16 Range/Units 04:03 WBC 4.4 (4.3-11.1) K/mcL Hgb 9.4 L (12.9-16.9) g/dL Hct 28.9 L (37.5-50.1) % Plt Count 70 L (140-400) K/mcL Neutrophils # 3.3 (1.6-8.9) K/mcL BMP 10/02/16 04:03 Sodium 135 L Potassium 4.0 Chloride 103 Carbon Dioxide 22 BUN 91 H Creatinine 3.29 H Glucose 137 H Calcium 9.6 Liver Function 10/02/16 Range/Units 04:03 Total Bilirubin 0.9 (0.2-1.2) mg/dL Direct Bilirubin 0.6 H (0.0-0.5) mg/dL AST 15 (5-34) Units/L ALT 9 (0-55) Units/L Alkaline Phosphatase 42 (38-126) Units/L Albumin 3.1 L (3.5-5.0) g/dL - ABG Interpretation ABG results: ABG ABG pH 7.32 pH Units (7.32-7.45) 09/29/16 14:54 ABG pCO2 37 mmHg (35-45) 09/29/16 14:54 ABG pO2 80 mmHg (85-104) L 09/29/16 14:54 ABG O2 Saturation 95 % (95-98) 09/29/16 14:54 PT/INR, D-dimer PT 26.0 Seconds (9.4-12.1) H 10/02/16 04:03 - Impressions Impressions Head CT 10/01/16 15:57 IMPRESSION: 1. No acute hemorrhage or definite evidence for acute ischemia. 2. Acute left sphenoid sinusitis and left mastoiditis. D/ / Pa Best MD / Pa Best MD Interpreting Provider: Pa Best MD Consult Discharge Plan - Plan Referrals: Sunil Duong DO [Primary Care Provider] - <Gregorio Sanches H - Last Filed: 10/02/16 13:07> Date of Encounter: 10/02/16 - Constitutional Vitals: Temp Pulse Resp BP Pulse Ox 97.5 F L 63 15 117/73 97 10/02/16 11:37 10/02/16 11:37 10/02/16 11:37 10/02/16 11:37 10/02/16 11:37 Internal Medicine: Result - Labs CBC & Chem 7: 10/02/16 04:03 10/02/16 04:03 Labs: Short CBC 10/02/16 Range/Units 04:03 WBC 4.4 (4.3-11.1) K/mcL Hgb 9.4 L (12.9-16.9) g/dL Hct 28.9 L (37.5-50.1) % Plt Count 70 L (140-400) K/mcL Neutrophils # 3.3 (1.6-8.9) K/mcL BMP 10/02/16 04:03 Sodium 135 L Potassium 4.0 Chloride 103 Carbon Dioxide 22 BUN 91 H Creatinine 3.29 H Glucose 137 H Calcium 9.6 Liver Function 10/02/16 Range/Units 04:03 Total Bilirubin 0.9 (0.2-1.2) mg/dL Direct Bilirubin 0.6 H (0.0-0.5) mg/dL AST 15 (5-34) Units/L ALT 9 (0-55) Units/L Alkaline Phosphatase 42 (38-126) Units/L Albumin 3.1 L (3.5-5.0) g/dL - ABG Interpretation ABG results: ABG ABG pH 7.32 pH Units (7.32-7.45) 09/29/16 14:54 ABG pCO2 37 mmHg (35-45) 09/29/16 14:54 ABG pO2 80 mmHg (85-104) L 09/29/16 14:54 ABG O2 Saturation 95 % (95-98) 09/29/16 14:54 PT/INR, D-dimer PT 26.0 Seconds (9.4-12.1) H 10/02/16 04:03 - Impressions Impressions Head CT 10/01/16 15:57 IMPRESSION: 1. No acute hemorrhage or definite evidence for acute ischemia. 2. Acute left sphenoid sinusitis and left mastoiditis. D/ / Pa Best MD / Pa Best MD Interpreting Provider: Pa Best MD - Attending Attestation CT showed left phenoid sinusitis and mastoiditis. continue Levaquin Acute encephaloathy likely multifactorial, possible embolic etiology due to atrial thrombus INR therapeutic, added ASA I examined this patient and my medical decision-making was reviewed with the Resident Physician. I agree with the documented findings, disposition and treatment plan as described except to the extent set forth below.
[2016-10-02] MEDS: Insulin LISPRO 300 UNITS/3 ML VIAL SQ SCH ×4 (09:09→21:33)
--- NOTE | 2016-10-02 10:38 | Nephrology Progress Note ---
Date of Encounter: 10/02/16 Time of Encounter: 10:38 - Assessment and Plan (1) Acute kidney injury Status: Acute Stable SCr and UOP. No acute indication for TWIST PACKER today. He is very deconditioned and would not be an ideal dialysis candidate. So no indications for TWIST PACKER at this time. Continue to follow a renal protective / supportive strategy. (2) Acute on chronic renal failure Status: Resolved KAY on CKD stage IIIb-IV. Resolved to near the pt's baseline. Qualifiers: Acute renal failure type: unspecified Chronic kidney disease stage: stage 4 (severe) Qualified Code(s): N17.9 - Acute kidney failure, unspecified; N18.4 - Chronic kidney disease, stage 4 (severe) (3) CKD (chronic kidney disease), stage III Status: Chronic Baseline CKD stage IIIb-IV that also fluctuates near the beginnings of stage IV He follows with his primary maintenance associate Dr. Bar. Subjective Principal diagnosis: KAY on CKD Interval history: Pt was seen and examined. He did not affirm N/V/D or any worsening of shortness of breath. He was somnolent during my exam and interview, which fully limited the subjective history collection. No family or friends at bedside. Objective - Vital Signs Vital signs: Vital Signs Temp Pulse Resp BP Pulse Ox 10/02/16 07:43 97.5 F L 62 15 123/79 97 10/02/16 06:14 97.5 F L 63 17 105/68 96 10/01/16 23:31 97.4 F L 10/01/16 19:38 97.8 F 59 16 102/78 95 10/01/16 17:47 98 F 60 14 102/68 98 10/01/16 15:21 92.3 F L 68 16 108/75 98 10/01/16 11:32 97.4 F L 60 16 97/75 94 Intake and Output 10/01/16 10/02/16 10/02/16 23:59 07:59 15:59 Intake Total 50 / 50 0 / 0 120 / 120 Output Total 950 / 950 Balance 50 / 50 -950 / -950 120 / 120 Intake: Oral 50 / 50 0 / 0 120 / 120 Output: Catheter 950 / 950 Other: Meal Dinner Breakfast Percent of Meal Consumed 5% 100% Stool Size Small Stool Characteristics Mucoid Stool Color Brown Blood Tinged # Bowel Movements 1 Blood Glucose* 114 133 - General Appearance General appearance: Present: appears started age, cachectic, chronically ill, fatigue, frail EENT: Present: ATNC, mucous membranes moist Neck: Present: supple Respiratory: Present: clear Cardiology: Present: edema (trace to 1+ pedal edema b/l ), regular rate, normal S1, normal S2 Gastrointestinal: Present: normoactive bowel sounds, no tenderness, no guarding Integumentary: Present: warm and dry Neurologic: Present: no asterixis, confused, disoriented Musculoskeletal: Present: no cyanosis, no clubbing Psychiatric: Present: mood/affect appropriate, cooperative - Lab 10/04/16 04:37 10/04/16 04:37 Most recent lab results ABG pH 7.32 pH Units (7.32-7.45) 09/29/16 14:54 ABG pCO2 37 mmHg (35-45) 09/29/16 14:54 ABG pO2 80 mmHg (85-104) L 09/29/16 14:54 ABG HCO3 19.1 mEQ/L (21-27) L 09/29/16 14:54 ABG O2 Saturation 95 % (95-98) 09/29/16 14:54 Calcium 9.6 mg/dL (8.6-10.8) 10/02/16 04:03 Phosphorus 4.0 mg/dL (2.3-4.7) 09/17/16 03:33 Magnesium 1.5 mg/dL (1.6-2.6) L 09/27/16 03:47 Urine Sodium 27.0 mEq/L 09/24/16 09:50 Consult Discharge Plan - Plan Additional Instructions: Please follow-up with your primary care provider as scheduled. Please resume your home medications. Please take your Coumadin as directed. Please have your [facility]R checked at the [facility] on . Please return for any new or worsening symptoms. Referrals: Sunil Duong DO [Primary Care Provider] - (Please schedule for 10/12/16) Prescriptions: Warfarin [Coumadin] 2 mg PO Q48H #30 tablet Warfarin [Coumadin] 1.5 mg PO Q48H #30 tablet
[2016-10-02] MEDS: Ammonium Lactate 30 APPL/225 GM BOTTLE TP SCH (10:45)
[2016-10-02] MEDS: Aspirin 81 MG TAB.CHEW PO SCH (10:45)
[2016-10-02] MEDS: Pantoprazole 40 MG VIAL IVP SCH (10:45)
[2016-10-02] MEDS: hydrALAZINE 25 MG TABLET PO SCH ×3 (10:46→21:46)
[2016-10-02] MEDS: Sildenafil Citrate 20 MG TABLET PO SCH ×3 (10:47→21:46)
[2016-10-02] MEDS: Magnesium Oxide 400 MG TABLET PO SCH (10:47)
[2016-10-02] MEDS: Levofloxacin 750 MG/150 ML 750 MG/150 ML BAG IVPB SCH (14:24)
[2016-10-02] MEDS ORDERED: *HR* Warfarin 1 MG TABLET PO ONE (18:00)
[2016-10-03 01:51] LABS: Red Blood Count 3.41 M/mcL (4.19-5.50)
[2016-10-03 01:53] LABS: Hematocrit 27.8 % (37.5-50.1); Hemoglobin 9.1 g/dL (12.9-16.9); Immature Platelets 8.2 % (1.1-6.1); Mean Corpuscular HGB Conc 32.7 g/dL (31.6-35.5); Mean Corpuscular Hemoglobin 26.7 pg (28.0-33.3); Mean Corpuscular Volume 81.5 fL (83.0-100.0)
[2016-10-03 01:55] LABS: INR 2.7; Platelet Count 59 K/mcL (140-400); Prothrombin Time 29.3 Seconds (9.4-12.1)
[2016-10-03 02:10] LABS: Albumin 3.1 g/dL (3.5-5.0); Albumin/Globulin Ratio 1.1 (1.1-2.2); Bilirubin,Direct 0.6 mg/dL (0.0-0.5); Bilirubin,Indirect 0.1 mg/dL (0.0-1.2); Bilirubin,Total 0.7 mg/dL (0.2-1.2); Calcium 9.2 mg/dL (8.6-10.8); Globulin 2.9 g/dL (2.4-3.5)
[2016-10-03] MEDS: Furosemide 40 MG/4 ML VIAL IVP SCH ×2 (03:05→17:02)
[2016-10-03] MEDS: Aspirin 81 MG TAB.CHEW PO SCH (08:39)
[2016-10-03] MEDS: Sildenafil Citrate 20 MG TABLET PO SCH ×3 (08:39→22:22)
[2016-10-03] MEDS: Magnesium Oxide 400 MG TABLET PO SCH (08:39)
[2016-10-03] MEDS: hydrALAZINE 25 MG TABLET PO SCH ×3 (08:40→22:23)
[2016-10-03] MEDS: Ammonium Lactate 30 APPL/225 GM BOTTLE TP SCH (08:40)
[2016-10-03] MEDS: Insulin LISPRO 300 UNITS/3 ML VIAL SQ SCH ×4 (08:40→22:23)
[2016-10-03] MEDS: Pantoprazole 40 MG VIAL IVP SCH (08:41)
--- NOTE | 2016-10-03 10:14 | Nephrology Progress Note ---
Date of Encounter: 10/03/16 Time of Encounter: 10:13 - Assessment and Plan (1) Acute kidney injury Status: Acute Stable stage IV CKD with GFR unchanged at 22 (eGFR for Americans). No indication for RULING MACHINE SET UP OPERATOR at this time. So no indications for RULING MACHINE SET UP OPERATOR at this time. Continue to follow a renal protective / supportive strategy. (2) Acute on chronic renal failure Status: Resolved KAY on CKD stage IIIb-IV. Qualifiers: Acute renal failure type: unspecified Chronic kidney disease stage: stage 4 (severe) Qualified Code(s): N17.9 - Acute kidney failure, unspecified; N18.4 - Chronic kidney disease, stage 4 (severe) (3) CKD (chronic kidney disease), stage III Status: Chronic Baseline CKD stage IIIb that also fluctuates near the beginnings of stage IV He follows with his primary blindstitch machine operator Dr. Bar. Subjective Principal diagnosis: KAY on CKD Interval history: Pt was seen and examined. He did not affirm N/V/D or any worsening of shortness of breath. He was somnolent during my exam and interview, which fully limited the subjective history collection. No family or friends at bedside. Objective - Vital Signs Vital signs: Vital Signs Temp Pulse Resp BP Pulse Ox 10/03/16 06:50 97.2 F L 60 15 112/80 95 10/03/16 04:22 97.9 F 60 12 106/75 92 10/03/16 00:51 97.5 F L 60 17 107/77 96 10/02/16 19:47 97.2 F L 65 16 111/74 95 10/02/16 16:00 97.2 F L 59 15 108/68 96 10/02/16 11:37 97.5 F L 63 15 117/73 97 Intake and Output 10/02/16 10/03/16 10/03/16 23:59 07:59 15:59 Intake Total 120 / 120 0 / 0 280 / 280 Output Total 350 / 350 850 / 850 Balance -230 / -230 -850 / -850 280 / 280 Intake: Oral 120 / 120 0 / 0 280 / 280 Output: Catheter 350 / 350 850 / 850 Other: Meal Dinner Breakfast Percent of Meal Consumed 10% 100% Blood Glucose* 131 109 - General Appearance Exam: General appearance: Present: appears started age, cachectic, chronically ill, fatigue, frail EENT: Present: ATNC, mucous membranes moist Neck: Present: supple Respiratory: Present: clear Cardiology: Present: edema (trace to 1+ pedal edema b/l ), regular rate, normal S1, normal S2 Gastrointestinal: Present: normoactive bowel sounds, no tenderness, no guarding Integumentary: Present: warm and dry Neurologic: Present: no asterixis, confused, disoriented Musculoskeletal: Present: no cyanosis, no clubbing Psychiatric: Present: mood/affect appropriate, cooperative - Lab 10/04/16 04:37 10/04/16 04:37 Most recent lab results ABG pH 7.32 pH Units (7.32-7.45) 09/29/16 14:54 ABG pCO2 37 mmHg (35-45) 09/29/16 14:54 ABG pO2 80 mmHg (85-104) L 09/29/16 14:54 ABG HCO3 19.1 mEQ/L (21-27) L 09/29/16 14:54 ABG O2 Saturation 95 % (95-98) 09/29/16 14:54 Calcium 9.2 mg/dL (8.6-10.8) 10/03/16 01:21 Phosphorus 4.0 mg/dL (2.3-4.7) 09/17/16 03:33 Magnesium 1.5 mg/dL (1.6-2.6) L 09/27/16 03:47 Urine Sodium 27.0 mEq/L 09/24/16 09:50 Consult Discharge Plan - Plan Additional Instructions: Please follow-up with your primary care provider as scheduled. Please resume your home medications. Please take your Coumadin as directed. Please have your [facility] checked at the [facility] on . Please return for any new or worsening symptoms. Referrals: Sunil Duong DO [Primary Care Provider] - (Please schedule for 10/12/16) Prescriptions: Warfarin [Coumadin] 2 mg PO Q48H #30 tablet Warfarin [Coumadin] 1.5 mg PO Q48H #30 tablet
--- NOTE | 2016-10-03 10:54 | Internal Med Progress Note ---
<Saul oRd - Last Filed: 10/03/16 10:52> Date of Encounter: 10/03/16 Time of Encounter: 10:52 - Assessment and plan (1) Acute encephalopathy Current Visit: Yes Status: Acute Assessment and plan: Patient continues to have waxing and waning alertness and mental status changes. Mental status appears stable today. Etiology still unclear. ABG and ammonia were normal. Urine Cx negative. Previous provider felt it likely the patient had a CVA given his lack of improvement and high risk in the setting of left atrial appendage thrombus. CT head performed shows no signs of stroke. Patient not candidate for MRI due to pacemaker. Other possibilities include acute delirium in the setting of prolonged hospitalization as well as constipation. Plan for family meeting to discuss the patient's condition and long-term goals care - will go to [facility] upon discharge Consider neurology reconsult to rule out other possible neurologic causes of AMS such as encephalitis. (2) TIA (transient ischemic attack) Current Visit: Yes Status: Acute Assessment and plan: Approximate 7 days ago the patient had an episode of sudden decrease in mental status and expressive aphasia. Echo performed at that time revealed a left atrial appendage thrombus, the symptoms may been related to a small thromboembolic phenomenon. Patient's mental status did improve drastically in the next couple hours, however he continues to have waxing and waning encephalopathy as discussed above. Patient remains extremely high risk for cerebrovascular event so we will continue with Coumadin in the setting of a known left atrial appendage thrombus. INR is therapeutic. Qualifiers: Transient cerebral ischemia type: unspecified Qualified Code(s): G45.9 - Transient cerebral ischemic attack, unspecified (3) Acute on chronic renal failure Current Visit: Yes Status: Acute Assessment and plan: Patient's creatinine remains above baseline despite fluid hydration as well as Lasix, however this is improving. 3.35 today - remaining stable Urine output has been improving, GFR is gradually better. Nephrology has been following - FISHER DIVING is not indicated at this time. Nephrology is following and will continue discussed the need for renal replacement therapy. Qualifiers: Acute renal failure type: unspecified Chronic kidney disease stage: stage 4 (severe) Qualified Code(s): N17.9 - Acute kidney failure, unspecified; N18.4 - Chronic kidney disease, stage 4 (severe) (4) Atrial thrombus Current Visit: Yes Status: Acute Assessment and plan: Echo showed thrombus in left atrial appendage. History of atrial fibrillation without anticoagulation due to GI bleed. Patient has been restarted on Coumadin. No evidence of active bleeding. INR is therapeutic. Pharmacy is assisting with dosing. (5) Esophageal stricture Current Visit: Yes Status: Resolved Assessment and plan: Patient has known Schatzki's ring with multiple dilatations in the past. Patient prior to arrival difficulty swallowing. EGD performed this hospitalization showed recurrence of the patient's Schatzki' s ring, dilatation was performed. Patient had been eating small amounts of a mechanically altered diet but is taking less by mouth intake due to his mental status. Nutrition is following and started a mechanically altered diet (6) Diabetes Current Visit: No Status: Acute Assessment and plan: Blood sugar has been well controlled. Continue SSI. Qualifiers: Diabetes mellitus type: type 2 Diabetes mellitus complication status: with kidney complications Diabetes mellitus complication detail: with chronic kidney disease Diabetes mellitus jail insulin use: unspecified jail insulin use status Chronic kidney disease stage: stage 3 (moderate) Qualified Code(s): E11.22 - Type 2 diabetes mellitus with diabetic chronic kidney disease; N18.3 - Chronic kidney disease, stage 3 (moderate) (7) CHF (congestive heart failure) Current Visit: No Status: Chronic Assessment and plan: Known chronic CHF (LVEF 20-25%). No acute exacerbation. Patient is mildly fluid overloaded on exam but this appears to be improving. Fluid overload likely related to CKD and poor nutrition. Continue with diuresis per nephrology. Qualifiers: Congestive heart failure type: systolic Congestive heart failure chronicity : chronic Qualified Code(s): I50.22 - Chronic systolic (congestive) heart failure - Subjective Interval history: Patient seen and examined. Awakens when spoke to, but falls asleep during the conversation/exam. Reports that he feels ok today with no complaints. Denies chest pain, dyspnea, cough, abdominal pain, N/V/D, dysuria, or leg pain/ swelling. - Constitutional Vitals: Temp Pulse Resp BP Pulse Ox 97.2 F L 60 15 112/80 95 10/03/16 06:50 10/03/16 06:50 10/03/16 06:50 10/03/16 06:50 10/03/16 06:50 General appearance: Present: cachectic, A&O X 1, pleasant, no acute distress. Absent: answers questions appropriately - Head Head exam: Present: atraumatic, normocephalic - Eye Eye exam: Present: conjuntiva pink, sclera anicteric - ENT ENT exam: Present: mucous membranes dry - Respiratory Respiratory exam: Present: decreased breath sounds. Absent: rales, rhonchi, wheezes - Cardiovascular Cardiovascular exam: Present: irregular rhythm. Absent: diastolic murmur, gallop, rubs, systolic murmur, tachycardia - GI/Abdominal GI/Abdominal exam: Present: distended, hypoactive bowel sounds. Absent: firm - Extremities Exam Extremities exam: Present: pedal edema, warm - Neurological Exam Neurological exam: Present: alert, altered Additional comments: Somnelent but arousable. Follows some commands. Internal Medicine: Result - Labs CBC & Chem 7: 10/03/16 01:21 10/03/16 01:21 Labs: Short CBC 10/03/16 Range/Units 01:21 WBC 4.5 (4.3-11.1) K/mcL Hgb 9.1 L (12.9-16.9) g/dL Hct 27.8 L (37.5-50.1) % Plt Count 59 L (140-400) K/mcL BMP 10/03/16 01:21 Sodium 133 L Potassium 4.0 Chloride 102 Carbon Dioxide 21 BUN 90 H Creatinine 3.35 H Glucose 126 H Calcium 9.2 Liver Function 10/03/16 Range/Units 01:21 Total Bilirubin 0.7 (0.2-1.2) mg/dL Direct Bilirubin 0.6 H (0.0-0.5) mg/dL AST 15 (5-34) Units/L ALT 9 (0-55) Units/L Alkaline Phosphatase 40 (38-126) Units/L Albumin 3.1 L (3.5-5.0) g/dL - ABG Interpretation ABG results: ABG ABG pH 7.32 pH Units (7.32-7.45) 09/29/16 14:54 ABG pCO2 37 mmHg (35-45) 09/29/16 14:54 ABG pO2 80 mmHg (85-104) L 09/29/16 14:54 ABG O2 Saturation 95 % (95-98) 09/29/16 14:54 PT/INR, D-dimer PT 29.3 Seconds (9.4-12.1) H 10/03/16 01:21 Consult Discharge Plan - Plan Referrals: Sunil Duong DO [Primary Care Provider] - <Gregorio Sanches H - Last Filed: 10/03/16 16:08> Date of Encounter: 10/03/16 - Constitutional Vitals: Temp Pulse Resp BP Pulse Ox 97.2 F L 60 15 112/80 95 10/03/16 06:50 10/03/16 06:50 10/03/16 06:50 10/03/16 06:50 10/03/16 06:50 Internal Medicine: Result - Labs CBC & Chem 7: 10/03/16 01:21 10/03/16 01:21 Labs: Short CBC 10/03/16 Range/Units 01:21 WBC 4.5 (4.3-11.1) K/mcL Hgb 9.1 L (12.9-16.9) g/dL Hct 27.8 L (37.5-50.1) % Plt Count 59 L (140-400) K/mcL BMP 10/03/16 01:21 Sodium 133 L Potassium 4.0 Chloride 102 Carbon Dioxide 21 BUN 90 H Creatinine 3.35 H Glucose 126 H Calcium 9.2 Liver Function 10/03/16 Range/Units 01:21 Total Bilirubin 0.7 (0.2-1.2) mg/dL Direct Bilirubin 0.6 H (0.0-0.5) mg/dL AST 15 (5-34) Units/L ALT 9 (0-55) Units/L Alkaline Phosphatase 40 (38-126) Units/L Albumin 3.1 L (3.5-5.0) g/dL - ABG Interpretation ABG results: ABG ABG pH 7.32 pH Units (7.32-7.45) 09/29/16 14:54 ABG pCO2 37 mmHg (35-45) 09/29/16 14:54 ABG pO2 80 mmHg (85-104) L 09/29/16 14:54 ABG O2 Saturation 95 % (95-98) 09/29/16 14:54 PT/INR, D-dimer PT 29.3 Seconds (9.4-12.1) H 10/03/16 01:21 - Attending Attestation Acute encephaloathy likely multifactorial, possible embolic etiology due to atrial thrombus CT showed left phenoid sinusitis and mastoiditis. continue Levaquin INR therapeutic, added ASA I examined this patient and my medical decision-making was reviewed with the Resident Physician. I agree with the documented findings, disposition and treatment plan as described except to the extent set forth below.
[2016-10-03] MEDS ORDERED: *HR* Warfarin 1 MG TABLET PO ONE (18:00)
[2016-10-04] MEDS: Furosemide 40 MG/4 ML VIAL IVP SCH (01:27)
[2016-10-04 05:20] LABS: Hematocrit 27.7 % (37.5-50.1); Hemoglobin 8.8 g/dL (12.9-16.9); Immature Platelets 8.4 % (1.1-6.1); Mean Corpuscular HGB Conc 31.8 g/dL (31.6-35.5); Mean Corpuscular Hemoglobin 25.6 pg (28.0-33.3); Mean Corpuscular Volume 80.5 fL (83.0-100.0); Red Blood Count 3.44 M/mcL (4.19-5.50)
[2016-10-04 05:26] LABS: INR 2.3; Prothrombin Time 25.4 Seconds (9.4-12.1)
[2016-10-04 05:33] LABS: Calcium 9.6 mg/dL (8.6-10.8); Potassium 3.8 mEq/L (3.5-4.5)
[2016-10-04 05:34] LABS: Platelet Count 58 K/mcL (140-400)
[2016-10-04] MEDS ORDERED: levoFLOXacin 750 MG TABLET PO SCH (09:00)
--- NOTE | 2016-10-04 09:34 | Palliative - Consult Note ---
Date of Encounter: 10/04/16 Time of Encounter: 08:45 - Assessment and Plan (1) Hypoglycemia Current Visit: No Status: Resolved Assessment and plan: Appears to have resolved, and is not presently contributing to the encephalopathy. Followed by hospitalist team. (2) Goals of care, counseling/discussion Current Visit: Yes Status: Acute Assessment and plan: he is currently a full code. Family is not present. My plan is to discuss further with them later on today. Will plan is for the patient to go to [facility] for further treatment. (3) Acute on chronic renal failure Current Visit: Yes Status: Acute Assessment and plan: Patient's GFR is remaining in the low 20s, renal replacement therapy not indicated at this time. Nephrology is following. Qualifiers: Acute renal failure type: unspecified Chronic kidney disease stage: stage 4 (severe) Qualified Code(s): N17.9 - Acute kidney failure, unspecified; N18.4 - Chronic kidney disease, stage 4 (severe) (4) Acute encephalopathy Current Visit: Yes Status: Acute Assessment and plan: This does appear to be multifactorial. This is being investigated by the hospitalist team. May be secondary to CVAs the patient has had CVAs in the past. Deftly has had a TIA since he has been here. High risk due to his atrial fibrillation. Plan to discuss further with family. Last bowel movement was on the , this may be a factor, however it has only been 2 days therefore I do not believe that it is thickened factor. Continue to watch bowel habits as well. Palliative-CN HPI - Data of Consult Patient: new to practice Requesting Physician: Gregorio Sanches Primary Care Provider: Sunil Duong, - Consult Narrative Palliative Care/Comfort Measures: Palliative care Reason for consult: [place] of care, CODE STATUS History of present illness: Mr. Anaya is a 76 year old male Who has been hospitalized since September 19 is brought in initially for altered mental status and since then has been noted to have encephalopathy which has been waxing and waning transient ischemic attacks chronic and acute renal failure and history of esophageal stricture. Agents mental status has already as noted waxed and waned. Urology has been unclear urine culture has been negative ABG and ammonia have been normal. It is been felt the patient did have a CVA, however an MRI cannot be accomplished agents pacemaker. Overall plan has been for the patient to be admitted to [facility] on discharge. He is felt to be a very poor candidate for any renal replacement therapy but has not required it up to now. At this time the patient has no complaints but is not oriented, no family is present. CC: Gregorio Sanches Past Med Surg Social Fam HX - Past Medical History Medical history: arthritis, atrial fibrillation, cardiomyopathy, CHF, COPD, coronary artery disease, diabetes, GERD, hyperlipidemia, hypertension, myocardial infarction, osteoporosis, renal disease Psychiatric history: anxiety, depression - Past Surgical History Surgical History: angioplasty/stent, pacemaker/AICD, other (Back surgery) - Social History Smoking Status: Former smoker Smokeless Tobacco Status: No Alcohol use: none Drug use: none - Family History Mother Living Status: Cause of : Cancer Hx Family Cancer: Yes (breast cancer) Hx Family Neurologic Disorders: Yes (Stroke) Father Living Status: Age at : 86 Cause of : Cancer Hx Family Cancer: Yes (Colon cancer) Medications and Allergies Atorvastatin [Lipitor] 40 mg PO HS 02/21/15 [History] Calcium Carbonate/Vitamin D2 [Oyster Shell Calcium-Vit D Tab] 1 tab PO BID 02/21 [History] Carvedilol [Coreg] 6.25 mg PO HS 02/21/15 [History] Furosemide [Lasix] 40 mg PO BID 02/21/15 [History] Lisinopril 2.5 mg PO DAILY 02/21/15 [History] Omeprazole [PriLOSEC] 40 mg PO DAILY 02/21/15 [History] Sertraline [Zoloft] 25 mg PO DAILY 02/21/15 [History] Spironolactone [Aldactone] 12.5 mg PO DAILY 02/21/15 [History] hydrALAZINE [HydrALAZINE] 50 mg PO TID 02/21/15 [History] Nitroglycerin 0.4 mg SL Q5MIN PRN #60 tab.subl 02/25/15 [Rx] Carvedilol 12.5 mg PO QAM 04/14/15 [History] Aspirin 81 mg PO DAILY #30 tab.chew 04/18/15 [Rx] Ferrous Sulfate 325 mg PO BIDWM #60 tablet 04/29/15 [Rx] Loperamide [Imodium] 2 mg PO QID PRN 12/12/15 [History] Albuterol Sulfate [Proair Hfa] 2 puff IH Q4H PRN 09/16/16 [History] Ammonium Lactate [Lac-Hydrin Five] 1 appl TP DAILY 09/16/16 [History] Ascorbate Calcium [Vitamin C] 500 mg PO DAILY 09/16/16 [History] Benzonatate [Tessalon] 100 mg PO TID PRN 09/16/16 [History] Calcitriol [Rocaltrol] 0.25 mcg PO DAILY 09/16/16 [History] Cyclobenzaprine HCl 5 mg PO BID 09/16/16 [History] Dicyclomine [Bentyl] 20 mg PO QID 09/16/16 [History] Doxazosin Mesylate [Cardura] 8 mg PO DAILY 09/16/16 [History] Ergocalciferol (VITAMIN D2) [Vitamin D2] 50,000 unit PO QMONTH 09/16/16 [History ] Escitalopram [Lexapro] 10 mg PO DAILY 09/16/16 [History] Guaifenesin [Tussin] 200 mg PO Q4H PRN 09/16/16 [History] HYDROcodone/Acet 5/325 mg [[place] 5-325 mg] 1 tab PO Q6H PRN 09/16/16 [History] Ondansetron HCl [Zofran] 4 mg PO TID PRN 09/16/16 [History] Pregabalin [Lyrica] 50 mg PO TID 09/16/16 [History] Sildenafil Citrate [Revatio] 20 mg PO TID 09/16/16 [History] 3 Allergy/AdvReac Type Severity Reaction Status Date / Time No Known Allergies Allergy Verified 09/29/15 10:02 ROS unobtainable: due to mental status Palliative Care-Exam - Constitutional Vitals: Temp Pulse Resp BP Pulse Ox 97.6 F 79 17 121/68 98 10/04/16 07:40 10/04/16 07:40 10/04/16 07:40 10/04/16 07:40 10/04/16 07:40 General appearance: Present: no acute distress - Head Head Exam: Present: atraumatic, normal inspection - Eye Eye exam: Present: normal appearance - Respiratory Respiratory exam: Present: decreased breath sounds - Cardiovascular Cardiovascular exam: Present: irregular rhythm - GI/Abdominal Exam GI/Abdominal exam: Present: normal bowel sounds, soft. Absent: tenderness - Extremities Exam Extremities exam: Present: pedal edema (Some edema is noted on the left leg. Right leg appears to be much improved, compared to what is listed in the medical record.) - Neurological Exam Neurological exam: Present: alert, altered, oriented X3 (He knows who he is, but cannot answer about place or time.) - Psychiatric Psychiatric exam: Absent: agitated, anxious - Skin Skin exam: Present: dry, warm Internal Medicine - CN: Reslt - Labs CBC & Chem 7: 10/04/16 04:37 10/04/16 04:37 Labs: Short CBC 10/04/16 Range/Units 04:37 WBC 3.9 L (4.3-11.1) K/mcL Hgb 8.8 L (12.9-16.9) g/dL Hct 27.7 L (37.5-50.1) % Plt Count 58 L (140-400) K/mcL BMP 10/04/16 04:37 Sodium 135 L Potassium 3.8 Chloride 102 Carbon Dioxide 23 BUN 84 H Creatinine 3.28 H Glucose 103 H Calcium 9.6 - ABG Interpretation ABG results: ABG ABG pH 7.32 pH Units (7.32-7.45) 09/29/16 14:54 ABG pCO2 37 mmHg (35-45) 09/29/16 14:54 ABG pO2 80 mmHg (85-104) L 09/29/16 14:54 ABG O2 Saturation 95 % (95-98) 09/29/16 14:54 PT/INR, D-dimer PT 25.4 Seconds (9.4-12.1) H 10/04/16 04:37 Consult Discharge Plan - Plan Referrals: Sunil Duong DO [Primary Care Provider] - Palliative Quality Palliative Quality: Screen for Code Status: Yes, Screen for Goals of Care: Yes, Screen for Pain: Yes, If Pain Regimen Started, Initiate Bowel Regimen: Yes, Screen for Nausea/Vomitting: Yes
--- NOTE | 2016-10-04 10:00 | Event Note ---
Date of Encounter: 10/04/16 Time of Encounter: 09:59 Attempting to reach medical power of assistant county attorney granddaughter Gracie Anaya, phone number [phone] is not accepting calls at this time. Continue to coordinate with social work to get in touch with family.
[2016-10-04] MEDS: Insulin LISPRO 300 UNITS/3 ML VIAL SQ SCH ×2 (10:31→12:48)
[2016-10-04] MEDS: Aspirin 81 MG TAB.CHEW PO SCH (10:53)
[2016-10-04] MEDS: Magnesium Oxide 400 MG TABLET PO SCH (10:53)
[2016-10-04] MEDS: Sildenafil Citrate 20 MG TABLET PO SCH (10:54)
[2016-10-04] MEDS: hydrALAZINE 25 MG TABLET PO SCH (10:54)
[2016-10-04] MEDS: Ammonium Lactate 30 APPL/225 GM BOTTLE TP SCH (10:55)
--- NOTE | 2016-10-04 11:22 | Nephrology Progress Note ---
Date of Encounter: 10/04/16 Time of Encounter: 10:10 - Assessment and Plan (1) Acute kidney injury Status: Acute With such stable renal function, will sign off for now, but please feel free to reconsult as needed. This pt is established with Dr. Bar in the clinic and should have a follow up arranged with her. Thank you. 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 He is very deconditioned and would not be an ideal dialysis candidate. Continue to follow a renal protective / supportive strategy. (2) Acute on chronic renal failure Status: Resolved KAY on CKD stage IIIb-IV. Qualifiers: Acute renal failure type: unspecified Chronic kidney disease stage: stage 4 (severe) Qualified Code(s): N17.9 - Acute kidney failure, unspecified; N18.4 - Chronic kidney disease, stage 4 (severe) (3) CKD (chronic kidney disease), stage III Status: Chronic Baseline CKD stage IIIb that also fluctuates near the beginnings of stage IV He follows with his primary supervisor stave cutting Dr. Bar. Subjective Principal diagnosis: KAY on CKD Interval history: Pt was seen and examined. He did not affirm N/V/D or any worsening of shortness of breath. He was somnolent during my exam and interview, which fully limited the subjective history collection. No family or friends at bedside. Objective - Vital Signs Vital signs: Vital Signs Temp Pulse Resp BP Pulse Ox 10/04/16 07:40 97.6 F 79 17 121/68 98 10/04/16 04:31 98.3 F 62 16 116/70 99 10/03/16 21:24 98.3 F 76 18 124/92 98 10/03/16 16:09 96.0 F L 62 15 114/77 97 Intake and Output 10/03/16 10/04/16 10/04/16 23:59 07:59 15:59 Intake Total 120 / 120 Output Total 350 / 350 600 / 600 Balance -230 / -230 -600 / -600 Intake: Oral 120 / 120 Output: Urine 250 / 250 Catheter 350 / 350 350 / 350 Other: Meal Dinner Percent of Meal Consumed 0% Weight 73.1 kg Blood Glucose* 111 109 Patient Weight 10/04/16 23:59 Weight 73.1 kg - General Appearance Exam: General appearance: Present: appears started age, cachectic, chronically ill, fatigue, frail EENT: Present: ATNC, mucous membranes moist Neck: Present: supple Respiratory: Present: clear Cardiology: Present: edema (trace to 1+ pedal edema b/l ), regular rate, normal S1, normal S2 Gastrointestinal: Present: normoactive bowel sounds, no tenderness, no guarding Integumentary: Present: warm and dry Neurologic: Present: no asterixis, confused, disoriented Musculoskeletal: Present: no cyanosis, no clubbing Psychiatric: Present: mood/affect appropriate, cooperative - Lab 10/04/16 04:37 10/04/16 04:37 Most recent lab results ABG pH 7.32 pH Units (7.32-7.45) 09/29/16 14:54 ABG pCO2 37 mmHg (35-45) 09/29/16 14:54 ABG pO2 80 mmHg (85-104) L 09/29/16 14:54 ABG HCO3 19.1 mEQ/L (21-27) L 09/29/16 14:54 ABG O2 Saturation 95 % (95-98) 09/29/16 14:54 Calcium 9.6 mg/dL (8.6-10.8) 10/04/16 04:37 Phosphorus 4.0 mg/dL (2.3-4.7) 09/17/16 03:33 Magnesium 1.5 mg/dL (1.6-2.6) L 09/27/16 03:47 Urine Sodium 27.0 mEq/L 09/24/16 09:50 - VTE Documentation of Mechanical Device: Graduated compression elastic hosiery Consult Discharge Plan - Plan Additional Instructions: Please follow-up with your primary care provider as scheduled. Please resume your home medications. Please take your Coumadin as directed. Please have your INR checked at the [facility] on . Please return for any new or worsening symptoms. Referrals: Sunil Duong DO [Primary Care Provider] - (Please schedule for 10/12/16) Prescriptions: Warfarin [Coumadin] 2 mg PO Q48H #30 tablet Warfarin [Coumadin] 1.5 mg PO Q48H #30 tablet
--- NOTE | 2016-10-04 11:34 | Event Note ---
Date of Encounter: 10/04/16 Time of Encounter: 11:32 will meet with family at [address] Duong hsi primary care DO who will meet with family as well
--- NOTE | 2016-10-04 11:36 | Discharge Summary ---
<Sunil Duong - Last Filed: 10/04/16 14:02> Date of Encounter: 10/04/16 Time of Encounter: 11:23 - Discharge Diagnosis (1) Acute encephalopathy Priority: Primary Status: Acute (2) TIA (transient ischemic attack) Priority: Primary Status: Acute Qualifiers: Transient cerebral ischemia type: unspecified Qualified Code(s): G45.9 - Transient cerebral ischemic attack, unspecified (3) Atrial thrombus Priority: Primary Status: Acute (4) Acute on chronic renal failure Priority: Secondary Status: Resolved Qualifiers: Acute renal failure type: unspecified Chronic kidney disease stage: stage 4 (severe) Qualified Code(s): N17.9 - Acute kidney failure, unspecified; N18.4 - Chronic kidney disease, stage 4 (severe) (5) Esophageal stricture Priority: Secondary Status: Resolved (6) CHF (congestive heart failure) Priority: Secondary Status: Chronic Qualifiers: Congestive heart failure type: systolic Congestive heart failure chronicity : chronic Qualified Code(s): I50.22 - Chronic systolic (congestive) heart failure (7) Diabetes Priority: Secondary Status: Chronic Qualifiers: Diabetes mellitus type: type 2 Diabetes mellitus complication status: with kidney complications Diabetes mellitus complication detail: with chronic kidney disease Diabetes mellitus chcf insulin use: unspecified manager long term care insulin use status Chronic kidney disease stage: stage 3 (moderate) Qualified Code(s): E11.22 - Type 2 diabetes mellitus with diabetic chronic kidney disease; N18.3 - Chronic kidney disease, stage 3 (moderate) - Discharge Medications Prescriptions: Warfarin [Coumadin] 2 mg PO Q48H #30 tablet Warfarin [Coumadin] 1.5 mg PO Q48H #30 tablet Home Medications: Atorvastatin [Lipitor] 40 mg PO HS 02/21/15 [History] Calcium Carbonate/Vitamin D2 [Oyster Shell Calcium-Vit D Tab] 1 tab PO BID 02/21 [History] Carvedilol [Coreg] 6.25 mg PO HS 02/21/15 [History] Furosemide [Lasix] 40 mg PO BID 02/21/15 [History] Lisinopril 2.5 mg PO DAILY 02/21/15 [History] Omeprazole [PriLOSEC] 40 mg PO DAILY 02/21/15 [History] Sertraline [Zoloft] 25 mg PO DAILY 02/21/15 [History] Spironolactone [Aldactone] 12.5 mg PO DAILY 02/21/15 [History] hydrALAZINE [HydrALAZINE] 50 mg PO TID 02/21/15 [History] Nitroglycerin 0.4 mg SL Q5MIN PRN #60 tab.subl 02/25/15 [Rx] Carvedilol 12.5 mg PO QAM 04/14/15 [History] Aspirin 81 mg PO DAILY #30 tab.chew 04/18/15 [Rx] Ferrous Sulfate 325 mg PO BIDWM #60 tablet 04/29/15 [Rx] Loperamide [Imodium] 2 mg PO QID PRN 12/12/15 [History] Albuterol Sulfate [Proair Hfa] 2 puff IH Q4H PRN 09/16/16 [History] Ammonium Lactate [Lac-Hydrin Five] 1 appl TP DAILY 09/16/16 [History] Ascorbate Calcium [Vitamin C] 500 mg PO DAILY 09/16/16 [History] Benzonatate [Tessalon] 100 mg PO TID PRN 09/16/16 [History] Calcitriol [Rocaltrol] 0.25 mcg PO DAILY 09/16/16 [History] Dicyclomine [Bentyl] 20 mg PO QID 09/16/16 [History] Doxazosin Mesylate [Cardura] 8 mg PO DAILY 09/16/16 [History] Ergocalciferol (VITAMIN D2) [Vitamin D2] 50,000 unit PO QMONTH 09/16/16 [History ] Escitalopram [Lexapro] 10 mg PO DAILY 09/16/16 [History] Guaifenesin [Tussin] 200 mg PO Q4H PRN 09/16/16 [History] HYDROcodone/Acet 5/325 mg [[place] 5-325 mg] 1 tab PO Q6H PRN 09/16/16 [History] Ondansetron HCl [Zofran] 4 mg PO TID PRN 09/16/16 [History] Pregabalin [Lyrica] 50 mg PO TID 09/16/16 [History] Sildenafil Citrate [Revatio] 20 mg PO TID 09/16/16 [History] Cyclobenzaprine HCl 5 mg PO BID PRN #0 10/04/16 [Rx] Magnesium Oxide [Mag-Ox] 400 mg PO DAILY tab 10/04/16 [Rx] Warfarin [Coumadin] 1.5 mg PO Q48H #30 tablet 10/04/16 [Rx] Warfarin [Coumadin] 2 mg PO Q48H #30 tablet 10/04/16 [Rx] Allergies/Adverse Reactions: 3 Allergy/AdvReac Type Severity Reaction Status Date / Time No Known Allergies Allergy Verified 09/29/15 10:02 Procedures/tests Complete & Pending: Procedures Performed prior 72 hours Category Date Time Status CT head/brain wo con [CT] Routine Cat Scan 10/01/16 15:57 Completed Date of admission: 09/19/16 12:53 Primary care physician: Sunil Duong, Consults: 09/23/16 09:20 Consult to Neurology [CONS] Routine Consulting Provider: Neurology [facility] Reason for Consult: AMS of unclear etiology. cannot get MRI 2/2 PPM Time Notified: 09:20 Call Completed: Yes 09/23/16 10:20 Consult to Physician [CONS] Routine Consulting Provider: John Lafleur Reason for Consult: possibly septic of unknown etiology Time Notified: 10:23 Call Completed: Yes 09/23/16 13:58 Consult to Cardiology [CONS] Routine Comment: Consulting Provider: Cardiology [facility] Reason for Consult: LA thrombus on echo. Suspect acute CVA. Please eval and advise Time Notified: 13:59 Call Completed: Yes Consult to Gastroenterology [CONS] Routine Consulting Provider: [facility] Reason for Consult: LA thrombus with suspicion for acute CVA. taken off AC for afib last year 2/2 gi bleed. is he appropriate for Coumadin? Time Notified: 13:58 Call Completed: Yes 09/25/16 10:01 Consult to Urology [CONS] Stat Consulting Provider: [facility] [place] [facility] Reason for Consult: Hematuria Call Completed: Yes 09/28/16 09:29 Consult to Nutrition [CONS] Routine Comment: Consulting Provider: NUTRITION Reason for Dietary Consult: MST Score 10/03/16 15:44 Consult to Palliative Care [CONS] Routine Comment: Consulting Provider: [facility] Reason for Consult: Patient health status has been declining. Admitted on 09/16. Encephalopathy of unclear etiology with waxing/waning mental status changes. 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 Time Notified: 15:50 Call Completed: No Discharging clinician: Sunil Duong Anticipated date of discharge: 10/04/16 - Patient Status Disposition: Transfer SNF Condition: Good Functional capacity at discharge: uses cane/walker Overall status at discharge: patient is progressing back to baseline - Ambulatory Orders Ambulatory Orders: Prothrombin Time INR [COAG] Time Frame: 10/07/16, Location: N/A - Discharge Instructions Follow Up With: Sunil Duong, DO [Primary Care Provider] - (Please schedule for 10/12/16) Additional Instructions: Please follow-up with your primary care provider as scheduled. Please resume your home medications. Please take your Coumadin as directed. Please have your INR checked at the residential on . Please return for any new or worsening symptoms. - Diet and Activity Activity: as per physical therapy Diet: other (Mechanically altered, gluten-free) Interval History: Patient seen and examined at bedside. He still seems somewhat confused but stable from last week. He has no complaints at this time. Hospital course: Mr. Anaya is a 76 year old male with history of atrial fibrillation, GI bleed , Schatzki's ring presented from his PCPs office with profound weakness in the setting of difficulty swallowing for 3 weeks. Patient was admitted for generalized weakness and underwent endoscopy to dilate his Schatzki's ring. Patient was also found to be in KAY. Patient seemed to be gradually improving, unfortunately on day 7 of his hospitalization he had an acute change in status. Workup revealed a left atrial appendage thrombus. There are no changes on the head CT and unfortunately the patient was unable to have an MRI due to pacemaker. Shortly after this acute event the patient's mental status did improve however he remained acutely encephalopathic and throughout the rest of his hospitalization his mental status waxed and waned but unfortunately never returned to baseline. Patient had repeated evaluations into his altered mental status including multiple head CTs, ABGs, ammonia levels which did not reveal a cause for his encephalopathy. Patient's kidney function stabilized and his urine output improved. At the time of discharge the patient's altered mental status is presumed to be an acute CVA, unfortunately this cannot be confirmed due to the patient's inability to get an MRI. Patient has remained somewhat confused but is alert and responsive. He is eating small meals appropriately and continues to work with physical therapy. Patient will be discharged to the ECF in stable condition. - Time Spent with Patient Total time spent providing and/or coordinating discharge services: 40 minutes - Constitutional Vitals: Temp Pulse Resp BP Pulse Ox 97.6 F 79 17 121/68 98 10/04/16 07:40 10/04/16 07:40 10/04/16 07:40 10/04/16 07:40 10/04/16 07:40 General appearance: Present: cachectic, A&O X 1, pleasant, no acute distress. Absent: answers questions appropriately - Respiratory Respiratory exam: Present: decreased breath sounds. Absent: rales, rhonchi, wheezes - Cardiovascular Cardiovascular exam: Present: irregular rhythm. Absent: gallop, rubs, systolic murmur - GI/Abdominal GI/Abdominal exam: Present: distended (mild), normal bowel sounds, soft. Absent : tenderness - Extremities Exam Extremities exam: Present: pedal edema (1+), warm. Absent: tenderness - Neurological Exam Neurological exam: Present: alert, altered, CN II-XII intact, no focal deficits. Absent: oriented X3, speech deficit - VTE Documentation of Mechanical Device: Graduated compression elastic hosiery <Gregorio Sanches - Last Filed: 10/04/16 15:00> Date of Encounter: 10/04/16 Procedures/tests Complete & Pending: Procedures Performed prior 72 hours Category Date Time Status CT head/brain wo con [CT] Routine Cat Scan 10/01/16 15:57 Completed Date of admission: 09/19/16 12:53 Primary care physician: Sunil Duong, Consults: 09/23/16 09:20 Consult to Neurology [CONS] Routine Consulting Provider: Neu[facility] Reason for Consult: AMS of unclear etiology. cannot get MRI 2/2 PPM Time Notified: 09:20 Call Completed: Yes 09/23/16 10:20 Consult to Physician [CONS] Routine Consulting Provider: John Lafleur Reason for Consult: possibly septic of unknown etiology Time Notified: 10:23 Call Completed: Yes 09/23/16 13:58 Consult to Cardiology [CONS] Routine Comment: Consulting Provider: [facility] [place] [facility] Reason for Consult: LA thrombus on echo. Suspect acute CVA. Please eval and advise Time Notified: 13:59 Call Completed: Yes Consult to Gastroenterology [CONS] Routine Consulting Provider: [facility] Reason for Consult: LA thrombus with suspicion for acute CVA. taken off AC for afib last year 2/2 gi bleed. is he appropriate for Coumadin? Time Notified: 13:58 Call Completed: Yes 09/25/16 10:01 Consult to Urology [CONS] Stat Consulting Provider: U[facility] Reason for Consult: Hematuria Call Completed: Yes 09/28/16 09:29 Consult to Nutrition [CONS] Routine Comment: Consulting Provider: NUTRITION Reason for Dietary Consult: MST Score 10/03/16 15:44 Consult to Palliative Care [CONS] Routine Comment: Consulting Provider: [facility] [place] [facility] Reason for Consult: Patient health status has been declining. Admitted on 09/16. Encephalopathy of unclear etiology with waxing/waning mental status changes. 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 Time Notified: 15:50 Call Completed: No Hospital course: Mr. Anaya is a 76 year old male - Time Spent with Patient Total time spent providing and/or coordinating discharge services: - Constitutional Vitals: Temp Pulse Resp BP Pulse Ox 97.6 F 59 16 111/67 98 10/04/16 11:56 10/04/16 11:56 10/04/16 11:56 10/04/16 11:56 10/04/16 11:56 - Attending Attestation Acute encephaloathy likely multifactorial, possible embolic etiology due to atrial thrombus Unable to perform MRI CT showed left phenoid sinusitis and mastoiditis, likely not the cause of his confusion. received Levaquin INR therapeutic, added ASA I examined this patient and my medical decision-making was reviewed with the Resident Physician. I agree with the documented findings, disposition and treatment plan as described except to the extent set forth below.
--- NOTE | 2016-10-04 13:31 | Physician Discharge Referral ---
<Sunil Duong - Last Filed: 10/04/16 14:03> ExtendedCare Referral Info Transfer To: [facility] Provider in Charge: Sunil Duong Provider in Charge after Transfer: PCP Institutional Level of Care: Skilled - Diagnosis (1) Acute encephalopathy Priority: Primary Status: Acute (2) TIA (transient ischemic attack) Priority: Primary Status: Acute (3) Atrial thrombus Priority: Primary Status: Acute (4) Acute on chronic renal failure Priority: Primary Status: Resolved (5) Esophageal stricture Priority: Secondary Status: Resolved (6) CHF (congestive heart failure) Priority: Secondary Status: Chronic (7) Diabetes Priority: Secondary Status: Chronic Prognosis: Fair Aware of Diagnosis: Family Aware of Prognosis: Family - Transfer Medications Prescriptions: Warfarin [Coumadin] 2 mg PO Q48H #30 tablet Warfarin [Coumadin] 1.5 mg PO Q48H #30 tablet Home Medications: Atorvastatin [Lipitor] 40 mg PO HS 02/21/15 [History] Calcium Carbonate/Vitamin D2 [Oyster Shell Calcium-Vit D Tab] 1 tab PO BID 02/21 [History] Carvedilol [Coreg] 6.25 mg PO HS 02/21/15 [History] Furosemide [Lasix] 40 mg PO BID 02/21/15 [History] Lisinopril 2.5 mg PO DAILY 02/21/15 [History] Omeprazole [PriLOSEC] 40 mg PO DAILY 02/21/15 [History] Sertraline [Zoloft] 25 mg PO DAILY 02/21/15 [History] Spironolactone [Aldactone] 12.5 mg PO DAILY 02/21/15 [History] hydrALAZINE [HydrALAZINE] 50 mg PO TID 02/21/15 [History] Nitroglycerin 0.4 mg SL Q5MIN PRN #60 tab.subl 02/25/15 [Rx] Carvedilol 12.5 mg PO QAM 04/14/15 [History] Aspirin 81 mg PO DAILY #30 tab.chew 04/18/15 [Rx] Ferrous Sulfate 325 mg PO BIDWM #60 tablet 04/29/15 [Rx] Loperamide [Imodium] 2 mg PO QID PRN 12/12/15 [History] Albuterol Sulfate [Proair Hfa] 2 puff IH Q4H PRN 09/16/16 [History] Ammonium Lactate [Lac-Hydrin Five] 1 appl TP DAILY 09/16/16 [History] Ascorbate Calcium [Vitamin C] 500 mg PO DAILY 09/16/16 [History] Benzonatate [Tessalon] 100 mg PO TID PRN 09/16/16 [History] Calcitriol [Rocaltrol] 0.25 mcg PO DAILY 09/16/16 [History] Dicyclomine [Bentyl] 20 mg PO QID 09/16/16 [History] Doxazosin Mesylate [Cardura] 8 mg PO DAILY 09/16/16 [History] Ergocalciferol (VITAMIN D2) [Vitamin D2] 50,000 unit PO QMONTH 09/16/16 [History ] Escitalopram [Lexapro] 10 mg PO DAILY 09/16/16 [History] Guaifenesin [Tussin] 200 mg PO Q4H PRN 09/16/16 [History] HYDROcodone/Acet 5/325 mg [[place] 5-325 mg] 1 tab PO Q6H PRN 09/16/16 [History] Ondansetron HCl [Zofran] 4 mg PO TID PRN 09/16/16 [History] Pregabalin [Lyrica] 50 mg PO TID 09/16/16 [History] Sildenafil Citrate [Revatio] 20 mg PO TID 09/16/16 [History] Cyclobenzaprine HCl 5 mg PO BID PRN #0 10/04/16 [Rx] Magnesium Oxide [Mag-Ox] 400 mg PO DAILY tab 10/04/16 [Rx] Warfarin [Coumadin] 1.5 mg PO Q48H #30 tablet 10/04/16 [Rx] Warfarin [Coumadin] 2 mg PO Q48H #30 tablet 10/04/16 [Rx] Allergies/Adverse Reactions: 3 Allergy/AdvReac Type Severity Reaction Status Date / Time No Known Allergies Allergy Verified 09/29/15 10:02 - Respiratory Orders None Smoking Cessation: Smoking cessation has been advised. For more information, call the [place] Tobacco Quit Line at 1-843-AYXR-NOW. - Lab Orders Lab Orders: Other (include drug levels w/frequency) (PT/INR on October 07 and every 2 weeks after) - Ancillary Orders May use pressure relief devices daily prn - Advance Directives Power of Sales Supervisor: Yes Code Status: Full Code - Mobility Orders Ambulate (with assist) - Rehabiliation Orders Rehab Potential: Fair Rehab Orders: Evaluation for Physical Therapy, Evaluation for Occupational Therapy, Evaluation for Speech Therapy - Treatments Skin tear care topically daily PRN per policy, May check for fecal impaction rectally daily PRN List/Other: Wound care daily. Rotate patient q4 hours - Diet Orders Mechanical Soft (Gluten free) House Supplement per Dietary: Ensure twice a day CERTIFICATION: I certify that the transfer of the above named patient to an Extended Care Facility is necessary for the continuing treatment of the diagnosis listed. The above information is true and accurate reflection of patient's current condition. Confidential - Redisclosure prohibited without a patient's written consent. <Gregorio Sanches - Last Filed: 10/04/16 15:01> - Respiratory Orders Smoking Cessation: Smoking cessation has been advised. For more information, call the [place] Tobacco Quit Line at 2-690-HPTV-NOW. CERTIFICATION: I certify that the transfer of the above named patient to an Extended Care Facility is necessary for the continuing treatment of the diagnosis listed. The above information is true and accurate reflection of patient's current condition. Confidential - Redisclosure prohibited without a patient's written consent.
--- NOTE | 2016-10-04 14:02 | Event Note ---
Date of Encounter: 10/04/16 Time of Encounter: 14:01 Met with patient and patient's grandson who is his medical power of health care attorney. Per the grandson the patient is at his baseline mental status, and able to make decisions. he listened patiently to description of CODE STATUS, and decided on full code. This was witnessed by myself, Dr. Chin, chaplain Omar Rodriguez, and Neeraj Coates outreach and education social worker. Status we will therefore remain full. Patient be discharged later today.
[2016-10-04 15:36] VITALS: BP 113/66
[2016-10-04] MEDS ORDERED: *HR* Warfarin 3 MG TABLET PO ONE (18:00)
[2016-10-04] MEDS ORDERED: Sennosides/Docusate Sodium TABLET PO SCH (21:00)
== END 2016-10-04 16:33 | DRG 391 ==
LOC: 3BNU 16:07 → EMEROO 16:07 → 3BNU 20:49 → SUATTDRO 09-19 12:53 → 2NENU 09-23 17:46
PROVIDERS: ADMIT Registered Nurse; ATTEND Internal Medicine
PROC: ENDOEDS (2016-09-17 18:00)

== ENCOUNTER 2016-10-22 15:43 | Inpatient (IN) ==
--- NOTE | 2016-10-22 16:11 | Emergency Department Note ---
Disposition Clinical Impression: Hyperkalemia, Pleural effusion Anemia Qualifiers: Anemia type: unspecified type Qualified Code(s): D64.9 - Anemia, unspecified GI bleed Qualifiers: GI bleed type/associated pathology: unspecified gastrointestinal hemorrhage type Qualified Code(s): K92.2 - Gastrointestinal hemorrhage, unspecified Ascites Qualifiers: Ascites type: other type Qualified Code(s): R18.8 - Other ascites Disposition: Admitted As Inpatient Condition: Good Time of Disposition: 19:00 Male Urogenital HPI - General Chief complaint: ED Urogenital-Male Stated complaint: "Kidney failure" Time Seen by Provider: 10/22/16 15:47 Source: patient, EMS Mode of arrival: EMS Limitations: altered mental status Nursing Notes Reviewed: Yes Vital Signs Reviewed: Yes - History of Present Illness HPI Narrative: 76 year old male who appears to be slightly confused presents to the eD via EMS from Dr. nguyen office. He has a chronic bobo catheter and has noticed increased hematuria and blood in his stools. He is currently on coumadin although he is unsure why he is on coumadin. Patent is a poor historian. EMS states that Dr. Rodriguez tried to do a direct admit for patient due to low hgb alothough he could not because there was no urological reasons for admission and thus sent him to the ED for evaluation and likley admission. Magaly states that he is unsure why he is here but he has had inceased blood in his urine in addition to abdominal pain and increasd bloody stools. NO family at bedside for added history. - Related Data Home Medications Medication Instructions Recorded Confirmed Atorvastatin [Lipitor] 40 mg PO HS 02/21/15 10/22/16 Calcium Carbonate/Vitamin D2 1 tab PO BID 02/21/15 10/22/16 [Oyster Shell Calcium-Vit D Tab] Carvedilol [Coreg] 6.25 mg PO HS 02/21/15 10/22/16 Furosemide [Lasix] 40 mg PO BID 02/21/15 10/22/16 Spironolactone [Aldactone] 12.5 mg PO DAILY 02/21/15 10/22/16 hydrALAZINE [HydrALAZINE] 50 mg PO TID 02/21/15 10/22/16 Carvedilol 12.5 mg PO QAM 04/14/15 10/22/16 Albuterol Sulfate [Proair Hfa] 2 puff IH Q4H PRN 09/16/16 10/22/16 Ascorbate Calcium [Vitamin C] 500 mg PO DAILY 09/16/16 10/22/16 Benzonatate [Tessalon] 100 mg PO TID PRN 09/16/16 10/22/16 Calcitriol [Rocaltrol] 0.25 mcg PO DAILY 09/16/16 10/22/16 Doxazosin Mesylate [Cardura] 8 mg PO DAILY 09/16/16 10/22/16 Ergocalciferol (VITAMIN D2) 50,000 unit PO QMONTH 09/16/16 10/22/16 [Vitamin D2] Escitalopram [Lexapro] 10 mg PO DAILY 09/16/16 10/22/16 Ondansetron HCl [Zofran] 4 mg PO TID PRN 09/16/16 10/22/16 Pregabalin [Lyrica] 50 mg PO TID 09/16/16 10/22/16 Sildenafil Citrate [Revatio] 20 mg PO TID 09/16/16 10/22/16 Dicyclomine [Bentyl] 20 mg PO QID 10/22/16 10/22/16 Omeprazole [PriLOSEC] 20 mg PO DAILY 10/22/16 10/22/16 Sertraline [Zoloft] 25 mg PO DAILY 10/22/16 10/22/16 Sulfamethoxazole/Trimeth DS 1 each PO BID 10/22/16 10/22/16 [Bactrim DS] guaiFENesin [Guaifenesin] 200 mg PO Q4H PRN 10/22/16 10/22/16 metroNIDAZOLE [Flagyl] 500 mg PO TID 10/22/16 10/22/16 Previous Rx's Medication Instructions Recorded Nitroglycerin 0.4 mg SL Q5MIN PRN #60 tab.subl 02/25/15 Aspirin 81 mg PO DAILY #30 tab.chew 04/18/15 Ferrous Sulfate 325 mg PO BIDWM #60 tablet 04/29/15 Cyclobenzaprine HCl 5 mg PO BID PRN #0 10/04/16 Magnesium Oxide [Mag-Ox] 400 mg PO DAILY tab 10/04/16 HYDROcodone/Acet 5/325 mg [[place] 1 tab PO Q6H PRN #6 10/15/16 5-325 mg] Allergies Allergy/AdvReac Type Severity Reaction Status Date / Time No Known Allergies Allergy Verified 10/07/16 21:40 Constitutional: Reports: weakness. Denies: fever, chills, weight change Eyes: Denies: eye pain, eye discharge, vision change ENT ED: Denies: ear pain, throat pain, dental pain, hearing loss, epistaxis, congestion, dysphagia Cardiovascular: Denies: chest pain, palpitations, dyspnea on exertion, edema, syncope Respiratory: Denies: cough, dyspnea, wheezes, hemoptysis, stridor Gastrointestinal: Reports: abdominal pain, melena. Denies: nausea, vomiting, diarrhea, constipation, hematemesis, hematochezia Genitourinary: Reports: hematuria. Denies: urgency, dysuria, frequency Musculoskeletal: Denies: back pain, neck pain, arthralgia, myalgia Integumentary: Denies: rash, abrasion, lesions Neurological: Denies: headache, weakness, numbness, paresthesias, confusion, abnormal gait, vertigo Psychiatric: Denies: anxiety, depression, suicidal thoughts, homicidal thoughts , auditory hallucinations, visual hallucinations Endocrine: Denies: fatigue Hematological/Lymphatic: Denies: easy bleeding, easy bruising Allergic/Immunologic: Denies: facial swelling, urticaria Past Medical History - Past Medical History Medical history: Reports: arthritis, atrial fibrillation, cardiomyopathy, CHF, COPD, coronary artery disease, diabetes, GERD, hyperlipidemia, hypertension, myocardial infarction, osteoporosis, renal disease Surgical history: Reports: angioplasty/stent, pacemaker/AICD, other Psychiatric history: Reports: anxiety, depression - Social History Smoking Status: Former smoker Smokeless Tobacco Status: No Alcohol use: Reports: none Drug use: Reports: none Physical Exam - General Limitations: altered mental status General appearance: alert, in no apparent distress - Head Head exam: normal inspection - Eye Eye exam: Present: normal appearance - ENT ENT exam: normal exam, normal oropharynx, mucous membranes moist, normal external ear exam - Neck Neck exam: Present: normal inspection, full ROM, trachea midline - Chest Chest inspection: Present: normal inspection, symmetric chest wall rise - Respiratory Respiratory exam: Present: normal lung sounds bilaterally - Cardiovascular Cardiovascular exam: Present: regular rate, normal rhythm, normal heart sounds - Abdominal Exam Abdominal Exam: Present: soft, Non-Tender, normal bowel sounds, other (chronic bobo catheter). Absent: distention, guarding, rebound, rigidity, trauma, Farfan's sign, Rovsing's sign, tenderness at McBurney's Point, mass, bruit, pulsatile mass - Rectal Exam Rectal exam: Present: normal inspection, normal rectal tone, heme (+) stool, bloody stool - Male exam: Present: normal inspection, other (chronic bobo catheter) - Extremities Exam Extremities exam: Present: normal inspection, full ROM - Back Exam Back exam: Present: normal inspection, full ROM - Neurological Exam Neurological exam: Present: alert, oriented X3, normal gait - Psychiatric Psychiatric exam: Present: normal affect, normal mood - Skin Skin exam: Present: warm, dry, intact, normal color Course Course Narrative: we will do a abdominla pain workup in addition to tyep and screen for possible tranfusion and evalute his INR for vitamin K treatment for coumadin. - Reevaluation(s) Reevaluation #1: magaly has a hgb of 7.7, we will transfuse 1 unit at this time He also has hyperkalemia. hyperkaelmia treatment started, without kayexalate due to bloody stools. Time: 18:26 - Consultations Consultation #1: discusssed case with Dr. Cordova and he accepts magaly to his service Time: 19:00 Vital Signs Temperature 97.8 F 10/22/16 15:50 Pulse Rate 63 10/22/16 15:50 Respiratory Rate 16 10/22/16 15:50 Blood Pressure 117/74 10/22/16 15:50 O2 Sat by Pulse Oximetry 100 10/22/16 15:50 Temperature 0 F L 10/22/16 19:38 Pulse Rate 63 10/22/16 18:30 Respiratory Rate 18 10/22/16 19:38 Blood Pressure 118/72 10/22/16 19:38 O2 Sat by Pulse Oximetry 100 10/22/16 18:30 Oxygen Delivery Oxygen Delivery Room Air Urogenital-Male - Lab Data Result diagrams: 10/22/16 17:29 10/22/16 17:29 Lab Results 10/22/16 10/22/16 10/22/16 Range/Units 17:29 17:29 17:29 WBC 2.4 L (4.3-11.1) K/mcL RBC 2.75 L (4.19-5.50) M/mcL Hgb 7.7 L (12.9-16.9) g/dL Hct 23.7 L (37.5-50.1) % MCV 86.2 (83.0-100.0) fL MCH 28.0 (28.0-33.3) pg MCHC 32.5 (31.6-35.5) g/dL RDW 18.6 H (11.5-14.5) % Plt Count 118 L (140-400) K/mcL MPV 10.8 (9.4-12.4) fL Immature Gran % 0.8 (0-4) % Seg Neutrophils % 67.7 % Lymphocytes % 13.9 % Monocytes % 14.7 % Eosinophils % 2.5 % Basophils % 0.4 % Neutrophils # 1.6 (1.6-8.9) K/mcL Lymphocytes # 0.3 L (0.6-4.6) K/mcL Monocytes # 0.4 (0.0-1.3) K/mcL Eosinophils # 0.1 (0.0-0.6) K/mcL Basophils # 0.0 (0.0-0.2) K/mcL PT 12.8 H (9.4-12.1) Seconds INR 1.2 APTT 33.4 (26.0-36.0) Seconds Sodium 133 L (136-145) mEq/L Potassium 5.4 H (3.5-4.5) mEq/L Chloride 106 (98-109) mEq/L Carbon Dioxide 16 L (19-29) mEq/L BUN 77 H (8-26) mg/dL Creatinine 3.25 H (0.72-1.25) mg/dL Est GFR ( Amer) 22 L (> 60) Est GFR (Non-Af Amer) 19 L (> 60) BUN/Creatinine Ratio 24 (6-26) Glucose 114 H (70-99) mg/dL Calculated Osmolality 300 (280-300) Lactic Acid (0.5-2.2) mmol/L Calcium 8.7 (8.6-10.8) mg/dL Total Bilirubin 0.6 (0.2-1.2) mg/dL Direct Bilirubin 0.4 (0.0-0.5) mg/dL Indirect Bilirubin 0.2 (0.0-1.2) mg/dL AST 25 (5-34) Units/L ALT 20 (0-55) Units/L Alkaline Phosphatase 68 (38-126) Units/L Troponin I (0-0.03) ng/mL Serum Total Protein 6.4 (6.0-8.3) g/dL Albumin 2.7 L (3.5-5.0) g/dL Globulin 3.7 H (2.4-3.5) g/dL Albumin/Globulin Ratio 0.7 L (1.1-2.2) Amylase 49 (25-125) Units/L Lipase 20 (8-78) Units/L Blood Type Antibody Screen Crossmatch 10/22/16 10/22/16 10/22/16 Range/Units 17:29 17:29 17:29 WBC (4.3-11.1) K/mcL RBC (4.19-5.50) M/mcL Hgb (12.9-16.9) g/dL Hct (37.5-50.1) % MCV (83.0-100.0) fL MCH (28.0-33.3) pg MCHC (31.6-35.5) g/dL RDW (11.5-14.5) % Plt Count (140-400) K/mcL MPV (9.4-12.4) fL Immature Gran % (0-4) % Seg Neutrophils % % Lymphocytes % % Monocytes % % Eosinophils % % Basophils % % Neutrophils # (1.6-8.9) K/mcL Lymphocytes # (0.6-4.6) K/mcL Monocytes # (0.0-1.3) K/mcL Eosinophils # (0.0-0.6) K/mcL Basophils # (0.0-0.2) K/mcL PT (9.4-12.1) Seconds INR APTT (26.0-36.0) Seconds Sodium (136-145) mEq/L Potassium (3.5-4.5) mEq/L Chloride (98-109) mEq/L Carbon Dioxide (19-29) mEq/L BUN (8-26) mg/dL Creatinine (0.72-1.25) mg/dL Est GFR ( Amer) (> 60) Est GFR (Non-Af Amer) (> 60) BUN/Creatinine Ratio (6-26) Glucose (70-99) mg/dL Calculated Osmolality (280-300) Lactic Acid 0.7 (0.5-2.2) mmol/L Calcium (8.6-10.8) mg/dL Total Bilirubin (0.2-1.2) mg/dL Direct Bilirubin (0.0-0.5) mg/dL Indirect Bilirubin (0.0-1.2) mg/dL AST (5-34) Units/L ALT (0-55) Units/L Alkaline Phosphatase (38-126) Units/L Troponin I 0.04 H* (0-0.03) ng/mL Serum Total Protein (6.0-8.3) g/dL Albumin (3.5-5.0) g/dL Globulin (2.4-3.5) g/dL Albumin/Globulin Ratio (1.1-2.2) Amylase (25-125) Units/L Lipase (8-78) Units/L Blood Type B POSITIVE Antibody Screen NEGATIVE Crossmatch See Detail - EKG Data EKG attestation: Yes I reviewed and interpreted this EKG. EKG results narrative: electronically paced with rate of 63. NO STEMI. no change from 10/08/16. [id number]
[2016-10-22 17:41] LABS: Basophils % 0.4 %; Eosinophils # 0.1 K/mcL (0.0-0.6); Eosinophils % 2.5 %; Hematocrit 23.7 % (37.5-50.1); Immature Granulocytes % 0.8 % (0-4); Lymphocytes # 0.3 K/mcL (0.6-4.6); Lymphocytes % 13.9 %; Mean Corpuscular HGB Conc 32.5 g/dL (31.6-35.5); Mean Corpuscular Volume 86.2 fL (83.0-100.0); Mean Platelet Volume 10.8 fL (9.4-12.4); Monocytes # 0.4 K/mcL (0.0-1.3); Monocytes % 14.7 %; Neutrophils # 1.6 K/mcL (1.6-8.9); Platelet Count 118 K/mcL (140-400); Red Blood Count 2.75 M/mcL (4.19-5.50); Red Cell Distribution Width 18.6 % (11.5-14.5); Segmented Neutrophils % 67.7 %
[2016-10-22 17:47] LABS: INR 1.2; Prothrombin Time 12.8 Seconds (9.4-12.1)
[2016-10-22 17:50] LABS: Activated Partial Thrombo Time 33.4 Seconds (26.0-36.0)
[2016-10-22 17:58] LABS: Albumin 2.7 g/dL (3.5-5.0); Albumin/Globulin Ratio 0.7 (1.1-2.2); Bilirubin,Direct 0.4 mg/dL (0.0-0.5); Bilirubin,Indirect 0.2 mg/dL (0.0-1.2); Bilirubin,Total 0.6 mg/dL (0.2-1.2); Calcium 8.7 mg/dL (8.6-10.8); Globulin 3.7 g/dL (2.4-3.5); Potassium 5.4 mEq/L (3.5-4.5); Total Protein 6.4 g/dL (6.0-8.3)
[2016-10-22 18:00] LABS: Hemoglobin 7.7 g/dL (12.9-16.9)
[2016-10-22] MEDS ORDERED: Insulin Human Regular 5 UNIT, Sodium Bicarbonate 50 MEQ in D10% in Water 500 ML IVC ONE (18:24)
[2016-10-22] MEDS ORDERED: Ipratropium/Albuterol Neb 3 ML IH ONE (18:24)
[2016-10-22] MEDS ORDERED: Calcium Gluconate 1,000 MG in D5% in Water 100 ML IVPB ONE (19:19)
[2016-10-22] MEDS ORDERED: 0.9 % Sodium Chloride 500 ML IVC ONE (19:20)
[2016-10-22 19:35] LABS: Bilirubin,Urine Negative (Negative); Blood,Urine Large (Negative); Clarity,Urine Cloudy (Clear); Color,Urine Red (Yellow); Glucose,Urine (UA) Normal (Normal); Ketones,Urine Negative (Negative); Leukocyte Esterase,Urine Trace (Negative); Nitrite,Urine Negative (Negative); Protein,Urine 100 mg/dL (Neg-Trace); Specific Gravity,Urine 1.014 (1.010-1.025); Urobilinogen,Urine Normal (Normal)
[2016-10-22 19:42] LABS: Bacteria,Urine None Seen per hpf (None-Few); Hyaline Casts,Urine None Seen per lpf (None-Few); RBC,Urine TNTC per hpf (0-3); Squamous Epithelial Cell,Urine None Seen per lpf (None-Few)
[2016-10-22] MEDS ORDERED: Naloxone 0.4 MG/ML INJ IVP PRN (20:36)
[2016-10-22] MEDS ORDERED: Ondansetron 4 MG/2 ML VIAL IVP PRN (20:36)
[2016-10-22] MEDS ORDERED: Acetaminophen 325 MG TABLET PO PRN (20:36)
[2016-10-22] MEDS ORDERED: *HR* HYDROcodone/Acet 5/325 mg TABLET PO PRN (20:39)
[2016-10-22] MEDS ORDERED: GuaiFENesin Liq 200 MG/10 ML UDC PO PRN (20:39)
[2016-10-22] MEDS ORDERED: Benzonatate 100 MG CAPSULE PO PRN (20:39)
[2016-10-22] MEDS ORDERED: Sildenafil Citrate 20 MG TABLET PO SCH (21:00)
[2016-10-22] MEDS ORDERED: Sulfamethoxazole/Trimeth DS 1 EACH TABLET PO SCH ×2 (21:00→21:15)
--- NOTE | 2016-10-22 21:20 | Event Note ---
Date of Encounter: 10/22/16 Time of Encounter: 21:19 Patient seen and examined with nurse practitioner. Agree with assessment and plan
--- NOTE | 2016-10-22 21:50 | Internal Med History&Physical ---
Date of Encounter: 10/22/16 Time of Encounter: 21:44 Assessment and Plan (1) GI bleed Current visit: Yes Status: Acute Patient with anemia with Hgb of 7.7 down from 8.6 on discharge 1 week ago. During his last admission he had GI bleed requiring multiple transfusions and bleeding location was not able to be identified. Coumadin was stopped and H/H stabilized, patient was sent to SNF. Patient reporting black stools, but he is also on iron. He does have hematuria. Hold aspirin Check FOB Transfuse 1 u Packed RBCs Protonix drip Consult GI Qualifiers: GI bleed type/associated pathology: unspecified gastrointestinal hemorrhage type Qualified Code(s): K92.2 - Gastrointestinal hemorrhage, unspecified (2) KAY (acute kidney injury) Current visit: Yes Status: Acute Creatinine of 3.25, up from 2.54 at discharge 1 week ago. Patient follows with Dr. Bar as an outpatient. CT shows bilateral renal atrophy. UA consistent with hematuria, but not infection. Giving lasix for anasarca and bilateral pleural effusions. Avoid NSAIDs and nephrotoxins. Check chemistry daily and consider consult to nephrology. (3) Hematuria Current visit: Yes Status: Acute Patient with long-standing indwelling bobo catheter due to BPS. He has breakdown of the penile meatus, present on admission. He also has gross hematuria. UA consistent with hematuria but not infection. Patient is no longer on coumadin as of last hospitalization and INR is normal at 1.2. Transfusing 1 unit of Packed RBCs for anemia. Consider consult to urology. Qualifiers: Hematuria type: gross Qualified Code(s): R31.0 - Gross hematuria (4) Anemia Current visit: Yes Status: Acute Patient with Hgb of 7.7 down from 8.6 on discharge 1 week ago. He was previously admitted for GI bleed requiring multiple blood transfusions and source of bleeding was not identified. H/H stabilized and he was discharged to SNF. Patient with hematuria and reporting black stools. Check FOB Transfuse 1 unit packed RBCs GI consulted. Qualifiers: Anemia type: iron deficiency Iron deficiency anemia type: chronic blood loss Qualified Code(s): D50.0 - Iron deficiency anemia secondary to blood loss (chronic) (5) CHF (congestive heart failure), NYHA class III Current visit: Yes Status: Chronic Patient with history of CHF and cardiomyopathy. Last Echo shows EF of 20-25%. Today's CT shows anasarca with body wall edema, moderate bilateral pleural effusions and small-moderate ascites, mild cardiomegaly. Will give lasix 40mg IVP tonight and daily. Patient is NPO for GI bleed. Qualifiers: Congestive heart failure type: systolic Congestive heart failure chronicity : chronic Qualified Code(s): I50.22 - Chronic systolic (congestive) heart failure (6) CAD (coronary artery disease) Current visit: Yes Status: Chronic Patient with CAD with history of stent placement. Holding aspirin for suspected GI bleed. Continue beta kathrin and statin. Qualifiers: Coronary Disease-Associated Artery/Lesion type: douglas artery [place] vs. transplanted heart: douglas heart Associated angina: without angina Qualified Code(s): I25.10 - Atherosclerotic heart disease of douglas coronary artery without angina pectoris (7) Diabetic foot ulcer Current visit: Yes Status: Chronic Patient with chronic left foot ulcer. Wound care consulted. Qualifiers: Diabetic foot ulcer location: other Diabetes mellitus type: type 2 Laterality: left Non-pressure ulcer stage: limited to breakdown of skin Qualified Code(s): E11.621 - Type 2 diabetes mellitus with foot ulcer; L97.521 - Non-pressure chronic ulcer of other part of left foot limited to breakdown of skin (8) Type 2 diabetes mellitus Current visit: Yes Status: Chronic Patient is NPO check blood sugar Q6hr sliding scale correction dose Q6hr hypoglycemic protocol. Qualifiers: Diabetes mellitus complication status: with skin complications Diabetes mellitus complication detail: with foot ulcer Diabetes mellitus detention insulin use: with detention use Qualified Code(s): E11.621 - Type 2 diabetes mellitus with foot ulcer; L97.509 - Non-pressure chronic ulcer of other part of unspecified foot with unspecified severity; Z79.4 - jail (current) use of insulin (9) DVT prophylaxis Current visit: Yes Status: Acute Sequential compression devices pharmacologic prophylaxis contraindicated in suspected GI bleed. Internal Medicine - H&P: HPI Chief complaint: bleeding Admitted From: Emergency Dept Plans for Post Hospital Care: Transfer Halfway Facility History of present illness: Mr. Anaya is a 76 year old male with hypertension, hyperlipidemia, atrial fibrillation, cardiomyopathy with recent EF measured at 20-25% and pacemaker AICD placement, CHF, COPD, coronary artery disease status post stent placement, Severe pulmonary hypertension, stage IV chronic kidney disease, BPH, type 2 diabetes was sent to the emergency department today from his appointment with his urologist Dr. Rodriguez for anemia. Patient is a poor historian. Patient was discharged home week ago after hospitalization for GI bleed, requiring multiple blood transfusions, and his Coumadin was stopped. Prior to that he was hospitalized approximately 1 month ago and found to have atrial thrombus and was on Coumadin for that, as well as atrial fibrillation. Patient has long- standing indwelling Bobo catheter, with skin breakdown around the catheter, he has blood in his urine. Hemoglobin today was 7.7, down from previous of 8.6 one week ago. INR was normal at 1.2, given patient is no longer on Coumadin. Patient had elevated potassium of 5.4, AKA with BUN of 77 and creatinine of 3.25 up from previous creatinine value of 2.54 on discharge [address] of the chest, abdomen and pelvis was performed, which showed anasarca with body wall edema, moderate bilateral pleural effusions, small to moderate ascites, mild cardiomegaly, bilateral renal atrophy, bibasilar consolidations consistent with pneumonia versus atelectasis. Patient was given 5 units of insulin and sodium bicarbonate as well as calcium gluconate for his hyperkalemia, GI was consulted for suspected GI bleed, and 1 unit of packed red blood cells was ordered. On exam, patient alert and oriented, in no acute distress. Heart has regular rate and rhythm with systolic murmur. Abdomen and pelvis from lymphedema, mildly tender to palpation. Lungs with bilateral crackles in the bases. Patient has breakdown of the penile meatus and has a chronic left foot ulcer. Past Med Surg Social Fam HX - Past Medical History Medical history: arthritis, atrial fibrillation, cardiomyopathy, CHF, COPD, coronary artery disease, diabetes, GERD, hyperlipidemia, hypertension, myocardial infarction, osteoporosis, renal disease Psychiatric history: anxiety, depression - Past Surgical History Surgical History: angioplasty/stent, pacemaker/AICD, other - Social History Smoking Status: Former smoker Smokeless Tobacco Status: No Alcohol use: none Drug use: none - Family History Mother Living Status: Hx Family Cancer: Yes (breast cancer) Hx Family Neurologic Disorders: Yes (Stroke) Father Living Status: Hx Family Cancer: Yes (Colon cancer) Internal Medicine - H&P: Meds Atorvastatin [Lipitor] 40 mg PO HS 01/08/16 [History] Calcium Carbonate/Vitamin D2 [Oyster Shell Calcium-Vit D Tab] 1 tab PO BID 02/21 [History] Carvedilol [Coreg] 6.25 mg PO HS 02/21/15 [History] Furosemide [Lasix] 40 mg PO BID 02/21/15 [History] Spironolactone [Aldactone] 12.5 mg PO DAILY 02/21/15 [History] hydrALAZINE [HydrALAZINE] 50 mg PO TID 02/21/15 [History] Nitroglycerin 0.4 mg SL Q5MIN PRN #60 tab.subl 02/25/15 [Rx] Carvedilol 12.5 mg PO QAM 04/14/15 [History] Aspirin 81 mg PO DAILY #30 tab.chew 04/18/15 [Rx] Ferrous Sulfate 325 mg PO BIDWM #60 tablet 04/29/15 [Rx] Albuterol Sulfate [Proair Hfa] 2 puff IH Q4H PRN 09/16/16 [History] Ascorbate Calcium [Vitamin C] 500 mg PO DAILY 09/16/16 [History] Benzonatate [Tessalon] 100 mg PO TID PRN 09/16/16 [History] Calcitriol [Rocaltrol] 0.25 mcg PO DAILY 09/16/16 [History] Doxazosin Mesylate [Cardura] 8 mg PO DAILY 09/16/16 [History] Ergocalciferol (VITAMIN D2) [Vitamin D2] 50,000 unit PO QMONTH 09/16/16 [History ] Escitalopram [Lexapro] 10 mg PO DAILY 09/16/16 [History] Ondansetron HCl [Zofran] 4 mg PO TID PRN 09/16/16 [History] Pregabalin [Lyrica] 50 mg PO TID 09/16/16 [History] Sildenafil Citrate [Revatio] 20 mg PO TID 09/16/16 [History] Cyclobenzaprine HCl 5 mg PO BID PRN #0 10/04/16 [Rx] Magnesium Oxide [Mag-Ox] 400 mg PO DAILY tab 10/04/16 [Rx] HYDROcodone/Acet 5/325 mg [Harmony 5-325 mg] 1 tab PO Q6H PRN #6 10/15/16 [Rx] Dicyclomine [Bentyl] 20 mg PO QID 10/22/16 [History] Omeprazole [PriLOSEC] 20 mg PO DAILY 10/22/16 [History] Sertraline [Zoloft] 25 mg PO DAILY 10/22/16 [History] Sulfamethoxazole/Trimeth DS [Bactrim DS] 1 each PO BID 10/22/16 [History] guaiFENesin [Guaifenesin] 200 mg PO Q4H PRN 10/22/16 [History] metroNIDAZOLE [Flagyl] 500 mg PO TID 10/22/16 [History] 3 Allergy/AdvReac Type Severity Reaction Status Date / Time No Known Allergies Allergy Verified 10/07/16 21:40 All Systems PM: A 10-system review of systems was performed and is negative for pertinent findings except as documented above in the HPI. - Constitutional Constitutional: weakness, no chills, no fever(s), no night sweats - EENT Eyes: no change in vision, no discharge, no pain, no photophobia Ears: no ear discharge, no ear pain, no tinnitus Nose, mouth and throat: no dysphagia, no nasal discharge, no neck pain, no sore throat - Cardiovascular Cardiovascular ROS IM: edema, no chest pain, no diaphoresis, no dyspnea, no lightheadedness, no palpitations, no syncope - Respiratory Respiratory: no cough, no dyspnea, no wheezing, no excessive phlegm production - Gastrointestinal Gastrointestinal: no abdominal pain, no diarrhea, no hematemesis, no hematochezia, no melena, no nausea, no vomiting - Musculoskeletal Musculoskeletal ROS IM: no numbness, no tingling - Integumentary Integumentary IM: no rash, no unusual bruising - Neurological Neurological ROS: no confusion, no convulsions, no focal weakness, no numbness, no tingling, no tremor(s) - Hematologic/Lymphatic Hematologic/Lymphatic: no easy bruising - Constitutional Vitals: Temp Pulse Resp BP Pulse Ox 95.8 F L 64 16 121/73 94 10/22/16 21:15 10/22/16 20:55 10/22/16 20:55 10/22/16 20:55 10/22/16 20:55 General appearance: Present: A&O X 3, pleasant, no acute distress - Head Head exam: Present: atraumatic, normocephalic - Eye Eye exam: Present: PERRL, conjuntiva pink, sclera anicteric Pupils: Present: PERRL - Neck Neck exam general surgery: Present: supple, trachea midline. Absent: lymphadenopathy - Respiratory Respiratory exam: Present: rales (crackles in bilateral bases. ). Absent: accessory muscle use, rhonchi, wheezes - Cardiovascular Cardiovascular exam: Present: RRR, +S1, +S2, systolic murmur. Absent: diastolic murmur, gallop, rubs - GI/Abdominal GI/Abdominal exam: Present: firm, normal bowel sounds, tenderness, no peritoneal signs. Absent: distended - Extremities Exam Extremities exam: Present: pedal edema, warm, radial pulses palpable and symmetrical. Absent: calf tenderness, cyanotic - Neurological Exam Neurological exam: Present: CN II-XII intact, oriented X3, no focal deficits. Absent: facial droop, speech deficit - Skin Skin exam: Present: dry, intact Internal Med - H&P Results - Labs CBC & Chem 7: 10/22/16 17:29 10/22/16 17:29 Labs: Urine 10/22/16 Range/Units 19:20 Urine Color Red A (Yellow) Urine Clarity Cloudy A (Clear) Urine pH 6.0 (5.0-8.0) pH Units Ur Specific [place] 1.014 (1.010-1.025) Urine Protein 100 H (Neg-Trace) mg/dL Urine Glucose (UA) Normal (Normal) mg/dL All Lab Results (24 Hours) 10/22/16 10/22/16 10/22/16 Range/Units 17:29 17:29 17:29 WBC 2.4 L (4.3-11.1) K/mcL RBC 2.75 L (4.19-5.50) M/mcL Hgb 7.7 L (12.9-16.9) g/dL Hct 23.7 L (37.5-50.1) % MCV 86.2 (83.0-100.0) fL MCH 28.0 (28.0-33.3) pg MCHC 32.5 (31.6-35.5) g/dL RDW 18.6 H (11.5-14.5) % Plt Count 118 L (140-400) K/mcL MPV 10.8 (9.4-12.4) fL Immature Gran % 0.8 (0-4) % Seg Neutrophils % 67.7 % Lymphocytes % 13.9 % Monocytes % 14.7 % Eosinophils % 2.5 % Basophils % 0.4 % Neutrophils # 1.6 (1.6-8.9) K/mcL Lymphocytes # 0.3 L (0.6-4.6) K/mcL Monocytes # 0.4 (0.0-1.3) K/mcL Eosinophils # 0.1 (0.0-0.6) K/mcL Basophils # 0.0 (0.0-0.2) K/mcL PT 12.8 H (9.4-12.1) Seconds INR 1.2 APTT 33.4 (26.0-36.0) Seconds Sodium 133 L (136-145) mEq/L Potassium 5.4 H (3.5-4.5) mEq/L Chloride 106 (98-109) mEq/L Carbon Dioxide 16 L (19-29) mEq/L BUN 77 H (8-26) mg/dL Creatinine 3.25 H (0.72-1.25) mg/dL Est GFR ( Amer) 22 L (> 60) Est GFR (Non-Af Amer) 19 L (> 60) BUN/Creatinine Ratio 24 (6-26) Glucose 114 H (70-99) mg/dL Calculated Osmolality 300 (280-300) Lactic Acid (0.5-2.2) mmol/L Calcium 8.7 (8.6-10.8) mg/dL Total Bilirubin 0.6 (0.2-1.2) mg/dL Direct Bilirubin 0.4 (0.0-0.5) mg/dL Indirect Bilirubin 0.2 (0.0-1.2) mg/dL AST 25 (5-34) Units/L ALT 20 (0-55) Units/L Alkaline Phosphatase 68 (38-126) Units/L Troponin I (0-0.03) ng/mL Serum Total Protein 6.4 (6.0-8.3) g/dL Albumin 2.7 L (3.5-5.0) g/dL Globulin 3.7 H (2.4-3.5) g/dL Albumin/Globulin Ratio 0.7 L (1.1-2.2) Amylase 49 (25-125) Units/L Lipase 20 (8-78) Units/L Urine Color (Yellow) Urine Clarity (Clear) Urine pH (5.0-8.0) pH Units Ur Specific [place] (1.010-1.025) Urine Protein (Neg-Trace) mg/dL Urine Glucose (UA) (Normal) mg/dL Urine Ketones (Negative) mg/dL Urine Blood (Negative) Urine Nitrite (Negative) Urine Bilirubin (Negative) Urine Urobilinogen (Normal) mg/dL Ur Leukocyte Esterase (Negative) Urine Microscopic RBC (0-3) per hpf Urine Microscopic WBC (0-3) per hpf Ur Squamous Epith Cells (None-Few) per lpf Urine Bacteria (None-Few) per hpf Hyaline Casts (None-Few) per lpf Ur Culture Indicated? (NO) Blood Type Antibody Screen Crossmatch 10/22/16 10/22/16 10/22/16 Range/Units 17:29 17:29 17:29 WBC (4.3-11.1) K/mcL RBC (4.19-5.50) M/mcL Hgb (12.9-16.9) g/dL Hct (37.5-50.1) % MCV (83.0-100.0) fL MCH (28.0-33.3) pg MCHC (31.6-35.5) g/dL RDW (11.5-14.5) % Plt Count (140-400) K/mcL MPV (9.4-12.4) fL Immature Gran % (0-4) % Seg Neutrophils % % Lymphocytes % % Monocytes % % Eosinophils % % Basophils % % Neutrophils # (1.6-8.9) K/mcL Lymphocytes # (0.6-4.6) K/mcL Monocytes # (0.0-1.3) K/mcL Eosinophils # (0.0-0.6) K/mcL Basophils # (0.0-0.2) K/mcL PT (9.4-12.1) Seconds INR APTT (26.0-36.0) Seconds Sodium (136-145) mEq/L Potassium (3.5-4.5) mEq/L Chloride (98-109) mEq/L Carbon Dioxide (19-29) mEq/L BUN (8-26) mg/dL Creatinine (0.72-1.25) mg/dL Est GFR ( Amer) (> 60) Est GFR (Non-Af Amer) (> 60) BUN/Creatinine Ratio (6-26) Glucose (70-99) mg/dL Calculated Osmolality (280-300) Lactic Acid 0.7 (0.5-2.2) mmol/L Calcium (8.6-10.8) mg/dL Total Bilirubin (0.2-1.2) mg/dL Direct Bilirubin (0.0-0.5) mg/dL Indirect Bilirubin (0.0-1.2) mg/dL AST (5-34) Units/L ALT (0-55) Units/L Alkaline Phosphatase (38-126) Units/L Troponin I 0.04 H* (0-0.03) ng/mL Serum Total Protein (6.0-8.3) g/dL Albumin (3.5-5.0) g/dL Globulin (2.4-3.5) g/dL Albumin/Globulin Ratio (1.1-2.2) Amylase (25-125) Units/L Lipase (8-78) Units/L Urine Color (Yellow) Urine Clarity (Clear) Urine pH (5.0-8.0) pH Units Ur Specific [place] (1.010-1.025) Urine Protein (Neg-Trace) mg/dL Urine Glucose (UA) (Normal) mg/dL Urine Ketones (Negative) mg/dL Urine Blood (Negative) Urine Nitrite (Negative) Urine Bilirubin (Negative) Urine Urobilinogen (Normal) mg/dL Ur Leukocyte Esterase (Negative) Urine Microscopic RBC (0-3) per hpf Urine Microscopic WBC (0-3) per hpf Ur Squamous Epith Cells (None-Few) per lpf Urine Bacteria (None-Few) per hpf Hyaline Casts (None-Few) per lpf Ur Culture Indicated? (NO) Blood Type B POSITIVE Antibody Screen NEGATIVE Crossmatch See Detail 10/22/16 Range/Units 19:20 WBC (4.3-11.1) K/mcL RBC (4.19-5.50) M/mcL Hgb (12.9-16.9) g/dL Hct (37.5-50.1) % MCV (83.0-100.0) fL MCH (28.0-33.3) pg MCHC (31.6-35.5) g/dL RDW (11.5-14.5) % Plt Count (140-400) K/mcL MPV (9.4-12.4) fL Immature Gran % (0-4) % Seg Neutrophils % % Lymphocytes % % Monocytes % % Eosinophils % % Basophils % % Neutrophils # (1.6-8.9) K/mcL Lymphocytes # (0.6-4.6) K/mcL Monocytes # (0.0-1.3) K/mcL Eosinophils # (0.0-0.6) K/mcL Basophils # (0.0-0.2) K/mcL PT (9.4-12.1) Seconds INR APTT (26.0-36.0) Seconds Sodium (136-145) mEq/L Potassium (3.5-4.5) mEq/L Chloride (98-109) mEq/L Carbon Dioxide (19-29) mEq/L BUN (8-26) mg/dL Creatinine (0.72-1.25) mg/dL Est GFR ( Amer) (> 60) Est GFR (Non-Af Amer) (> 60) BUN/Creatinine Ratio (6-26) Glucose (70-99) mg/dL Calculated Osmolality (280-300) Lactic Acid (0.5-2.2) mmol/L Calcium (8.6-10.8) mg/dL Total Bilirubin (0.2-1.2) mg/dL Direct Bilirubin (0.0-0.5) mg/dL Indirect Bilirubin (0.0-1.2) mg/dL AST (5-34) Units/L ALT (0-55) Units/L Alkaline Phosphatase (38-126) Units/L Troponin I (0-0.03) ng/mL Serum Total Protein (6.0-8.3) g/dL Albumin (3.5-5.0) g/dL Globulin (2.4-3.5) g/dL Albumin/Globulin Ratio (1.1-2.2) Amylase (25-125) Units/L Lipase (8-78) Units/L Urine Color Red A (Yellow) Urine Clarity Cloudy A (Clear) Urine pH 6.0 (5.0-8.0) pH Units Ur Specific [place] 1.014 (1.010-1.025) Urine Protein 100 H (Neg-Trace) mg/dL Urine Glucose (UA) Normal (Normal) mg/dL Urine Ketones Negative (Negative) mg/dL Urine Blood Large H (Negative) Urine Nitrite Negative (Negative) Urine Bilirubin Negative (Negative) Urine Urobilinogen Normal (Normal) mg/dL Ur Leukocyte Esterase Trace H (Negative) Urine Microscopic RBC TNTC H (0-3) per hpf Urine Microscopic WBC 3-5 H (0-3) per hpf Ur Squamous Epith Cells None Seen (None-Few) per lpf Urine Bacteria None Seen (None-Few) per hpf Hyaline Casts None Seen (None-Few) per lpf Ur Culture Indicated? YES A (NO) Blood Type Antibody Screen Crossmatch - Diagnostic Studies CT scan - chest Additional comments: Abdomen/Pelvis CT 10/22/16 15:48 IMPRESSION: 1. Anasarca with diffuse body wall edema, moderate bilateral pleural effusions, and small to moderate volume of ascites. 2. Mild cardiomegaly and coronary artery atherosclerotic vascular disease. 3. Bibasilar consolidations compatible with atelectasis versus pneumonia. 4. Colonic diverticulosis. 5. Bilateral renal atrophy. D/ / Richie Funk MD / Richie Funk MD Interpreting Provider: Richie Funk MD Chest CT 10/22/16 16:57 IMPRESSION: 1. Anasarca with diffuse body wall edema, moderate bilateral pleural effusions, and small to moderate volume of ascites. 2. Mild cardiomegaly and coronary artery atherosclerotic vascular disease. 3. Bibasilar consolidations compatible with atelectasis versus pneumonia. 4. Colonic diverticulosis. 5. Bilateral renal atrophy. D/ / Richie Funk MD / Richie Fnuk MD Interpreting Provider: Richie Funk MD
[2016-10-22] MEDS ORDERED: Dextrose Gel 15 GM PO PRN ×2 (22:17)
[2016-10-22] MEDS ORDERED: D5% in Water 1,000 ML IVC PRN (22:17)
[2016-10-22] MEDS ORDERED: *HR* Dextrose 50 % in Water (Syg) 50 ML SYRINGE IVP PRN (22:17)
[2016-10-22] MEDS: Pregabalin 50 MG CAPSULE PO SCH (22:34)
[2016-10-22] MEDS: hydrALAZINE 25 MG TABLET PO SCH (22:34)
[2016-10-22] MEDS: Pantoprazole 40 MG in 0.9 % Sodium Chloride Mini Bag 100 ML IVC SCH (22:35)
[2016-10-22] MEDS: metroNIDAZOLE 500 MG TABLET PO SCH (22:35)
[2016-10-22] MEDS: Furosemide 40 MG/4 ML VIAL IVP SCH (22:36)
[2016-10-22] MEDS ORDERED: 0.9 % Sodium Chloride 250 ML ONE (22:43)
[2016-10-22] MEDS: Insulin LISPRO 300 UNITS/3 ML VIAL SQ SCH (23:00)
[2016-10-23] MEDS: Pantoprazole 40 MG in 0.9 % Sodium Chloride Mini Bag 100 ML IVC SCH ×3 (03:53→15:12)
[2016-10-23] MEDS: Insulin LISPRO 300 UNITS/3 ML VIAL SQ SCH ×4 (06:25→20:51)
[2016-10-23 08:36] LABS: Mean Platelet Volume 11.4 fL (9.4-12.4); Platelet Count 125 K/mcL (140-400)
[2016-10-23 08:37] LABS: Hematocrit 26.7 % (37.5-50.1); Hemoglobin 8.6 g/dL (12.9-16.9); Mean Corpuscular HGB Conc 32.2 g/dL (31.6-35.5); Mean Corpuscular Hemoglobin 27.6 pg (28.0-33.3); Mean Corpuscular Volume 85.6 fL (83.0-100.0); Red Blood Count 3.12 M/mcL (4.19-5.50); Red Cell Distribution Width 18.1 % (11.5-14.5)
[2016-10-23 08:48] LABS: Calcium 8.7 mg/dL (8.6-10.8); Potassium 5.3 mEq/L (3.5-4.5)
[2016-10-23 09:00] LABS: Lymphocytes # 0.5 K/mcL (0.6-4.6); Monocytes # 0.1 K/mcL (0.0-1.3); Neutrophils # 1.2 K/mcL (1.6-8.9); Platelet Estimate Slight Decrease (Normal)
[2016-10-23] MEDS ORDERED: Spironolactone 25 MG TABLET PO SCH (09:00)
[2016-10-23 09:01] LABS: Anisocytosis 1+ (Not Present); Burr Cells 1+ (Not Present)
[2016-10-23] MEDS: Furosemide 40 MG/4 ML VIAL IVP SCH (09:41)
[2016-10-23] MEDS: metroNIDAZOLE 500 MG TABLET PO SCH ×3 (09:42→20:47)
[2016-10-23] MEDS: Pregabalin 50 MG CAPSULE PO SCH ×3 (09:42→20:47)
[2016-10-23] MEDS: Magnesium Oxide 400 MG TABLET PO SCH (09:42)
[2016-10-23] MEDS: hydrALAZINE 25 MG TABLET PO SCH ×3 (09:42→20:47)
--- NOTE | 2016-10-23 15:18 | Internal Med Progress Note ---
Date of Encounter: 10/23/16 Time of Encounter: 07:30 - Assessment and plan (1) Pancytopenia Current Visit: No Status: Chronic Assessment and plan: WBC much lower today. H/H at baseline it appears. Will recheck tomorrow. No active bleeding noted at this time. (2) COPD (chronic obstructive pulmonary disease) Current Visit: No Status: Chronic Assessment and plan: Continue chronic medications. Not in exacerbation. Qualifiers: COPD type: chronic bronchitis Chronic bronchitis type: simple Qualified Code(s): J41.0 - Simple chronic bronchitis (3) Diabetes Current Visit: No Status: Chronic Assessment and plan: Monitoring blood sugars and covering with insulin. 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 No transfusion at this time. Qualifiers: Anemia type: iron deficiency Iron deficiency anemia type: chronic blood loss Qualified Code(s): D50.0 - Iron deficiency anemia secondary to blood loss (chronic) (6) Atrial thrombus Current Visit: No Status: Chronic Assessment and plan: No anticoagulation due to GI bleed. - Subjective Interval history: Mr. Anaya is currently admitted for anemia associated with recent acute GI bleed. He remains moderate to high risk due to potential for worsening clinical status. Mr. Anaya is feeling OK. Denies pain. No fever or chills. No new bleeding noted. No CP or SOB. He denies abdominal pain though has some pain associated with decubitus on sacrum area. - Constitutional Vitals: Temp Pulse Resp BP Pulse Ox 97.7 F 60 16 120/64 96 10/23/16 12:19 10/23/16 12:19 10/23/16 12:19 10/23/16 12:19 10/23/16 12:19 General appearance: Present: A&O X 3, pleasant - Head Head exam: Present: normocephalic - Eye Eye exam: Present: EOMI, conjuntiva pink - ENT ENT exam: Present: mucous membranes dry - Respiratory Respiratory exam: Present: decreased breath sounds, CTAB. Absent: rales, rhonchi, wheezes - Cardiovascular Cardiovascular exam: Present: irregular rhythm. Absent: tachycardia - GI/Abdominal GI/Abdominal exam: Present: soft. Absent: mass, tenderness - Extremities Exam Extremities exam: Present: warm. Absent: pedal edema, tenderness - Neurological Exam Neurological exam: Present: alert, no focal deficits - Skin Skin exam: Present: dry, warm. Absent: rash Additional comments: L coccyx: Stage 2 pressure ulcer 1x1.5 cm R coccyx: Stage 2 pressure ulcer 2x2cm L posterior thigh - excoriation and 2 approx 0.5cm round open areas All of these were present on admission Internal Medicine: Result - Labs CBC & Chem 7: 10/23/16 08:20 10/23/16 08:20 Labs: Short CBC 10/23/16 Range/Units 08:20 WBC 1.8 L (4.3-11.1) K/mcL Hgb 8.6 L (12.9-16.9) g/dL Hct 26.7 L (37.5-50.1) % Plt Count 125 L (140-400) K/mcL Neutrophils # 1.2 L (1.6-8.9) K/mcL BMP 10/23/16 08:20 Sodium 133 L Potassium 5.3 H Chloride 105 Carbon Dioxide 18 L BUN 79 H Creatinine 3.22 H Glucose 79 Calcium 8.7 - ABG Interpretation ABG results: PT/INR, D-dimer PT 12.8 Seconds (9.4-12.1) H 10/22/16 17:29 Consult Discharge Plan - Plan Referrals: Sunil Duong DO [Primary Care Provider] -
[2016-10-24 07:09] LABS: Hematocrit 27.2 % (37.5-50.1); Hemoglobin 8.7 g/dL (12.9-16.9); Mean Corpuscular Hemoglobin 27.3 pg (28.0-33.3); Mean Corpuscular Volume 85.3 fL (83.0-100.0); Mean Platelet Volume 10.7 fL (9.4-12.4); Platelet Count 135 K/mcL (140-400); Red Blood Count 3.19 M/mcL (4.19-5.50); Red Cell Distribution Width 17.8 % (11.5-14.5)
[2016-10-24] MEDS: Insulin LISPRO 300 UNITS/3 ML VIAL SQ SCH ×4 (07:33→20:40)
[2016-10-24] MEDS: Furosemide 40 MG/4 ML VIAL IVP SCH (07:39)
[2016-10-24] MEDS: metroNIDAZOLE 500 MG TABLET PO SCH ×3 (07:39→20:26)
[2016-10-24] MEDS: Pregabalin 50 MG CAPSULE PO SCH ×3 (07:39→20:26)
[2016-10-24] MEDS: Magnesium Oxide 400 MG TABLET PO SCH (07:39)
[2016-10-24] MEDS: hydrALAZINE 25 MG TABLET PO SCH ×3 (07:40→20:30)
[2016-10-24 07:53] LABS: Albumin 2.6 g/dL (3.5-5.0); Albumin/Globulin Ratio 0.7 (1.1-2.2); Bilirubin,Total 0.6 mg/dL (0.2-1.2); Calcium 8.6 mg/dL (8.6-10.8); Globulin 3.6 g/dL (2.4-3.5); Magnesium 1.4 mg/dL (1.6-2.6); Potassium 5.6 mEq/L (3.5-4.5); Total Protein 6.2 g/dL (6.0-8.3)
[2016-10-24] MEDS ORDERED: Magnesium Sulfate 2 GM in D5% in Water 100 ML IVPB ONE (08:27)
--- NOTE | 2016-10-24 14:02 | Internal Med Progress Note ---
Date of Encounter: 10/24/16 Time of Encounter: 08:00 - Assessment and plan (1) Pancytopenia Current Visit: No Status: Chronic Assessment and plan: Little better today. Recheck tomorrow. (2) COPD (chronic obstructive pulmonary disease) Current Visit: No Status: Chronic Assessment and plan: Continue chronic medications. Not in exacerbation. Qualifiers: COPD type: chronic bronchitis Chronic bronchitis type: simple Qualified Code(s): J41.0 - Simple chronic bronchitis (3) Diabetes Current Visit: No Status: Chronic Assessment and plan: Monitoring blood sugars and covering with insulin. Had hypoglycemia today so will adjust insulin for tonight. 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 No transfusion at this time. Qualifiers: Anemia type: iron deficiency Iron deficiency anemia type: chronic blood loss Qualified Code(s): D50.0 - Iron deficiency anemia secondary to blood loss (chronic) (6) Atrial thrombus Current Visit: No Status: Chronic Assessment and plan: No anticoagulation due to GI bleed. No new symptoms currently. - Subjective Interval history: Mr. Anaya is currently admitted for anemia associated with recent acute GI bleed. He remains moderate to high risk due to potential for worsening clinical status. Mr. Anaya was hypoglycemic this AM and was not as alert as before. Given glucose and waking some. Says he is hungry. No fever or chills. No further bleeding noted at this time. H/H monitoring - seems stable. Denies CP or SOB. No abd pain. - Constitutional Vitals: Temp Pulse Resp BP Pulse Ox 97.3 F L 64 15 126/87 98 10/24/16 11:34 10/24/16 11:34 10/24/16 11:34 10/24/16 11:34 10/24/16 11:34 General appearance: Present: A&O X 3, pleasant - Head Head exam: Present: normocephalic - Eye Eye exam: Present: EOMI, conjuntiva pink - ENT ENT exam: Present: mucous membranes dry - Respiratory Respiratory exam: Present: decreased breath sounds, rhonchi. Absent: rales, wheezes - Cardiovascular Cardiovascular exam: Present: irregular rhythm. Absent: tachycardia - GI/Abdominal GI/Abdominal exam: Present: soft. Absent: tenderness - Extremities Exam Extremities exam: Present: warm. Absent: tenderness - Neurological Exam Neurological exam: Present: alert - Skin Skin exam: Present: dry, warm. Absent: rash Internal Medicine: Result - Labs CBC & Chem 7: 10/24/16 06:43 10/24/16 06:43 Labs: Short CBC 10/24/16 Range/Units 06:43 WBC 2.6 L (4.3-11.1) K/mcL Hgb 8.7 L (12.9-16.9) g/dL Hct 27.2 L (37.5-50.1) % Plt Count 135 L (140-400) K/mcL BMP 10/24/16 06:43 Sodium 131 L Potassium 5.6 H Chloride 105 Carbon Dioxide 18 L BUN 84 H Creatinine 3.46 H Glucose 43 L Calcium 8.6 Liver Function 10/24/16 Range/Units 06:43 Total Bilirubin 0.6 (0.2-1.2) mg/dL AST 19 (5-34) Units/L ALT 15 (0-55) Units/L Alkaline Phosphatase 61 (38-126) Units/L Albumin 2.6 L (3.5-5.0) g/dL - ABG Interpretation ABG results: PT/INR, D-dimer PT 12.8 Seconds (9.4-12.1) H 10/22/16 17:29 Consult Discharge Plan - Plan Referrals: Sunil Duong DO [Primary Care Provider] - (patient ECF)
[2016-10-25 04:38] LABS: Hematocrit 25.1 % (37.5-50.1); Hemoglobin 8.4 g/dL (12.9-16.9); Mean Corpuscular HGB Conc 33.5 g/dL (31.6-35.5); Mean Corpuscular Hemoglobin 28.3 pg (28.0-33.3); Mean Corpuscular Volume 84.5 fL (83.0-100.0); Mean Platelet Volume 10.3 fL (9.4-12.4); Platelet Count 115 K/mcL (140-400); Red Blood Count 2.97 M/mcL (4.19-5.50)
[2016-10-25 04:53] LABS: Calcium 8.8 mg/dL (8.6-10.8); Potassium 5.4 mEq/L (3.5-4.5)
[2016-10-25 07:41] VITALS: BP 152/95
--- NOTE | 2016-10-25 08:31 | Discharge Summary ---
<Sunil Duong - Last Filed: 10/25/16 09:23> Date of Encounter: 10/25/16 Time of Encounter: 08:29 - Discharge Diagnosis (1) Pancytopenia Priority: Primary Status: Chronic (2) Atrial fibrillation Priority: Secondary Status: Chronic Qualifiers: Atrial fibrillation type: paroxysmal Qualified Code(s): I48.0 - Paroxysmal atrial fibrillation (3) Atrial thrombus Priority: Secondary Status: Chronic (4) Diabetes mellitus Priority: Secondary Status: Chronic Qualifiers: Diabetes mellitus type: type 2 Diabetes mellitus complication status: with kidney complications Diabetes mellitus complication detail: with chronic kidney disease 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 Chronic kidney disease stage: stage 4 (severe) Qualified Code(s): E11.22 - Type 2 diabetes mellitus with diabetic chronic kidney disease; N18.4 - Chronic kidney disease, stage 4 (severe); Z79.4 - senior living (current) use of insulin (5) Anemia Priority: Primary Status: Chronic Qualifiers: Anemia type: iron deficiency Iron deficiency anemia type: chronic blood loss Qualified Code(s): D50.0 - Iron deficiency anemia secondary to blood loss (chronic) (6) COPD (chronic obstructive pulmonary disease) Priority: Secondary Status: Chronic Qualifiers: COPD type: chronic bronchitis Chronic bronchitis type: simple Qualified Code(s): J41.0 - Simple chronic bronchitis - Discharge Medications Home Medications: Atorvastatin [Lipitor] 40 mg PO HS 02/21/15 [History] Calcium Carbonate/Vitamin D2 [Oyster Shell Calcium-Vit D Tab] 1 tab PO BID 02/21 [History] Carvedilol [Coreg] 6.25 mg PO HS 02/21/15 [History] hydrALAZINE [HydrALAZINE] 50 mg PO TID 02/21/15 [History] Nitroglycerin 0.4 mg SL Q5MIN PRN #60 tab.subl 02/25/15 [Rx] Carvedilol 12.5 mg PO QAM 04/14/15 [History] Aspirin 81 mg PO DAILY #30 tab.chew 04/18/15 [Rx] Ferrous Sulfate 325 mg PO BIDWM #60 tablet 04/29/15 [Rx] Albuterol Sulfate [Proair Hfa] 2 puff IH Q4H PRN 09/16/16 [History] Ascorbate Calcium [Vitamin C] 500 mg PO DAILY 09/16/16 [History] Benzonatate [Tessalon] 100 mg PO TID PRN 09/16/16 [History] Calcitriol [Rocaltrol] 0.25 mcg PO DAILY 09/16/16 [History] Doxazosin Mesylate [Cardura] 8 mg PO DAILY 09/16/16 [History] Ergocalciferol (VITAMIN D2) [Vitamin D2] 50,000 unit PO QMONTH 09/16/16 [History ] Escitalopram [Lexapro] 10 mg PO DAILY 09/16/16 [History] Ondansetron HCl [Zofran] 4 mg PO TID PRN 09/16/16 [History] Pregabalin [Lyrica] 50 mg PO TID 09/16/16 [History] Sildenafil Citrate [Revatio] 20 mg PO TID 09/16/16 [History] Cyclobenzaprine HCl 5 mg PO BID PRN #0 10/04/16 [Rx] Magnesium Oxide [Mag-Ox] 400 mg PO DAILY tab 10/04/16 [Rx] HYDROcodone/Acet 5/325 mg [[place] 5-325 mg] 1 tab PO Q6H PRN #6 10/15/16 [Rx] Dicyclomine [Bentyl] 20 mg PO QID 10/22/16 [History] Omeprazole [PriLOSEC] 20 mg PO DAILY 10/22/16 [History] Sertraline [Zoloft] 25 mg PO DAILY 10/22/16 [History] Sulfamethoxazole/Trimeth DS [Bactrim Ds] 1 each PO BID 10/22/16 [History] guaiFENesin [Guaifenesin] 200 mg PO Q4H PRN 10/22/16 [History] metroNIDAZOLE [Flagyl] 500 mg PO TID 10/22/16 [History] Furosemide [Lasix] 60 mg PO BID #0 10/25/16 [Rx] Allergies/Adverse Reactions: 3 Allergy/AdvReac Type Severity Reaction Status Date / Time No Known Allergies Allergy Verified 10/07/16 21:40 Date of admission: 10/22/16 22:39 Primary care physician: Sunil Duong, Discharging clinician: Sunil Duong Anticipated date of discharge: 10/25/16 - Patient Status Disposition: Transfer SNF Condition: Fair Functional capacity at discharge: bed bound Overall status at discharge: patient is progressing back to baseline - Discharge Instructions Follow Up With: Sunil Duong DO [Primary Care Provider] - (patient ECF) Additional Instructions: Please follow up with your PCP as scheduled. Please increase your lasix dose to 60mg twice a day. Please discontinue spirinolactone. Please return for any new or worsening symptoms. - Diet and Activity Activity: increase activity as tolerated Diet: advance to your usual diet Interval History: Patient seen and examined at bedside. Patient states that he feels okay today. He has no specific complaints. He denies chest pain, shortness of breath, no abdominal pain, nausea, vomiting. States that he has some difficulty speaking which has been an intermittent issue for him over the last several months. Hospital course: Mr. Anaya is a 76 year old male with history of A. fib, left atrial thrombus, GI bleed presented with anemia. Patient had labs drawn as an outpatient which revealed a hemoglobin of 7.7 which was down from 8.6 at the time of last discharge. Patient did have some mild hematuria likely related to irritation setting of Valero catheter and no other active source of bleeding was found. Patient did receive 1 unit of blood and his hemoglobin recovered appropriately and remained stable throughout his hospitalization. Patient was noted to have some diffuse edema and we will increase his Lasix dose on discharge. Patient will be discharged back to ECF in stable condition. - Time Spent with Patient Total time spent providing and/or coordinating discharge services: - Constitutional Vitals: Temp Pulse Resp BP Pulse Ox 97.9 F 92 17 152/95 96 10/25/16 07:32 10/25/16 07:32 10/25/16 07:32 10/25/16 07:32 10/25/16 07:32 General appearance: Present: A&O X 3, pleasant, no acute distress - Respiratory Respiratory exam: Present: decreased breath sounds. Absent: rales, rhonchi, wheezes - Cardiovascular Cardiovascular exam: Present: irregular rhythm. Absent: gallop, rubs, systolic murmur - GI/Abdominal GI/Abdominal exam: Present: distended (mild), normal bowel sounds, soft. Absent : tenderness - Extremities Exam Extremities exam: Present: pedal edema (2+ UE and LE bilaterally), warm. Absent : tenderness - Neurological Exam Neurological exam: Present: alert, oriented X3, no focal deficits <Pradeep De Leon Dora - Last Filed: 10/25/16 12:48> Date of Encounter: 10/25/16 - Discharge Diagnosis (1) Pancytopenia Status: Chronic (2) COPD (chronic obstructive pulmonary disease) Status: Chronic Qualifiers: COPD type: chronic bronchitis Chronic bronchitis type: simple Qualified Code(s): J41.0 - Simple chronic bronchitis (3) Diabetes Priority: Secondary Status: Chronic Qualifiers: Diabetes mellitus type: type 2 Diabetes mellitus complication status: with kidney complications Diabetes mellitus complication detail: with chronic kidney disease 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 Chronic kidney disease stage: stage 3 (moderate) Qualified Code(s): E11.22 - Type 2 diabetes mellitus with diabetic chronic kidney disease; N18.3 - Chronic kidney disease, stage 3 (moderate); Z79.4 - senior living (current) use of insulin (4) Atrial fibrillation Status: Chronic Qualifiers: Atrial fibrillation type: paroxysmal Qualified Code(s): I48.0 - Paroxysmal atrial fibrillation (5) Anemia Status: Chronic Qualifiers: Anemia type: iron deficiency Iron deficiency anemia type: chronic blood loss Qualified Code(s): D50.0 - Iron deficiency anemia secondary to blood loss (chronic) (6) Atrial thrombus Status: Chronic Date of admission: 10/22/16 22:39 Primary care physician: Sunil Duong, Consults: 10/25/16 08:37 Consult to Health Information Clerk [CONS] Routine Reason for SW Consult: Resident at [facility], return today Hospital course: Mr. Anaya is a 76 year old male - Time Spent with Patient Total time spent providing and/or coordinating discharge services: 38min - Constitutional Vitals: Temp Pulse Resp BP Pulse Ox 97.9 F 92 17 152/95 96 10/25/16 07:32 10/25/16 07:32 10/25/16 07:32 10/25/16 07:32 10/25/16 08:01 - Attending Attestation I examined this patient and my medical decision-making was reviewed with the Resident Physician on 10/25/16. I agree with the documented findings, disposition and treatment plan as described except to the extent set forth below. Mr. Anaya has been admitted for anemia. He has prior hx of GI bleed as well as atrial appendage thrombus. His H/H has been stable and he has not needed transfused. No fever or chills. Exam Alert. Comfortable Heart irreg No wheeze Abd soft Plan D/C to SNF today.
[2016-10-25] MEDS ORDERED: GuaiFENesin Liq 200 MG/10 ML UDC PO PRN (08:49)
--- NOTE | 2016-10-25 08:52 | Physician Discharge Referral ---
ExtendedCare Referral Info Transfer To: [facility] and Care Provider in Charge after Transfer: PCP Institutional Level of Care: Skilled - Diagnosis (1) Pancytopenia Priority: Primary Status: Chronic (2) Atrial fibrillation Priority: Secondary Status: Chronic (3) Atrial thrombus Priority: Secondary Status: Chronic (4) Diabetes mellitus Priority: Secondary Status: Chronic (5) Anemia Priority: Primary Status: Chronic (6) COPD (chronic obstructive pulmonary disease) Priority: Secondary Status: Chronic Prognosis: Fair Aware of Diagnosis: Patient, Family Aware of Prognosis: Patient, Family - Transfer Medications Home Medications: Atorvastatin [Lipitor] 40 mg PO HS 02/21/15 [History] Calcium Carbonate/Vitamin D2 [Oyster Shell Calcium-Vit D Tab] 1 tab PO BID 02/21 [History] Carvedilol [Coreg] 6.25 mg PO HS 02/21/15 [History] hydrALAZINE [HydrALAZINE] 50 mg PO TID 02/21/15 [History] Nitroglycerin 0.4 mg SL Q5MIN PRN #60 tab.subl 02/25/15 [Rx] Carvedilol 12.5 mg PO QAM 04/14/15 [History] Aspirin 81 mg PO DAILY #30 tab.chew 04/18/15 [Rx] Ferrous Sulfate 325 mg PO BIDWM #60 tablet 04/29/15 [Rx] Albuterol Sulfate [Proair Hfa] 2 puff IH Q4H PRN 09/16/16 [History] Ascorbate Calcium [Vitamin C] 500 mg PO DAILY 09/16/16 [History] Benzonatate [Tessalon] 100 mg PO TID PRN 09/16/16 [History] Calcitriol [Rocaltrol] 0.25 mcg PO DAILY 09/16/16 [History] Doxazosin Mesylate [Cardura] 8 mg PO DAILY 09/16/16 [History] Ergocalciferol (VITAMIN D2) [Vitamin D2] 50,000 unit PO QMONTH 09/16/16 [History ] Escitalopram [Lexapro] 10 mg PO DAILY 09/16/16 [History] Ondansetron HCl [Zofran] 4 mg PO TID PRN 09/16/16 [History] Pregabalin [Lyrica] 50 mg PO TID 09/16/16 [History] Sildenafil Citrate [Revatio] 20 mg PO TID 09/16/16 [History] Cyclobenzaprine HCl 5 mg PO BID PRN #0 10/04/16 [Rx] Magnesium Oxide [Mag-Ox] 400 mg PO DAILY tab 10/04/16 [Rx] HYDROcodone/Acet 5/325 mg [[place] 5-325 mg] 1 tab PO Q6H PRN #6 10/15/16 [Rx] Dicyclomine [Bentyl] 20 mg PO QID 10/22/16 [History] Omeprazole [PriLOSEC] 20 mg PO DAILY 10/22/16 [History] Sertraline [Zoloft] 25 mg PO DAILY 10/22/16 [History] Sulfamethoxazole/Trimeth DS [Bactrim Ds] 1 each PO BID 10/22/16 [History] guaiFENesin [Guaifenesin] 200 mg PO Q4H PRN 10/22/16 [History] metroNIDAZOLE [Flagyl] 500 mg PO TID 10/22/16 [History] Furosemide [Lasix] 60 mg PO BID #0 10/25/16 [Rx] Allergies/Adverse Reactions: 3 Allergy/AdvReac Type Severity Reaction Status Date / Time No Known Allergies Allergy Verified 10/07/16 21:40 - Respiratory Orders None Smoking Cessation: Smoking cessation has been advised. For more information, call the [place] Tobacco Quit Line at 7-180-EOEG-NOW. - Ancillary Orders May use pressure relief devices daily prn - Advance Directives Living Will: Yes Power of Hemodialysis Rn: Yes Code Status: Full Code - Mobility Orders Ambulate (with assist) - Rehabiliation Orders Rehab Potential: Fair Rehab Orders: Evaluation for Physical Therapy, Evaluation for Occupational Therapy, Evaluation for Speech Therapy - Treatments Skin tear care topically daily PRN per policy, May check for fecal impaction rectally daily PRN - Diet Orders Mechanical Soft, Renal, Cardiac CERTIFICATION: I certify that the transfer of the above named patient to an Extended Care Facility is necessary for the continuing treatment of the diagnosis listed. The above information is true and accurate reflection of patient's current condition. Confidential - Redisclosure prohibited without a patient's written consent.
[2016-10-25] MEDS: hydrALAZINE 25 MG TABLET PO SCH (09:30)
[2016-10-25] MEDS: metroNIDAZOLE 500 MG TABLET PO SCH (09:30)
[2016-10-25] MEDS: Pregabalin 50 MG CAPSULE PO SCH (09:30)
[2016-10-25] MEDS: Furosemide 40 MG/4 ML VIAL IVP SCH (09:30)
[2016-10-25] MEDS: Magnesium Oxide 400 MG TABLET PO SCH (09:30)
[2016-10-25] MEDS: Insulin LISPRO 300 UNITS/3 ML VIAL SQ SCH (09:50)
--- NOTE | 2016-10-28 05:59 | Electrocardiograph Report ---
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
== END 2016-10-25 10:54 | DRG 809 ==
LOC: EMEROO 15:43 → 2ANU 15:43
PROVIDERS: ADMIT Nurse Practitioner Family; ATTEND Internal Medicine